=== PATIENT | male | born 1945 | race Caucasian/White ===

== ENCOUNTER 2018-09-16 22:23 | Emergency (ER) | payer MEDICARE, OTHER ==
[2018-09-16 22:46] VITALS: RESP 18; TEMP 97.8
[2018-09-16] MEDS ORDERED: DIPH,PERTUS(ACELL)TETVAC-LF 0.5 ML VIAL IM ONE (22:48)
[2018-09-16] MEDS ORDERED: LIDOCAINE 1% INJ 10MG/ML (20 ML MDV) SQ ONE (22:50)
[2018-09-16] MEDS ORDERED: AMOXIC-POT CLAV 875MG STARTER 2 EACH TABLET PO STA (22:57)
--- NOTE | 2018-09-16 23:06 | XR ---
EXAMINATION TYPE: XR forearm LT DATE OF EXAM: 09/16/2018 COMPARISON: NONE HISTORY: Pain TECHNIQUE: 2 views FINDINGS: There is soft tissue deformity of the mid forearm consistent with posterior laceration. I s ee no fracture nor dislocation. Carpal bones appear intact. Elbow joint is intact. IMPRESSION: No fracture. Laceration deformity.
[2018-09-16 23:48] VITALS: BP 138/81; PULSE 96
--- NOTE | 2018-09-16 23:49 | ED ---
Animal Bite HPI - General Source: patient Mode of arrival: ambulatory Limitations: no limitations <Maria De Jesus Camejo - Last Filed: 09/16/18 23:50> <Shiloh Preston - Last Filed: 09/17/18 00:44> - General Chief Complaint: Animal Bite Stated Complaint: Dog bite Time Seen by Provider: 09/16/18 22:47 - History of Present Illness Initial Comments: 73-year-old male past medical history of hypertension presenting today for chief complaint of left upper extremity dog bite. Patient states about an hour prior to presentation his dog had brought in a rabbit from outside, he states he went to take the rabbit and was bitten the left arm. She states his dog as a hunting dog and often times she'll suspect progression with food. He states this dog is fully vaccinated including rabies. He denies any abnormal behavior. Patient denies any limitations in range of motion of the left upper extremity or distal to the injury. Patient denies any numbness, tingling or loss sensation. Remainder was negative, patient denies any other areas of injury. Patient denies any recent fever, chills, shortness of breath, chest pain , back pain, abdominal pain, nausea or vomiting, numbness or tingling, dysuria or hematuria, constipation or diarrhea, headaches or visual changes, or any other complaints. Upon arrival patient is well-appearing. Patient is unsure of his last tetanus vaccination. (Maria De Jesus Camejo) - Related Data Previous Rx's Medication Instructions Recorded Amoxic-Pot Clav 875-125Mg 1 tab PO Q12HR 7 Days #14 tablet 09/16/18 [Augmentin 875-125] Allergies Allergy/AdvReac Type Severity Reaction Status Date / Time No Known Allergies Allergy Verified 09/16/18 22:46 Review of Systems ROS Other: All systems not noted in ROS Statement are negative. <Maria De Jesus Camejo - Last Filed: 09/16/18 23:50> ROS Other: All systems not noted in ROS Statement are negative. <Shiloh Preston - Last Filed: 09/17/18 00:44> ROS Statement: Those systems with pertinent positive or pertinent negative responses have been documented in the HPI. Past Medical History Past Medical History: Hyperlipidemia, Hypertension History of Any Multi-Drug Resistant Organisms: None Reported Past Surgical History: No Surgical Hx Reported Past Psychological History: No Psychological Hx Reported Smoking Status: Never smoker Past Alcohol Use History: Daily Past Drug Use History: None Reported <Adore Camejohallie Farmer - Last Filed: 09/16/18 23:50> General Exam Limitations: no limitations <Maria De Jesus Camejo - Last Filed: 09/16/18 23:50> <Shiloh Preston P - Last Filed: 09/17/18 00:44> - General Exam Comments Initial Comments: General: The patient is awake and alert, in no distress, and does not appear acutely ill. Eye: Pupils are equal, round and reactive to light, extra-ocular movements are intact. No nystagmus. There is normal conjunctiva bilaterally. No signs of icterus. Ears, nose, mouth and throat: There are moist mucous membranes and no oral lesions. Cardiovascular: There is a regular rate and rhythm. No murmur, rub or gallop is appreciated. Respiratory: Lungs are clear to auscultation, respirations are non-labored, breath sounds are equal. No wheezes, stridor, rales, or rhonchi. Musculoskeletal: Normal ROM at the elbow, wrist and digits of the left hand equal comparison to the right, no tenderness. Strength 5/5. Sensation intact. Radial pulses equal bilaterally 2+ Capillary refill < 2 seconds. She is able to make the okay fingers crossed thumbs up and extend at the wrist bilaterally, ulnar median and radial nerve appear intact. Neurological: A&O x 3. CN II-XII intact, There are no obvious motor or sensory deficits. Coordination appears grossly intact. Speech is normal. Skin: Skin is warm and dry and no rashes or lesions are noted. Large U-shaped laceration with exposure of muscle sheath of the left dorsal forearm, this is approximately 5 cm in length. In exposure of tendons, in penetration of tendon sheath. Psychiatric: Cooperative, appropriate mood & affect, normal judgment. (Maria De Jesus Camejo) Vital Signs 09/16/18 09/16/18 22:42 23:48 Temperature 97.8 F Pulse Rate 108 H 96 Respiratory 18 18 Rate Blood Pressure 178/74 138/81 O2 Sat by Pulse 94 L 94 L Oximetry Procedures - Laceration Laceration #1 Consent Obtained: verbal consent Indication: laceration Site: upper extremity (left forearm) Size (cm): 5 Description: linear Anesthetic Used: lidocaine 1% Anesthesia Technique: local infiltration Amount (mls): 5 Pre-repair: wound explored, irrigated extensively, deep structures intact Type of Sutures: nylon Size of Sutures: 4-0 Number of Sutures: 5 (Loosely approximated given dog bite) Technique: simple, interrupted Patient Tolerated Procedure: well, no complications <Maria De Jesus Camejo - Last Filed: 09/16/18 23:50> <Shiloh Preston - Last Filed: 09/17/18 00:44> - Laceration Laceration #1 Additional Comments: 73-year-old male past medical history of hypertension presenting for dog bite. Dog vaccinated. Patient denies any abnormal behaviors. Patient neurovascularly intact. Given the depth and size of laceration wound edges were loosely approximated. 5 4. 0 nylon sutures. Prior to approximation the wound was extensively irrigated. Bacitracin and bandage applied. Patient given initial dose of Augmentin. Patient tetanus updated. Patient will be prescribed Augmentin twice a day 7 days. Patient is agreeable with plan discharge. Return parameters were discussed at length as well as the signs and symptoms of infection. Patient discharged in stable condition appearing well. Denied questions at the site. Discussed case with attending provider. (Maria De Jesus Camejo) Medical Decision Making <Maria De Jesus Camejo - Last Filed: 09/16/18 23:50> <Shiloh Preston - Last Filed: 09/17/18 00:44> - Medical Decision Making I was available for consultation in the emergency department. The history and physical exam were done by the midlevel provider. I was consulted for this patient's care. I reviewed the case with the midlevel provider and based on their presentation of the patient, I agree with the assessment, medical decision making and plan of care as documented. (Shiloh Preston) Disposition Is patient prescribed a controlled substance at d/c from ED?: No Time of Disposition: 23:48 <Maria De Jesus Camejo - Last Filed: 09/16/18 23:50> <Shiloh Preston - Last Filed: 09/17/18 00:44> Clinical Impression: Dog bite of left upper extremity Disposition: HOME SELF-CARE Instructions (If sedation given, give patient instructions): Animal Bite (ED) Additional Instructions: Please use medication as discussed. Please follow-up with family doctor in the next 2 days for wound check. Please return for suture removal in the next 7-10 days. Please return to emergency room if the symptoms increase or worsen or for any other concerns, including purulent drainage, increasing tenderness or warmth at site of injury. Prescriptions: Amoxic-Pot Clav 875-125Mg [Augmentin 875-125] 1 tab PO Q12HR 7 Days #14 tablet Referrals: [facility],Clinic [Primary Care Provider] - 1-2 days
== END 2018-09-17 00:07 | disposition home or self-care (01) ==
LOC: EC 22:23
DX: S51.812A Laceration without foreign body of left forearm, initial encounter (principal); Z23 Encounter for immunization; W54.0XXA Bitten by dog, initial encounter; Y93.89 Activity, other specified
CPT/HCPCS: 73090; 90715; 99283; 12002; 90471; J2001

== ENCOUNTER → 2019-09-02 | Outpatient (CLI) | payer MEDICARE ==
--- NOTE | 2019-09-02 07:29 | US ---
EXAMINATION TYPE: US duplex aorta DATE OF EXAM: 09/02/2019 COMPARISON: NONE CLINICAL HISTORY: I71.4 Abdominal aortic aneurysm. EXAM MEASUREMENTS: Abdominal Aorta: Proximal: 2.8cm Mid: 2.0cm Distal: 2.1 Bifurcation: Right: 0.8 Left: 1.1cm At least moderate atherosclerosis throughout. IMPRESSION: Atherosclerosis of the abdominal aorta without sonographic evidence of abdominal aortic a neurysm.
== END | disposition home or self-care (01) ==
LOC: RADUSWWP 06:48
PROVIDERS: ATTEND Family Medicine
DX: I70.0 Atherosclerosis of aorta (principal)
CPT/HCPCS: 93979

== ENCOUNTER 2020-01-25 09:17 | Inpatient (IN) | payer MEDICARE ==
[2020-01-25] MEDS ORDERED: SODIUM CHLORIDE 0.9% 1,000 ML IV STA (09:36)
--- NOTE | 2020-01-25 09:45 | ED ---
General Adult HPI - General Chief complaint: Shortness of Breath Stated complaint: Congestion,Fatigue Time Seen by Provider: 01/25/20 09:20 Source: patient, RN notes reviewed, old records reviewed Mode of arrival: ambulatory Limitations: no limitations - History of Present Illness Initial comments: This a 74 her old male who presents emergency Department complaining of generalized weakness starting a week ago. Patient states yesterday he was trying to some work outside and became severely fatigued and had to lay down. Patient states she's been coughing up quite a bit of junk lately but has had no fever or chills. Patient denies any chest pain or palpitations. Patient denies any abdominal pain. Patient's nausea vomiting diarrhea. Patient states he was a little bit short of breath yesterday when he was working or exerting himself. Patient states she used to be a smoker but quit about 8 years ago. patient denies headache patient denies numbness weakness. Patient denies any recent injury or trauma. Patient also states she's had intermittent headaches for the last 3 days. Patient states currently does not have a headache. - Related Data Previous Rx's Medication Instructions Recorded Amoxic-Pot Clav 875-125Mg 1 tab PO Q12HR 7 Days #14 tablet 09/16/18 [Augmentin 875-125] Allergies Allergy/AdvReac Type Severity Reaction Status Date / Time No Known Allergies Allergy Verified 01/25/20 12:04 Review of Systems ROS Statement: Those systems with pertinent positive or pertinent negative responses have been documented in the HPI. ROS Other: All systems not noted in ROS Statement are negative. Past Medical History Past Medical History: Hyperlipidemia, Hypertension History of Any Multi-Drug Resistant Organisms: None Reported Past Surgical History: No Surgical Hx Reported Past Psychological History: No Psychological Hx Reported Smoking Status: Never smoker Past Alcohol Use History: Daily Past Drug Use History: None Reported General Exam - General Exam Comments Initial Comments: GENERAL: Patient is well-developed and well-nourished. Patient is nontoxic and well- hydrated and is in mild distress. ENT: Neck is soft and supple. No significant lymphadenopathy is noted. Oropharynx is clear. Moist mucous membranes. Neck has full range of motion without eliciting any pain. EYES: The sclera were anicteric and conjunctiva were pink and moist. Extraocular movements were intact and pupils were equal round and reactive to light. Eyelids were unremarkable. PULMONARY: Unlabored respirations. Good breath sounds bilaterally. No audible rales rhonchi or wheezing was noted. CARDIOVASCULAR: There is a regular rate and rhythm without any murmurs gallops or rubs. ABDOMEN: Soft and nontender with normal bowel sounds. SKIN: Skin is clear with no lesions or rashes and otherwise unremarkable. NEUROLOGIC: Patient is alert and oriented x3. Cranial nerves II through XII are grossly intact. Motor and sensory are also intact. Normal speech, volume and content. Symmetrical smile. MUSCULOSKELETAL: Normal extremities with adequate strength and full range of motion. LYMPHATICS: No significant lymphadenopathy is noted PSYCHIATRIC: Normal psychiatric evaluation. Limitations: no limitations Course Vital Signs 01/25/20 01/25/20 01/25/20 09:19 09:22 10:22 Temperature 98.1 F Pulse Rate 113 H 104 H Respiratory 18 20 20 Rate Blood Pressure 161/78 139/70 O2 Sat by Pulse 94 L 97 Oximetry Medical Decision Making - Medical Decision Making EKG shows sinus tachycardia at 113 bpm NM interval is 162 QRS is under QT interval 332 QTC is 455. Patient's EKG shows no ST segment elevation or depression. X-ray shows bilateral patchy infiltrates. Patient started on Rocephin and Zithromax in the emergency department. I spoke with Dr. Bloom he agreed to admit the patient admitted the patient wrote admitting orders. - Lab Data Result diagrams: 01/25/20 10:44 01/25/20 09:35 Lab Results 01/25/20 01/25/20 01/25/20 Range/Units 09:35 09:35 09:35 WBC (3.8-10.6) k/uL RBC (4.30-5.90) m/uL Hgb (13.0-17.5) gm/dL Hct (39.0-53.0) % MCV (80.0-100.0) fL MCH (25.0-35.0) pg MCHC (31.0-37.0) g/dL RDW (11.5-15.5) % Plt Count (150-450) k/uL Neutrophils % % Lymphocytes % % Monocytes % % Eosinophils % % Basophils % % Neutrophils # (1.3-7.7) k/uL Lymphocytes # (1.0-4.8) k/uL Monocytes # (0-1.0) k/uL Eosinophils # (0-0.7) k/uL Basophils # (0-0.2) k/uL PT 9.9 (9.0-12.0) sec INR 1.0 (<1.2) APTT 23.4 (22.0-30.0) sec Sodium 138 (137-145) mmol/L Potassium 4.3 (3.5-5.1) mmol/L Chloride 105 (98-107) mmol/L Carbon Dioxide 19 L (22-30) mmol/L Anion Gap 14 mmol/L BUN 11 (9-20) mg/dL Creatinine 1.00 (0.66-1.25) mg/dL Est GFR (CKD-EPI)AfAm 84 (>60 ml/min/1.73 sqM) Est GFR (CKD-EPI)NonAf 73 (>60 ml/min/1.73 sqM) Glucose 118 H (74-99) mg/dL Calcium 9.3 (8.4-10.2) mg/dL Magnesium 2.3 (1.6-2.3) mg/dL Total Bilirubin 1.6 H (0.2-1.3) mg/dL AST 35 (17-59) U/L ALT 15 (4-49) U/L Alkaline Phosphatase 85 (38-126) U/L Troponin I <0.012 (0.000-0.034) ng/mL Total Protein 8.1 (6.3-8.2) g/dL Albumin 4.2 (3.5-5.0) g/dL Urine Color Urine Appearance (Clear) Urine pH (5.0-8.0) Ur Specific [place] (1.001-1.035) Urine Protein (Negative) Urine Glucose (UA) (Negative) Urine Ketones (Negative) Urine Blood (Negative) Urine Nitrite (Negative) Urine Bilirubin (Negative) Urine Urobilinogen (<2.0) mg/dL Ur Leukocyte Esterase (Negative) Urine RBC (0-5) /hpf Urine WBC (0-5) /hpf Hyaline Casts (0-2) /lpf Urine Mucus (None) /hpf 01/25/20 01/25/20 Range/Units 10:30 10:44 WBC 16.5 H (3.8-10.6) k/uL RBC 4.70 (4.30-5.90) m/uL Hgb 14.4 (13.0-17.5) gm/dL Hct 44.4 (39.0-53.0) % MCV 94.4 (80.0-100.0) fL MCH 30.7 (25.0-35.0) pg MCHC 32.5 (31.0-37.0) g/dL RDW 12.9 (11.5-15.5) % Plt Count 286 (150-450) k/uL Neutrophils % 86 % Lymphocytes % 7 % Monocytes % 5 % Eosinophils % 1 % Basophils % 0 % Neutrophils # 14.1 H (1.3-7.7) k/uL Lymphocytes # 1.2 (1.0-4.8) k/uL Monocytes # 0.8 (0-1.0) k/uL Eosinophils # 0.2 (0-0.7) k/uL Basophils # 0.0 (0-0.2) k/uL PT (9.0-12.0) sec INR (<1.2) APTT (22.0-30.0) sec Sodium (137-145) mmol/L Potassium (3.5-5.1) mmol/L Chloride (98-107) mmol/L Carbon Dioxide (22-30) mmol/L Anion Gap mmol/L BUN (9-20) mg/dL Creatinine (0.66-1.25) mg/dL Est GFR (CKD-EPI)AfAm (>60 ml/min/1.73 sqM) Est GFR (CKD-EPI)NonAf (>60 ml/min/1.73 sqM) Glucose (74-99) mg/dL Calcium (8.4-10.2) mg/dL Magnesium (1.6-2.3) mg/dL Total Bilirubin (0.2-1.3) mg/dL AST (17-59) U/L ALT (4-49) U/L Alkaline Phosphatase (38-126) U/L Troponin I (0.000-0.034) ng/mL Total Protein (6.3-8.2) g/dL Albumin (3.5-5.0) g/dL Urine Color Yellow Urine Appearance Clear (Clear) Urine pH 5.5 (5.0-8.0) Ur Specific [place] 1.007 (1.001-1.035) Urine Protein Negative (Negative) Urine Glucose (UA) Negative (Negative) Urine Ketones Negative (Negative) Urine Blood Small H (Negative) Urine Nitrite Negative (Negative) Urine Bilirubin Negative (Negative) Urine Urobilinogen <2.0 (<2.0) mg/dL Ur Leukocyte Esterase Negative (Negative) Urine RBC 2 (0-5) /hpf Urine WBC 1 (0-5) /hpf Hyaline Casts 1 (0-2) /lpf Urine Mucus Rare H (None) /hpf Disposition Clinical Impression: Pneumonia Disposition: ADMITTED IP TO THIS HOSP Referrals: Carlos Rogers MD [Primary Care Provider] - 1-2 days Time of Disposition: 12:05
[2020-01-25 10:09] LABS: Albumin 4.2 g/dL (3.5-5.0); Calcium 9.3 mg/dL (8.4-10.2); Magnesium 2.3 mg/dL (1.6-2.3); Total Bilirubin 1.6 mg/dL (0.2-1.3); Total Protein 8.1 g/dL (6.3-8.2)
--- NOTE | 2020-01-25 10:17 | XR ---
EXAMINATION TYPE: XR chest 2V DATE OF EXAM: 01/25/2020 HISTORY: Weakness. REFERENCE: NONE. FINDINGS: There are patchy, bilateral infiltrates. The heart is not enlarged. Pleural spaces are adiel r. IMPRESSION: PATCHY BILATERAL INFILTRATES.
--- NOTE | 2020-01-25 10:19 | CT ---
EXAMINATION TYPE: CT brain wo con DATE OF EXAM: 01/25/2020 COMPARISON: NONE HISTORY: Headache, fatigue CT DLP: 1099.4 mGycm Automated exposure control for dose reduction was used. FINDINGS: Central structures are midline. There is no evidence of hydrocephalus. No acute focal lesion, mass ef fect or midline shift is seen. I do not see evidence of intracranial blood. There are senescent morton es present. Visualized portions of the paranasal sinuses and mastoids are clear. The bony calvarium is intact. IMPRESSION: NO ACUTE INTRACRANIAL ABNORMALITY.
[2020-01-25 10:26] LABS: Potassium 4.3 mmol/L (3.5-5.1)
[2020-01-25 10:32] LABS: Partial Thromboplastin Time 23.4 sec (22.0-30.0); Prothrombin Time 9.9 sec (9.0-12.0)
[2020-01-25 10:49] LABS: Basophils % (A) 0 %; Eosinophils # (A) 0.2 k/uL (0-0.7); Eosinophils % (A) 1 %; HCT 44.4 % (39.0-53.0); HGB 14.4 gm/dL (13.0-17.5); Lymphocytes # (A) 1.2 k/uL (1.0-4.8); Lymphocytes % (A) 7 %; MCH 30.7 pg (25.0-35.0); MCHC 32.5 g/dL (31.0-37.0); MCV 94.4 fL (80.0-100.0); Mean Platelet Volume 7.5; Monocytes # (A) 0.8 k/uL (0-1.0); Monocytes % (A) 5 %; Neutrophils # (A) 14.1 k/uL (1.3-7.7); Neutrophils % (A) 86 %; Platelet Count 286 k/uL (150-450); RDW 12.9 % (11.5-15.5); WBC 16.5 k/uL (3.8-10.6)
[2020-01-25 10:51] LABS: Appearance,Urine Clear (Clear); Bilirubin,Urine Negative (Negative); Blood,Urine Small (Negative); Color,Urine Yellow; Glucose,Urine (UA) Negative (Negative); Hyaline Casts,Urine 1 /lpf (0-2); Ketones,Urine Negative (Negative); Leukocyte Esterase,Urine Negative (Negative); Mucus,Urine Rare /hpf; Nitrite,Urine Negative (Negative); PH, Urine 5.5 (5.0-8.0); Protein,Urine Negative (Negative); RBC,Urine 2 /hpf (0-5); Specific Gravity,Urine 1.007 (1.001-1.035); Urobilinogen,Urine <2.0 mg/dL (<2.0); WBC,Urine 1 /hpf (0-5)
[2020-01-25] MEDS ORDERED: cefTRIAXone IN SWFI 1,000 MG/10 ML SYRINGE IVP STA (11:51)
[2020-01-25] MEDS ORDERED: AZITHROMYCIN 500 MG in SODIUM CHLORIDE 0.9% 250 ML IVPB STA (12:05)
[2020-01-25] MEDS ORDERED: PNEUMONIA PROTOCOL UTILIZED 1 EACH MISC PO PRN (12:05)
--- NOTE | 2020-01-25 14:20 | CT ---
EXAMINATION TYPE: CT chest wo con DATE OF EXAM: 01/25/2020 COMPARISON: None. HISTORY: Pneumonia, SOB CT DLP: 329.6 mGycm. Automated Exposure Control for Dose Reduction was Utilized. TECHNIQUE: CT scan of the thorax is performed without IV contrast. FINDINGS: There is apical scarring present bilaterally. There are diffuse emphysematous changes throu ghout both lungs. There is fibrotic change in the left lower lobe. No lobar consolidation is seen. There is no significant axillary adenopathy. There is a 1.3 cm pretracheal lymph node and other shott y lymph nodes in the mediastinum. There is no pleural or pericardial fluid. The heart is not enlarged . There is a small sliding hiatal hernia. There is a 2.2 x 2 cm hypoattenuating lesion in the posterior segment of the right lobe of the liver. This may represent a cyst. This could BE confirmed with ultrasound. There is a smaller, 7.7 mm lesio n in the dome of the liver. There is diverticular change involving the left side of the colon. IMPRESSION: 1. SEVERE EMPHYSEMA AND COPD. 2. SUPERIMPOSED FIBROTIC CHANGE. 3. APICAL SCARRING BILATERALLY. 4. NONSPECIFIC ADENOPATHY. 5. SMALL HIATAL HERNIA. 6. HYPOATTENUATING LESIONS WITHIN THE LIVER MAY REPRESENT CYSTS. THIS SHOULD BE CONFIRMED WITH [facility].
[2020-01-25] MEDS: ACETAMINOPHEN TAB 325 MG TAB PO PRN (14:49)
[2020-01-25] MEDS ORDERED: ALPRAZolam 0.25 MG TAB PO PRN (16:23)
[2020-01-25] MEDS ORDERED: HYDROcodone/APAP 5-325MG 1 EACH TAB PO PRN (16:23)
[2020-01-25] MEDS ORDERED: HYDROmorphone 0.5 MG/0.5 ML SYRINGE IVP PRN (16:23)
[2020-01-25] MEDS ORDERED: LORazepam 0.5 MG TAB PO PRN (16:30)
[2020-01-25] MEDS: SODIUM CHLORIDE 0.9% 1,000 ML IV SCH (17:13)
[2020-01-25] MEDS: MULTIVITAMINS, THERA 1 EACH TAB PO SCH (17:13)
[2020-01-25 17:17] LABS: C Reactive Protein 144.1 mg/L (<10.0)
--- NOTE | 2020-01-25 18:02 | HP ---
HISTORY AND PHYSICAL CHIEF COMPLAINTS: Shortness of breath and cough and sputum. HISTORY OF PRESENT ILLNESS: This 74-year-old gentleman with a past history of hypertension, hyperlipidemia, history of kidney infection, adenoidectomy, being followed by Dr. Carlos Rogers in the outpatient setting is complaining of shortness of breath and generalized weakness about a week ago. Apparently the was also sick and because of increasing difficulty in cough and weakness, patient came to [facility] and chest x-ray showed bilateral shadows and the CT scan also showed bilateral interstitial shadows and Covid-19 pneumonia suspected. Testing was done. Patient admitted for evaluation and treatment. Broad-spectrum IV antibiotics initiated empirically. There is no history of fever, rigors. No history of headache, loss of consciousness. No contact with sick individuals and travel recently. PAST MEDICAL HISTORY: Hypertension, hyperlipidemia, kidney infections, history of smoking. MEDICATIONS: Prior to admission include home medications are: 1. Multivitamins 1 p.o. daily. 2. Norvasc 10 mg daily. 3. Lipitor 10 mg q.h.s. ALLERGIES: None. FAMILY HISTORY: No history of any heart disease or strokes in family. SOCIAL HISTORY: Previous history of smoking, alcohol intake daily. REVIEW OF SYSTEMS: ENT: Diminished vision. Diminished hearing. Cardiovascular is no angina or palpitations. RESPIRATORY SYSTEM: As mentioned earlier. GI no nausea. no dysuria. Nervous system: No numbness or weakness. ALLERGY/IMMUNOLOGY: No asthma or hayfever. MUSCULOSKELETAL as mentioned earlier. HEMATOLOGY/ONCOLOGY: No history of anemia. ENDOCRINE: No history of diabetes or hypothyroidism. CONSTITUTIONAL: As mentioned earlier. DERMATOLOGY: Negative. RHEUMATOLOGY negative. PSYCHIATRY as mentioned earlier. PHYSICAL EXAMINATION: Alert and oriented x3. Pulse is 115, blood pressure is 130/60, respiration 32, temperature 98.8, pulse ox 98% on 2 L. HEENT: Conjunctivae normal. Oral mucosa moist. NECK is no jugular venous distention. No carotid bruit. No lymph node enlargement. Cardiovascular system: S1, S2 muffled. RESPIRATORY: Breath sounds diminished in in the bases. Bilateral scattered rhonchi and crackles. Expiratory wheezing also present. ABDOMEN: Soft, nontender. No mass palpable. LEGS: No edema, no swelling. NERVOUS SYSTEM: Higher functions as mentioned earlier. Moves all four limbs. No focal motor or sensory deficits. SKIN: No ulcer, no rashes and no bleeding. JOINTS: No active deforming arthropathy. LABS: WBC 16.5. CT scan and chest x-ray reviewed personally by me. Total bilirubin is 1.6. ASSESSMENT: 1. Acute bilateral pneumonia, interstitial pneumonia, possible Covid-19 pneumonia. 2. Increased WBC. 3. Decreased CO2. 4. Increased random blood sugar. 5. Hyperlipidemia. 6. Hypertension. 7. History of urinary tract infections. 8. Previous history of nicotine dependence. 9. Possible underlying chronic obstructive pulmonary disease acute exacerbation. 10.History of ETOH. 11.FULL CODE. RECOMMENDATIONS: This 74-year-old gentleman presented with multiple complex medical issues, we will monitor the patient closely. As mentioned earlier, I would recommend broad-spectrum IV antibiotics and follow the cultures including sputum culture. Consult Infectious Disease and Pulmonary. Bronchodilators. Optimize bronchodilators and oxygenation. Otherwise DVT prophylaxis. I would recommend Lovenox and I would also await further Covid-19 testing. I will order the rest of the serologies. Guarded prognosis. Further recommendations to follow. A copy of this dictation being forwarded to Dr. Rogers, who is the primary physician. Please note that Covid-19 testing has significant number of false-positive but clinically will treat as Covid and continue to monitor. MMODL / IJN: [id number] /
[2020-01-25] MEDS: ATORVASTATIN 10 MG TAB PO SCH (20:05)
[2020-01-25] MEDS: ENOXAPARIN 40 MG/0.4 ML SYRINGE SQ SCH (20:05)
[2020-01-25] MEDS: IPRATROPIUM-ALBUTEROL 3 ML NEB INHALATION SCH (20:10)
[2020-01-25] MEDS ORDERED: HEPARIN SODIUM,PORCINE 5,000 UNIT/ML 1 ML VIAL SQ SCH (21:00)
[2020-01-26] MEDS: ACETAMINOPHEN TAB 325 MG TAB PO PRN ×2 (02:02→16:00)
[2020-01-26] MEDS: SODIUM CHLORIDE 0.9% 1,000 ML IV SCH ×2 (04:12→21:30)
[2020-01-26] MEDS: IPRATROPIUM-ALBUTEROL 3 ML NEB INHALATION SCH ×4 (07:46→20:02)
[2020-01-26 08:59] LABS: Basophils % (A) 0 %; Eosinophils % (A) 0 %; HCT 42.5 % (39.0-53.0); HGB 13.7 gm/dL (13.0-17.5); Lymphocytes # (A) 2.1 k/uL (1.0-4.8); Lymphocytes % (A) 14 %; MCH 30.6 pg (25.0-35.0); MCHC 32.2 g/dL (31.0-37.0); MCV 95.2 fL (80.0-100.0); Monocytes # (A) 0.8 k/uL (0-1.0); Monocytes % (A) 5 %; Neutrophils # (A) 11.9 k/uL (1.3-7.7); Neutrophils % (A) 79 %; Platelet Count 278 k/uL (150-450); RBC 4.47 m/uL (4.30-5.90); RDW 12.8 % (11.5-15.5); WBC 15.1 k/uL (3.8-10.6)
[2020-01-26 09:17] LABS: Calcium 8.2 mg/dL (8.4-10.2); Potassium 3.8 mmol/L (3.5-5.1)
--- NOTE | 2020-01-26 09:27 | P.CONS ---
History of Present Illness - Reason for Consult Consult date: 01/25/20 sepsis Requesting physician: Dianne Bloom - Chief Complaint shortness of breath , cough x few days - History of Present Illness Patient is a 74-year-old male with a past medical his significant for COPD presenting to the ER this morning with a chief complaint of generalized weakness and cough the patient said that has been going on for about a week before presentation the hospital patient has been complaining of weakness and fatigue debility that has been getting worse also complaining of cough that has been moderate in intensity and is bringing up some yellowish sputum no hemoptysis the patient had denies having any pleuritic chest pain no nausea no vomiting no choking on the food abdominal pain and no diarrhea also complaining of increasing shortness of breath on minimal exertion with the symptom had the patient has been evaluated by ER physician on arrival to the ER patient was afebrile subsequently spiked a fever of 102 F patient was tachycardic with heart rate of 113 also have elevated white count of 16.5 CRP is elevated at 144 urine was negative mcallister PCR is pending patient did have a chest x-ray patient bilateral infiltrate he also have a CT of the chest which shows severe emphysema and COPD nonspecific adenopathy and hypoattenuating lesion in the liver patient has been started on Rocephin and Zithromax, infectious was consulted for further management of antibiotic therapy. Review of Systems Positive point has been mentioned in HPI rest of the systems are negative Past Medical History Past Medical History: Hyperlipidemia, Hypertension Additional Past Medical History / Comment(s): kidney infections History of Any Multi-Drug Resistant Organisms: None Reported Past Surgical History: Adenoidectomy, Tonsillectomy Past Anesthesia/Blood Transfusion Reactions: No Reported Reaction Past Psychological History: No Psychological Hx Reported Smoking Status: Former smoker Past Alcohol Use History: Daily Additional Past Alcohol Use History / Comment(s): pt states he drinks three beers daily; pt states he has no history of alcohol withdrawal. Past Drug Use History: None Reported Medications and Allergies Home Medications Medication Instructions Recorded Confirmed Type Atorvastatin Calcium [Lipitor] 10 mg PO HS 01/25/20 01/25/20 History Multivitamins, Thera [Multivitamin 1 tab PO DAILY 01/25/20 01/25/20 History (formulary)] amLODIPine [Norvasc] 10 mg PO DAILY 01/25/20 01/25/20 History Allergies Allergy/AdvReac Type Severity Reaction Status Date / Time No Known Allergies Allergy Verified 01/25/20 12:04 Physical Exam Vitals: Vital Signs Temp Pulse Pulse Resp BP BP Pulse Ox 01/25/20 16:43 110 H 01/25/20 15:31 100.6 F H 01/25/20 14:52 102 F H 25 H 01/25/20 13:26 98.8 F 115 H 32 H 135/62 90 L 01/25/20 13:14 99.7 F H 01/25/20 12:47 104 H 20 129/75 97 01/25/20 12:00 104 H 20 129/75 97 01/25/20 11:00 104 H 20 139/70 97 01/25/20 10:22 104 H 20 139/70 97 01/25/20 09:22 20 01/25/20 09:19 98.1 F 113 H 18 161/78 94 L Intake and Output 01/25/20 01/25/20 01/25/20 06:59 14:59 22:59 Output Total 600 Balance -600 Output: Stool 600 Other: Voiding Method Urinal Weight 74.843 kg GENERAL DESCRIPTION: Elderly male lying in bed, no distress. No tachypnea or accessory muscle of respiration use. HEENT: Shows Pallor , no scleral icterus. Oral mucous membrane is dry. NECK: Trachea central, no thyromegaly. LUNGS: Unlabored breathing. Decrease intensity of breath sounds. No wheeze or crackle. HEART: S1, S2, regular rate and rhythm. ABDOMEN: Soft, no tenderness , guarding or rigidity EXTREMITIES: No edema of feet. SKIN: No rash, no masses palpable. NEUROLOGICAL: The patient is awake, alert, oriented x3, mood and affect normal. Results CBC & Chem 7: 01/26/20 07:54 01/26/20 07:54 Labs: Abnormal Lab Results - Last 24 Hours (Table) 01/25/20 01/25/20 01/25/20 Range/Units 09:35 10:30 10:44 WBC 16.5 H (3.8-10.6) k/uL Neutrophils # 14.1 H (1.3-7.7) k/uL Carbon Dioxide 19 L (22-30) mmol/L Glucose 118 H (74-99) mg/dL Total Bilirubin 1.6 H (0.2-1.3) mg/dL Urine Blood Small H (Negative) Urine Mucus Rare H (None) /hpf Assessment and Plan Assessment: -patient presented hospital with sepsis in this patient who did have a fever tachycardia elevated white count and predominantly respiratory symptoms likely representing pneumonia possible community-acquired however COVID-19 infection is suspected though CT of the chest did not show the groundglass opacity usually seen with the COVID-19. (1) Sepsis Current Visit: Yes Status: Acute Code(s): A41.9 - SEPSIS, UNSPECIFIED ORGANISM SNOMED Code(s): 24844678 (2) Pneumonia Current Visit: Yes Status: Acute Code(s): J18.9 - PNEUMONIA, UNSPECIFIED ORGANISM SNOMED Code(s): 987034423 Plan: 1-we will wait for the procalcitonin LDH and d-dimer that has been ordered by admitting physician as well as coronoa PCR 2-obtain a sputum for Gram stain culture 3-Rocephin 1 g daily and Zithromax to continue 4-respiratory support and droplet isolation We will follow on clinical condition and cultures to further adjust medication i f needed Thank you for this consultation we will follow the patient along with you Time with Patient: Greater than 30
[2020-01-26] MEDS: ENOXAPARIN 40 MG/0.4 ML SYRINGE SQ SCH ×2 (09:32→21:30)
[2020-01-26] MEDS: amLODIPine 10 MG TAB PO SCH (09:32)
[2020-01-26] MEDS: PANTOPRAZOLE 40 MG TABLET PO SCH (09:32)
[2020-01-26] MEDS: MULTIVITAMINS, THERA 1 EACH TAB PO SCH (09:32)
[2020-01-26] MEDS: AZITHROMYCIN 500 MG TAB PO SCH (09:44)
--- NOTE | 2020-01-26 10:01 | XR ---
EXAMINATION TYPE: XR chest 1V portable DATE OF EXAM: 01/26/2020 HISTORY: Follow up, SOB. REFERENCE: Previous study dated 01/25/2020. FINDINGS: There is worsening left basilar airspace disease. There is blunting of the left angle and I cannot exclude a small. Heart size upper limits of normal. IMPRESSION: MILD WORSENING IN THE PATIENT'S LEFT BASILAR AIRSPACE DISEASE WITH A SMALL CONCOMITANT EFFUSION.
--- NOTE | 2020-01-26 12:37 | P.CNPUL ---
History of Present Illness Consult date: 01/26/20 Reason for consult: dyspnea, COPD, pneumonia History of present illness: A 74-year-old male patient with known history of COPD who presented to the emergency department with increased cough and congestion and generalized weakness. No hemoptysis. No pleurisy. The patient was producing some yellowish sputum. No pleurisy. No reported aspiration. His T-max was 102 and the patient was tachycardic with a heart rate above 110 sinus at the time of admission. His white cell count was at 16.5. He checked negative for covid 19 infection. 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 The patient was started on examination Rocephin and Zithromax and the patient or the feeling better. He does not utilize any form of oxygen or nebulized medications or maintenance of her medications on outpatient basis. He had missed her chronic exertional dyspnea. He has been able to manage well without any major difficulties. He has hypertension and hyperlipidemia as c omorbidities. The pro-calcitonin level is at 0.16. CRP level is at 144. Review of Systems Constitutional: Reports weakness Eyes: denies as per HPI, denies blurred vision, denies bulging eye, denies decreased vision, denies diplopia, denies discharge, denies dry eye, denies irritation, denies itching, denies pain, denies photophobia, denies loss of peripheral vision, denies loss of vision, denies tunnel vision/blind spots Ears: deny: decreased hearing, ear discharge, earache, tinnitus Ears, nose, mouth and throat: Reports as per HPI Breasts: absent: as per HPI, gynecomastia Cardiovascular: Reports decreased exercise tolerance, Reports dyspnea on exertion Respiratory: Reports congestion, Reports dyspnea Gastrointestinal: Reports as per HPI Genitourinary: Reports as per HPI Musculoskeletal: Reports as per HPI Musculoskeletal: absent: ankle pain, ankle stiffness, ankle swelling Integumentary: Reports as per HPI Neurological: Reports as per HPI Psychiatric: Reports as per HPI Endocrine: Reports as per HPI Hematologic/Lymphatic: Reports as per HPI Allergic/Immunologic: Reports as per HPI Past Medical History Past Medical History: COPD, Hyperlipidemia, Hypertension Additional Past Medical History / Comment(s): kidney infections History of Any Multi-Drug Resistant Organisms: None Reported Past Surgical History: Adenoidectomy, Tonsillectomy Past Anesthesia/Blood Transfusion Reactions: No Reported Reaction Past Psychological History: No Psychological Hx Reported Smoking Status: Former smoker (quit smoking in 2004, has 50 py smoker) Past Alcohol Use History: Daily Additional Past Alcohol Use History / Comment(s): pt states he drinks three beers daily; pt states he has no history of alcohol withdrawal. Past Drug Use History: None Reported Medications and Allergies Home Medications Medication Instructions Recorded Confirmed Type Atorvastatin Calcium [Lipitor] 10 mg PO HS 01/25/20 01/25/20 History Multivitamins, Thera [Multivitamin 1 tab PO DAILY 01/25/20 01/25/20 History (formulary)] amLODIPine [Norvasc] 10 mg PO DAILY 01/25/20 01/25/20 History Allergies Allergy/AdvReac Type Severity Reaction Status Date / Time No Known Allergies Allergy Verified 01/25/20 12:04 Physical Exam Vitals: Vital Signs Temp Pulse Pulse Resp BP BP Pulse Ox 01/26/20 08:00 94 01/26/20 07:47 92 01/26/20 07:07 98.1 F 94 18 124/71 91 L 01/26/20 01:40 100.8 F H 103 H 113/62 91 L 01/25/20 20:16 104 H 01/25/20 20:11 110 H 01/25/20 20:00 100.6 F H 105 H 18 141/76 93 L 01/25/20 17:15 98.8 F 98 18 119/69 92 L 01/25/20 16:43 110 H 01/25/20 15:31 100.6 F H 01/25/20 14:52 102 F H 25 H 01/25/20 13:26 98.8 F 115 H 32 H 135/62 90 L 01/25/20 13:14 99.7 F H 01/25/20 12:47 104 H 20 129/75 97 01/25/20 12:00 104 H 20 129/75 97 01/25/20 11:00 104 H 20 139/70 97 01/25/20 10:22 104 H 20 139/70 97 Intake and Output 01/25/20 01/26/20 01/26/20 22:59 06:59 14:59 Intake Total 225 Output Total 350 Balance -125 Intake: Intake, IV Titration 225 Amount Sodium Chloride 0.9% 1, 225 000 ml @ 75 mls/hr IV . [id number] [facility] [place] Rx#:[id number] Output: Urine 350 Other: Voiding Method Urinal Urinal # Voids 2 Gen. appearance, comfortable without any acute respiratory distress and the patient is not using any form of accessory muscles of breathing. Head exam was generally normal. There was no scleral icterus or corneal arcus. Mucous membranes were moist. Neck was supple and without jugular venous distension, thyromegaly, or carotid bruits. Carotids were easily palpable bilaterally. There was no adenopathy. lung sounds are diminished bilaterally along with some scattered rhonchi and scattered expiratory wheezes throughout the lung leger and crackles in lung bases. Cardiac exam revealed the PMI to be normally situated and sized. The rhythm was regular and no extrasystoles were noted during several minutes of auscultation. The first and second heart sounds were normal and physiologic splitting of the second heart sound was noted. There were no murmurs, rubs, clicks, or gallops. Abdominal exam revealed normal bowel sounds. The abdomen was soft, non-tender, and without masses, organomegaly, or appreciable enlargement of the abdominal aorta. Examination of the extremities revealed easily palpable radial, femoral and pedal pulses. There was no cyanosis, clubbing or edema. Examination of the skin revealed no evidence of significant rashes, suspicious appearing nevi or other concerning lesions. neurologically awake and alert and there is no focal neurological deficit. Results - Laboratory Findings CBC and BMP: 01/26/20 07:54 01/26/20 07:54 PT/INR, D-dimer PT 9.9 sec (9.0-12.0) 01/25/20 09:35 INR 1.0 (<1.2) 01/25/20 09:35 D-Dimer 0.34 mg/L FEU (<0.60) 01/25/20 16:36 Abnormal lab findings: Abnormal Labs 01/25/20 01/25/20 01/25/20 09:35 10:30 10:44 WBC 16.5 H Neutrophils # 14.1 H ESR Carbon Dioxide 19 L Glucose 118 H Calcium Total Bilirubin 1.6 H C-Reactive Protein Procalcitonin Urine Blood Small H Urine Mucus Rare H 01/25/20 01/25/20 01/25/20 16:36 16:36 16:36 WBC Neutrophils # ESR 35 H Carbon Dioxide Glucose Calcium Total Bilirubin C-Reactive Protein 144.1 H Procalcitonin 0.16 H Urine Blood Urine Mucus 01/26/20 01/26/20 07:54 07:54 WBC 15.1 H Neutrophils # 11.9 H ESR Carbon Dioxide Glucose 105 H Calcium 8.2 L Total Bilirubin C-Reactive Protein Procalcitonin Urine Blood Urine Mucus - Diagnostic Findings Chest x-ray: image reviewed CT scan - chest: image reviewed Assessment and Plan Plan: 1 acute community-acquired left lower lobe pneumonia, the covid 19 evaluation was negative. 2 COPD exacerbation secondary to above 3 shortness of breath secondary to above 4 mild leukocytosis 5 hypertension 6 hyperlipidemia Plan Continue IV Rocephin and Zithromax Sputum Gram stain and culture Monitor white cell count Continue DuoNeb about treatments around the clock IV fluids at 75 mL an hour Follow-up chest x-ray CAT scan of the chest was noted Oxygen therapy and the patient will likely need home O2 at time of discharge Outpatient PFT to assess severity of his COPD We'll continue to follow
[2020-01-26] MEDS: ATORVASTATIN 10 MG TAB PO SCH (21:30)
--- NOTE | 2020-01-27 01:44 | PN ---
PROGRESS NOTE DATE OF SERVICE: 01/26/2020 This 74-year-old gentleman admitted with shortness of breath and bilateral pneumonia suspected COVID-19 pneumonia. The patient also had features of sepsis. The COVID-19 test is negative. The patient is on broad-spectrum IV antibiotics. No chest pain or palpitations. PAST MEDICAL HISTORY: Reviewed. REVIEW OF SYSTEMS: CARDIOVASCULAR SYSTEM: No angina. RESPIRATORY SYSTEM: As mentioned earlier. GI: As mentioned earlier. : No dysuria. NERVOUS SYSTEMA: No numbness or weakness. CURRENT MEDICATIONS: Current medications are reviewed and include: 1. Tylenol p.r.n. 2. [place] 5 mg q.6 p.r.n. 3. DuoNeb q.i.d. 4. Norvasc 10 mg daily. 5. Lipitor 10 mg at bedtime. 6. Zithromax 500 mg daily. 7. Rocephin 1 gram daily. 8. Lovenox. 9. Dilaudid. 10.Ativan. 11.Protonix. PHYSICAL EXAMINATION: Patient is alert and oriented x3. Pulse is 111. Blood pressure is 124/64, respiration 20, temperature 99.6, pulse ox 93% on 4 L. HEENT: Conjunctivae normal. NECK: No jugular venous distention. CARDIOVASCULAR: S1, S2 muffled. RESPIRATORY: Breath sounds diminished at the bases. Bilateral scattered rhonchi and crackles. ABDOMEN: Soft, nontender. No mass palpable. LEGS: No edema, no swelling. NERVOUS SYSTEM: No focal deficits. LABS: WBC 15.1, hemoglobin 13.7, sodium 138 and procalcitonin 0.16. ASSESSMENT: 1. Chronic obstructive pulmonary disease exacerbation with acute bilateral pneumonia possibly interstitial pneumonia possibly gram-negative. 2. Possible COVID-19 pneumonia. Test negative, could be false negative. 3. Increased WBC. 4. Decreased CO2. 5. Increased random blood sugar. 6. Hyperlipidemia. 7. Hypertension. 8. History of urinary tract infection. 9. Previous history of nicotine dependence. 10.Possible underlying chronic obstructive pulmonary disease. 11.History of EtOH. 12.FULL CODE. RECOMMENDATIONS AND DISCUSSION: Recommend to continue current medications, continue symptomatic treatment. Otherwise at this time I recommend bronchodilators, antibiotics and DVT prophylaxis. Continue the rest of medications. Follow closely with Infectious Disease and Pulmonary. Prognosis guarded because of multiple complex medical issues. Further recommendations to follow. MMODL / IJN: [id number] /
--- NOTE | 2020-01-27 04:29 | PN ---
PROGRESS NOTE DATE OF SERVICE: 01/26/2020 REASON FOR FOLLOWUP: Community-acquired pneumonia. INTERVAL HISTORY: The patient is currently afebrile. Patient is breathing slightly comfortably. The patient did have a cough moderate intensity and bringing up some sputum. No hemoptysis. No chest pain. No abdominal pain or diarrhea. PHYSICAL EXAMINATION: Blood pressure 107/61 with a pulse of 88, temperature 98.3. He is 91% on 4 L nasal cannula. General description is an elderly male lying in bed in no distress. RESPIRATORY SYSTEM: Unlabored breathing, decreased breath sounds at the bases. No wheeze. HEART: S1, S2. Regular rate and rhythm. ABDOMEN: Soft, no tenderness. LABS: Hemoglobin 13.7, white count 15.1, creatinine 0.97. DIAGNOSTIC IMPRESSION AND PLAN: Patient admitted to the hospital with sepsis. Source is likely pneumonia community- acquired. The patient is covered Rocephin and Zithromax to continue while awaiting for the sputum culture to finalize. Continue with supportive care. MMODL / IJN: [id number] /
[2020-01-27 08:14] LABS: Basophils % (A) 0 %; Eosinophils % (A) 0 %; HCT 37.8 % (39.0-53.0); HGB 12.7 gm/dL (13.0-17.5); Lymphocytes # (A) 1.4 k/uL (1.0-4.8); Lymphocytes % (A) 11 %; MCH 31.9 pg (25.0-35.0); MCHC 33.7 g/dL (31.0-37.0); MCV 94.7 fL (80.0-100.0); Monocytes # (A) 0.5 k/uL (0-1.0); Monocytes % (A) 4 %; Neutrophils # (A) 10.2 k/uL (1.3-7.7); Neutrophils % (A) 83 %; Platelet Count 253 k/uL (150-450); RBC 3.99 m/uL (4.30-5.90); RDW 12.8 % (11.5-15.5); WBC 12.3 k/uL (3.8-10.6)
[2020-01-27 08:15] LABS: African American GFR (CKD) >90 (>60 ml/min/1.73 sqM); Anion Gap 5 mmol/L; Blood Urea Nitrogen 9 mg/dL (9-20); Calcium 7.7 mg/dL (8.4-10.2); Carbon Dioxide 23 mmol/L (22-30); Chloride 108 mmol/L (98-107); Glucose 112 mg/dL (74-99); Non-African American GFR(CKD) 88 (>60 ml/min/1.73 sqM); Potassium 3.6 mmol/L (3.5-5.1); Sodium 136 mmol/L (137-145)
[2020-01-27] MEDS: IPRATROPIUM-ALBUTEROL 3 ML NEB INHALATION SCH ×4 (09:29→20:33)
[2020-01-27] MEDS: amLODIPine 10 MG TAB PO SCH (10:23)
[2020-01-27] MEDS: MULTIVITAMINS, THERA 1 EACH TAB PO SCH (10:23)
[2020-01-27] MEDS: PANTOPRAZOLE 40 MG TABLET PO SCH (10:23)
[2020-01-27] MEDS: ENOXAPARIN 40 MG/0.4 ML SYRINGE SQ SCH ×2 (10:23→19:35)
[2020-01-27] MEDS: AZITHROMYCIN 500 MG TAB PO SCH (10:23)
[2020-01-27] MEDS: SODIUM CHLORIDE 0.9% 1,000 ML IV SCH ×2 (10:26→19:35)
--- NOTE | 2020-01-27 13:12 | P.PN ---
Subjective Progress Note Date: 01/27/20 Principal diagnosis: dyspnea, COPD, pneumonia A 74-year-old male patient with known history of COPD who presented to the emergency department with increased cough and congestion and generalized weakness. No hemoptysis. No pleurisy. The patient was producing some yellowish sputum. No pleurisy. No reported aspiration. His T-max was 102 and the patient was tachycardic with a heart rate above 110 sinus at the time of admission. His white cell count was at 16.5. He checked negative for covid 19 infection. 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 The patient was started on examination Rocephin and Zithromax and the patient or the feeling better. He does not utilize any form of oxygen or nebulized medications or maintenance of her medications on outpatient basis. He had missed her chronic exertional dyspnea. He has been able to manage well without any major difficulties. He has hypertension and hyperlipidemia as comorbidities. The pro-calcitonin level is at 0.16. CRP level is at 144. On 01/27/2020 patient seen in follow-up on general medical floor. He is awake and alert, in no acute distress he states his breathing is improving, patient is less short of breath. he is on 4 L of oxygen pulse ox of 93%. is febrile pattern has improved, his last episode of fever was yesterday. blood and sputum cultures have been sent, Gram stain of the sputum shows many gram-positive cocci.his labs have been reviewed, leukocytosis is improving, with blood cell count is 12.3, hemoglobin is 12.7, electrolytes are unremarkable, renal profile is within normal limits.his pro-calcitonin came back at 0.16, his COVID 19 was negative Objective - Vital Signs Vital signs: Vital Signs Temp 98.1 F 01/27/20 07:37 Pulse 96 01/27/20 09:39 Resp 18 01/27/20 07:37 BP 136/67 01/27/20 07:37 Pulse Ox 93 L 01/27/20 10:20 Intake & Output 01/26/20 01/27/20 01/27/20 18:59 06:59 18:59 Intake Total 1100 Output Total 700 Balance 400 Intake: Intake, IV Titration 900 Amount Sodium Chloride 0.9% 1, 900 000 ml @ 75 mls/hr IV . [id number] [facility] Rx#:[id number] Oral 200 Output: Urine 700 Other: Voiding Method Urinal Urinal Toilet # Voids 3 - Exam GENERAL EXAM: Alert, comfortable, very pleasant, 74-year-old white male, on 4 L of oxygen pulse ox of 93%in no apparent distress. HEAD: Normocephalic/atraumatic. EYES: Normal reaction of pupils, equal size. Conjunctiva pink, sclera white. NOSE: Clear with pink turbinates. THROAT: No erythema or exudates. NECK: No masses, no JVD, no thyroid enlargement, no adenopathy. CHEST: No chest wall deformity. Symmetrical expansion. LUNGS: Equal air entry with no crackles, wheeze, rhonchi or dullness. CVS: Regular rate and rhythm, normal S1 and S2, no gallops, no murmurs, no rubs ABDOMEN: Soft, nontender. No hepatosplenomegaly, normal bowel sounds, no guarding or rigidity. EXTREMITIES: No clubbing, no edema, no cyanosis, 2+ pulses and upper and lower extremities. MUSCULOSKELETAL: Muscle strength and tone normal. SPINE: No scoliosis or deformity SKIN: No rashes CENTRAL NERVOUS SYSTEM: Alert and oriented -3. No focal deficits, tone is norm al in all 4 extremities. PSYCHIATRIC: Alert and oriented -3. Appropriate affect. Intact judgment and insight. - Labs CBC & Chem 7: 01/27/20 07:32 01/27/20 07:32 Labs: Abnormal Lab Results - Last 24 Hours (Table) 01/27/20 01/27/20 Range/Units 07:32 07:32 WBC 12.3 H (3.8-10.6) k/uL RBC 3.99 L (4.30-5.90) m/uL Hgb 12.7 L (13.0-17.5) gm/dL Hct 37.8 L (39.0-53.0) % Neutrophils # 10.2 H (1.3-7.7) k/uL Sodium 136 L (137-145) mmol/L Chloride 108 H (98-107) mmol/L Glucose 112 H (74-99) mg/dL Calcium 7.7 L (8.4-10.2) mg/dL Microbiology - Last 24 Hours (Table) 01/26/20 12:22 Gram Stain - Preliminary Sputum Sputum Culture - Preliminary 01/25/20 12:30 Blood Culture - Preliminary Blood No Growth after 24 hours Assessment and Plan Plan: 1 acute community-acquired left lower lobe pneumonia, the covid 19 evaluation was negative. 2 COPD exacerbation secondary to above 3 shortness of breath secondary to above 4 mild leukocytosis 5 hypertension 6 hyperlipidemia Plan: Will await the final results of the sputum culture, patient is currently on Rocephin and Zithromax, his breathing is improving, leukocytosis is trending down, today's labs have been noted, pro-calcitonin level is only mildly elevated to 0.16. Febrile pattern has improved, COVID 19 has been negative, we'll obtain follow-up chest x-ray tomorrow. Continue to follow I performed a history & physical examination of the patient and discussed their management with my nurse practitioner, Phyllis Armstrong. I reviewed the nurse practitioner's note and agree with the documented findings and plan of care. Lung sounds are positive for diminished breath sounds. The findings and the impression was discussed with the patient. I attest to the documentation by the nurse practitioner. Time with Patient: Less than 30
--- NOTE | 2020-01-27 15:26 | CDI ---
Documentation Clarification Form Date: 01/27/2020 02:55:08 PM From: Matilde Garcia RN, CCDS Phone: Admit Date: 01/25/2020 12:05:00 PM Patient Name: Ric Del Valle Visit Number: [id number] Discharge Date: ATTENTION: The Clinical Documentation Specialists (CDI) and [facility] Coding Staff appreciate your assistance in clarifying documentation. Please respond to the clarification below the line at the bottom and electronically sign. The CDI & [facility] Coding staff will review the response and follow-up if needed. Please note: Queries are made part of the Legal Health Record. If you have any questions, please contact the author of this message via ITS. Dr. Dianne Bloom 01/25 in your progress note the patient also had features of sepsis. Request clarification if sepsis was ruled in or out. History/Risk Factors: Hypertension Clinical Indicators: 74-year-old male present on 01/24 to ED with complaints of shortness of breath and generalized weakness for about a week. 01/24 WBC 16.5, Neurophils 14.1, ESR 35, CRP 144.1, Procalcitonin 0.16 01/24 Lactic acid: 1.2 01/24 Coronavirus (PCR) Not detected 01/24 Blood cultures: Pending, no growth after48 hours Vitals signs on admission: 01/24 @ 20:20: 141/76 105 18 100.6 01/[address]; severe emphysema and copd, superimposed fibrotic change, apical scarring bilaterally. 01/24 CXR: patchy bilateral infiltrates Treatment: Rocephin 1 gm iv daily Zithromax 500 mg ivpb x1 than 500 mg po daily Respiratory support and droplet isolation .9NS 1000 cc bolus than 75 mls hr Monitor CBC, Lytes, Duoneb 3 ml robin inhalation QID ID Consult: 01/24 Dr. Guillaume: Patient presented to hospital with sepsis in this patient who did have a fever, tachycardia, elevated white count and predominantly respiratory symptoms likely representing pneumonia possible community-acquired. However COVID-19 infection is suspected though CT of the chest did not show the groundglass opacity usually seen with the COVID-19. 01/25 Pulmonary consult: ac community-acquired left lower lobe pneumonia, the COVID- 19 evaluation was negative. COPD exacerbation. In your professional opinion, please clarify if these findings signify one of the following conditions, whether the condition is POA, and cause, if known: Condition Sepsis ruled out Sepsis secondary to COVID-19 (specify if treating false negative COVID-19) Other, please specify Unable to determine Present on Admission Yes No Identify the (suspected) organism Link or clarify if there is associated (due to/with): Organ failure SIRS Criteria (2 or more of the following may indicate SIRS): -Temperature < 96.8F (36C) or > 101.0F (38.3C) -Heart Rate > 90 bpm -Respiratory Rate > 20 breaths/min or PaCO2 < 32 mmHg -White Blood Cell Count > 12,000 or < 4,000 cells/mm3 or > 10% bands -Lactate >2.0 mmol/L (>4.0 is equivalent to septic shock) (Last Revision: November 2017) possible sepsis secondary to possible COVID- 19 pneumonia MTDD
--- NOTE | 2020-01-27 17:34 | PN ---
PROGRESS NOTE DATE OF SERVICE: 01/27/2020 This 74-year-old gentleman admitted with COPD, acute exacerbation, bilateral pneumonia is being closely monitored. Covid-19 was suspected but however the testing was negative. Patient being closely monitored. Multiple consultants are following the patient closely including Infectious Disease and Pulmonary. Patient complaining of nasal block and nasal dryness. Patient is on Rocephin, and Zithromax at this time, possible community-acquired pneumonia or gram-negative pneumonia is also considered. No chest pain. No palpitations. PAST MEDICAL HISTORY: Reviewed. REVIEW OF SYSTEMS: Cardiovascular system is as mentioned earlier. Respiratory: As mentioned earlier. GI: Nausea or vomiting. : No dysuria. NERVOUS SYSTEM: No numbness or weakness. CURRENT MEDICATIONS: 1. Tylenol p.r.n. 2. [place] 5 mg. 3. DuoNeb q.i.d. and p.r.n. 4. Norvasc. 5. Lipitor. 6. Zithromax. 7. Rocephin. 8. Lovenox. 9. Dilaudid. 10.Ativan. 11.Multivitamins. 12.Protonix. 13.Doses reviewed. PHYSICAL EXAMINATION: Patient is alert and oriented x2. Pulse is 101. Blood pressure 130/66. Respirations 18, temperature 98.1, pulse ox 98% on 4 L. HEENT: Conjunctivae normal. NECK: No JVD. CARDIOVASCULAR: S1, S2 muffled. RESPIRATORY: Breath sounds diminished in the bases. A few scattered rhonchi and crackles. ABDOMEN is soft, nontender. LEGS are no edema. No swelling. NERVOUS SYSTEM: no focal deficits. LABS: WBC 12.2, hemoglobin 12.7, sodium 136. The procalcitonin 0.16 and C-reactive protein is 144.1. D-dimer was normal. The most recent chest x-ray personally reviewed by me showed significant bilateral lesions, left more than the right. ASSESSMENT: 1. Chronic obstructive pulmonary disease acute exacerbation with bilateral pneumonia possibly interstitial pneumonia possibly gram-negative. 2. Possible Covid-19 pneumonia. Test negative, could be was false negative. 3. Increased WBC. 4. Decreased carbon dioxide. 5. Increased random blood sugar. 6. Hyperlipidemia. 7. Hypertension. 8. History of urinary tract infection. 9. Previous history of nicotine dependence. 10.Possible underlying chronic obstructive pulmonary disease. 11.History of ETOH. 12.FULL CODE. RECOMMENDATIONS AND DISCUSSION: Recommend to continue current medications, management and continue bronchodilators, empiric antibiotics. Follow cultures. Follow with multiple consultants. Guarded prognosis. Further recommendations to follow. MMODL / IJN: [id number] /
[2020-01-27] MEDS: ATORVASTATIN 10 MG TAB PO SCH (19:35)
--- NOTE | 2020-01-28 03:21 | PN ---
PROGRESS NOTE DATE OF SERVICE: 01/27/2020. REASON FOR FOLLOWUP: Pneumonia, community-acquired. INTERVAL HISTORY: The patient is currently afebrile. The patient has been breathing comfortably. The patient denies having any chest pain. He did have some cough, less sputum production. No nausea or vomiting. No abdominal pain. No diarrhea. Has been complaining of his nasal dryness from the O2. PHYSICAL EXAMINATION: Blood pressure is 131/63 with a pulse of 100, temperature 97.9. He is 91% on 4 L nasal cannula. General description is an elderly male lying in bed in no distress. RESPIRATORY SYSTEM: Unlabored breathing, clear to auscultation anteriorly. HEART: S1, S2. Regular rate and rhythm. ABDOMEN: Soft, no tenderness. LABS: Hemoglobin is 12.7, white count 12.3, BUN of 9, creatinine 0.78. DIAGNOSTIC IMPRESSION AND PLAN: Patient with community-acquired pneumonia covered with Rocephin and Zithromax to continue while waiting for the sputum culture to finalize and continue supportive care. MMODL / IJN: [id number] /
[2020-01-28] MEDS: IPRATROPIUM-ALBUTEROL 3 ML NEB INHALATION SCH ×4 (07:27→20:18)
[2020-01-28 08:31] LABS: Basophils % (A) 0 %; Eosinophils # (A) 0.1 k/uL (0-0.7); Eosinophils % (A) 1 %; HCT 41.1 % (39.0-53.0); HGB 13.2 gm/dL (13.0-17.5); Lymphocytes # (A) 1.6 k/uL (1.0-4.8); Lymphocytes % (A) 14 %; MCH 30.4 pg (25.0-35.0); MCHC 32.1 g/dL (31.0-37.0); MCV 94.6 fL (80.0-100.0); Mean Platelet Volume 7.8; Monocytes # (A) 0.5 k/uL (0-1.0); Monocytes % (A) 4 %; Neutrophils # (A) 9.2 k/uL (1.3-7.7); Neutrophils % (A) 79 %; Platelet Count 299 k/uL (150-450); RBC 4.35 m/uL (4.30-5.90); RDW 12.6 % (11.5-15.5); WBC 11.6 k/uL (3.8-10.6)
[2020-01-28 08:49] LABS: African American GFR (CKD) >90 (>60 ml/min/1.73 sqM); Anion Gap 9 mmol/L; Blood Urea Nitrogen 7 mg/dL (9-20); Calcium 8.1 mg/dL (8.4-10.2); Carbon Dioxide 24 mmol/L (22-30); Chloride 105 mmol/L (98-107); Glucose 115 mg/dL (74-99); Non-African American GFR(CKD) 88 (>60 ml/min/1.73 sqM); Potassium 3.5 mmol/L (3.5-5.1); Sodium 138 mmol/L (137-145)
[2020-01-28] MEDS: amLODIPine 10 MG TAB PO SCH (08:58)
[2020-01-28] MEDS: PANTOPRAZOLE 40 MG TABLET PO SCH (08:58)
[2020-01-28] MEDS: ENOXAPARIN 40 MG/0.4 ML SYRINGE SQ SCH ×2 (08:58→21:03)
[2020-01-28] MEDS: AZITHROMYCIN 500 MG TAB PO SCH (08:59)
[2020-01-28] MEDS: MULTIVITAMINS, THERA 1 EACH TAB PO SCH (09:00)
[2020-01-28] MEDS: SODIUM CHLORIDE 0.9% 1,000 ML IV SCH ×2 (09:00→23:08)
--- NOTE | 2020-01-28 10:24 | XR ---
EXAMINATION TYPE: XR chest 2V DATE OF EXAM: 01/28/2020 COMPARISON: Prior chest x-ray 01/26/[address] 01/25/2020 HISTORY: Abnormal chest x-ray, follow-up, shortness of breath TECHNIQUE: Frontal and lateral views of the chest are obtained. FINDINGS: Interstitium remains increased. Perihilar airspace disease is noted. Biapical pleural thic kening is present. No evident pneumothorax. There is blunting the left costophrenic angle. Heart size is normal. Aorta is dense. There is underlying emphysema. IMPRESSION: Findings may represent pneumonia. Correlate to exclude volume overload, atypical present ation of congestive heart failure patient with pre-existing emphysema. Probable left pleural effusion .
--- NOTE | 2020-01-28 12:01 | P.PN ---
Subjective Progress Note Date: 01/28/20 Principal diagnosis: dyspnea, COPD, pneumonia A 74-year-old male patient with known history of COPD who presented to the emergency department with increased cough and congestion and generalized weakness. No hemoptysis. No pleurisy. The patient was producing some yellowish sputum. No pleurisy. No reported aspiration. His T-max was 102 and the patient was tachycardic with a heart rate above 110 sinus at the time of admission. His white cell count was at 16.5. He checked negative for covid 19 infection. 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 The patient was started on examination Rocephin and Zithromax and the patient or the feeling better. He does not utilize any form of oxygen or nebulized medications or maintenance of her medications on outpatient basis. He had missed her chronic exertional dyspnea. He has been able to manage well without any major difficulties. He has hypertension and hyperlipidemia as comorbidities. The pro-calcitonin level is at 0.16. CRP level is at 144. On 01/27/2020 patient seen in follow-up on general medical floor. He is awake and alert, in no acute distress he states his breathing is improving, patient is less short of breath. he is on 4 L of oxygen pulse ox of 93%. is febrile pattern has improved, his last episode of fever was yesterday. blood and sputum cultures have been sent, Gram stain of the sputum shows many gram-positive cocci.his labs have been reviewed, leukocytosis is improving, with blood cell count is 12.3, hemoglobin is 12.7, electrolytes are unremarkable, renal profile is within normal limits.his pro-calcitonin came back at 0.16, his COVID 19 was negative On 01/28/2020 patient seen in follow-up on general medical floor. He states he is doing better, breathing easier, white blood cell count is improving, down to 11.6 on today's labs, pro-calcitonin came back at 0.16, patient remains on 4 L of oxygen his pulse ox is 90%, still coughing up some green colored phlegm, lung sounds are positive for bibasilar rales. Today's chest x-ray shows some improvement in the appearance of perihilar airspace disease and there is some blunting of the left costophrenic angle related to probable left pleural effusion. No fever or chills. Blood and sputum cultures were negative. Electrolites are within normal limits, renal profile is unremarkable. Objective - Vital Signs Vital signs: Vital Signs Temp 98.2 F 01/28/20 07:00 Pulse 100 01/28/20 08:58 Resp 18 01/28/20 08:58 BP 144/71 01/28/20 07:00 Pulse Ox 90 L 01/28/20 07:00 Intake & Output 01/27/20 01/28/20 01/28/20 18:59 06:59 18:59 Intake Total 1630 400 Balance 1630 400 Intake: Intake, IV Titration 550 Amount Sodium Chloride 0.9% 1, 450 000 ml @ 75 mls/hr IV . [id number] [facility] Rx#:[id number] cefTRIAXone 1 gm In 100 Sodium Chloride 0.9% 50 ml @ 100 mls/hr IVPB Q24HR [facility] Rx#:[id number] Oral 1080 400 Other: Voiding Method Toilet Toilet # Voids 2 1 - Exam GENERAL EXAM: Alert, comfortable, very pleasant, 74-year-old white male, on 4 L of oxygen pulse ox of 90%in no apparent distress. HEAD: Normocephalic/atraumatic. EYES: Normal reaction of pupils, equal size. Conjunctiva pink, sclera white. NOSE: Clear with pink turbinates. THROAT: No erythema or exudates. NECK: No masses, no JVD, no thyroid enlargement, no adenopathy. CHEST: No chest wall deformity. Symmetrical expansion. LUNGS: Equal air entry with no crackles, wheeze, rhonchi or dullness. CVS: Regular rate and rhythm, normal S1 and S2, no gallops, no murmurs, no rubs ABDOMEN: Soft, nontender. No hepatosplenomegaly, normal bowel sounds, no guarding or rigidity. EXTREMITIES: No clubbing, no edema, no cyanosis, 2+ pulses and upper and lower extremities. MUSCULOSKELETAL: Muscle strength and tone normal. SPINE: No scoliosis or deformity SKIN: No rashes CENTRAL NERVOUS SYSTEM: Alert and oriented -3. No focal deficits, tone is normal in all 4 extremities. PSYCHIATRIC: Alert and oriented -3. Appropriate affect. Intact judgment and insight. - Labs CBC & Chem 7: 01/28/20 07:59 01/28/20 07:59 Labs: Abnormal Lab Results - Last 24 Hours (Table) 01/28/20 01/28/20 Range/Units 07:59 07:59 WBC 11.6 H (3.8-10.6) k/uL Neutrophils # 9.2 H (1.3-7.7) k/uL BUN 7 L (9-20) mg/dL Glucose 115 H (74-99) mg/dL Calcium 8.1 L (8.4-10.2) mg/dL Microbiology - Last 24 Hours (Table) 01/26/20 12:22 Gram Stain - Final Sputum Sputum Culture - Final 01/25/20 12:30 Blood Culture - Preliminary Blood No Growth after 48 hours Assessment and Plan Plan: 1 acute community-acquired left lower lobe pneumonia, the covid 19 evaluation was negative. 2 COPD exacerbation secondary to above 3 shortness of breath secondary to above 4 mild leukocytosis 5 hypertension 6 hyperlipidemia Plan: Follow-up chest x-ray still shows persistent perihilar airspace disease and small left plural effusion, clinically patient is improving, his been afebrile, blood and sputum cultures have shown no growth, he remains on, ration of Rocephin and Zithromax, breathing is improving, increase activity as tolerated, leukocytosis is improving, patient is feeling better. May consider discharge home in the next 24 hours if patient continues to improve. I performed a history & physical examination of the patient and discussed their management with my nurse practitioner, Phyllis Armstrong. I reviewed the nurse practitioner's note and agree with the documented findings and plan of care. Lung sounds are positive for diminished breath sounds. The findings and the impression was discussed with the patient. I attest to the documentation by the nurse practitioner. Time with Patient: Less than 30
--- NOTE | 2020-01-28 14:02 | PN ---
PROGRESS NOTE DATE OF SERVICE: 01/28/2020 REASON FOR FOLLOWUP: Pneumonia, community-acquired. INTERVAL HISTORY: The patient is currently afebrile, patient is breathing more comfortably. Denies having any chest pain. Cough has decreased in intensity, mostly dry. No nausea, vomiting. No abdominal pain, no diarrhea. PHYSICAL EXAMINATION: Blood pressure 144/71 with a pulse of 100, temperature 98.2. He is 98% on 4 L nasal cannula. General description is an elderly male, lying in bed in no distress. RESPIRATORY SYSTEM: Unlabored breathing, clear to auscultation anteriorly. HEART: S1, S2. Regular rate and rhythm. ABDOMEN: Soft, no tenderness. LABS: Hemoglobin 13.2, white count 11.6, creatinine 0.77. Sputum so far negative. DIAGNOSTIC IMPRESSION AND PLAN: Patient admitted to the hospital with pneumonia, likely community-acquired, sputum has been negative for resistant pathogen. Patient is covered with Rocephin and Zithromax to finish therapy with oral Ceftin. Continue supportive care. MMODL / IJN: [id number] /
[2020-01-28] MEDS: ACETAMINOPHEN TAB 325 MG TAB PO PRN (21:03)
[2020-01-28] MEDS: ATORVASTATIN 10 MG TAB PO SCH (21:03)
[2020-01-29] MEDS: IPRATROPIUM-ALBUTEROL 3 ML NEB INHALATION SCH ×4 (07:41→21:14)
--- NOTE | 2020-01-29 08:25 | P.PN ---
Subjective Progress Note Date: 01/28/20 Principal diagnosis: Is a 74-year-old male who was recently admitted with COPD, acute exacerbation, bilateral pneumonia and is being closely monitored. Patient was tested for Covid 19 and was negative. Infectious disease and pulmonary following. Patient continues on 4 L of oxygen and becomes dyspneic with exertion although states his shortness of breath has improved. Patient does not normally wear oxygen at home. Discussed with nursing staff about weaning the oxygen with a possible home O2 eval. Patient is maintained on IV Rocephin along with Zithromax and will continue at this time. Patient states he does have a cough and is bringing up whitish phlegm with occasional green phlegm noted. No reports of chest pain or palpitations. Patient is afebrile. No reports of nausea or vomiting and patient is tolerating diet. Objective - Vital Signs Vital signs: Vital Signs Temp 98.2 F 01/28/20 07:00 Pulse 104 H 01/28/20 12:56 Resp 18 01/28/20 08:58 BP 144/71 01/28/20 07:00 Pulse Ox 90 L 01/28/20 07:00 Intake & Output 01/27/20 01/28/20 01/28/20 18:59 06:59 18:59 Intake Total 1630 400 Balance 1630 400 Intake: Intake, IV Titration 550 Amount Sodium Chloride 0.9% 1, 450 000 ml @ 75 mls/hr IV . [id number] [facility] Rx#:[id number] cefTRIAXone 1 gm In 100 Sodium Chloride 0.9% 50 ml @ 100 mls/hr IVPB Q24HR [facility] Rx#:[id number] Oral 1080 400 Other: Voiding Method Toilet Toilet # Voids 2 1 - Exam Gen: This is a 74-year-old male sitting up in the chair, awake, alert and oriented 3 HEENT: Head is atraumatic, normocephalic. Pupils equal, round. Sclerae is anicteric. NECK: Supple. No JVD. No lymphadenopathy. No thyromegaly. LUNGS: Diminished breath sounds at the bases with a few scattered rhonchi noted. No intercostal retractions. HEART: Regular rate and rhythm. No murmur. ABDOMEN: Soft. Bowel sounds are present. No masses. No tenderness. EXTREMITIES: No pedal edema. No calf tenderness. NEUROLOGICAL: Patient is awake, alert and oriented x3. Cranial nerves 2 through 12 are grossly intact. - Labs CBC & Chem 7: 01/28/20 07:59 01/28/20 07:59 Labs: Abnormal Lab Results - Last 24 Hours (Table) 01/28/20 01/28/20 Range/Units 07:59 07:59 WBC 11.6 H (3.8-10.6) k/uL Neutrophils # 9.2 H (1.3-7.7) k/uL BUN 7 L (9-20) mg/dL Glucose 115 H (74-99) mg/dL Calcium 8.1 L (8.4-10.2) mg/dL Microbiology - Last 24 Hours (Table) 01/25/20 12:30 Blood Culture - Preliminary Blood No Growth after 72 hours 01/26/20 12:22 Gram Stain - Final Sputum Sputum Culture - Final Assessment and Plan Assessment: Chronic obstructive pulmonary disease, acute exacerbation with bilateral pneumonia, possibly interstitial pneumonia, possibly gram-negative Possible Covid 19 pneumonia, testing was negative Possible sepsis, present on admission, secondary to possible Covid 19 pneumonia Increased WBC Decreased carbon dioxide Hyperlipidemia Hypertension Previous history of nicotine dependence Full code Plan: Continue with current medications, management, and symptomatic treatment. Continue to wean off FiO2 and increase activity as tolerated. Continue with bronchodilators and antibiotics at this time. Blood cultures and sputum cultures remain negative. Will repeat a.m. labs. Further recommendations to follow.
[2020-01-29 08:28] VITALS: RESP 18
[2020-01-29] MEDS: PANTOPRAZOLE 40 MG TABLET PO SCH (09:01)
[2020-01-29] MEDS: AZITHROMYCIN 500 MG TAB PO SCH (09:01)
[2020-01-29] MEDS: ACETAMINOPHEN TAB 325 MG TAB PO PRN (09:01)
[2020-01-29] MEDS: amLODIPine 10 MG TAB PO SCH (09:04)
[2020-01-29] MEDS: MULTIVITAMINS, THERA 1 EACH TAB PO SCH (09:04)
[2020-01-29] MEDS: ENOXAPARIN 40 MG/0.4 ML SYRINGE SQ SCH ×2 (09:04→19:10)
[2020-01-29 09:09] LABS: Basophils % (A) 0 %; Eosinophils # (A) 0.2 k/uL (0-0.7); Eosinophils % (A) 2 %; HCT 41.8 % (39.0-53.0); Lymphocytes # (A) 1.4 k/uL (1.0-4.8); Lymphocytes % (A) 13 %; MCH 31.9 pg (25.0-35.0); MCHC 33.5 g/dL (31.0-37.0); MCV 95.3 fL (80.0-100.0); Mean Platelet Volume 7.8; Monocytes # (A) 0.3 k/uL (0-1.0); Monocytes % (A) 3 %; Neutrophils # (A) 8.2 k/uL (1.3-7.7); Neutrophils % (A) 80 %; Platelet Count 333 k/uL (150-450); RBC 4.38 m/uL (4.30-5.90); RDW 12.7 % (11.5-15.5); WBC 10.3 k/uL (3.8-10.6)
[2020-01-29 09:17] LABS: African American GFR (CKD) >90 (>60 ml/min/1.73 sqM); Anion Gap 8 mmol/L; Blood Urea Nitrogen 8 mg/dL (9-20); Calcium 8.2 mg/dL (8.4-10.2); Carbon Dioxide 25 mmol/L (22-30); Chloride 104 mmol/L (98-107); Glucose 161 mg/dL (74-99); Non-African American GFR(CKD) 88 (>60 ml/min/1.73 sqM); Potassium 3.4 mmol/L (3.5-5.1); Sodium 137 mmol/L (137-145)
[2020-01-29] MEDS ORDERED: FUROSEMIDE 10 MG/ML 4 ML VIAL IV STA (10:14)
[2020-01-29] MEDS ORDERED: Potassium Replacement Protocol 1 EACH MISC MISCELLANE PRN (10:20)
[2020-01-29] MEDS: POTASSIUM CHLORIDE ER 20 MEQ TAB.ER PO SCH ×2 (10:35→12:30)
--- NOTE | 2020-01-29 11:45 | P.PN ---
Subjective Progress Note Date: 01/29/20 Principal diagnosis: dyspnea, COPD, pneumonia A 74-year-old male patient with known history of COPD who presented to the emergency department with increased cough and congestion and generalized weakness. No hemoptysis. No pleurisy. The patient was producing some yellowish sputum. No pleurisy. No reported aspiration. His T-max was 102 and the patient was tachycardic with a heart rate above 110 sinus at the time of admission. His white cell count was at 16.5. He checked negative for covid 19 infection. 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 The patient was started on examination Rocephin and Zithromax and the patient or the feeling better. He does not utilize any form of oxygen or nebulized medications or maintenance of her medications on outpatient basis. He had missed her chronic exertional dyspnea. He has been able to manage well without any major difficulties. He has hypertension and hyperlipidemia as comorbidities. The pro-calcitonin level is at 0.16. CRP level is at 144. On 01/27/2020 patient seen in follow-up on general medical floor. He is awake and alert, in no acute distress he states his breathing is improving, patient is less short of breath. he is on 4 L of oxygen pulse ox of 93%. is febrile pattern has improved, his last episode of fever was yesterday. blood and sputum cultures have been sent, Gram stain of the sputum shows many gram-positive cocci.his labs have been reviewed, leukocytosis is improving, with blood cell count is 12.3, hemoglobin is 12.7, electrolytes are unremarkable, renal profile is within normal limits.his pro-calcitonin came back at 0.16, his COVID 19 was negative On 01/28/2020 patient seen in follow-up on general medical floor. He states he is doing better, breathing easier, white blood cell count is improving, down to 11.6 on today's labs, pro-calcitonin came back at 0.16, patient remains on 4 L of oxygen his pulse ox is 90%, still coughing up some green colored phlegm, lung sounds are positive for bibasilar rales. Today's chest x-ray shows some improvement in the appearance of perihilar airspace disease and there is some blunting of the left costophrenic angle related to probable left pleural effusion. No fever or chills. Blood and sputum cultures were negative. Electrolites are within normal limits, renal profile is unremarkable. On 01/29/2020 patient seen in follow-up on general medical floor. He continues to improve, his sputum and blood cultures have been negative, his been afebrile, yesterday's chest x-ray showed improvement in appearance of perihilar airspace disease on the left, and tiny left pleural effusion. Vital signs have been stable. Home oxygen assessment has been completed showing 87% on room air with exercise, patient will qualify for home oxygen. His been treated for community- acquired pneumonia with a combination of Zithromax and Rocephin, clinically improving, he is requesting to go home today. From pulmonary perspective patient is stable for discharge home today, close follow-up with Dr. Manzo in the office early next week for repeat chest x-ray Objective - Vital Signs Vital signs: Vital Signs Temp 97.9 F 01/29/20 07:00 Pulse 104 H 01/29/20 07:50 Resp 18 01/29/20 07:00 BP 126/68 01/29/20 07:00 Pulse Ox 91 L 01/29/20 10:51 Intake & Output 01/28/20 01/29/20 01/29/20 18:59 06:59 18:59 Intake Total 300 100 Balance 300 100 Intake: Oral 300 100 Other: Voiding Method Toilet Toilet # Voids 4 1 - Exam GENERAL EXAM: Alert, comfortable, very pleasant, 74-year-old white male, on 4 L of oxygen pulse ox of 92 %in no apparent distress. HEAD: Normocephalic/atraumatic. EYES: Normal reaction of pupils, equal size. Conjunctiva pink, sclera white. NOSE: Clear with pink turbinates. THROAT: No erythema or exudates. NECK: No masses, no JVD, no thyroid enlargement, no adenopathy. CHEST: No chest wall deformity. Symmetrical expansion. LUNGS: Equal air entry with no crackles, wheeze, rhonchi or dullness. CVS: Regular rate and rhythm, normal S1 and S2, no gallops, no murmurs, no rubs ABDOMEN: Soft, nontender. No hepatosplenomegaly, normal bowel sounds, no guarding or rigidity. EXTREMITIES: No clubbing, no edema, no cyanosis, 2+ pulses and upper and lower extremities. MUSCULOSKELETAL: Muscle strength and tone normal. SPINE: No scoliosis or deformity SKIN: No rashes CENTRAL NERVOUS SYSTEM: Alert and oriented -3. No focal deficits, tone is normal in all 4 extremities. PSYCHIATRIC: Alert and oriented -3. Appropriate affect. Intact judgment and insight. - Labs CBC & Chem 7: 01/29/20 08:37 01/29/20 08:37 Labs: Abnormal Lab Results - Last 24 Hours (Table) 01/29/20 01/29/20 Range/Units 08:37 08:37 Neutrophils # 8.2 H (1.3-7.7) k/uL Potassium 3.4 L (3.5-5.1) mmol/L BUN 8 L (9-20) mg/dL Glucose 161 H (74-99) mg/dL Calcium 8.2 L (8.4-10.2) mg/dL Microbiology - Last 24 Hours (Table) 01/25/20 12:30 Blood Culture - Preliminary Blood No Growth after 72 hours 01/26/20 12:22 Gram Stain - Final Sputum Sputum Culture - Final Assessment and Plan Plan: 1 acute community-acquired left lower lobe pneumonia, the covid 19 evaluation was negative. 2 COPD exacerbation secondary to above 3 shortness of breath secondary to above 4 mild leukocytosis 5 hypertension 6 hyperlipidemia Plan: Patient is requesting to go home today, clinically he continues to improve, his had no fever or chills, sputum and blood cultures have been negative, vital signs are stable, patient does qualify for home oxygen, patient will be sent home on 2 L of oxygen per nasal cannula, and he can finish seven-day outpatient course of oral Levaquin. Stable for discharge from pulmonary perspective with close follow-up with Dr. Manzo in the office early next week I performed a history & physical examination of the patient and discussed their management with my nurse practitioner, Phyllis Armstrong. I reviewed the nurse practitioner's note and agree with the documented findings and plan of care. Lung sounds are positive for diminished breath sounds. The findings and the impression was discussed with the patient. I attest to the documentation by the nurse practitioner. Time with Patient: Less than 30
--- NOTE | 2020-01-29 12:14 | PN ---
PROGRESS NOTE DATE OF SERVICE: 01/29/2020 REASON FOR FOLLOWUP: Pneumonia. INTERVAL HISTORY: The patient is currently afebrile, patient is breathing more comfortably. Patient denies having any chest pain or shortness of breath. Occasional cough which is mostly dry. No nausea, no vomiting. No abdominal pain, no diarrhea. PHYSICAL EXAMINATION: Blood pressure 126/68 with a pulse of 96, temperature 97.8. He is 92% on 4 L nasal cannula. General description is an elderly male, lying in bed in no distress. RESPIRATORY SYSTEM: Unlabored breathing, decreased breath sounds at bases. No wheeze. HEART: S1, S2. Regular rate and rhythm. ABDOMEN: Soft, no tenderness. LABS: Hemoglobin is 14.3, white count 10.2, BUN of 8, creatinine 0.77. DIAGNOSTIC IMPRESSION AND PLAN: Patient with left lower lobe pneumonia, community-acquired. Sputum has been usual respiratory naomi. Blood culture negative. Finish therapy with oral Levaquin with a prescription sent by Pulmonary and close outpatient followup. MMODL / IJN: [id number] /
--- NOTE | 2020-01-29 14:55 | P.PN ---
Subjective Progress Note Date: 01/29/20 Principal diagnosis: Patient is a 74-year-old male who was recently admitted with COPD, acute exacerbation, bilateral pneumonia and is being closely monitored. Patient was tested for Covid 19 and was negative. Infectious disease and pulmonary following. Patient continues on 4 L of oxygen and becomes dyspneic with exertion although states his shortness of breath has improved. Patient does not normally wear oxygen at home. Discussed with nursing staff about weaning the oxygen with a possible home O2 eval. Patient is maintained on IV Rocephin along with Zithromax and will continue at this time. Patient states he does have a cough and is bringing up whitish phlegm with occasional green phlegm noted. No reports of chest pain or palpitations. Patient is afebrile. No reports of nausea or vomiting and patient is tolerating diet. 01/29/2020 Patient is seen and evaluated and follow-up and is currently maintained on 2 L of oxygen and states his breathing has improved although continues to require oxygen. Oxygen saturations went down to 87% with exertion. Patient was given a dose of IV Lasix as chest x-ray yesterday was showing some pulmonary edema. Patient does not normally wear oxygen at home. We'll continue with 40 mg IV Lasix twice a day and reevaluate the patient in the morning. Objective - Vital Signs Vital signs: Vital Signs Temp 97.9 F 01/29/20 07:00 Pulse 100 01/29/20 11:59 Resp 18 01/29/20 12:33 BP 126/68 01/29/20 07:00 Pulse Ox 90 L 01/29/20 12:33 Intake & Output 01/28/20 01/29/20 01/29/20 18:59 06:59 18:59 Intake Total 300 100 Balance 300 100 Intake: Oral 300 100 Other: Voiding Method Toilet Toilet # Voids 4 1 - Exam Gen: This is a 74-year-old male sitting up in the chair, awake, alert and oriented 3 HEENT: Head is atraumatic, normocephalic. Pupils equal, round. Sclerae is anicteric. NECK: Supple. No JVD. No lymphadenopathy. No thyromegaly. LUNGS: Diminished breath sounds at the bases with a few scattered rhonchi noted. No intercostal retractions. HEART: Regular rate and rhythm. No murmur. ABDOMEN: Soft. Bowel sounds are present. No masses. No tenderness. EXTREMITIES: No pedal edema. No calf tenderness. NEUROLOGICAL: Patient is awake, alert and oriented x3. Cranial nerves 2 through 12 are grossly intact. - Labs CBC & Chem 7: 01/29/20 08:37 01/29/20 13:42 Labs: Abnormal Lab Results - Last 24 Hours (Table) 01/29/20 01/29/20 Range/Units 08:37 08:37 Neutrophils # 8.2 H (1.3-7.7) k/uL Potassium 3.4 L (3.5-5.1) mmol/L BUN 8 L (9-20) mg/dL Glucose 161 H (74-99) mg/dL Calcium 8.2 L (8.4-10.2) mg/dL Microbiology - Last 24 Hours (Table) 01/25/20 12:30 Blood Culture - Preliminary Blood No Growth after 96 hours 01/26/20 12:22 Gram Stain - Final Sputum Sputum Culture - Final Assessment and Plan Assessment: Chronic obstructive pulmonary disease, acute exacerbation with bilateral pneumonia, possibly interstitial pneumonia, possibly gram-negative Possible Covid 19 pneumonia, testing was negative Possible sepsis, present on admission, secondary to possible Covid 19 pneumonia Increased WBC Decreased carbon dioxide Hyperlipidemia Hypertension Previous history of nicotine dependence Full code Plan: Continue with current medications, management, and symptomatic treatment. Continue to wean off FiO2 and increase activity as tolerated. Continue with IV Lasix twice daily and will reevaluate the patient was morning. Continue with bronchodilators and antibiotics at this time. Blood cultures and sputum cultures remain negative. Will repeat a.m. labs. Further recommendations to follow.
[2020-01-29] MEDS: ATORVASTATIN 10 MG TAB PO SCH (19:09)
[2020-01-29] MEDS: FUROSEMIDE 10 MG/ML 4 ML VIAL IV SCH (19:10)
[2020-01-30] MEDS: IPRATROPIUM-ALBUTEROL 3 ML NEB INHALATION SCH ×2 (07:19→11:31)
[2020-01-30 07:27] VITALS: BP 125/75; TEMP 97.8
[2020-01-30 07:44] LABS: Basophils # (A) 0.1 k/uL (0-0.2); Basophils % (A) 0 %; Eosinophils # (A) 0.4 k/uL (0-0.7); Eosinophils % (A) 3 %; HCT 40.7 % (39.0-53.0); HGB 13.5 gm/dL (13.0-17.5); Lymphocytes # (A) 1.8 k/uL (1.0-4.8); Lymphocytes % (A) 16 %; MCH 31.8 pg (25.0-35.0); MCHC 33.2 g/dL (31.0-37.0); MCV 95.8 fL (80.0-100.0); Mean Platelet Volume 7.9; Monocytes # (A) 0.7 k/uL (0-1.0); Monocytes % (A) 6 %; Neutrophils # (A) 7.8 k/uL (1.3-7.7); Neutrophils % (A) 72 %; Platelet Count 397 k/uL (150-450); RBC 4.25 m/uL (4.30-5.90); RDW 12.6 % (11.5-15.5); WBC 10.9 k/uL (3.8-10.6)
[2020-01-30 07:47] LABS: African American GFR (CKD) >90 (>60 ml/min/1.73 sqM); Anion Gap 8 mmol/L; Blood Urea Nitrogen 13 mg/dL (9-20); Calcium 8.5 mg/dL (8.4-10.2); Carbon Dioxide 28 mmol/L (22-30); Chloride 102 mmol/L (98-107); Glucose 100 mg/dL (74-99); Non-African American GFR(CKD) 80 (>60 ml/min/1.73 sqM); Potassium 3.9 mmol/L (3.5-5.1); Sodium 138 mmol/L (137-145)
[2020-01-30] MEDS: AZITHROMYCIN 500 MG TAB PO SCH (08:05)
[2020-01-30] MEDS: FUROSEMIDE 10 MG/ML 4 ML VIAL IV SCH (08:05)
[2020-01-30] MEDS: PANTOPRAZOLE 40 MG TABLET PO SCH (08:05)
[2020-01-30] MEDS: amLODIPine 10 MG TAB PO SCH (08:05)
[2020-01-30] MEDS: ENOXAPARIN 40 MG/0.4 ML SYRINGE SQ SCH (08:05)
[2020-01-30] MEDS: MULTIVITAMINS, THERA 1 EACH TAB PO SCH (08:05)
[2020-01-30 11:37] VITALS: PULSE 92
--- NOTE | 2020-01-30 12:30 | P.PN ---
Subjective Progress Note Date: 01/30/20 Principal diagnosis: dyspnea, COPD, pneumonia A 74-year-old male patient with known history of COPD who presented to the emergency department with increased cough and congestion and generalized weakness. No hemoptysis. No pleurisy. The patient was producing some yellowish sputum. No pleurisy. No reported aspiration. His T-max was 102 and the patient was tachycardic with a heart rate above 110 sinus at the time of admission. His white cell count was at 16.5. He checked negative for covid 19 infection. 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 The patient was started on examination Rocephin and Zithromax and the patient or the feeling better. He does not utilize any form of oxygen or nebulized medications or maintenance of her medications on outpatient basis. He had missed her chronic exertional dyspnea. He has been able to manage well without any major difficulties. He has hypertension and hyperlipidemia as comorbidities. The pro-calcitonin level is at 0.16. CRP level is at 144. On 01/27/2020 patient seen in follow-up on general medical floor. He is awake and alert, in no acute distress he states his breathing is improving, patient is less short of breath. he is on 4 L of oxygen pulse ox of 93%. is febrile pattern has improved, his last episode of fever was yesterday. blood and sputum cultures have been sent, Gram stain of the sputum shows many gram-positive cocci.his labs have been reviewed, leukocytosis is improving, with blood cell count is 12.3, hemoglobin is 12.7, electrolytes are unremarkable, renal profile is within normal limits.his pro-calcitonin came back at 0.16, his COVID 19 was negative On 01/28/2020 patient seen in follow-up on general medical floor. He states he is doing better, breathing easier, white blood cell count is improving, down to 11.6 on today's labs, pro-calcitonin came back at 0.16, patient remains on 4 L of oxygen his pulse ox is 90%, still coughing up some green colored phlegm, lung sounds are positive for bibasilar rales. Today's chest x-ray shows some improvement in the appearance of perihilar airspace disease and there is some blunting of the left costophrenic angle related to probable left pleural effusion. No fever or chills. Blood and sputum cultures were negative. Electrolites are within normal limits, renal profile is unremarkable. On 01/29/2020 patient seen in follow-up on general medical floor. He continues to improve, his sputum and blood cultures have been negative, his been afebrile, yesterday's chest x-ray showed improvement in appearance of perihilar airspace disease on the left, and tiny left pleural effusion. Vital signs have been stable. Home oxygen assessment has been completed showing 87% on room air with exercise, patient will qualify for home oxygen. His been treated for community- acquired pneumonia with a combination of Zithromax and Rocephin, clinically improving, he is requesting to go home today. From pulmonary perspective patient is stable for discharge home today, close follow-up with Dr. Manzo in the office early next week for repeat chest x-ray On 01/30/2020 patient seen in follow-up on general medical floor. Feeling better, he is down to 2 L on his oxygen, earlier his pulse ox on 4 L was 92%. Discharge was held yesterday to see if the oxygen could be weaned off completely. No worsening dyspnea, no worsening cough congestion or chest pain. His blood and sputum cultures have been negative, his been treated with a combination of Rocephin and Zithromax. We'll clear the patient for discharge home yesterday on 7 more days of oral Levaquin, no acute events overnight, today's labs have been reviewed, white blood cell count is 10.9, hemoglobin is 13.5, electrolytes and renal profile were unremarkable. Today's repeat home oxygen assessment was done and patient does desaturate with exercise down to 87% on room air and does qualify for oxygen. Objective - Vital Signs Vital signs: Vital Signs Temp 97.8 F 01/30/20 07:00 Pulse 92 01/30/20 11:40 Resp 18 01/30/20 07:32 BP 125/75 01/30/20 07:00 Pulse Ox 92 L 01/30/20 11:30 Intake & Output 01/29/20 01/30/20 01/30/20 18:59 06:59 18:59 Intake Total 100 Output Total 800 Balance 100 -800 Intake: Oral 100 Output: Urine 200 Stool 600 Other: Voiding Method Toilet Toilet # Voids 3 3 - Exam GENERAL EXAM: Alert, comfortable, very pleasant, 74-year-old white male, on 4 L of oxygen pulse ox of 92 %in no apparent distress. HEAD: Normocephalic/atraumatic. EYES: Normal reaction of pupils, equal size. Conjunctiva pink, sclera white. NOSE: Clear with pink turbinates. THROAT: No erythema or exudates. NECK: No masses, no JVD, no thyroid enlargement, no adenopathy. CHEST: No chest wall deformity. Symmetrical expansion. LUNGS: Equal air entry with no crackles, wheeze, rhonchi or dullness. CVS: Regular rate and rhythm, normal S1 and S2, no gallops, no murmurs, no rubs ABDOMEN: Soft, nontender. No hepatosplenomegaly, normal bowel sounds, no guarding or rigidity. EXTREMITIES: No clubbing, no edema, no cyanosis, 2+ pulses and upper and lower extremities. MUSCULOSKELETAL: Muscle strength and tone normal. SPINE: No scoliosis or deformity SKIN: No rashes CENTRAL NERVOUS SYSTEM: Alert and oriented -3. No focal deficits, tone is normal in all 4 extremities. PSYCHIATRIC: Alert and oriented -3. Appropriate affect. Intact judgment and insight. - Labs CBC & Chem 7: 01/30/20 06:42 01/30/20 06:42 Labs: Abnormal Lab Results - Last 24 Hours (Table) 01/30/20 01/30/20 Range/Units 06:42 06:42 WBC 10.9 H (3.8-10.6) k/uL RBC 4.25 L (4.30-5.90) m/uL Neutrophils # 7.8 H (1.3-7.7) k/uL Glucose 100 H (74-99) mg/dL Microbiology - Last 24 Hours (Table) 01/25/20 12:30 Blood Culture - Preliminary Blood No Growth after 96 hours Assessment and Plan Plan: 1 acute community-acquired left lower lobe pneumonia, the covid 19 evaluation was negative. 2 COPD exacerbation secondary to above 3 shortness of breath secondary to above 4 mild leukocytosis 5 hypertension 6 hyperlipidemia Plan: Patient is stable for discharge home today, on outpatient course of oral antibiotics in the form of Levaquin for 7 more days, he does qualify for home oxygen at 2 L, he did desaturate to 87% with walking, no acute events overnight, clinically patient continues to improve. Patient will need outpatient appointment with Dr. Manoz for repeat chest x-ray and follow-up. I performed a history & physical examination of the patient and discussed their management with my nurse practitioner, Phyllis Armstrong. I reviewed the nurse practitioner's note and agree with the documented findings and plan of care. Lung sounds are positive for diminished breath sounds. The findings and the impression was discussed with the patient. I attest to the documentation by the nurse practitioner. Time with Patient: Less than 30
--- NOTE | 2020-01-30 14:51 | P.DS ---
Providers Date of admission: 01/25/20 12:05 Expected date of discharge: 01/30/20 Attending physician: Dianne Bloom Consults: 01/25/20 16:16 Consult Physician Routine Consulting Provider: Ella Henriquez Consult Reason/Comments: pneumonia- covid?? Do you want consulting provider notified?: Yes 01/25/20 16:17 Consult Physician Routine Consulting Provider: Chris Guillaume Consult Reason/Comments: pneumonia-covid?? Do you want consulting provider notified?: Yes Primary care physician: Carlos Rogers Hospital Course: final diagnosis Chronic obstructive pulmonary disease, acute exacerbation with bilateral pneumonia, possibly interstitial pneumonia, possibly gram-negative Possible Covid 19 pneumonia, testing was negative Possible sepsis, present on admission, secondary to possible Covid 19 pneumonia Increased WBC Decreased carbon dioxide Hyperlipidemia Hypertension Previous history of nicotine dependence Full code Discharge disposition Patient is being discharged in a stable condition with guarded prognosis to home and will follow up with Dr. Rogers. Patient will follow-up with Dr. Wallace in the outpatient setting in 1 week. Patient will continue on Lasix 40 mg twice daily for 3 days and then 40 mg daily until follow-up. Patient was continued on a short course of oral antibiotics in form of Levaquin for the next week. Total time taken is greater than 35 minutes. History of present illness This is a 74-year-old male who was recently admitted with COPD, acute exacerbation, bilateral pneumonia and was being closely monitored. . Patient was evaluated by pulmonary and will follow-up with Dr. Wallace in the outpatient setting in 1 week. Patient also instructed to continue with oral Levaquin daily for the next week. Patient continues to require oxygen and will use 2 L of home O2 until follow-up with pulmonary. Will continue on oral Lasix 40 mg twice daily for the next 3 days and then 40 mg until follow-up. During hospitalization patient was tested for Covid 19 and was negative. Currently no reports of chest pain, shortness of breath, or palpitations. Patient is afebrile. No reports of nausea or vomiting and patient is tolerating diet. On exam vital signs are stable. Temp is 97.8F, pulse is 91, respirations are 18, blood pressure is 125/75, oxygen saturation is 92% on 3 liters via nasal cannula. Cardio S1, S2 are muffled. Respiratory system shows diminished breath sounds at the bases with no wheezing or rhonchi noted. Abdomen is soft and nontender. Nervous system shows no focal deficit. Please refer to medication reconciliation sheet for a list of medications. Patient Condition at Discharge: Stable Plan - Discharge Summary Discharge Rx Participant: No New Discharge Prescriptions: New Levofloxacin [Levaquin] 750 mg PO DAILY 3 Days #7 tab Furosemide [Lasix] 40 mg PO BID #15 tablet Potassium Chloride ER [K-Dur 20] 20 meq PO DAILY #20 tab No Action Multivitamins, Thera [Multivitamin (formulary)] 1 tab PO DAILY amLODIPine [Norvasc] 10 mg PO DAILY Atorvastatin Calcium [Lipitor] 10 mg PO HS Discharge Medication List Atorvastatin Calcium [Lipitor] 10 mg PO HS 01/25/20 [History] Multivitamins, Thera [Multivitamin (formulary)] 1 tab PO DAILY 01/25/20 [Histo ry] amLODIPine [Norvasc] 10 mg PO DAILY 01/25/20 [History] Levofloxacin [Levaquin] 750 mg PO DAILY 3 Days #7 tab 01/29/20 [Rx] Furosemide [Lasix] 40 mg PO BID #15 tablet 01/30/20 [Rx] Potassium Chloride ER [K-Dur 20] 20 meq PO DAILY #20 tab 01/30/20 [Rx] Follow up Appointment(s)/Referral(s): Carlos Rogers MD [Primary Care Provider] - 01/31/20 10:30 am (with Jesenia) Liane Wallace MD [STAFF PHYSICIAN] - 02/26/20 2:15 pm Patient Instructions/Handouts: Using Oxygen at Home (DC), COPD (Chronic Obstructive Pulmonary Disease) (DC), Community Acquired Pneumonia (DC) Activity/Diet/Wound Care/Special Instructions: Please call before you leave the hospital [phone] so [facility] can deliver your oxygen concentrator. Discharge Disposition: HOME SELF-CARE
--- NOTE | 2020-01-30 14:57 | P.PN ---
Progress Note - Text Progress Note Date: 01/30/20 REASON FOR FOLLOWUP: Pneumonia. INTERVAL HISTORY: The patient remains to be afebrile, patient is breathing more comfortably. Patient denies having any chest pain or shortness of breath. Occasional cough which is mostly dry. No nausea, no vomiting. No abdominal pain, no diarrhea. PHYSICAL EXAMINATION: Blood pressure 125/75 with a pulse of 91, temperature 97.8. He is 92% on 4 L nasal cannula. General description is an elderly male, lying in bed in no distress. RESPIRATORY SYSTEM: Unlabored breathing, decreased breath sounds at bases. No wheeze. HEART: S1, S2. Regular rate and rhythm. ABDOMEN: Soft, no tenderness. LABS: Blood cultures negative, sputum usual respiratory naomi . DIAGNOSTIC IMPRESSION AND PLAN: Patient with left lower lobe pneumonia, community-acquired. Sputum has been usual respiratory naomi. Blood culture negative. Finish therapy with oral Levaquin x7 days and close outpatient follow up
--- NOTE | 2020-02-01 09:15 | CDI ---
Documentation Clarification Form Date: 02/01/20 From: Sofia Calderón CCS Phone: If you have a question about this query, please contact Serina Burgos, Associate Scientist at [phone] between 8am and 5pm. Admit Date: 01/25/20 Discharge Date:01/30/20 Patient Name: Ric Del Valle Visit Number: [id number] ATTENTION: The Clinical Documentation Specialists (CDI) and [facility] Coding Staff appreciate your assistance in clarifying documentation. Please respond to the clarification below the line at the bottom and electronically sign. The CDI & [facility] Coding staff will review the response and follow-up if needed. Please note: Queries are made part of the Legal Health Record. If you have any questions, please contact the author of this message via ITS. Dear Dr. Cazares, This patient presented with sepsis and pneumonia. Progress Note 01/28 documents: Patient was given a dose of IV Lasix as chest x- ray yesterday was showing some pulmonary edema. History/Risk Factors: PNA, Sepsis, HTN, Pleural Effusion Clinical Indicators: Pulmonary edema Radiology findings: Findings may represent pneumonia.Correlate to exclude volume overload, atypical presentation of congestive heart failure patient with pre-ex isting emphysema.Probable left pleural effusion. Vital Signs: BP 126/68, RR 18, NH 100, O2 Sat 90 Treatment: Lasix 40 mg IV Q12HR In your professional opinion, can you please clarify pulmonary edema? Acute pulmonary edema Chronic pulmonary edema Volume overload Other, please specify Unable to determine Acute pulmonary edema, I'm not aware diagnosis of of for chronic pulmonary edema MTDD
--- NOTE | 2020-02-03 09:49 | CDI ---
Documentation Clarification Form Date: 02/03/2020 08:50:00 AM From: Matilde Garcia RN, CCDS Admit Date: 01/25/2020 12:05:00 PM Patient Name: Ric Del Valle Visit Number: [id number] Discharge Date: 01/30/2020 02:26:00 PM ATTENTION: The Clinical Documentation Specialists (CDI) and [facility] Coding Staff appreciate your assistance in clarifying documentation. Please respond to the clarification below the line at the bottom and electronically sign. The CDI & [facility] Coding staff will review the response and follow-up if needed. Please note: Queries are made part of the Legal Health Record. If you have any questions, please contact the author of this message via ITS. Dr. Madison Cazares Reminder per the CDC a negative result does not rule out COVID-19 and should not be used as the sole basis for treatment or patient management decisions. The COVID-19 test obtained and reported negative on 01/25/20. Per discharge summary on 01/29: "possible sepsis, present on admission, secondary to possible Covid 19 pneumonia. Patient history/risk factors: Hyperlipidemia, Hypertension Clinical Indicators: 74-year-old mal who present to ED on 01/24 with complaints of generalized weakness, coughing and shortness of breath with exertion. 01/24 Patient reported No contact with sick individuals and travel recently. 01/24 CXR/CT: Severe emphysema and COPD, superimposed fibrotic change 01/24 CXR: There are patchy, bilateral infiltrates. Pleural spaces are clear. 01/24 @ 09:19 VS in ED Triage: 161/78 113 18 98.1 94 % RA 01/24 WBC 16. C-reactive Protein 144.1, Procalcitonin 0.16, LDH 409 Treatment .9 NS 1000 mil bolus 01/24 01/24 Rocephin 1000 mg IVP, than 1 gm IVPB Q 24 HRS 01/25-01/28 01/24 Zithromycin 500mg x1 Zithromax 500 mg po daily 01/25-01/29 Duoneb 0.5 mg -mg/3ml inhalation qid 01/28 Lasdix 40 mg iv once, 40 mg iv q 12 01/28-01/29 01/29 Pulmonary consult: Acute community-acquired left lower lobe pneumonia, the Covid 19 evaluation was negative. He will complete outpatient course of oral antibiotics in the form of Levaquin for 7 more days, he does qualify for home oxygen at 2 L, he did desaturate to 87 % with walking. In order to capture the severity of condition, please clarify the COVID-19 status: False negative, treating for COVID-19 infection COVID-19 ruled out Other, please specify MTDD
--- NOTE | 2020-02-03 10:43 | CDI ---
Documentation Clarification Form Date: 02/03/2020 09:58:00 AM From: Matilde Garcia Phone: Admit Date: 01/25/2020 12:05:00 PM Patient Name: Ric Del Valle Visit Number: [id number] Discharge Date: 01/30/2020 02:26:00 PM ATTENTION: The Clinical Documentation Specialists (CDI) and [facility] Coding Staff appreciate your assistance in clarifying documentation. Please respond to the clarification below the line at the bottom and electronically sign. The CDI & [facility] Coding staff will review the response and follow-up if needed. Please note: Queries are made part of the Legal Health Record. If you have any questions, please contact the author of this message via ITS. Dr. Liane Wallace The patient presented with the following respiratory symptoms: Increased cough congestion, producing some yellowish sputum. 01/29 Pulmonary consult: Acute community-acquired left lower lobe pneumonia, the Covid 19 evaluation was negative. He will complete outpatient course of oral antibiotics in the form of Levaquin for 7 more days, he does qualify for home oxygen at 2 L, he did desaturate to 87 % with walking. History/Risk Factors: COPD, Hypertension, Tobacco use: Former smoker Clinical Indicators: 74-year-old male present to ED on 01/24 with complaints of productive cough and shortness of breath. 01/26-01/28 Pulmonary progress note: Patient remains on 4/L of oxygen his pulse ox is 90 % still coughing up some green colored phlegm, lungs sounds are positive for bibasilar rales. 01/29 pulse ox on 4/L was 92 % 01/24 CXR/CT: Severe emphysema and COPD, superimposed fibrotic change 01/24 CXR: There are patchy, bilateral infiltrates. Pleural spaces are clear. 01/24 @ 09:19 VS in ED Triage: 161/78 113 18 98.1 94 % RA 01/24 WBC 16. C-reactive Protein 144.1, Procalcitonin 0.16, LDH 409 01/24 Covid -19 Not detected Treatment: .9 NS 1000 mil bolus 01/24 01/24 Rocephin 1000 mg IVP, than 1 gm IVPB Q 24 HRS 01/25-01/28 01/24 Zithromycin 500mg x1 Zithromax 500 mg po daily 01/25-01/29 Duoneb 0.5 mg -mg/3ml inhalation qid 01/28 Lasix 40 mg iv once, 40 mg iv q 12 01/28-01/29 Monitor O2 Sat's (titrate) Home O2 2/L In your professional opinion, can you please clarify if these findings, patient pulse ox during this admission and now requiring home 02 signify one of the following conditions? Acute Respiratory Failure Acute on Chronic Respiratory Failure Chronic Respiratory Failure Other Diagnosis, please specify Unable to determine Specificity: If known, further specify (if known): With hypercapnia? (pCO2 >50 and pH <7.35) With hypoxia? (pO2 <60 mm Hg or SpO2 <91% on room air) (Last Query Form Revision: April 2019) MTDD
--- NOTE | 2020-02-04 12:01 | CDI ---
Documentation Clarification Form Date: 02/03/2020 08:50:00 AM From: Matilde Garcia RN, CCDS Admit Date: 01/25/2020 12:05:00 PM Patient Name: Ric Del Valle Visit Number: [id number] Discharge Date: 01/30/2020 02:26:00 PM ATTENTION: The Clinical Documentation Specialists (CDI) and [facility] Coding Staff appreciate your assistance in clarifying documentation. Please respond to the clarification below the line at the bottom and electronically sign. The CDI & [facility] Coding staff will review the response and follow-up if needed. Please note: Queries are made part of the Legal Health Record. If you have any questions, please contact the author of this message via ITS. Dr. Madison Cazares Reminder per the CDC A negative result does not rule out COVID-19 and should not be used as the sole basis for treatment or patient management decisions. The COVID-19 test obtained and reported negative on 01/25/20. Per discharge summary on 01/29: "possible sepsis, present on admission, secondary to possible Covid 19 pneumonia. Patient history/risk factors: Hyperlipidemia, Hypertension Clinical Indicators: 74-year-old mal who present to ED on 01/24 with complaints of generalized weakness, coughing and shortness of breath with exertion. 01/24 Patient reported No contact with sick individuals and travel recently. 01/24 CXR/CT: Severe emphysema and COPD, superimposed fibrotic change 01/24 CXR: There are patchy, bilateral infiltrates. Pleural spaces are clear. 01/24 @ 09:19 VS in ED Triage: 161/78 113 18 98.1 94 % RA 01/24 WBC 16. C-reactive Protein 144.1, Procalcitonin 0.16, LDH 409 Treatment .9 NS 1000 mil bolus 01/24 01/24 Rocephin 1000 mg IVP, than 1 gm ivpb Q 24 hrs 01/25-01/28 01/24 Zithromycin 500mg x1 Zithromax 500 mg po daily 01/25-01/29 Duoneb 0.5 mg -mg/3ml inhalation qid 01/28 Lasdix 40 mg iv once, 40 mg iv q 12 01/28-01/29 Pulmonary consult: Acute community-acquired left lower lobe pneumonia, the Covid 19 evaluation was negative. He will complete outpatient course of oral antibiotics in the form of Levaquin for 7 more days, he does qualify for home oxygen at 2 L, he did desaturate to 87 % with walking. In order to capture the severity of condition, please clarify the COVID-19 status: False negative, treating for COVID-19 infection COVID-19 ruled out Other, please specify COVID-19 ruled out MTDD
== END 2020-01-30 14:26 | disposition home or self-care (01) | DRG 871 ==
LOC: EC 09:17 → 4SSUR 12:05
PROVIDERS: ADMIT Hospitalist; ATTEND Hospitalist
DX: A41.9 Sepsis, unspecified organism (principal); J15.6 Pneumonia due to other Gram-negative bacteria; J81.0 Acute pulmonary edema; J96.01 Acute respiratory failure with hypoxia; J90 Pleural effusion, not elsewhere classified; J84.9 Interstitial pulmonary disease, unspecified; Z20.828 Contact with and (suspected) exposure to other viral communicable diseases; J43.9 Emphysema, unspecified; I10 Essential (primary) hypertension; E78.5 Hyperlipidemia, unspecified; R59.9 Enlarged lymph nodes, unspecified; Z87.891 Personal history of nicotine dependence; Z98.890 Other specified postprocedural states; Z79.899 Other long term (current) drug therapy; Z87.440 Personal history of urinary (tract) infections
CPT/HCPCS: 36415; 70450; 71045; 71046; 71250; 80048; 80053; 81001; 83605; 83615; 83735; 84132; 84145; 84484; 85025; 85379; 85610; 85652; 85730; 86140; 87040; 87070; 87205; 93005; 94640; 96361; 96374; 99285

== ENCOUNTER 2020-11-14 15:52 | Inpatient (IN) | payer MEDICARE ==
[2020-11-14] MEDS ORDERED: SODIUM CHLORIDE 0.9% 1,000 ML IV STA (16:36)
[2020-11-14] MEDS ORDERED: ACETAMINOPHEN TAB 500 MG TAB PO STA (16:38)
--- NOTE | 2020-11-14 16:48 | ED ---
URI HPI - General Chief Complaint: Upper Respiratory Infection Stated Complaint: Fever, Nausea, Chills Time Seen by Provider: 11/14/20 16:07 Source: patient, RN notes reviewed Mode of arrival: ambulatory Limitations: no limitations - History of Present Illness Initial Comments: This a 75-year-old male presents emergency Department chief complaint of cough congestion chills shortness breath. Patient states it started 24 hours ago. Patient has a sick contacts. Patient does have a history of COPD with pneumonia. Patient states he feels somewhat. No abdominal complaints she does have slight nausea with diarrhea constipation no dysuria no hematuria. Patient offers no other complaints. - Related Data Home Medications Medication Instructions Recorded Confirmed Atorvastatin Calcium [Lipitor] 10 mg PO HS 01/25/20 11/14/20 amLODIPine [Norvasc] 10 mg PO DAILY 01/25/20 11/14/20 Tamsulosin HCl [Flomax] 0.4 mg PO HS 11/14/20 11/14/20 Allergies Allergy/AdvReac Type Severity Reaction Status Date / Time No Known Allergies Allergy Verified 11/14/20 17:38 Review of Systems ROS Statement: Those systems with pertinent positive or pertinent negative responses have been documented in the HPI. ROS Other: All systems not noted in ROS Statement are negative. Past Medical History Past Medical History: COPD, Hyperlipidemia, Hypertension Additional Past Medical History / Comment(s): kidney infections History of Any Multi-Drug Resistant Organisms: None Reported Past Surgical History: Adenoidectomy, Tonsillectomy Past Anesthesia/Blood Transfusion Reactions: No Reported Reaction Past Psychological History: No Psychological Hx Reported Smoking Status: Former smoker Past Alcohol Use History: Daily Past Drug Use History: None Reported General Exam Limitations: no limitations General appearance: alert, in no apparent distress Head exam: Present: atraumatic, normocephalic, normal inspection Eye exam: Present: normal appearance, PERRL, EOMI. Absent: scleral icterus, conjunctival injection, periorbital swelling ENT exam: Present: normal exam, mucous membranes moist Neck exam: Present: normal inspection. Absent: tenderness, meningismus, lymphadenopathy Respiratory exam: Present: normal lung sounds bilaterally. Absent: respiratory distress, wheezes, rales, rhonchi, stridor Cardiovascular Exam: Present: normal rhythm, tachycardia, normal heart sounds. Absent: systolic murmur, diastolic murmur, rubs, gallop, clicks GI/Abdominal exam: Present: soft, normal bowel sounds. Absent: distended, tenderness, guarding, rebound, rigid Back exam: Absent: CVA tenderness (R), CVA tenderness (L) Neurological exam: Present: alert, oriented X3 Skin exam: Present: warm, dry, intact, normal color. Absent: rash Course Vital Signs 11/14/20 11/14/20 11/14/20 15:54 18:35 18:39 Temperature 100.6 F H Pulse Rate 114 H 98 95 Respiratory 18 18 Rate Blood Pressure 149/71 102/52 O2 Sat by Pulse 93 L 96 Oximetry 11/14/20 11/14/20 18:47 20:34 Temperature Pulse Rate 100 103 H Respiratory 20 Rate Blood Pressure 113/66 O2 Sat by Pulse 90 L Oximetry Medical Decision Making - Medical Decision Making Patient x-ray shows evidence of infiltrates. Patient does have known COPD. Patient's current pulse ox 90%. Patient will be admitted for further treatment. - Lab Data Result diagrams: 11/14/20 17:01 11/14/20 17:01 Lab Results 11/14/20 11/14/20 11/14/20 Range/Units 16:00 17:01 17:01 WBC 16.4 H (3.8-10.6) k/uL RBC 5.21 (4.30-5.90) m/uL Hgb 16.4 (13.0-17.5) gm/dL Hct 47.6 (39.0-53.0) % MCV 91.4 (80.0-100.0) fL MCH 31.5 (25.0-35.0) pg MCHC 34.5 (31.0-37.0) g/dL RDW 12.7 (11.5-15.5) % Plt Count 310 (150-450) k/uL MPV 7.5 Neutrophils % 89 % Lymphocytes % 6 % Monocytes % 3 % Eosinophils % 1 % Basophils % 0 % Neutrophils # 14.5 H (1.3-7.7) k/uL Lymphocytes # 1.0 (1.0-4.8) k/uL Monocytes # 0.5 (0-1.0) k/uL Eosinophils # 0.1 (0-0.7) k/uL Basophils # 0.1 (0-0.2) k/uL PT 10.2 (9.0-12.0) sec INR 0.9 (<1.2) APTT 25.1 (22.0-30.0) sec Sodium (137-145) mmol/L Potassium (3.5-5.1) mmol/L Chloride (98-107) mmol/L Carbon Dioxide (22-30) mmol/L Anion Gap mmol/L BUN (9-20) mg/dL Creatinine (0.66-1.25) mg/dL Est GFR (CKD-EPI)AfAm (>60 ml/min/1.73 sqM) Est GFR (CKD-EPI)NonAf (>60 ml/min/1.73 sqM) Glucose (74-99) mg/dL Plasma Lactic Acid Federico (0.7-2.0) mmol/L Calcium (8.4-10.2) mg/dL Magnesium (1.6-2.3) mg/dL Total Bilirubin (0.2-1.3) mg/dL AST (17-59) U/L ALT (4-49) U/L Alkaline Phosphatase (38-126) U/L Troponin I (0.000-0.034) ng/mL Total Protein (6.3-8.2) g/dL Albumin (3.5-5.0) g/dL Coronavirus (PCR) Not Detected (Not Detectd) 11/14/20 11/14/20 11/14/20 Range/Units 17:01 17:01 17:01 WBC (3.8-10.6) k/uL RBC (4.30-5.90) m/uL Hgb (13.0-17.5) gm/dL Hct (39.0-53.0) % MCV (80.0-100.0) fL MCH (25.0-35.0) pg MCHC (31.0-37.0) g/dL RDW (11.5-15.5) % Plt Count (150-450) k/uL MPV Neutrophils % % Lymphocytes % % Monocytes % % Eosinophils % % Basophils % % Neutrophils # (1.3-7.7) k/uL Lymphocytes # (1.0-4.8) k/uL Monocytes # (0-1.0) k/uL Eosinophils # (0-0.7) k/uL Basophils # (0-0.2) k/uL PT (9.0-12.0) sec INR (<1.2) APTT (22.0-30.0) sec Sodium 135 L (137-145) mmol/L Potassium 4.3 (3.5-5.1) mmol/L Chloride 100 (98-107) mmol/L Carbon Dioxide 24 (22-30) mmol/L Anion Gap 11 mmol/L BUN 18 (9-20) mg/dL Creatinine 1.23 (0.66-1.25) mg/dL Est GFR (CKD-EPI)AfAm 65 (>60 ml/min/1.73 sqM) Est GFR (CKD-EPI)NonAf 57 (>60 ml/min/1.73 sqM) Glucose 114 H (74-99) mg/dL Plasma Lactic Acid Federico 1.2 (0.7-2.0) mmol/L Calcium 9.7 (8.4-10.2) mg/dL Magnesium 2.1 (1.6-2.3) mg/dL Total Bilirubin 1.2 (0.2-1.3) mg/dL AST 27 (17-59) U/L ALT 15 (4-49) U/L Alkaline Phosphatase 86 (38-126) U/L Troponin I <0.012 (0.000-0.034) ng/mL Total Protein 8.5 H (6.3-8.2) g/dL Albumin 4.5 (3.5-5.0) g/dL Coronavirus (PCR) (Not Detectd) Disposition Clinical Impression: Pneumonia, COPD exacerbation Disposition: ADMITTED IP TO THIS HOSP Condition: Fair
[2020-11-14 17:05] LABS: Basophils # (A) 0.1 k/uL (0-0.2); Basophils % (A) 0 %; Eosinophils # (A) 0.1 k/uL (0-0.7); Eosinophils % (A) 1 %; HCT 47.6 % (39.0-53.0); HGB 16.4 gm/dL (13.0-17.5); Lymphocytes % (A) 6 %; MCH 31.5 pg (25.0-35.0); MCHC 34.5 g/dL (31.0-37.0); MCV 91.4 fL (80.0-100.0); Mean Platelet Volume 7.5; Monocytes # (A) 0.5 k/uL (0-1.0); Monocytes % (A) 3 %; Neutrophils # (A) 14.5 k/uL (1.3-7.7); Neutrophils % (A) 89 %; Platelet Count 310 k/uL (150-450); RBC 5.21 m/uL (4.30-5.90); RDW 12.7 % (11.5-15.5); WBC 16.4 k/uL (3.8-10.6)
--- NOTE | 2020-11-14 17:08 | XR ---
EXAMINATION TYPE: XR chest 2V DATE OF EXAM: 11/14/2020 COMPARISON: 06/10/2020. HISTORY: Cough and fever. TECHNIQUE: Frontal and lateral views of the chest are obtained. FINDINGS: There is mild perihilar and bibasilar opacities. No pleural effusion, or pneumothorax seen . The cardiac silhouette size is within normal limits. The osseous structures are intact. IMPRESSION: Mild atelectasis versus infiltrates.
[2020-11-14 17:15] LABS: INR 0.9 (<1.2); Partial Thromboplastin Time 25.1 sec (22.0-30.0); Prothrombin Time 10.2 sec (9.0-12.0)
[2020-11-14 17:19] LABS: Albumin 4.5 g/dL (3.5-5.0); Calcium 9.7 mg/dL (8.4-10.2); Magnesium 2.1 mg/dL (1.6-2.3); Potassium 4.3 mmol/L (3.5-5.1); Total Bilirubin 1.2 mg/dL (0.2-1.3); Total Protein 8.5 g/dL (6.3-8.2)
[2020-11-14] MEDS ORDERED: IPRATROPIUM-ALBUTEROL 3 ML NEB INHALATION STA (18:06)
[2020-11-14] MEDS ORDERED: methylPREDNISolone SOD SUCCI 125 MG/2 ML VIAL IV STA (18:06)
[2020-11-14] MEDS ORDERED: AZITHROMYCIN 500 MG in SODIUM CHLORIDE 0.9% 250 ML IVPB STA (18:08)
[2020-11-14] MEDS ORDERED: IPRATROPIUM-ALBUTEROL 3 ML NEB INHALATION PRN (18:09)
[2020-11-14] MEDS: IPRATROPIUM-ALBUTEROL 3 ML NEB INHALATION SCH (20:34)
[2020-11-14] MEDS ORDERED: ACETAMINOPHEN TAB 325 MG TAB PO PRN (22:12)
[2020-11-14] MEDS: ATORVASTATIN 10 MG TAB PO SCH (22:31)
[2020-11-14] MEDS: TAMSULOSIN 0.4 MG CAP.ER.24H PO SCH (22:31)
[2020-11-15 06:52] LABS: Appearance,Urine Clear (Clear); Bilirubin,Urine Negative (Negative); Blood,Urine Trace (Negative); Color,Urine Light Yellow; Glucose,Urine (UA) Negative (Negative); Ketones,Urine Negative (Negative); Leukocyte Esterase,Urine Negative (Negative); Mucus,Urine Rare /hpf; Nitrite,Urine Negative (Negative); PH, Urine 5.5 (5.0-8.0); Protein,Urine Negative (Negative); RBC,Urine 1 /hpf (0-5); Specific Gravity,Urine 1.009 (1.001-1.035); Urobilinogen,Urine <2.0 mg/dL (<2.0); WBC,Urine 1 /hpf (0-5)
[2020-11-15] MEDS: IPRATROPIUM-ALBUTEROL 3 ML NEB INHALATION SCH ×4 (07:39→19:21)
[2020-11-15] MEDS: amLODIPine 10 MG TAB PO SCH (09:22)
[2020-11-15] MEDS: ATORVASTATIN 10 MG TAB PO SCH (20:36)
[2020-11-15] MEDS: TAMSULOSIN 0.4 MG CAP.ER.24H PO SCH (20:36)
--- NOTE | 2020-11-16 01:28 | P.HPIM ---
History of Present Illness H&P Date: 11/15/20 Chief Complaint: SOB and cough Mr. Del Valle is a 75-year-old male with a past medical history of COPD, hypertension, hyperlipidemia coming into the hospital with a chief complaint of cough and difficulty breathing. Patient states that he started to have cough along with difficulty in breathing for the past 24 hours. He has been having cough that is productive in nature with mostly whitish sputum. He denies having any fevers chills or rigors. Patient denies having any sick contacts. He denies having any chest pain or palpitations. No orthopnea PND or lower extremity swelling. He denies having any abdominal pain nausea vomiting or diarrhea. No dysuria or hematuria. In the ER at the time of admission patient was having temperature of 100.6, pulse rate of 114, blood pressure 149 x 71 and saturating at 93% on room air. He had a chest x-ray showing mild atelectasis versus infiltrates bilaterally. On reviewing the labs has a white count of 16.4, hemoglobin 16.4, platelets 310. Sodium 135, potassium 4.3, chloride 100, bicarb 24, BUN 18, creatinine 1.23 troponin less than 0.012 urine analysis is negative for nitrites and leukocyte esterase. Coronavirus PCR is negative. Review of Systems REVIEW OF SYSTEMS: CONSTITUTIONAL: No fever, chillls or rigors HEENT: No recent visual problems or hearing problems. Denied any sore throat. CARDIOVASCULAR: No chest pain or palpitations. No orthopnea PND. PULMONARY: As per HPI GASTROINTESTINAL: No abdominal pain, nausea or diarrhea NEUROLOGICAL: No headaches, no weakness, no numbness. HEMATOLOGICAL: Denies any bleeding or petechiae. GENITOURINARY: Denies any burning micturition, frequency, or urgency. MUSCULOSKELETAL/RHEUMATOLOGICAL: No joint issues ENDOCRINE: Denies any polyuria or polydipsia. The rest of the 14-point review of systems is negative. Past Medical History Past Medical History: COPD, Hyperlipidemia, Hypertension Additional Past Medical History / Comment(s): kidney infections History of Any Multi-Drug Resistant Organisms: None Reported Past Surgical History: Adenoidectomy, Tonsillectomy Past Anesthesia/Blood Transfusion Reactions: No Reported Reaction Past Psychological History: No Psychological Hx Reported Smoking Status: Former smoker Past Alcohol Use History: Daily Past Drug Use History: None Reported Medications and Allergies Home Medications Medication Instructions Recorded Confirmed Type Atorvastatin Calcium [Lipitor] 10 mg PO HS 01/25/20 11/14/20 History amLODIPine [Norvasc] 10 mg PO DAILY 01/25/20 11/14/20 History Tamsulosin HCl [Flomax] 0.4 mg PO HS 11/14/20 11/14/20 History Allergies Allergy/AdvReac Type Severity Reaction Status Date / Time No Known Allergies Allergy Verified 11/14/20 17:38 Physical Exam Vitals: Vital Signs Temp Pulse Pulse Resp BP BP Pulse Ox 11/15/20 11:48 80 11/15/20 11:38 88 11/15/20 08:57 97.6 F 93 16 115/62 90 L 11/15/20 07:48 88 11/15/20 07:41 86 11/15/20 03:02 97.7 F 94 16 117/63 92 L 11/14/20 21:20 18 11/14/20 21:17 98.3 F 97 17 104/56 90 L 11/14/20 20:34 103 H 20 113/66 90 L 11/14/20 18:47 100 11/14/20 18:39 95 18 102/52 96 11/14/20 18:35 98 11/14/20 15:54 100.6 F H 114 H 18 149/71 93 L Intake and Output 11/14/20 11/15/20 11/15/20 22:59 06:59 14:59 Other: Voiding Method Urinal Weight 77.111 kg PHYSICAL EXAMINATION: GENERAL: The patient is alert and oriented x3, not in any acute distress. HEENT: Pupils are round and equally reacting to light. EOMI. No scleral icterus. No conjunctival pallor. CARDIOVASCULAR: S1 and S2 heard. PULMONARY: Bilatera wheezing with prolonged expiratory phase ABDOMEN: Soft, Non tender, BS WNL MUSCULOSKELETAL: No joint swelling or deformity. EXTREMITIES: No cyanosis, clubbing or pitting edema NEUROLOGICAL: Gross neurological examination did not reveal any focal deficits. SKIN: No rashes. Results CBC & Chem 7: 11/14/20 17:01 11/14/20 17:01 Labs: Abnormal Lab Results - Last 24 Hours (Table) 11/14/20 11/14/20 11/15/20 Range/Units 17:01 17:01 06:30 WBC 16.4 H (3.8-10.6) k/uL Neutrophils # 14.5 H (1.3-7.7) k/uL Sodium 135 L (137-145) mmol/L Glucose 114 H (74-99) mg/dL Total Protein 8.5 H (6.3-8.2) g/dL Urine Blood Trace H (Negative) Urine Mucus Rare H (None) /hpf Thrombosis Risk Factor Assmnt - Choose All That Apply Each Factor Represents 1 point: Abnormal pulmonary function (COPD) Each Risk Factor Represents 3 Points: Age 75 years or older Thrombosis Risk Factor Assessment Total Risk Factor Score: 4 Thrombosis Risk Factor Assessment Level: Moderate Risk Assessment and Plan Assessment: ASSESSMENT Acute COPD exacerbation secondary to community-acquired pneumonia Committee acquired pneumonia Hypertension hyperlipidemia Former smoker PLAN: Patient is started on ceftriaxone and Zithromax. Started on prednisone and breathing treatments. He has been resumed on his home medications. Patient is very eager to go home, discussed with him that his saturations are still on the lower side and he would require antibiotics and have to stay in the hospital, patient is convinced to stay. Will order AM labs. Further recommen dations to follow depending on the progress of the patient.
[2020-11-16] MEDS: predniSONE 50 MG TAB PO SCH ×2 (02:02→09:39)
[2020-11-16] MEDS: AZITHROMYCIN 500 MG TAB PO SCH ×2 (02:02→09:39)
[2020-11-16] MEDS: IPRATROPIUM-ALBUTEROL 3 ML NEB INHALATION SCH ×4 (07:38→20:38)
[2020-11-16 08:50] LABS: Basophils # (A) 0.02 X 10*3/uL (0.00-0.10); Basophils % (A) 0.1 %; Eosinophils # (A) 0 X 10*3/uL (0.04-0.35); Eosinophils % (A) 0 %; HCT 43.1 % (39.6-50.0); HGB 14.3 g/dL (13.0-17.0); Lymphocytes # (A) 0.98 X 10*3/uL (0.90-5.00); Lymphocytes % (A) 4.7 %; MCH 30.8 pg (27.0-32.0); MCHC 33.2 g/dL (32.0-37.0); MCV 92.7 fL (80.0-97.0); Mean Platelet Volume 10.6 fL (9.5-12.2); Monocytes # (A) 0.76 X 10*3/uL (0.20-1.00); Monocytes % (A) 3.6 %; Neutrophils # (A) 18.97 X 10*3/uL (1.80-7.70); Neutrophils % (A) 90.8 %; Platelet Count 302 X 10*3/uL (140-440); RBC 4.65 X 10*6/uL (4.40-5.60); RDW 13.5 % (11.5-14.5); WBC 20.89 X 10*3/uL (4.50-10.00)
[2020-11-16 09:31] LABS: African American GFR (CKD) 99.9 (60.0-200.0); Anion Gap 8.7 mmol/L (4.00-12.00); BUN/Creat Ratio 17.5 Ratio (12.00-20.00); Calcium 8.5 mg/dL (8.7-10.3); Carbon Dioxide 21.3 mmol/L (21.6-31.8); Non-African American GFR(CKD) 86.2 (60.0-200.0); Potassium 4.2 mmol/L (3.5-5.5)
[2020-11-16] MEDS: amLODIPine 10 MG TAB PO SCH (09:39)
[2020-11-16] MEDS: ENOXAPARIN 40 MG/0.4 ML SYRINGE SQ SCH (09:39)
[2020-11-16] MEDS: PANTOPRAZOLE 40 MG TABLET PO SCH (09:39)
[2020-11-16] MEDS ORDERED: LORazepam 0.5 MG TAB PO PRN (16:40)
[2020-11-16] MEDS ORDERED: TEMAZEPAM 15 MG CAP PO PRN (16:40)
--- NOTE | 2020-11-16 17:27 | PN ---
PROGRESS NOTE DATE OF SERVICE: 11/16/2020 This 75-year-old gentleman, being followed by Dr. Carlos Rogers in the outpatient setting, was admitted with COPD exacerbation as well as community-acquired pneumonia. The chest x-ray, which was reviewed personally by me, showed possibly minimal infiltrates in the right lower lobe, and the patient was admitted for further evaluation and treatment. The patient was started on IV antibiotics also. Past medical history reviewed. REVIEW OF SYSTEMS: CARDIOVASCULAR SYSTEM: No angina, palpitations. RESPIRATORY SYSTEM: As mentioned earlier. GI: As mentioned earlier. : No dysuria or retention. NERVOUS SYSTEM: No numbness, weakness. CURRENT MEDICATIONS: Reviewed. They include Tylenol, DuoNeb, Norvasc, Lipitor, Zithromax, Rocephin, Lovenox, Protonix, prednisone, Flomax. PHYSICAL EXAMINATION: Patient is alert and oriented x3. Pulse 68, blood pressure 120/63, respirations 16, temperature 97.6, pulse ox 98% on room air. HEENT: Conjunctivae normal. NECK: No jugular venous distention. CARDIOVASCULAR SYSTEM: S1, S2 muffled. RESPIRATORY SYSTEM: Breath sounds diminished at the bases. Scattered rhonchi and crackles. ABDOMEN: Soft, non-tender. LEGS: No edema. No swelling. NERVOUS SYSTEM: No focal deficit. LABS: WBC 20.8, hemoglobin 14.3, sodium 140, potassium 4.2. Glucose 136. ASSESSMENT: 1. Chronic obstructive pulmonary disease, acute exacerbation, with acute right lower lobe community-acquired pneumonia. 2. Hypertension. 3. Hyperlipidemia. 4. Remote history of nicotine dependence. 5. Increased white count with leukocytosis. 6. Hyponatremia. 7. History of urinary tract infections. 8. History of adenoidectomy. 9. History of ETOH. RECOMMENDATIONS AND DISCUSSION: In this 75-year-old gentleman who presented with multiple complex medical issues, we will monitor the patient closely, continue the current medications, continue with symptomatic treatment. Will continue the IV antibiotics. Otherwise, continue with DVT prophylaxis, the rest of the medications. Guarded prognosis because of multiple complex medical issues. Further recommendations to follow. MMODL / IJN: [id number] /
[2020-11-16] MEDS: TAMSULOSIN 0.4 MG CAP.ER.24H PO SCH (21:41)
[2020-11-16] MEDS: ATORVASTATIN 10 MG TAB PO SCH (21:41)
[2020-11-17] MEDS: IPRATROPIUM-ALBUTEROL 3 ML NEB INHALATION SCH ×4 (07:27→21:41)
[2020-11-17] MEDS: ENOXAPARIN 40 MG/0.4 ML SYRINGE SQ SCH (09:06)
[2020-11-17] MEDS: PANTOPRAZOLE 40 MG TABLET PO SCH (09:06)
[2020-11-17] MEDS: AZITHROMYCIN 500 MG TAB PO SCH (09:07)
[2020-11-17] MEDS: amLODIPine 10 MG TAB PO SCH (09:07)
[2020-11-17] MEDS: predniSONE 50 MG TAB PO SCH (09:08)
[2020-11-17 09:42] LABS: Basophils # (A) 0.03 X 10*3/uL (0.00-0.10); Basophils % (A) 0.2 %; Eosinophils # (A) 0 X 10*3/uL (0.04-0.35); Eosinophils % (A) 0 %; HCT 43.2 % (39.6-50.0); HGB 14.1 g/dL (13.0-17.0); Lymphocytes # (A) 2.31 X 10*3/uL (0.90-5.00); Lymphocytes % (A) 12.4 %; MCH 30.2 pg (27.0-32.0); MCHC 32.6 g/dL (32.0-37.0); MCV 92.5 fL (80.0-97.0); Mean Platelet Volume 10.4 fL (9.5-12.2); Monocytes # (A) 1.01 X 10*3/uL (0.20-1.00); Monocytes % (A) 5.4 %; Neutrophils # (A) 15.19 X 10*3/uL (1.80-7.70); Neutrophils % (A) 81.4 %; Platelet Count 323 X 10*3/uL (140-440); RBC 4.67 X 10*6/uL (4.40-5.60); RDW 13.6 % (11.5-14.5); WBC 18.66 X 10*3/uL (4.50-10.00)
[2020-11-17 09:59] LABS: African American GFR (CKD) 99.9 (60.0-200.0); Anion Gap 8.2 mmol/L (4.00-12.00); BUN/Creat Ratio 17.5 Ratio (12.00-20.00); Calcium 8.7 mg/dL (8.7-10.3); Carbon Dioxide 21.8 mmol/L (21.6-31.8); Non-African American GFR(CKD) 86.2 (60.0-200.0)
[2020-11-17] MEDS: THIAMINE 100 MG TAB PO SCH (12:21)
[2020-11-17] MEDS: MULTIVITAMINS, THERA 1 EACH TAB PO SCH (12:21)
[2020-11-17] MEDS: FOLIC ACID 1 MG TAB PO SCH (12:21)
--- NOTE | 2020-11-17 16:33 | PN ---
PROGRESS NOTE DATE OF SERVICE: 11/17/2020 This 75-year-old gentleman who was admitted with COPD acute exacerbation, acute right lower lobe pneumonia also had Gram-positive bacilli in the blood culture indicating sepsis. No chest pain. No palpitations. No fever. PHYSICAL EXAMINATION: Alert and oriented x3. Pulse 93, blood pressure 138/72, respirations 16, temperature 97.8, pulse ox 94% on room air. HEENT: Conjunctivae normal. NECK: No jugular venous distention. CARDIOVASCULAR: S1, S2 muffled. RESPIRATORY: Breath sounds diminished at the bases. A few scattered rhonchi. ABDOMEN: Soft. LEGS: No edema, no swelling. NERVOUS SYSTEM: No focal deficits. LABS: WBC 18.6, hemoglobin 14.1. Sodium 140. Other labs are noted. ASSESSMENT: 1. Chronic obstructive pulmonary disease acute exacerbation with possible acute right lower lobe pneumonia, community-acquired. 2. Gram-positive cocci in the blood with sepsis. 3. Hypertension. 4. Hyperlipidemia. 5. Remote history of nicotine dependence. 6. Increased WBC with leukocytosis. 7. Hyponatremia. 8. History of urinary tract infection. 9. History of adenoidectomy. 10.History EtOH. RECOMMENDATIONS AND DISCUSSION: Recommend to continue current medication, continue symptomatic treatment. Otherwise, repeat cultures. Await the final ID of the organism. Pulmonary consultation. Continue with IV antibiotics. Guarded prognosis. Further recommendations to follow. MMODL / AMPARON: [id number] /
--- NOTE | 2020-11-17 18:41 | P.CNPUL ---
History of Present Illness Consult date: 11/17/20 Requesting physician: Asha Patel Reason for consult: dyspnea, COPD Chief complaint: Shortness of breath History of present illness: This is a pleasant 75-year-old gentleman with a known history of hypertension, hyperlipidemia, 50 year pack per day smoking history however quit 10 years ago. He does have chronic obstructive pulmonary disease. He presented to the emergency room on 11/14/2020 with complaints of increasing shortness of breath cough and congestion. No fever, chills or night sweats. No nausea, vomiting or diarrhea. Chest x-ray showed mild perihilar bibasilar atelectasis. White count 18.6. Hemoglobin 14.1. Sodium 140. Potassium 4.0. Creatinine 0.8. Bean virus not detected. He is seen today in consultation on the regular medical floor. He is up ambulating in his room. He is awake and alert in no acute distress. He is on room air and maintaining O2 saturations in the 90s. Breathing quite a bit easier. He was initiated on ceftriaxone, azithromycin, DuoNeb inhalations, steroids. Review of Systems REVIEW OF SYSTEMS: CONSTITUTIONAL: Denies any recent significant weight loss or weight gain. EYES: Denies change in vision. EARS, NOSE, MOUTH, THROAT: Denies headaches, denies sore throat. CARDIOVASCULAR: Denies chest pain, palpitations or syncopal episodes. RESPIRATORY: Positive for shortness of breath, cough, congestion no hemoptysis. GASTROINTESTINAL: Denies change in appetite, denies abdominal pain GENITOURINARY: Denies hematuria, denies infections. MUSKULOSKELETAL: Denies pain, denies swelling. INTEGUMENTARY: Denies rash, denies eczema. NEUROLOGICAL: Denies recent memory loss, no recent seizure activity. PSYCHIATRIC: Denies anxiety, denies depression. HEMATOLOGIC/LYMPHATIC: Denies anemia, denies enlarged lymph nodes. Past Medical History Past Medical History: COPD, Hyperlipidemia, Hypertension Additional Past Medical History / Comment(s): kidney infections History of Any Multi-Drug Resistant Organisms: None Reported Past Surgical History: Adenoidectomy, Tonsillectomy Past Anesthesia/Blood Transfusion Reactions: No Reported Reaction Past Psychological History: No Psychological Hx Reported Smoking Status: Former smoker Past Alcohol Use History: Daily Past Drug Use History: None Reported Medications and Allergies Home Medications Medication Instructions Recorded Confirmed Type Atorvastatin Calcium [Lipitor] 10 mg PO HS 01/25/20 11/14/20 History amLODIPine [Norvasc] 10 mg PO DAILY 01/25/20 11/14/20 History Tamsulosin HCl [Flomax] 0.4 mg PO HS 11/14/20 11/14/20 History Allergies Allergy/AdvReac Type Severity Reaction Status Date / Time No Known Allergies Allergy Verified 11/14/20 17:38 Physical Exam Vitals: Vital Signs Temp Pulse Pulse Resp BP BP Pulse Ox 11/17/20 16:57 88 11/17/20 16:47 86 11/17/20 16:05 97.5 F L 98 19 119/71 95 11/17/20 14:03 97.8 F 93 16 138/72 11/17/20 11:08 88 11/17/20 10:58 80 11/17/20 07:38 80 11/17/20 07:27 72 11/17/20 07:06 98.0 F 80 14 122/60 90 L 11/17/20 02:13 97.8 F 87 120/53 93 L 11/16/20 20:39 80 11/16/20 20:23 97.4 F L 94 17 134/68 91 L Intake and Output 11/17/20 11/17/20 11/17/20 06:59 14:59 22:59 Intake Total 400 Balance 400 Intake: Oral 400 Other: Voiding Method Toilet Toilet Urinal Urinal # Voids 3 3 GENERAL EXAM: Alert, active, pleasant 75-year-old gentleman, on room air, c omfortable in no apparent distress. HEAD: Normocephalic. EYES: Normal reaction of pupils, equal size. NOSE: Clear with pink turbinates. THROAT: No erythema or exudates. NECK: No masses, no JVD. CHEST: No chest wall deformity. LUNGS: Equal air entry with no crackles, wheeze, rhonchi or dullness. Dim inished. CVS: S1 and S2 normal with no audible murmur, regular rhythm. ABDOMEN: No hepatosplenomegaly, normal bowel sounds, no guarding or rigidity. SPINE: No scoliosis or deformity SKIN: No rashes CENTRAL NERVOUS SYSTEM: No focal deficits, tone is normal in all 4 extremities. EXTREMITIES: There is no peripheral edema. No clubbing, no cyanosis. Peripheral pulses are intact. Results - Laboratory Findings CBC and BMP: 11/17/20 05:34 11/17/20 05:34 PT/INR, D-dimer PT 10.2 sec (9.0-12.0) 11/14/20 17:01 INR 0.9 (<1.2) 11/14/20 17:01 Abnormal lab findings: Abnormal Labs 11/14/20 11/14/20 11/15/20 17:01 17:01 06:30 WBC 16.4 H Immature Gran # Neutrophils # 14.5 H Monocytes # Eosinophils # Sodium 135 L Chloride Carbon Dioxide Glucose 114 H Calcium Total Protein 8.5 H Urine Blood Trace H Urine Mucus Rare H 11/16/20 11/16/20 11/17/20 05:29 05:29 05:34 WBC 20.89 H 18.66 H Immature Gran # 0.16 H 0.12 H Neutrophils # 18.97 H 15.19 H Monocytes # 1.01 H Eosinophils # 0 L 0 L Sodium Chloride 110 H Carbon Dioxide 21.3 L Glucose 136 H Calcium 8.5 L Total Protein Urine Blood Urine Mucus 11/17/20 05:34 WBC Immature Gran # Neutrophils # Monocytes # Eosinophils # Sodium Chloride 110 H Carbon Dioxide Glucose 114 H Calcium Total Protein Urine Blood Urine Mucus - Diagnostic Findings Chest x-ray: image reviewed Assessment and Plan Assessment: 1 Acute exacerbation of chronic obstructive pulmonary disease 2 50 year pack per day smoking history however quit 10 years ago 3 Hypertension 4 Hyperlipidemia Plan: The patient was seen and evaluated by Dr. Wallace Chest x-ray and labs reviewed Continue the current treatment plan Empiric antibiotics, bronchodilators, steroids Probable discharge in the a.m. Would benefit from a follow-up in the office for full PFTs to evaluate the severity of his COPD and make recommendations for her maintenance medications We'll continue to follow make further recommendations based on his clinical status I, the cosigning physician, performed a history & physical examination of the patient. Lungs sounds are clear, diminished. Maintaining good O2 saturations in the 90s on room air. I discussed the assessment and plan of care with my nurse practitioner, Natividad Martin. I attest to the above consultation as dictated by nette r. Time with Patient: Greater than 30
[2020-11-17] MEDS: ATORVASTATIN 10 MG TAB PO SCH (20:12)
[2020-11-17] MEDS: TAMSULOSIN 0.4 MG CAP.ER.24H PO SCH (20:12)
[2020-11-18] MEDS: PANTOPRAZOLE 40 MG TABLET PO SCH (08:31)
[2020-11-18] MEDS: IPRATROPIUM-ALBUTEROL 3 ML NEB INHALATION SCH ×4 (08:37→20:43)
[2020-11-18 09:15] LABS: Basophils # (A) 0.03 X 10*3/uL (0.00-0.10); Basophils % (A) 0.2 %; Eosinophils # (A) 0.02 X 10*3/uL (0.04-0.35); Eosinophils % (A) 0.1 %; HCT 45.4 % (39.6-50.0); HGB 15.2 g/dL (13.0-17.0); Lymphocytes # (A) 2.93 X 10*3/uL (0.90-5.00); Lymphocytes % (A) 20.5 %; MCH 30.8 pg (27.0-32.0); MCHC 33.5 g/dL (32.0-37.0); MCV 91.9 fL (80.0-97.0); Mean Platelet Volume 10.6 fL (9.5-12.2); Monocytes # (A) 0.89 X 10*3/uL (0.20-1.00); Monocytes % (A) 6.2 %; Neutrophils # (A) 10.29 X 10*3/uL (1.80-7.70); Neutrophils % (A) 72.2 %; Platelet Count 333 X 10*3/uL (140-440); RBC 4.94 X 10*6/uL (4.40-5.60); RDW 13.4 % (11.5-14.5); WBC 14.27 X 10*3/uL (4.50-10.00)
[2020-11-18 09:40] LABS: African American GFR (CKD) 83.8 (60.0-200.0); Non-African American GFR(CKD) 72.3 (60.0-200.0); Potassium 4.3 mmol/L (3.5-5.5)
[2020-11-18] MEDS: predniSONE 50 MG TAB PO SCH (10:24)
[2020-11-18] MEDS: amLODIPine 10 MG TAB PO SCH (10:24)
[2020-11-18] MEDS: ENOXAPARIN 40 MG/0.4 ML SYRINGE SQ SCH (10:25)
[2020-11-18] MEDS: AZITHROMYCIN 500 MG TAB PO SCH (10:25)
[2020-11-18] MEDS: FOLIC ACID 1 MG TAB PO SCH (12:42)
[2020-11-18] MEDS: MULTIVITAMINS, THERA 1 EACH TAB PO SCH (12:42)
[2020-11-18] MEDS: THIAMINE 100 MG TAB PO SCH (12:42)
--- NOTE | 2020-11-18 15:39 | P.PN ---
Subjective Progress Note Date: 11/18/20 This is a 75-year-old male who was recently admitted with chronic obstructive pulmonary disease acute exacerbation acute right lower lobe pneumonia also initial cultures were found to be gram-positive bacilli indicating sepsis. Patient is being closely monitored. Patient is maintained on IV antibiotics in the form of ceftriaxone along with oral Zithromax and will continue. Repeat blood cultures have been negative. Patient denies any worsening shortness of breath and is currently on room air. Patient is maintained on breathing inhalational treatments along with oral steroids and will continue at this time. Pulmonary is following. Review of systems: Constitutional: No reports of fatigue, fever, or chills Cardiovascular: No reports of chest pain or palpitations Respiratory: No reports of shortness of breath or cough GI: No reports of nausea, vomiting, or diarrhea : No reports of dysuria or retention Neurovascular: No reports of weakness or numbness All medications have been reviewed Objective - Vital Signs Vital signs: Vital Signs Temp 97.9 F 11/18/20 07:45 Pulse 94 11/18/20 12:12 Resp 20 11/18/20 07:45 BP 143/73 11/18/20 07:45 Pulse Ox 93 L 11/18/20 07:45 Intake & Output 11/17/20 11/18/20 11/18/20 18:59 06:59 18:59 Intake Total 400 200 Balance 400 200 Intake: Oral 400 200 Other: Voiding Method Toilet Toilet Toilet Urinal Urinal Urinal # Voids 3 - Exam Gen: This is a 75-year-old male currently sitting up in bed, awake, alert and oriented 3, well-developed, well-nourished. There is 98.2F, pulse is 90, respirations are 16, blood pressure is 119/71, oxygen saturation is 93% on room air HEENT: Head is atraumatic, normocephalic. Pupils equal, round. Sclerae is anicteric. NECK: Supple. No JVD. No lymphadenopathy. No thyromegaly. LUNGS: Breath sounds diminished bilaterally with a few scattered rhonchi noted No intercostal retractions. HEART: S1, S2 are muffled ABDOMEN: Soft. Bowel sounds are present. No masses. No tenderness. EXTREMITIES: No pedal edema. No calf tenderness. NEUROLOGICAL: Patient is awake, alert and oriented x3. Cranial nerves 2 through 12 are grossly intact. - Labs CBC & Chem 7: 11/18/20 05:24 11/18/20 05:24 Labs: Abnormal Lab Results - Last 24 Hours (Table) 11/18/20 Range/Units 05:24 WBC 14.27 H (4.50-10.00) X 10*3/uL Immature Gran # 0.11 H (0.00-0.04) X 10*3/uL Neutrophils # 10.29 H (1.80-7.70) X 10*3/uL Eosinophils # 0.02 L (0.04-0.35) X 10*3/uL Microbiology - Last 24 Hours (Table) 11/14/20 18:05 Blood Culture - Preliminary Blood No Growth after 72 hours Assessment and Plan Assessment: Chronic obstructive pulmonary disease acute exacerbation with possible acute right lower lobe pneumonia, community-acquired Gram-positive cocci in the blood culture was sepsis, present on admission Hypertension Hyperlipidemia Remote history of nicotine dependence Increased white blood count with leukocytosis hyponatremia history of urinary tract infection history of adenoidectomy History of EtOH Full code Recommendations and discussion: Recommend to continue with current medications, management, and symptomatic treatment. Blood cultures have remained negative over the last 24 hours. Pulmonary following and patient will be maintained on IV antibiotics along with oral and has been transitioned to oral prednisone and will continue. Due to multiple complex medical issues, prognosis is guarded. Further recommendations to follow. Possible discharge in 24 hours.
--- NOTE | 2020-11-18 18:00 | P.PN ---
Subjective Progress Note Date: 11/18/20 Principal diagnosis: Acute exacerbation of COPD This is a pleasant 75-year-old gentleman with a known history of hypertension, hyperlipidemia, 50 year pack per day smoking history however quit 10 years ago. He does have chronic obstructive pulmonary disease. He presented to the emergency room on 11/14/2020 with complaints of increasing shortness of breath cough and congestion. No fever, chills or night sweats. No nausea, vomiting or diarrhea. Chest x-ray showed mild perihilar bibasilar atelectasis. White count 18.6. Hemoglobin 14.1. Sodium 140. Potassium 4.0. Creatinine 0.8. Bean virus not detected. He is seen today in consultation on the regular medical fl oor. He is up ambulating in his room. He is awake and alert in no acute distress. He is on room air and maintaining O2 saturations in the 90s. Breathing quite a bit easier. He was initiated on ceftriaxone, azithromycin, DuoNeb inhalations, steroids. The patient is seen today 11/18/2020 in follow-up on the regular medical floor. He is awake and alert in no acute distress. His breathing is nearly back to his baseline. Maintaining good O2 saturations in the 90s on room air. He is afebrile. One preliminary blood culture revealed gram-positive bacilli. He count 14.2. Hemoglobin 15.2. Neutrophils 10.2. Sodium 141. Potassium 4.3. Creatinine 1.0. Currently on ceftriaxone and azithromycin. Leila on bronchodilators. Oral prednisone. Objective - Vital Signs Vital signs: Vital Signs Temp 97.5 F L 11/18/20 16:00 Pulse 84 11/18/20 16:58 Resp 19 11/18/20 16:00 BP 119/71 11/18/20 16:00 Pulse Ox 93 L 11/18/20 14:00 Intake & Output 11/17/20 11/18/20 11/18/20 18:59 06:59 18:59 Intake Total 400 200 Balance 400 200 Intake: Oral 400 200 Other: Voiding Method Toilet Toilet Toilet Urinal Urinal # Voids 3 2 - Exam GENERAL EXAM: Alert, active, pleasant 75-year-old gentleman, on room air, comfortable in no apparent distress. HEAD: Normocephalic. EYES: Normal reaction of pupils, equal size. NOSE: Clear with pink turbinates. THROAT: No erythema or exudates. NECK: No masses, no JVD. CHEST: No chest wall deformity. LUNGS: Equal air entry with no crackles, wheeze, rhonchi or dullness. Diminished. CVS: S1 and S2 normal with no audible murmur, regular rhythm. ABDOMEN: No hepatosplenomegaly, normal bowel sounds, no guarding or rigidity. SPINE: No scoliosis or deformity SKIN: No rashes CENTRAL NERVOUS SYSTEM: No focal deficits, tone is normal in all 4 extremities. EXTREMITIES: There is no peripheral edema. No clubbing, no cyanosis. Peripheral pulses are intact. - Labs CBC & Chem 7: 11/18/20 05:24 11/18/20 05:24 Labs: Abnormal Lab Results - Last 24 Hours (Table) 11/18/20 Range/Units 05:24 WBC 14.27 H (4.50-10.00) X 10*3/uL Immature Gran # 0.11 H (0.00-0.04) X 10*3/uL Neutrophils # 10.29 H (1.80-7.70) X 10*3/uL Eosinophils # 0.02 L (0.04-0.35) X 10*3/uL Microbiology - Last 24 Hours (Table) 11/17/20 11:20 Blood Culture - Preliminary Blood No Growth after 24 hours 11/17/20 11:20 Blood Culture - Preliminary Blood No Growth after 24 hours 11/14/20 18:05 Blood Culture - Preliminary Blood No Growth after 72 hours Assessment and Plan Assessment: 1 Acute exacerbation of chronic obstructive pulmonary disease 2 50 year pack per day smoking history however quit 10 years ago 3 Hypertension 4 Hyperlipidemia 5 Gram positive bacilli in blood culture, possible contaminant Plan: The patient was seen and evaluated by Dr. Wallace Noted blood cultures, possible contaminant, await final results Empiric antibiotics, bronchodilators, steroids Probable discharge in the a.m. Stable from the pulmonary standpoint I, the cosigning physician, performed a history & physical examination of the patient. Lungs sounds are clear, diminished. Maintaining good O2 saturations in the 90s on room air. I discussed the assessment and plan of care with my nurse practitioner, Natividad Martin. I attest to the above consultation as dictated by her.
[2020-11-18] MEDS: ATORVASTATIN 10 MG TAB PO SCH (20:05)
[2020-11-18] MEDS: TAMSULOSIN 0.4 MG CAP.ER.24H PO SCH (20:05)
[2020-11-19] MEDS: IPRATROPIUM-ALBUTEROL 3 ML NEB INHALATION SCH ×2 (07:33→11:38)
[2020-11-19] MEDS: amLODIPine 10 MG TAB PO SCH (08:28)
[2020-11-19] MEDS: AZITHROMYCIN 500 MG TAB PO SCH (08:28)
[2020-11-19] MEDS: PANTOPRAZOLE 40 MG TABLET PO SCH (08:28)
[2020-11-19] MEDS: ENOXAPARIN 40 MG/0.4 ML SYRINGE SQ SCH (08:29)
[2020-11-19] MEDS: predniSONE 50 MG TAB PO SCH (08:29)
[2020-11-19 09:01] LABS: African American GFR (CKD) >90 (>60 ml/min/1.73 sqM); Anion Gap 9 mmol/L; Blood Urea Nitrogen 16 mg/dL (9-20); Carbon Dioxide 26 mmol/L (22-30); Chloride 104 mmol/L (98-107); Glucose 85 mg/dL (74-99); Non-African American GFR(CKD) 85 (>60 ml/min/1.73 sqM); Potassium 3.7 mmol/L (3.5-5.1); Sodium 139 mmol/L (137-145)
[2020-11-19 11:06] LABS: Basophils # (A) 0.04 X 10*3/uL (0.00-0.10); Basophils % (A) 0.4 %; Eosinophils # (A) 0.07 X 10*3/uL (0.04-0.35); Eosinophils % (A) 0.6 %; HCT 47.3 % (39.6-50.0); HGB 15.9 g/dL (13.0-17.0); Lymphocytes # (A) 3.28 X 10*3/uL (0.90-5.00); MCH 30.6 pg (27.0-32.0); MCHC 33.6 g/dL (32.0-37.0); MCV 91.1 fL (80.0-97.0); Mean Platelet Volume 10.2 fL (9.5-12.2); Monocytes # (A) 0.64 X 10*3/uL (0.20-1.00); Monocytes % (A) 5.9 %; Neutrophils # (A) 6.78 X 10*3/uL (1.80-7.70); Platelet Count 355 X 10*3/uL (140-440); RBC 5.19 X 10*6/uL (4.40-5.60); WBC 10.93 X 10*3/uL (4.50-10.00)
[2020-11-19 12:17] VITALS: BP 136/73; PULSE 99; RESP 18; TEMP 97.5
[2020-11-19] MEDS: MULTIVITAMINS, THERA 1 EACH TAB PO SCH (12:27)
[2020-11-19] MEDS: THIAMINE 100 MG TAB PO SCH (12:27)
[2020-11-19] MEDS: FOLIC ACID 1 MG TAB PO SCH (12:28)
--- NOTE | 2020-11-19 13:21 | P.DS ---
Providers Date of admission: 11/14/20 19:52 Expected date of discharge: 11/19/20 Attending physician: Carlos Rogers Consults: 11/17/20 11:01 Consult Physician Routine Consulting Provider: Liane Wallace Consult Reason/Comments: COPD EXACERABATION Do you want consulting provider notified?: Yes Primary care physician: Carlos Rogers Hospital Course: Final diagnosis Chronic obstructive pulmonary disease acute exacerbation with possible acute right lower lobe pneumonia, community-acquired Gram-positive cocci in the blood culture with sepsis, present on admission Hypertension Hyperlipidemia Remote history of nicotine dependence Increased white blood count with leukocytosis hyponatremia history of urinary tract infection history of adenoidectomy History of EtOH Full code Discharge disposition Patient is being discharged in a stable condition with guarded prognosis to home. Patient will follow-up with Dr. Rogers in the outpatient setting upon discharge. Patient is to continue with oral antibiotics in the form of Ceftin 500 mg twice daily along with Zithromax 500 mg daily to complete the course. Patient will also continue with the prednisone taper upon discharge. Patient instructed to follow-up with pulmonary in the outpatient setting as scheduled. Total time taken is greater than 35 minutes. Hospital course This is a 75-year-old male who was recently admitted with chronic obstructive pulmonary disease acute exacerbation acute right lower lobe pneumonia also initial cultures were found to be gram-positive bacilli indicating sepsis. Patient is being closely monitored. Patient is maintained on IV antibiotics in the form of ceftriaxone along with oral Zithromax and will continue. Repeat blood cultures have been negative. Patient denies any worsening shortness of breath and is currently on room air. Patient is maintained on breathing inhalational treatments along with oral steroids and will continue at this time. Pulmonary is following. 11/19/2020 Patient is seen and evaluated in follow-up today stating his breathing is baseline and denies any worsening shortness of breath. Patient is maintained on antibiotics and will continue to complete the course. Patient is also on a prednisone taper and will continue the outpatient setting. Patient will be following up with pulmonary in the outpatient setting. Patient's initial blood cultures done on 11/14/2020 showing gram-negative rods with additional blood culture 15 minutes later showing gram-positive bacilli and blood culture Gram stain preliminary showing gram-positive bacilli which per the microbiology lab in [place] is still growing and waiting to finalize. Patient had an additional 2 sets of blood cultures drawn on 11/17/2020 which have been negative for 24 hours. Discussed with infectious disease which is most likely a contaminant and will continue to follow the cultures through finalization. Patient will be following up with primary care provider Dr. Rogers in the outpatient setting. As mentioned previously patient will continue on oral antibiotics in the form of Ceftin along with Zithromax to complete the course. Patient has remained afebrile and white blood count steady trending down and is currently 10.93 today. Patient is requesting an adamant about going home today. Currently no reports of chest pain, worsening shortness of breath, or palpitations. Patient is afebrile. No reports of nausea or vomiting and patient is tolerating diet. Patient will be discharged home today. Guarded prognosis On exam vital signs are stable. Temp is 97.5F, pulse is 99, respirations are 18, blood pressure is 136/73, oxygen saturation is 95% on room air. Cardio S1, S2 are muffled. Respiratory system shows diminished breath sounds at the bases with no wheezing or rhonchi noted. Abdomen is soft and nontender. Nervous system shows no focal deficit. Please refer to medication reconciliation sheet for a list of medications. Patient Condition at Discharge: Fair Plan - Discharge Summary Discharge Rx Participant: No New Discharge Prescriptions: New Cefuroxime Axetil [Ceftin] 500 mg PO BID 3 Days #6 tab Ipratropium-Albuterol Nebulize [Duoneb 0.5 mg-3 mg/3 ml Soln] 3 ml INHALATION RT-Q2H PRN ml PRN Reason: Shortness Of Breath Or Wheezing Multivitamins, Thera [Multivitamin (formulary)] 1 each PO DAILY@1200 30 Days #30 tab Thiamine [Vitamin B-1] 100 mg PO DAILY@1200 30 Days #30 tab Ipratropium-Albuterol Nebulize [Duoneb 0.5 mg-3 mg/3 ml Soln] 3 ml INHALATION RT-QID 30 Days #120 ml Folic Acid 1 mg PO DAILY@1200 30 Days #30 tab predniSONE 10 mg PO DIRECTED #42 tab Acetaminophen Tab [Tylenol] 650 mg PO Q6HR PRN tab PRN Reason: Fever And/ Or Pain Azithromycin [Zithromax] 500 mg PO DAILY 3 Days #3 tab Continue amLODIPine [Norvasc] 10 mg PO DAILY Atorvastatin Calcium [Lipitor] 10 mg PO HS Tamsulosin HCl [Flomax] 0.4 mg PO HS Discharge Medication List Atorvastatin Calcium [Lipitor] 10 mg PO HS 01/25/20 [History] amLODIPine [Norvasc] 10 mg PO DAILY 01/25/20 [History] Tamsulosin HCl [Flomax] 0.4 mg PO HS 11/14/20 [History] Acetaminophen Tab [Tylenol] 650 mg PO Q6HR PRN tab 11/18/20 [Rx] Azithromycin [Zithromax] 500 mg PO DAILY 3 Days #3 tab 11/18/20 [Rx] Cefuroxime Axetil [Ceftin] 500 mg PO BID 3 Days #6 tab 11/18/20 [Rx] Folic Acid 1 mg PO DAILY@1200 30 Days #30 tab 11/18/20 [Rx] Ipratropium-Albuterol Nebulize [Duoneb 0.5 mg-3 mg/3 ml Soln] 3 ml INHALATION RT-Q2H PRN ml 11/18/20 [Rx] Ipratropium-Albuterol Nebulize [Duoneb 0.5 mg-3 mg/3 ml Soln] 3 ml INHALATION RT-QID 30 Days #120 ml 11/18/20 [Rx] Multivitamins, Thera [Multivitamin (formulary)] 1 each PO DAILY@1200 30 Days #30 tab 11/18/20 [Rx] Thiamine [Vitamin B-1] 100 mg PO DAILY@1200 30 Days #30 tab 11/18/20 [Rx] predniSONE 10 mg PO DIRECTED #42 tab 11/18/20 [Rx] Follow up Appointment(s)/Referral(s): Carlos Rogers MD [Primary Care Provider] - 11/24/20 10:20 am Liane Wallace MD [STAFF PHYSICIAN] - 12/15/20 9:45 am Patient Instructions/Handouts: COPD (Chronic Obstructive Pulmonary Disease) (DC) Activity/Diet/Wound Care/Special Instructions: Patient requires a nebulizer to manage his COPD at home. Patient will be on Duonebs QID and Q2 hours prn via nebulizer. Activity limited until follow up follow up with primary care provider upon discharge continue with antibiotics until finished follow up with pulmonary as scheduled continue current diet Discharge Disposition: HOME SELF-CARE
== END 2020-11-19 13:11 | disposition home or self-care (01) | DRG 871 ==
LOC: EC 15:52 → 4SSUR 19:52
PROVIDERS: ADMIT Family Medicine; ATTEND Family Medicine
DX: A41.9 Sepsis, unspecified organism (principal); J18.9 Pneumonia, unspecified organism; J44.0 Chronic obstructive pulmonary disease with (acute) lower respiratory infection; J44.1 Chronic obstructive pulmonary disease with (acute) exacerbation; E87.1 Hypo-osmolality and hyponatremia; J98.11 Atelectasis; E78.5 Hyperlipidemia, unspecified; I10 Essential (primary) hypertension; Z20.822 Contact with and (suspected) exposure to COVID-19; Z87.891 Personal history of nicotine dependence; Z87.440 Personal history of urinary (tract) infections; Z79.52 Long term (current) use of systemic steroids
CPT/HCPCS: 36415; 71046; 80048; 80053; 81001; 83605; 83735; 84484; 85025; 85610; 85730; 87040; 87635; 93005; 94640; 94760

== ENCOUNTER 2021-07-01 09:23 | Inpatient (IN) | payer MEDICARE ==
--- NOTE | 2021-07-01 10:42 | ED ---
General Adult HPI - General Chief complaint: Shortness of Breath Stated complaint: pneumonia Time Seen by Provider: 07/01/21 10:34 Source: patient, family Mode of arrival: ambulatory Limitations: no limitations - History of Present Illness Initial comments: Dictation was produced using [employer] dictation software. please excuse any grammatical, word or spelling errors. Chief Complaint: 76-year-old male with past medical history of COPD, dyslipidemia and hypertension presents to the emergency department for a one- week of cough, weakness and nausea and low-grade fever. History of Present Illness: Is a 68-year-old male who presents to emergency department for symptoms of respiratory infection. Patient has history of COPD. He is a former smoker. His last cigarette was several years ago. States that he's been sick for the last week. He did not come to the emergency department sooner because he refused. Son finally forced him to come to be evaluated. Patient's was sick recently. She was tested for colon and her result was negative. Patient denies any abdominal pain. No diarrhea. He does have some mild sharp episodic pleuritic chest pain. Patient's cough is nonproductive. The ROS documented in this emergency department record has been reviewed and confirmed by me. Those systems with pertinent positive or negative responses have been documented in the HPI. All other systems are other negative and/or n oncontributory. PHYSICAL EXAM: General Impression: Alert and oriented x3, not in acute distress HEENT: Normocephalic atraumatic, extra-ocular movements intact, pupils equal and reactive to light bilaterally, mucous membranes moist. Cardiovascular: Heart regular rate and rhythm Chest: Able to complete full sentences, no retractions, no tachypnea, lungs clear to auscultation bilaterally Abdomen: abdomen soft, non-tender, non-distended, no organomegaly Musculoskeletal: Pulses present and equal in all extremities, no peripheral edema Motor: no focal deficits noted Neurological: CN II-XII grossly intact, no focal motor or sensory deficits noted Skin: Intact with no visualized rashes Psych: Normal affect and mood ED course: 76-year-old male with past medical history of COPD, dyslipidemia and hypertension presents with respiratory infection symptoms for the last 7 days. Vital signs upon arrival shows heart rate of 126, temperature of 99.3, 91% on room air. Patient reports he does not use home oxygen. He does appear tachypneic mildly dyspneic at bedside. Does not have physical exam findings to suggest DVT or PE. EKG interpretation: Ventricular rate 118, sinus tachycardia, IL interval 156, QRS 96, QTC 451. No IL prolongation, no QTC prolongation, no ST or T-wave changes noted. EKG compared to 11/14/2020 showing no changes. Overall, this EKG is unremarkable Laboratory evaluation obtained. Leukocytosis 23.1 with elevated neutrophils. Coag panel is negative. Metabolic panel is negative. 4 panel viral PCR is negative. Chest x-ray shows no obvious findings of lobar pneumonia however there is concern for interstitial prominence. Clinical presentation consistent with community acquired pneumonia. Patient is not hypotensive and does not have elevated lactic acid level. Patient treated with ceftriaxone and azithromycin. Patient does not meet criteria for sepsis. Patient will be admitted to Dr. Rogers's service. Pulmonology on consult. - Related Data Home Medications Medication Instructions Recorded Confirmed Atorvastatin Calcium [Lipitor] 10 mg PO HS 01/25/20 07/01/21 amLODIPine [Norvasc] 10 mg PO DAILY 01/25/20 07/01/21 Tamsulosin HCl [Flomax] 0.8 mg PO DAILY 11/14/20 07/01/21 D-Methorphan/PE/Acetaminophen 1 packet PO DAILY PRN 07/01/21 07/01/21 [Theraflu Ms Severe Cold Pckt] Multivitamins, Thera [Multivitamin 1 tab PO DAILY@1200 07/01/21 07/01/21 (formulary)] Allergies Allergy/AdvReac Type Severity Reaction Status Date / Time No Known Allergies Allergy Verified 07/01/21 11:38 Review of Systems ROS Statement: Those systems with pertinent positive or pertinent negative responses have been documented in the HPI. ROS Other: All systems not noted in ROS Statement are negative. Past Medical History Past Medical History: COPD, Hyperlipidemia, Hypertension Additional Past Medical History / Comment(s): kidney infections History of Any Multi-Drug Resistant Organisms: None Reported Past Surgical History: Adenoidectomy, Tonsillectomy Past Anesthesia/Blood Transfusion Reactions: No Reported Reaction Past Psychological History: No Psychological Hx Reported Smoking Status: Former smoker Past Alcohol Use History: Daily Past Drug Use History: None Reported General Exam Limitations: no limitations Course Vital Signs 07/01/21 07/01/21 10:25 11:11 Temperature 99.3 F 102.4 F H Pulse Rate 126 H Respiratory 20 Rate Blood Pressure 120/65 O2 Sat by Pulse 91 L Oximetry Medical Decision Making - Lab Data Result diagrams: 07/01/21 11:07/01/21 11: Lab Results 07/01/21 07/01/21 07/01/21 Range/Units 11:19 11: 11:19 WBC 23.1 H (3.8-10.6) k/uL RBC 4.61 (4.30-5.90) m/uL Hgb 14.6 (13.0-17.5) gm/dL Hct 43.3 (39.0-53.0) % MCV 93.9 (80.0-100.0) fL MCH 31.7 (25.0-35.0) pg MCHC 33.8 (31.0-37.0) g/dL RDW 12.3 (11.5-15.5) % Plt Count 284 (150-450) k/uL MPV 8.4 Neutrophils % 92 % Lymphocytes % 4 % Monocytes % 3 % Eosinophils % 0 % Basophils % 0 % Neutrophils # 21.3 H (1.3-7.7) k/uL Lymphocytes # 0.8 L (1.0-4.8) k/uL Monocytes # 0.7 (0-1.0) k/uL Eosinophils # 0.1 (0-0.7) k/uL Basophils # 0.0 (0-0.2) k/uL PT 11.4 (9.0-12.0) sec INR 1.1 (<1.2) APTT 27.5 (22.0-30.0) sec Sodium 137 (137-145) mmol/L Potassium 3.6 (3.5-5.1) mmol/L Chloride 105 (98-107) mmol/L Carbon Dioxide 22 (22-30) mmol/L Anion Gap 10 mmol/L BUN 14 (9-20) mg/dL Creatinine 1.02 (0.66-1.25) mg/dL Est GFR (CKD-EPI)AfAm 81 (>60 ml/min/1.73 sqM) Est GFR (CKD-EPI)NonAf 70 (>60 ml/min/1.73 sqM) Glucose 136 H (74-99) mg/dL Plasma Lactic Acid Federico (0.7-2.0) mmol/L Calcium 8.8 (8.4-10.2) mg/dL Magnesium 2.1 (1.6-2.3) mg/dL Total Bilirubin 1.3 (0.2-1.3) mg/dL AST 29 (17-59) U/L ALT 16 (4-49) U/L Alkaline Phosphatase 83 (38-126) U/L Troponin I (0.000-0.034) ng/mL NT-Pro-B Natriuret Pep pg/mL Total Protein 7.1 (6.3-8.2) g/dL Albumin 3.7 (3.5-5.0) g/dL Influenza Type A (PCR) (Not Detectd) Influenza Type B (PCR) (Not Detectd) RSV (PCR) (Not Detectd) SARS-CoV-2 (PCR) (Not Detectd) 07/01/21 07/01/21 07/01/21 Range/Units 11:19 11:19 11:19 WBC (3.8-10.6) k/uL RBC (4.30-5.90) m/uL Hgb (13.0-17.5) gm/dL Hct (39.0-53.0) % MCV (80.0-100.0) fL MCH (25.0-35.0) pg MCHC (31.0-37.0) g/dL RDW (11.5-15.5) % Plt Count (150-450) k/uL MPV Neutrophils % % Lymphocytes % % Monocytes % % Eosinophils % % Basophils % % Neutrophils # (1.3-7.7) k/uL Lymphocytes # (1.0-4.8) k/uL Monocytes # (0-1.0) k/uL Eosinophils # (0-0.7) k/uL Basophils # (0-0.2) k/uL PT (9.0-12.0) sec INR (<1.2) APTT (22.0-30.0) sec Sodium (137-145) mmol/L Potassium (3.5-5.1) mmol/L Chloride (98-107) mmol/L Carbon Dioxide (22-30) mmol/L Anion Gap mmol/L BUN (9-20) mg/dL Creatinine (0.66-1.25) mg/dL Est GFR (CKD-EPI)AfAm (>60 ml/min/1.73 sqM) Est GFR (CKD-EPI)NonAf (>60 ml/min/1.73 sqM) Glucose (74-99) mg/dL Plasma Lactic Acid Federico 1.4 (0.7-2.0) mmol/L Calcium (8.4-10.2) mg/dL Magnesium (1.6-2.3) mg/dL Total Bilirubin (0.2-1.3) mg/dL AST (17-59) U/L ALT (4-49) U/L Alkaline Phosphatase (38-126) U/L Troponin I 0.013 (0.000-0.034) ng/mL NT-Pro-B Natriuret Pep 584 pg/mL Total Protein (6.3-8.2) g/dL Albumin (3.5-5.0) g/dL Influenza Type A (PCR) (Not Detectd) Influenza Type B (PCR) (Not Detectd) RSV (PCR) (Not Detectd) SARS-CoV-2 (PCR) (Not Detectd) 07/01/21 Range/Units 11:25 WBC (3.8-10.6) k/uL RBC (4.30-5.90) m/uL Hgb (13.0-17.5) gm/dL Hct (39.0-53.0) % MCV (80.0-100.0) fL MCH (25.0-35.0) pg MCHC (31.0-37.0) g/dL RDW (11.5-15.5) % Plt Count (150-450) k/uL MPV Neutrophils % % Lymphocytes % % Monocytes % % Eosinophils % % Basophils % % Neutrophils # (1.3-7.7) k/uL Lymphocytes # (1.0-4.8) k/uL Monocytes # (0-1.0) k/uL Eosinophils # (0-0.7) k/uL Basophils # (0-0.2) k/uL PT (9.0-12.0) sec INR (<1.2) APTT (22.0-30.0) sec Sodium (137-145) mmol/L Potassium (3.5-5.1) mmol/L Chloride (98-107) mmol/L Carbon Dioxide (22-30) mmol/L Anion Gap mmol/L BUN (9-20) mg/dL Creatinine (0.66-1.25) mg/dL Est GFR (CKD-EPI)AfAm (>60 ml/min/1.73 sqM) Est GFR (CKD-EPI)NonAf (>60 ml/min/1.73 sqM) Glucose (74-99) mg/dL Plasma Lactic Acid Federico (0.7-2.0) mmol/L Calcium (8.4-10.2) mg/dL Magnesium (1.6-2.3) mg/dL Total Bilirubin (0.2-1.3) mg/dL AST (17-59) U/L ALT (4-49) U/L Alkaline Phosphatase (38-126) U/L Troponin I (0.000-0.034) ng/mL NT-Pro-B Natriuret Pep pg/mL Total Protein (6.3-8.2) g/dL Albumin (3.5-5.0) g/dL Influenza Type A (PCR) Not Detected (Not Detectd) Influenza Type B (PCR) Not Detected (Not Detectd) RSV (PCR) Not Detected (Not Detectd) SARS-CoV-2 (PCR) Not Detected (Not Detectd) Disposition Clinical Impression: Pneumonia Disposition: ADMITTED IP TO THIS HOSP Condition: Fair Referrals: Carlos Rogers MD [Primary Care Provider] - 1-2 days
--- NOTE | 2021-07-01 11:17 | XR ---
EXAMINATION TYPE: XR chest 1V portable DATE OF EXAM: 07/01/2021 COMPARISON: 11/14/2020 HISTORY: Difficulty breathing TECHNIQUE: Single frontal view of the chest is obtained. FINDINGS: Coarsened interstitium are findings suggestive of COPD. No pleural effusion or pneumothora x. Atherosclerotic change aorta. Heart size normal. Arthropathy of the shoulders. IMPRESSION: 1. COPD correlate for chronic interstitial lung disease. Markings are more prominent on the prior exa m could reflect superimposed interstitial pneumonitis or venous congestion correlate clinically.
[2021-07-01] MEDS ORDERED: ACETAMINOPHEN TAB 500 MG TAB PO STA (11:20)
[2021-07-01 11:46] LABS: Albumin 3.7 g/dL (3.5-5.0); Calcium 8.8 mg/dL (8.4-10.2); Magnesium 2.1 mg/dL (1.6-2.3); Potassium 3.6 mmol/L (3.5-5.1); Total Bilirubin 1.3 mg/dL (0.2-1.3); Total Protein 7.1 g/dL (6.3-8.2)
[2021-07-01 11:54] LABS: Basophils % (A) 0 %; Eosinophils # (A) 0.1 k/uL (0-0.7); Eosinophils % (A) 0 %; HCT 43.3 % (39.0-53.0); HGB 14.6 gm/dL (13.0-17.5); Lymphocytes # (A) 0.8 k/uL (1.0-4.8); Lymphocytes % (A) 4 %; MCH 31.7 pg (25.0-35.0); MCHC 33.8 g/dL (31.0-37.0); MCV 93.9 fL (80.0-100.0); Mean Platelet Volume 8.4; Monocytes # (A) 0.7 k/uL (0-1.0); Monocytes % (A) 3 %; Neutrophils # (A) 21.3 k/uL (1.3-7.7); Neutrophils % (A) 92 %; Platelet Count 284 k/uL (150-450); RBC 4.61 m/uL (4.30-5.90); RDW 12.3 % (11.5-15.5); WBC 23.1 k/uL (3.8-10.6)
[2021-07-01] MEDS ORDERED: AZITHROMYCIN 500 MG in SODIUM CHLORIDE 0.9% 250 ML IVPB STA (11:58)
[2021-07-01] MEDS ORDERED: cefTRIAXone IN SWFI 1,000 MG/10 ML SYRINGE IVP STA (11:58)
[2021-07-01 12:45] LABS: INR 1.1 (<1.2); Partial Thromboplastin Time 27.5 sec (22.0-30.0); Prothrombin Time 11.4 sec (9.0-12.0)
[2021-07-01] MEDS ORDERED: NALOXONE 0.4 MG/ML 1 ML VIAL IV PRN (14:45)
[2021-07-01] MEDS ORDERED: ACETAMINOPHEN TAB 325 MG TAB PO PRN (14:45)
[2021-07-01] MEDS: SODIUM CHLORIDE 0.9% 1,000 ML IV SCH (16:51)
[2021-07-01] MEDS ORDERED: IPRATROPIUM-ALBUTEROL 3 ML NEB INHALATION PRN (18:11)
--- NOTE | 2021-07-01 18:37 | P.CNPUL ---
History of Present Illness Consult date: 07/01/21 Requesting physician: Roberto Carlisle Reason for consult: dyspnea, cough, chest pain, COPD, hypoxemia Chief complaint: Dyspnea, cough, fever History of present illness: This is a 68-year-old white male patient with past medical history of COPD, hypertension, dyslipidemia, former smoker, in remission for last 10 years, but does carry [id number] smoking history, and to the emergency department on 07/01/2021 for evaluation of 1 week history of cough, weakness, nausea and a low-grade fever. She was tested for COVID-19 and was found to be negative, he does have episodic mild sharp pleuritic chest pain, his cough is nonproductive. His chest x-ray in the emergency department showed coarsened interstitium suggestive of COPD. labs were positive for neutrophilic leukocytosis, with a white blood cell count 23.1, neutrophil, 23, immobile globin was 14.6. His coagulation profile was within normal limits, his electrolytes and renal profile were within normal limits, LFTs were within normal limits, troponin was negative at 0.013, proBNP was 584. Patient was negative for influenza A and B and RSV. Is currently on 3 L of oxygen pulse ox is 90-92%, he did have a fever in the emergency department with a temp of 102.4F. EKG showed sinus tachycardia with a rate of 125 BPM Review of Systems All systems: negative Constitutional: Reports fever, Denies chills Eyes: denies blurred vision, denies pain Ears, nose, mouth and throat: Denies headache, Denies sore throat Cardiovascular: Denies chest pain, Denies shortness of breath Respiratory: Reports dyspnea Gastrointestinal: Denies abdominal pain, Denies diarrhea, Denies nausea, Denies vomiting Musculoskeletal: Denies myalgias Integumentary: Denies pruritus, Denies rash Neurological: Denies numbness, Denies weakness Psychiatric: Denies anxiety, Denies depression Endocrine: Denies fatigue, Denies weight change Past Medical History Past Medical History: COPD, Hyperlipidemia, Hypertension Additional Past Medical History / Comment(s): kidney infections History of Any Multi-Drug Resistant Organisms: None Reported Past Surgical History: Adenoidectomy, Tonsillectomy Past Anesthesia/Blood Transfusion Reactions: No Reported Reaction Past Psychological History: No Psychological Hx Reported Smoking Status: Former smoker Past Alcohol Use History: Daily Past Drug Use History: None Reported Medications and Allergies Home Medications Medication Instructions Recorded Confirmed Type Atorvastatin Calcium [Lipitor] 10 mg PO HS 01/25/20 07/01/21 History amLODIPine [Norvasc] 10 mg PO DAILY 01/25/20 07/01/21 History Tamsulosin HCl [Flomax] 0.8 mg PO DAILY 11/14/20 07/01/21 History D-Methorphan/PE/Acetaminophen 1 packet PO DAILY PRN 07/01/21 07/01/21 History [Theraflu Ms Severe Cold Pckt] Multivitamins, Thera [Multivitamin 1 tab PO DAILY@1200 07/01/21 07/01/21 History (formulary)] Allergies Allergy/AdvReac Type Severity Reaction Status Date / Time No Known Allergies Allergy Verified 07/01/21 11:38 Physical Exam Vitals: Vital Signs Temp Pulse Resp BP Pulse Ox 07/01/21 16:47 98 18 122/71 92 L 07/01/21 13:53 96 18 118/64 90 L 07/01/21 11:11 102.4 F H 07/01/21 10:25 99.3 F 126 H 20 120/65 91 L Intake and Output 07/01/21 07/01/21 07/01/21 06:59 14:59 22:59 Other: Weight 72.575 kg GENERAL EXAM: Alert, very pleasant, 68 y.o.white male comfortable in no apparent distress. HEAD: Normocephalic/atraumatic. EYES: Normal reaction of pupils, equal size. Conjunctiva pink, sclera white. NOSE: Clear with pink turbinates. THROAT: No erythema or exudates. NECK: No masses, no JVD, no thyroid enlargement, no adenopathy. CHEST: No chest wall deformity. Symmetrical expansion. LUNGS: Equal air entry with diffuse rhonchi CVS: Regular rate and rhythm, normal S1 and S2, no gallops, no murmurs, no rubs ABDOMEN: Soft, nontender. No hepatosplenomegaly, normal bowel sounds, no guarding or rigidity. EXTREMITIES: No clubbing, no edema, no cyanosis, 2+ pulses and upper and lower extremities. MUSCULOSKELETAL: Muscle strength and tone normal. SPINE: No scoliosis or deformity SKIN: No rashes CENTRAL NERVOUS SYSTEM: Alert and oriented -3. No focal deficits, tone is normal in all 4 extremities. PSYCHIATRIC: Alert and oriented -3. Appropriate affect. Intact judgment and insight. Results - Laboratory Findings CBC and BMP: 07/01/21 11:19 07/01/21 11:19 PT/INR, D-dimer PT 11.4 sec (9.0-12.0) 07/01/21 11:19 INR 1.1 (<1.2) 07/01/21 11:19 Abnormal lab findings: Abnormal Labs 07/01/21 07/01/21 11:19 11:19 WBC 23.1 H Neutrophils # 21.3 H Lymphocytes # 0.8 L Glucose 136 H - Diagnostic Findings Chest x-ray: report reviewed, image reviewed Assessment and Plan Plan: Assessment: #1. Acute febrile illness, COVID-19 PCR, RSV and influenza screen were negative, chest x-ray showing no acute pulmonary process. #2. Acute exacerbation of COPD with the possibility of tracheal bronchitis #3. History of COPD #4. Hypertension #5. Former smoker, in remission for last 10 years, carries [id number] smoking history #6. Hyperlipidemia #7. History of kidney infections, and urinary tract infection Plan: Continue empiric antibiotics Chest x-ray has been reviewed showing no acute pulmonary process Continue IV steroids, and nebulized bronchodilators We'll send sputum culture We'll send a urinalysis with culture Will obtain CT angiogram chest to rule out possibility of pulmonary embolism Continue to follow his clinical course I performed a history & physical examination of the patient and discussed their management with my nurse practitioner, Phyllis Armstrong. I reviewed the nurse pra ctitioner's note and agree with the documented findings and plan of care. Lung sounds are positive for diffuse wheezes throughout the lung leger. The findings and the impression was discussed with the patient. I attest to the documentation by the nurse practitioner. Time with Patient: Greater than 30
--- NOTE | 2021-07-01 20:29 | P.HPIM ---
History of Present Illness H&P Date: 07/01/21 Chief Complaint: Dyspnea/cough/chest pain/fever/chills 76-year-old male with significant past medical history of COPD, hypertension, dyslipidemia, BPH, history of frequent kidney infections, and additional comorbidities admitted to the hospital for pneumonia, COPD with exacerbation, leukocytosis with a left-sided shift, and fever. Patient had extensive diagnostic workup in emergency department consisting of a CBC showing a white count of 23.1 with a left-sided shift with neutrophils of 21.3, coagulation studies unremarkable, CMP mildly elevated glucose at 136, and negative influenza RSV and Covid PCR. Emergency room physician consulted pulmonary critical care for management COPD. Patient will be placed on mini acquired pneumonia antibiotic protocol. Review of Systems Constitutional: Reports chills, Reports fever, Reports weakness Ears, nose, mouth and throat: Reports headache, Reports sore throat Cardiovascular: Reports decreased exercise tolerance, Reports dyspnea on exertion, Reports shortness of breath Respiratory: Reports cough, Reports dyspnea, Reports respiratory infections Gastrointestinal: Reports loss of appetite Genitourinary: Reports as per HPI Musculoskeletal: Reports muscle weakness Neurological: Reports weakness Psychiatric: Reports as per HPI Endocrine: Reports fatigue Hematologic/Lymphatic: Reports lymphadenopathy Allergic/Immunologic: Reports wheezing Past Medical History Past Medical History: COPD, Hyperlipidemia, Hypertension Additional Past Medical History / Comment(s): kidney infections History of Any Multi-Drug Resistant Organisms: None Reported Past Surgical History: Adenoidectomy, Tonsillectomy Past Anesthesia/Blood Transfusion Reactions: No Reported Reaction Past Psychological History: No Psychological Hx Reported Smoking Status: Former smoker Past Alcohol Use History: Daily Past Drug Use History: None Reported Medications and Allergies Home Medications and Allergies Comment(s): Medications and ALLERGIES reviewed Home Medications Medication Instructions Recorded Confirmed Type Atorvastatin Calcium [Lipitor] 10 mg PO HS 01/25/20 07/01/21 History amLODIPine [Norvasc] 10 mg PO DAILY 01/25/20 07/01/21 History Tamsulosin HCl [Flomax] 0.8 mg PO DAILY 11/14/20 07/01/21 History D-Methorphan/PE/Acetaminophen 1 packet PO DAILY PRN 07/01/21 07/01/21 History [Theraflu Ms Severe Cold Pckt] Multivitamins, Thera [Multivitamin 1 tab PO DAILY@1200 07/01/21 07/01/21 History (formulary)] Allergies Allergy/AdvReac Type Severity Reaction Status Date / Time No Known Allergies Allergy Verified 07/01/21 11:38 Physical Exam Vitals: Vital Signs Temp Pulse Resp BP Pulse Ox 07/01/21 16:47 98 18 122/71 92 L 07/01/21 13:53 96 18 118/64 90 L 07/01/21 11:11 102.4 F H 07/01/21 10:25 99.3 F 126 H 20 120/65 91 L Intake and Output 07/01/21 07/01/21 07/01/21 06:59 14:59 22:59 Other: Weight 72.575 kg - Constitutional General appearance: mild distress - EENT Eyes: EOMI, PERRLA ENT: normal oropharynx Ears: bilateral: normal - Neck Neck: lymphadenopathy Carotids: bilateral: upstroke normal Thyroid: bilateral: normal size - Respiratory Respiratory: bilateral: rhonchi (Course anterior and posterior lung leger) - Cardiovascular Sinus tachycardia Heart rate: 74 Rhythm: regular Heart sounds: normal: S1, S2 radial pulse Peripheral Pulses: bilateral: Normal dorsalis pedis Peripheral Pulses: bilateral: Normal - Gastrointestinal General gastrointestinal: normal bowel sounds, soft - Integumentary Integumentary: flushed, normal turgor - Neurologic Neurologic: CNII-XII intact - Musculoskeletal Musculoskeletal: generalized weakness - Psychiatric Psychiatric: A&O x's 3, appropriate affect, intact judgment & insight Results CBC & Chem 7: 07/01/21 11:19 07/01/21 11:19 Labs: Abnormal Lab Results - Last 24 Hours (Table) 07/01/21 07/01/21 Range/Units 11:19 11:19 WBC 23.1 H (3.8-10.6) k/uL Neutrophils # 21.3 H (1.3-7.7) k/uL Lymphocytes # 0.8 L (1.0-4.8) k/uL Glucose 136 H (74-99) mg/dL Chest x-ray: report reviewed Thrombosis Risk Factor Assmnt - Choose All That Apply Any of the Below Risk Factors Present?: Yes Each Factor Represents 1 point: Abnormal pulmonary function (COPD) Other Risk Factors: Yes Each Risk Factor Represents 3 Points: Age 75 years or older Thrombosis Risk Factor Assessment Total Risk Factor Score: 4 Thrombosis Risk Factor Assessment Level: Moderate Risk Assessment and Plan Assessment: Community-acquired pneumonia Acute exacerbation of COPD Leukocytosis Leukocytosis with a left shift Mildly elevated glucose Hypertension Dyslipidemia History of nicotine dependence History of kidney infections and urinary tract infection Full code Plan: Community-acquired pneumonia, continue antibiotic therapy Acute COPD with exacerbation, continue corticosteroids, continue [id number] lock breathing treatments, continue consultation with pulmonology for recommendations Leukocytosis with left shift continue to trend Continue to monitor vital signs and diagnostic testing Continue home medications Further recommendations come based on patient's clinical condition Time with Patient: Greater than 30
[2021-07-01] MEDS: IPRATROPIUM-ALBUTEROL 3 ML NEB INHALATION SCH (21:10)
[2021-07-01 21:50] LABS: Glucose,Whole Blood 119 mg/dL (75-99)
[2021-07-01] MEDS: ATORVASTATIN 10 MG TAB PO SCH (21:56)
[2021-07-01] MEDS: INSULIN ASPART (NovoLOG) 100 UNIT/ML VIAL SQ SCH (21:57)
[2021-07-01] MEDS: methylPREDNISolone SOD SUCCI 125 MG/2 ML VIAL IV SCH (21:58)
[2021-07-02] MEDS: SODIUM CHLORIDE 0.9% 1,000 ML IV SCH ×2 (04:54→16:55)
[2021-07-02] MEDS: methylPREDNISolone SOD SUCCI 125 MG/2 ML VIAL IV SCH ×4 (06:05→16:55)
--- NOTE | 2021-07-02 07:00 | CT ---
EXAMINATION TYPE: CT chest angio for PE DATE OF EXAM: 07/02/2021 COMPARISON: None HISTORY: possible PE CT DLP: 313 mGycm Automated exposure control for dose reduction was used. CONTRAST: Performed with IV Contrast, patient injected with 63 mL of Isovue 370. Images obtained from the thoracic inlet to the diaphragm with IV contrast. There are 3-D post process ed images. There is pulmonary emphysema. There is coarse reticular interstitial infiltrate in the posterior lung leger bilaterally. Heart size is normal. There is no pericardial effusion. There is no pleural effu song. There are paratracheal and bronchial lymph nodes that measure up to 2.2 cm. Thoracic aorta is intact. There is no aneurysm or dissection. There is normal contrast opacification of the pulmonary arteries. There are no filling defects. Thora cic spine is intact. There is no compression fracture. Sternum is intact. Upper abdominal soft tissue s are intact. There is a 2 cm cyst in the right lobe of the liver. Unchanged. IMPRESSION: No evidence of pulmonary embolism. Extensive posterior predominantly interstitial pulmonary infiltrates are increased compared to old e xam. Pulmonary emphysema. Mediastinal and bronchial adenopathy is likely inflammatory.
[2021-07-02] MEDS: INSULIN ASPART (NovoLOG) 100 UNIT/ML VIAL SQ SCH ×4 (07:48→20:55)
[2021-07-02] MEDS: TAMSULOSIN 0.4 MG CAP.ER.24H PO SCH (08:03)
[2021-07-02] MEDS: amLODIPine 10 MG TAB PO SCH (08:04)
[2021-07-02] MEDS: AZITHROMYCIN 500 MG TAB PO SCH ×2 (08:06)
[2021-07-02] MEDS: IPRATROPIUM-ALBUTEROL 3 ML NEB INHALATION SCH ×4 (09:08→20:38)
[2021-07-02 10:39] LABS: Basophils # (A) 0.02 X 10*3/uL (0.00-0.10); Basophils % (A) 0.1 %; Eosinophils # (A) 0 X 10*3/uL (0.04-0.35); Eosinophils % (A) 0 %; HCT 40.3 % (39.6-50.0); HGB 13.8 g/dL (13.0-17.0); Lymphocytes # (A) 0.96 X 10*3/uL (0.90-5.00); MCH 32.1 pg (27.0-32.0); MCHC 34.2 g/dL (32.0-37.0); MCV 93.7 fL (80.0-97.0); Mean Platelet Volume 10.9 fL (9.5-12.2); Monocytes # (A) 0.27 X 10*3/uL (0.20-1.00); Monocytes % (A) 1.7 %; Neutrophils # (A) 14.74 X 10*3/uL (1.80-7.70); Neutrophils % (A) 91.8 %; Platelet Count 283 X 10*3/uL (140-440); RDW 13.2 % (11.5-14.5); WBC 16.06 X 10*3/uL (4.50-10.00)
[2021-07-02 11:25] LABS: African American GFR (CKD) 86.7 (60.0-200.0); Anion Gap 14.1 mmol/L (4.00-12.00); BUN/Creat Ratio 17.08 Ratio (12.00-20.00); Blood Urea Nitrogen 16.5 mg/dL (9.0-27.0); Calcium 8.3 mg/dL (8.7-10.3); Carbon Dioxide 20.9 mmol/L (21.6-31.8); Non-African American GFR(CKD) 74.8 (60.0-200.0)
[2021-07-02 11:26] LABS: Glucose,Whole Blood 228 mg/dL (75-99)
--- NOTE | 2021-07-02 13:57 | P.PN ---
Subjective Progress Note Date: 07/02/21 This is a 68-year-old white male patient with past medical history of COPD, hyp ertension, dyslipidemia, former smoker, in remission for last 10 years, but does carry [id number] smoking history, and to the emergency department on 07/01/2021 for evaluation of 1 week history of cough, weakness, nausea and a low-grade fever. She was tested for COVID-19 and was found to be negative, he does have episodic mild sharp pleuritic chest pain, his cough is nonproductive. His chest x-ray in the emergency department showed coarsened interstitium suggestive of COPD. labs were positive for neutrophilic leukocytosis, with a white blood cell count 23.1, neutrophil, 23, immobile globin was 14.6. His coagulation profile was within normal limits, his electrolytes and renal profile were within normal limits, LFTs were within normal limits, troponin was negative at 0.013, proBNP was 584. Patient was negative for influenza A and B and RSV. Is currently on 3 L of oxygen pulse ox is 90-92%, he did have a fever in the emergency department with a temp of 102.4F. EKG showed sinus tachycardia with a rate of 125 BPM On 07/02/2021, the patient is being seen for a FU. He is doing slightly better compared to yesterday. Note that since he came in, he was started on antibiotics and the patient has not any further episodes of fever. Meanwhile, CT of the chest was done and there was no evidence of any pulmonary embolism. There was some interstitial infiltrates in lung bases bilaterally consistent with pneumonia. He is pro-calcitonin level is at 0.9. He remains on accommodat ion Rocephin and Zithromax. Sputum Gram stain and culture were done and results are still pending for now. For now the patient remains on oxygen at 3 L per minute nasal cannula. His white cell count is also improving. Objective - Vital Signs Vital signs: Vital Signs Temp 97.7 F 07/02/21 08:00 Pulse 102 H 07/02/21 12:36 Resp 19 07/02/21 08:00 BP 116/69 07/02/21 08:00 Pulse Ox 91 L 07/02/21 08:00 Intake & Output 07/01/21 07/02/21 07/02/21 18:59 06:59 18:59 Intake Total 240 Balance 240 Weight 72.575 kg Intake: Oral 240 - Exam GENERAL EXAM: Alert, very pleasant, 68 y.o.white male comfortable in no apparent distress. HEAD: Normocephalic/atraumatic. EYES: Normal reaction of pupils, equal size. Conjunctiva pink, sclera white. NOSE: Clear with pink turbinates. THROAT: No erythema or exudates. NECK: No masses, no JVD, no thyroid enlargement, no adenopathy. CHEST: No chest wall deformity. Symmetrical expansion. LUNGS: Equal air entry with diffuse rhonchi CVS: Regular rate and rhythm, normal S1 and S2, no gallops, no murmurs, no rubs ABDOMEN: Soft, nontender. No hepatosplenomegaly, normal bowel sounds, no guarding or rigidity. EXTREMITIES: No clubbing, no edema, no cyanosis, 2+ pulses and upper and lower extremities. MUSCULOSKELETAL: Muscle strength and tone normal. SPINE: No scoliosis or deformity SKIN: No rashes CENTRAL NERVOUS SYSTEM: Alert and oriented -3. No focal deficits, tone is normal in all 4 extremities. PSYCHIATRIC: Alert and oriented -3. Appropriate affect. Intact judgment and insight. - Labs CBC & Chem 7: 07/02/21 07:10 07/02/21 07:10 Labs: Abnormal Lab Results - Last 24 Hours (Table) 07/01/21 07/01/21 07/01/21 Range/Units 19:16 19:16 19:16 WBC (4.50-10.00) X 10*3/uL RBC (4.40-5.60) X 10*6/uL MCH (27.0-32.0) pg Immature Gran # (0.00-0.04) X 10*3/uL Neutrophils # (1.80-7.70) X 10*3/uL Eosinophils # (0.04-0.35) X 10*3/uL ESR 78 H (0-20) mm/Hr Carbon Dioxide (21.6-31.8) mmol/L Anion Gap (4.00-12.00) mmol/L Glucose (70-110) mg/dL POC Glucose (mg/dL) (75-99) mg/dL Calcium (8.7-10.3) mg/dL C-Reactive Protein 28.00 H (0.00-0.80) mg/dL Procalcitonin 0.97 H (0.02-0.09) ng/mL 07/01/21 07/02/21 07/02/21 Range/Units 21:46 07:10 07:10 WBC 16.06 H (4.50-10.00) X 10*3/uL RBC 4.30 L (4.40-5.60) X 10*6/uL MCH 32.1 H (27.0-32.0) pg Immature Gran # 0.07 H (0.00-0.04) X 10*3/uL Neutrophils # 14.74 H (1.80-7.70) X 10*3/uL Eosinophils # 0 L (0.04-0.35) X 10*3/uL ESR (0-20) mm/Hr Carbon Dioxide 20.9 L (21.6-31.8) mmol/L Anion Gap 14.10 H (4.00-12.00) mmol/L Glucose 177 H (70-110) mg/dL POC Glucose (mg/dL) 119 H (75-99) mg/dL Calcium 8.3 L (8.7-10.3) mg/dL C-Reactive Protein (0.00-0.80) mg/dL Procalcitonin (0.02-0.09) ng/mL 07/02/21 Range/Units 11:25 WBC (4.50-10.00) X 10*3/uL RBC (4.40-5.60) X 10*6/uL MCH (27.0-32.0) pg Immature Gran # (0.00-0.04) X 10*3/uL Neutrophils # (1.80-7.70) X 10*3/uL Eosinophils # (0.04-0.35) X 10*3/uL ESR (0-20) mm/Hr Carbon Dioxide (21.6-31.8) mmol/L Anion Gap (4.00-12.00) mmol/L Glucose (70-110) mg/dL POC Glucose (mg/dL) 228 H (75-99) mg/dL Calcium (8.7-10.3) mg/dL C-Reactive Protein (0.00-0.80) mg/dL Procalcitonin (0.02-0.09) ng/mL Assessment and Plan Plan: #1. Acute febrile illness, COVID-19 PCR, RSV and influenza screen were negative, chest x-ray showing no acute pulmonary process.CTAs consistent with pneumonia. The patient had leukocytosis which is improving. Pro-calcitonin level was also elevated. #2. Acute exacerbation of COPD with the possibility of tracheal bronchitis #3. History of COPD #4. Hypertension #5. Former smoker, in remission for last 10 years, carries [id number] smoking history #6. Hyperlipidemia #7. History of kidney infections, and urinary tract infection Plan: Continue empiric antibiotics, currently on a combination of Rocephin and Zithromax CT of the chest was noted Continue IV steroids, and nebulized bronchodilators We'll send sputum culture, results are still pending We'll send a urinalysis with culture monitor the oxygen level and wean it down slowly to maintain a saturation above 90% Continue to follow his clinical course
[2021-07-02 16:30] LABS: Glucose,Whole Blood 236 mg/dL (75-99)
[2021-07-02 20:32] LABS: Glucose,Whole Blood 196 mg/dL (75-99)
[2021-07-02] MEDS: ATORVASTATIN 10 MG TAB PO SCH (20:55)
[2021-07-03] MEDS: methylPREDNISolone SOD SUCCI 125 MG/2 ML VIAL IV SCH ×5 (00:31→23:23)
[2021-07-03] MEDS: SODIUM CHLORIDE 0.9% 1,000 ML IV SCH ×2 (05:43→21:53)
[2021-07-03 06:56] LABS: Glucose,Whole Blood 163 mg/dL (75-99)
[2021-07-03] MEDS: AZITHROMYCIN 500 MG TAB PO SCH (07:47)
[2021-07-03] MEDS: TAMSULOSIN 0.4 MG CAP.ER.24H PO SCH (07:47)
[2021-07-03] MEDS: amLODIPine 10 MG TAB PO SCH (07:47)
[2021-07-03] MEDS: INSULIN ASPART (NovoLOG) 100 UNIT/ML VIAL SQ SCH ×4 (07:47→21:53)
[2021-07-03] MEDS: IPRATROPIUM-ALBUTEROL 3 ML NEB INHALATION SCH ×5 (08:00→19:46)
[2021-07-03 09:57] LABS: African American GFR (CKD) >90 (>60 ml/min/1.73 sqM); Anion Gap 10 mmol/L; Blood Urea Nitrogen 23 mg/dL (9-20); Calcium 8.5 mg/dL (8.4-10.2); Carbon Dioxide 19 mmol/L (22-30); Chloride 109 mmol/L (98-107); Glucose 244 mg/dL (74-99); Non-African American GFR(CKD) 85 (>60 ml/min/1.73 sqM); Potassium 4.4 mmol/L (3.5-5.1); Sodium 138 mmol/L (137-145)
[2021-07-03 10:00] LABS: Basophils % (A) 0 %; Eosinophils % (A) 0 %; HCT 39.1 % (39.0-53.0); HGB 13.3 gm/dL (13.0-17.5); Lymphocytes # (A) 0.9 k/uL (1.0-4.8); Lymphocytes % (A) 5 %; MCH 32.2 pg (25.0-35.0); MCHC 34.1 g/dL (31.0-37.0); MCV 94.2 fL (80.0-100.0); Mean Platelet Volume 8.4; Monocytes # (A) 0.3 k/uL (0-1.0); Monocytes % (A) 2 %; Neutrophils # (A) 17.6 k/uL (1.3-7.7); Neutrophils % (A) 93 %; Platelet Count 348 k/uL (150-450); RBC 4.15 m/uL (4.30-5.90); WBC 18.9 k/uL (3.8-10.6)
[2021-07-03] MEDS ORDERED: FUROSEMIDE 10 MG/ML 4 ML VIAL IV STA (11:41)
--- NOTE | 2021-07-03 11:41 | P.PN ---
Subjective Progress Note Date: 07/03/21 This is a 68-year-old white male patient with past medical history of COPD, hyp ertension, dyslipidemia, former smoker, in remission for last 10 years, but does carry [id number] smoking history, and to the emergency department on 07/01/2021 for evaluation of 1 week history of cough, weakness, nausea and a low-grade fever. She was tested for COVID-19 and was found to be negative, he does have episodic mild sharp pleuritic chest pain, his cough is nonproductive. His chest x-ray in the emergency department showed coarsened interstitium suggestive of COPD. labs were positive for neutrophilic leukocytosis, with a white blood cell count 23.1, neutrophil, 23, immobile globin was 14.6. His coagulation profile was within normal limits, his electrolytes and renal profile were within normal limits, LFTs were within normal limits, troponin was negative at 0.013, proBNP was 584. Patient was negative for influenza A and B and RSV. Is currently on 3 L of oxygen pulse ox is 90-92%, he did have a fever in the emergency department with a temp of 102.4F. EKG showed sinus tachycardia with a rate of 125 BPM On 07/02/2021, the patient is being seen for a FU. He is doing slightly better compared to yesterday. Note that since he came in, he was started on antibiotics and the patient has not any further episodes of fever. Meanwhile, CT of the chest was done and there was no evidence of any pulmonary embolism. There was some interstitial infiltrates in lung bases bilaterally consistent with pneumonia. He is pro-calcitonin level is at 0.9. He remains on accommodat ion Rocephin and Zithromax. Sputum Gram stain and culture were done and results are still pending for now. For now the patient remains on oxygen at 3 L per minute nasal cannula. His white cell count is also improving. 07/03/2021, the patient is still on antibiotics. He was being treated for pne umonia and acute febrile illness. The patient remains on accommodation Rocephin and Zithromax. The patient is afebrile for now. He is still in the findings of oxygen by nasal cannula. White count is at 18 compared to 16 from yesterday. Note that he came in to us with a white cell count of 23. Blood work essentially normal and the cultures obtained were all negative. The preliminary sputum culture is showing gram-negative bacillus and gram-positive cocci. Objective - Vital Signs Vital signs: Vital Signs Temp 97.6 F 07/03/21 07:29 Pulse 96 07/03/21 08:15 Resp 18 07/03/21 02:00 BP 107/65 07/03/21 07:29 Pulse Ox 90 L 07/03/21 07:29 Intake & Output 07/02/21 07/03/21 07/03/21 18:59 06:59 18:59 Other: # Voids 2 2 - Exam GENERAL EXAM: Alert, very pleasant, 68 y.o.white male comfortable in no apparent distress. HEAD: Normocephalic/atraumatic. EYES: Normal reaction of pupils, equal size. Conjunctiva pink, sclera white. NOSE: Clear with pink turbinates. THROAT: No erythema or exudates. NECK: No masses, no JVD, no thyroid enlargement, no adenopathy. CHEST: No chest wall deformity. Symmetrical expansion. LUNGS: Equal air entry with diffuse rhonchi CVS: Regular rate and rhythm, normal S1 and S2, no gallops, no murmurs, no rubs ABDOMEN: Soft, nontender. No hepatosplenomegaly, normal bowel sounds, no guarding or rigidity. EXTREMITIES: No clubbing, no edema, no cyanosis, 2+ pulses and upper and lower extremities. MUSCULOSKELETAL: Muscle strength and tone normal. SPINE: No scoliosis or deformity SKIN: No rashes CENTRAL NERVOUS SYSTEM: Alert and oriented -3. No focal deficits, tone is normal in all 4 extremities. PSYCHIATRIC: Alert and oriented -3. Appropriate affect. Intact judgment and insight. - Labs CBC & Chem 7: 07/03/21 09:13 07/03/21 09:13 Labs: Abnormal Lab Results - Last 24 Hours (Table) 07/02/21 07/02/21 07/03/21 Range/Units 16:27 20:30 06:54 WBC (3.8-10.6) k/uL RBC (4.30-5.90) m/uL Neutrophils # (1.3-7.7) k/uL Lymphocytes # (1.0-4.8) k/uL Chloride (98-107) mmol/L Carbon Dioxide (22-30) mmol/L BUN (9-20) mg/dL Glucose (74-99) mg/dL POC Glucose (mg/dL) 236 H 196 H 163 H (75-99) mg/dL 07/03/21 07/03/21 Range/Units 09:13 09:13 WBC 18.9 H (3.8-10.6) k/uL RBC 4.15 L (4.30-5.90) m/uL Neutrophils # 17.6 H (1.3-7.7) k/uL Lymphocytes # 0.9 L (1.0-4.8) k/uL Chloride 109 H (98-107) mmol/L Carbon Dioxide 19 L (22-30) mmol/L BUN 23 H (9-20) mg/dL Glucose 244 H (74-99) mg/dL POC Glucose (mg/dL) (75-99) mg/dL Microbiology - Last 24 Hours (Table) 07/02/21 09:10 Gram Stain - Preliminary Sputum Sputum Culture - Preliminary 07/01/21 14:50 Blood Culture - Preliminary Blood No Growth after 24 hours 07/01/21 14:50 Blood Culture - Preliminary Blood No Growth after 24 hours Assessment and Plan Plan: #1. Acute febrile illness, COVID-19 PCR, RSV and influenza screen were negative, chest x-ray showing no acute pulmonary process.CTAs consistent with pneumonia. The patient had leukocytosis which is improving. Pro-calcitonin level was also elevated. #2. Acute exacerbation of COPD with the possibility of tracheal bronchitis #3. History of COPD #4. Hypertension #5. Former smoker, in remission for last 10 years, carries [id number] smoking history #6. Hyperlipidemia #7. History of kidney infections, and urinary tract infection Plan: Clinically improving and the patient is currently afebrile Continue empiric antibiotics, currently on a combination of Rocephin and Zithromax CT of the chest was noted Continue IV steroids, and nebulized bronchodilators We'll send sputum culture, results are still pending IV fluids to KVO Lasix 40 mg IV 1 monitor the oxygen level and wean it down slowly to maintain a saturation above 90% Continue to follow his clinical course
[2021-07-03 16:42] LABS: Glucose,Whole Blood 163 mg/dL (75-99)
[2021-07-03 21:23] LABS: Glucose,Whole Blood 167 mg/dL (75-99)
[2021-07-03] MEDS: ATORVASTATIN 10 MG TAB PO SCH (21:53)
--- NOTE | 2021-07-03 23:45 | P.PN ---
Subjective Progress Note Date: 07/02/21 Principal diagnosis: Bilateral pulmonary infiltrates likely due to pneumonia Acute exacerbation of COPD 76-year-old male with significant past medical history of COPD, h ypertension, dyslipidemia, BPH, history of frequent kidney infections, and additional comorbidities admitted to the hospital for pneumonia, COPD with exacerbation, leukocytosis with a left-sided shift, and fever. Patient had extensive diagnostic workup in emergency department consisting of a CBC showing a white count of 23.1 with a left-sided shift with neutrophils of 21.3, coagulation studies unremarkable, CMP mildly elevated glucose at 136, and negative influenza RSV and Covid PCR. Emergency room physician consulted pulmonary critical care for management COPD. Patient will be placed on mini acquired pneumonia antibiotic protocol. 07/02/2021 Patient is currently sitting on the side of the bed. Denies complaints of chest pain. Shortness of breath is improving compared to yesterday. Patient is still requiring oxygen via nasal cannula at 5L. No complaints of nausea vomiting abdominal pain or diarrhea. Patient has been afebrile. Patient had CTA chest done showed no evidence of PE. Extensive posterior predominantly interstitial pulmonary infiltrates increasing compared to old exam. Pulmonary emphysema. Mediastinal endobronchial adenopathy is likely inflammatory. Laboratory showed WBC 16.06 hemoglobin 13.8 and platelets 283 BUN 16.5 and creatinine 1.0 and bicarb is 20.9 CRP 28 and procalcitonin level was 0.97 Patient is being current antibiotics in the form of ceftriaxone and azithromycin. Pulmonary is on board. Patient is also on IV steroids and duo nebs. Current medications reviewed. Objective - Vital Signs Vital signs: Vital Signs Temp 97.7 F 07/02/21 19:26 Pulse 88 07/02/21 20:49 Resp 18 07/02/21 19:26 BP 102/59 07/02/21 19:26 Pulse Ox 93 L 07/02/21 19:26 Intake & Output 07/02/21 07/02/21 07/03/21 06:59 18:59 06:59 Intake Total 240 Balance 240 Intake: Oral 240 Other: # Voids 2 - Exam PHYSICAL EXAMINATION: Patient is lying in the bed comfortably, no acute distress, awake alert and oriented.. HEENT: Normocephalic. Neck is supple. Pupils reactive. Nostrils clear. Oral cavity is moist. Neck reveals no JVD, carotid bruits, or thyromegaly. CHEST EXAMINATION: Trachea is central. Symmetrical expansion. Bilateral scattered rhonchi and crackles. Nonlabored breathing.. CARDIAC: Normal S1, S2 with no gallops. No murmurs ABDOMEN: Soft. Bowel sounds normal. No organomegaly. No abdominal bruits. Extremities: reveal no edema. No clubbing or cyanosis Neurologically awake, alert, oriented x3 with well-coordinated movements. No focal deficits noted Skin: No rash or skin lesions. Psychiatric: Cooperative. Nonsuicidal Musculoskeletal: No joint swelling or deformity. Normal range of motion. - Labs CBC & Chem 7: 07/03/21 09:13 07/03/21 09:13 Labs: Abnormal Lab Results - Last 24 Hours (Table) 07/01/21 07/01/21 07/01/21 Range/Units 19:16 19:16 19:16 WBC (4.50-10.00) X 10*3/uL RBC (4.40-5.60) X 10*6/uL MCH (27.0-32.0) pg Immature Gran # (0.00-0.04) X 10*3/uL Neutrophils # (1.80-7.70) X 10*3/uL Eosinophils # (0.04-0.35) X 10*3/uL ESR 78 H (0-20) mm/Hr Carbon Dioxide (21.6-31.8) mmol/L Anion Gap (4.00-12.00) mmol/L Glucose (70-110) mg/dL POC Glucose (mg/dL) (75-99) mg/dL Calcium (8.7-10.3) mg/dL C-Reactive Protein 28.00 H (0.00-0.80) mg/dL Procalcitonin 0.97 H (0.02-0.09) ng/mL 07/02/21 07/02/21 07/02/21 Range/Units 07:10 07:10 11:25 WBC 16.06 H (4.50-10.00) X 10*3/uL RBC 4.30 L (4.40-5.60) X 10*6/uL MCH 32.1 H (27.0-32.0) pg Immature Gran # 0.07 H (0.00-0.04) X 10*3/uL Neutrophils # 14.74 H (1.80-7.70) X 10*3/uL Eosinophils # 0 L (0.04-0.35) X 10*3/uL ESR (0-20) mm/Hr Carbon Dioxide 20.9 L (21.6-31.8) mmol/L Anion Gap 14.10 H (4.00-12.00) mmol/L Glucose 177 H (70-110) mg/dL POC Glucose (mg/dL) 228 H (75-99) mg/dL Calcium 8.3 L (8.7-10.3) mg/dL C-Reactive Protein (0.00-0.80) mg/dL Procalcitonin (0.02-0.09) ng/mL 07/02/21 07/02/21 Range/Units 16:27 20:30 WBC (4.50-10.00) X 10*3/uL RBC (4.40-5.60) X 10*6/uL MCH (27.0-32.0) pg Immature Gran # (0.00-0.04) X 10*3/uL Neutrophils # (1.80-7.70) X 10*3/uL Eosinophils # (0.04-0.35) X 10*3/uL ESR (0-20) mm/Hr Carbon Dioxide (21.6-31.8) mmol/L Anion Gap (4.00-12.00) mmol/L Glucose (70-110) mg/dL POC Glucose (mg/dL) 236 H 196 H (75-99) mg/dL Calcium (8.7-10.3) mg/dL C-Reactive Protein (0.00-0.80) mg/dL Procalcitonin (0.02-0.09) ng/mL Microbiology - Last 24 Hours (Table) 07/01/21 14:50 Blood Culture - Preliminary Blood No Growth after 24 hours 07/01/21 14:50 Blood Culture - Preliminary Blood No Growth after 24 hours 07/02/21 09:10 Sputum Culture - Preliminary Sputum Assessment and Plan Assessment: Bilateral pulmonary infiltrates likely due to pneumonia Acute exacerbation of COPD Leukocytosis Leukocytosis with a left shift Mildly elevated glucose Hypertension Dyslipidemia History of nicotine dependence History of kidney infections and urinary tract infection Full code Plan: Patient be continued on antibiotics to home ceftriaxone azithromycin continue corticosteroids, continue [id number] breathing treatments, continue consultation with pulmonology for recommendations Leukocytosis with left shift continue to trend Continue to monitor vital signs and diagnostic testing Continue home medications Time with Patient: Greater than 30
--- NOTE | 2021-07-03 23:48 | P.PN ---
Subjective Progress Note Date: 07/03/21 Principal diagnosis: Bilateral pulmonary infiltrates likely due to pneumonia Acute exacerbation of COPD 76-year-old male with significant past medical history of COPD, h ypertension, dyslipidemia, BPH, history of frequent kidney infections, and additional comorbidities admitted to the hospital for pneumonia, COPD with exacerbation, leukocytosis with a left-sided shift, and fever. Patient had extensive diagnostic workup in emergency department consisting of a CBC showing a white count of 23.1 with a left-sided shift with neutrophils of 21.3, coagulation studies unremarkable, CMP mildly elevated glucose at 136, and negative influenza RSV and Covid PCR. Emergency room physician consulted pulmonary critical care for management COPD. Patient will be placed on mini acquired pneumonia antibiotic protocol. 07/02/2021 Patient is currently sitting on the side of the bed. Denies complaints of chest pain. Shortness of breath is improving compared to yesterday. Patient is still requiring oxygen via nasal cannula at 5L. No complaints of nausea vomiting abdominal pain or diarrhea. Patient has been afebrile. Patient had CTA chest done showed no evidence of PE. Extensive posterior predominantly interstitial pulmonary infiltrates increasing compared to old exam. Pulmonary emphysema. Mediastinal endobronchial adenopathy is likely inflammatory. Laboratory showed WBC 16.06 hemoglobin 13.8 and platelets 283 BUN 16.5 and creatinine 1.0 and bicarb is 20.9 CRP 28 and procalcitonin level was 0.97 Patient is being current antibiotics in the form of ceftriaxone and azithromycin. Pulmonary is on board. Patient is also on IV steroids and duo nebs. 07/03/2021 Patient is currently lying in the bed comfortably. Requiring oxygen to 5 L via nasal cannula. No complaints of chest pain or worsening shortness of breath. Patient is being current antibiotics involve ceftriaxone and azithromycin. Patient is IV steroids as well. Laboratory showed WBC 18.9 hemoglobin 13.3 and platelets 348 BUN 23 and creatinine 0.81 and blood sugar is 244. Denies any nausea vomiting abdominal pain or diarrhea. No headache or dizziness or lightheadedness. Pulmonary is on board. Current medications reviewed. Objective - Vital Signs Vital signs: Vital Signs Temp 98.0 F 07/03/21 19:27 Pulse 92 07/03/21 20:02 Resp 18 07/03/21 19:27 BP 129/64 07/03/21 19:27 Pulse Ox 90 L 11/13/21 19:27 Intake & Output 07/03/21 07/03/21 07/04/21 06:59 18:59 06:59 Other: # Voids 2 - Exam PHYSICAL EXAMINATION: Patient is lying in the bed comfortably, no acute distress, awake alert and oriented.. HEENT: Normocephalic. Neck is supple. Pupils reactive. Nostrils clear. Oral cavity is moist. Neck reveals no JVD, carotid bruits, or thyromegaly. CHEST EXAMINATION: Trachea is central. Symmetrical expansion. Bilateral scattered rhonchi and crackles. Nonlabored breathing.. CARDIAC: Normal S1, S2 with no gallops. No murmurs ABDOMEN: Soft. Bowel sounds normal. No organomegaly. No abdominal bruits. Extremities: reveal no edema. No clubbing or cyanosis Neurologically awake, alert, oriented x3 with well-coordinated movements. No focal deficits noted Skin: No rash or skin lesions. Psychiatric: Cooperative. Nonsuicidal Musculoskeletal: No joint swelling or deformity. Normal range of motion. - Labs CBC & Chem 7: 07/03/21 09:13 07/03/21 09:13 Labs: Abnormal Lab Results - Last 24 Hours (Table) 07/03/21 07/03/21 07/03/21 Range/Units 06:54 09:13 09:13 WBC 18.9 H (3.8-10.6) k/uL RBC 4.15 L (4.30-5.90) m/uL Neutrophils # 17.6 H (1.3-7.7) k/uL Lymphocytes # 0.9 L (1.0-4.8) k/uL Chloride 109 H (98-107) mmol/L Carbon Dioxide 19 L (22-30) mmol/L BUN 23 H (9-20) mg/dL Glucose 244 H (74-99) mg/dL POC Glucose (mg/dL) 163 H (75-99) mg/dL 07/03/21 07/03/21 Range/Units 16:40 21:21 WBC (3.8-10.6) k/uL RBC (4.30-5.90) m/uL Neutrophils # (1.3-7.7) k/uL Lymphocytes # (1.0-4.8) k/uL Chloride (98-107) mmol/L Carbon Dioxide (22-30) mmol/L BUN (9-20) mg/dL Glucose (74-99) mg/dL POC Glucose (mg/dL) 163 H 167 H (75-99) mg/dL Microbiology - Last 24 Hours (Table) 07/01/21 14:50 Blood Culture - Preliminary Blood No Growth after 48 hours 07/01/21 14:50 Blood Culture - Preliminary Blood No Growth after 48 hours 07/02/21 09:10 Gram Stain - Preliminary Sputum Sputum Culture - Preliminary Assessment and Plan Assessment: Bilateral pulmonary infiltrates likely due to pneumonia Acute exacerbation of COPD Leukocytosis Leukocytosis with a left shift Mildly elevated glucose Hypertension Dyslipidemia History of nicotine dependence History of kidney infections and urinary tract infection Full code Plan: Patient be continued on antibiotics to home ceftriaxone azithromycin continue corticosteroids, continue [id number] breathing treatments, continue consultation with pulmonology for recommendations Leukocytosis with left shift continue to trend Continue to monitor vital signs and diagnostic testing Continue home medications Time with Patient: Greater than 30
[2021-07-04] MEDS: methylPREDNISolone SOD SUCCI 125 MG/2 ML VIAL IV SCH ×3 (05:56→17:29)
[2021-07-04 06:51] LABS: Glucose,Whole Blood 154 mg/dL (75-99)
[2021-07-04] MEDS: INSULIN ASPART (NovoLOG) 100 UNIT/ML VIAL SQ SCH ×4 (08:19→21:01)
[2021-07-04] MEDS: TAMSULOSIN 0.4 MG CAP.ER.24H PO SCH (08:19)
[2021-07-04] MEDS: AZITHROMYCIN 500 MG TAB PO SCH (08:20)
[2021-07-04] MEDS: amLODIPine 10 MG TAB PO SCH (08:20)
[2021-07-04] MEDS: IPRATROPIUM-ALBUTEROL 3 ML NEB INHALATION SCH ×4 (08:52→19:23)
[2021-07-04] MEDS ORDERED: FUROSEMIDE 10 MG/ML 4 ML VIAL IV STA (10:57)
--- NOTE | 2021-07-04 10:58 | P.PN ---
Subjective Progress Note Date: 07/04/21 This is a 68-year-old white male patient with past medical history of COPD, hyp ertension, dyslipidemia, former smoker, in remission for last 10 years, but does carry [id number] smoking history, and to the emergency department on 07/01/2021 for evaluation of 1 week history of cough, weakness, nausea and a low-grade fever. She was tested for COVID-19 and was found to be negative, he does have episodic mild sharp pleuritic chest pain, his cough is nonproductive. His chest x-ray in the emergency department showed coarsened interstitium suggestive of COPD. labs were positive for neutrophilic leukocytosis, with a white blood cell count 23.1, neutrophil, 23, immobile globin was 14.6. His coagulation profile was within normal limits, his electrolytes and renal profile were within normal limits, LFTs were within normal limits, troponin was negative at 0.013, proBNP was 584. Patient was negative for influenza A and B and RSV. Is currently on 3 L of oxygen pulse ox is 90-92%, he did have a fever in the emergency department with a temp of 102.4F. EKG showed sinus tachycardia with a rate of 125 BPM On 07/02/2021, the patient is being seen for a FU. He is doing slightly better compared to yesterday. Note that since he came in, he was started on antibiotics and the patient has not any further episodes of fever. Meanwhile, CT of the chest was done and there was no evidence of any pulmonary embolism. There was some interstitial infiltrates in lung bases bilaterally consistent with pneumonia. He is pro-calcitonin level is at 0.9. He remains on accommodat ion Rocephin and Zithromax. Sputum Gram stain and culture were done and results are still pending for now. For now the patient remains on oxygen at 3 L per minute nasal cannula. His white cell count is also improving. 07/03/2021, the patient is still on antibiotics. He was being treated for pne umonia and acute febrile illness. The patient remains on accommodation Rocephin and Zithromax. The patient is afebrile for now. He is still in the findings of oxygen by nasal cannula. White count is at 18 compared to 16 from yesterday. Note that he came in to us with a white cell count of 23. Blood work essentially normal and the cultures obtained were all negative. The preliminary sputum culture is showing gram-negative bacillus and gram-positive cocci. 07/04/2021, the patient is stable and doing well. Nevertheless, I was unable to drop the FiO2 any further. The pulse ox is 93% 5 L of oxygen by nasal cannula. Awaiting follow-up levels from today. Meanwhile, the patient was able to give us a sputum sample that showed no microbial growth. Blood cultures of been negative and the patient is currently afebrile. He remains on accommodation Rocephin and Zithromax for now. Obviously, with ongoing oxygen needs, the patient will not be able to go home today. The follow-up chest x-ray will be ordered. Awaiting follow-up labs. Objective - Vital Signs Vital signs: Vital Signs Temp 97.4 F L 07/04/21 07:37 Pulse 96 07/04/21 09:04 Resp 18 07/04/21 07:37 BP 114/68 07/04/21 07:37 Pulse Ox 92 L 07/04/21 07:37 Intake & Output 07/03/21 07/04/21 07/04/21 18:59 06:59 18:59 Other: # Voids 1 - Exam GENERAL EXAM: Alert, very pleasant, 68 y.o.white male comfortable in no apparent distress. The still on 5 L of oxygen by nasal cannula HEAD: Normocephalic/atraumatic. EYES: Normal reaction of pupils, equal size. Conjunctiva pink, sclera white. NOSE: Clear with pink turbinates. THROAT: No erythema or exudates. NECK: No masses, no JVD, no thyroid enlargement, no adenopathy. CHEST: No chest wall deformity. Symmetrical expansion. LUNGS: Equal air entry with diffuse rhonchi CVS: Regular rate and rhythm, normal S1 and S2, no gallops, no murmurs, no rubs ABDOMEN: Soft, nontender. No hepatosplenomegaly, normal bowel sounds, no guarding or rigidity. EXTREMITIES: No clubbing, no edema, no cyanosis, 2+ pulses and upper and lower extremities. MUSCULOSKELETAL: Muscle strength and tone normal. SPINE: No scoliosis or deformity SKIN: No rashes CENTRAL NERVOUS SYSTEM: Alert and oriented -3. No focal deficits, tone is normal in all 4 extremities. PSYCHIATRIC: Alert and oriented -3. Appropriate affect. Intact judgment and insight. - Labs CBC & Chem 7: 07/03/21 09:13 07/03/21 09:13 Labs: Abnormal Lab Results - Last 24 Hours (Table) 07/03/21 07/03/21 07/04/21 Range/Units 16:40 21:21 06:50 POC Glucose (mg/dL) 163 H 167 H 154 H (75-99) mg/dL Microbiology - Last 24 Hours (Table) 07/02/21 09:10 Gram Stain - Final Sputum Sputum Culture - Final 07/01/21 14:50 Blood Culture - Preliminary Blood No Growth after 48 hours 07/01/21 14:50 Blood Culture - Preliminary Blood No Growth after 48 hours Assessment and Plan Plan: #1. Acute febrile illness, COVID-19 PCR, RSV and influenza screen were negative, chest x-ray showing no acute pulmonary process.CTAs consistent with pneumonia. The patient had leukocytosis which is improving. Pro-calcitonin level was also elevated. #2. Acute exacerbation of COPD with the possibility of tracheal bronchitis #3. History of COPD #4. Hypertension #5. Former smoker, in remission for last 10 years, carries [id number] smoking history #6. Hyperlipidemia #7. History of kidney infections, and urinary tract infection Plan: Clinically improving and the patient is currently afebrile, however the patient is oxygen is still running at 5 L to maintain a saturation above 90%. This has him underlying VQ mismatch. Probably related to some residual pneumonia. We'll continue same antibiotic coverage. We'll repeat a chest x-ray. Remains on a combination of bronchodilators and steroids. Sputum cultures came back negative. He received a dose of Lasix yesterday and his IV fluids are currently at KVO. We'll repeat another dose of Lasix today. Continue empiric antibiotics, currently on a combination of Rocephin and Zithromax monitor the oxygen level and wean it down slowly to maintain a saturation above 90% Continue to follow his clinical course
--- NOTE | 2021-07-04 11:26 | XR ---
EXAMINATION TYPE: XR chest 1V portable DATE OF EXAM: 07/04/2021 COMPARISON: 07/01/2021 INDICATION: Short of breath TECHNIQUE: Single frontal view of the chest is obtained. FINDINGS: The heart size is normal. The pulmonary vasculature is prominent. Mild diffuse increased lung markings are present. Findings are nonspecific. Correlate for early pulmo nary edema. Atypical pneumonia should be considered. Some focal atelectasis may be at the left diaphr agm. Findings are progressive from comparison. IMPRESSION: 1. Nonspecific increased lung markings through the mid and lower lung leger. Correlate for volume ov erload, early pulmonary edema, atypical pneumonia. 2. Some platelike atelectasis may be at the left diaphragm.
[2021-07-04 11:39] LABS: Basophils # (A) 0.03 X 10*3/uL (0.00-0.10); Basophils % (A) 0.2 %; Eosinophils # (A) 0 X 10*3/uL (0.04-0.35); Eosinophils % (A) 0 %; HCT 37.1 % (39.6-50.0); HGB 12.5 g/dL (13.0-17.0); Lymphocytes # (A) 0.91 X 10*3/uL (0.90-5.00); MCH 30.6 pg (27.0-32.0); MCHC 33.7 g/dL (32.0-37.0); MCV 90.7 fL (80.0-97.0); Mean Platelet Volume 10.7 fL (9.5-12.2); Monocytes # (A) 0.25 X 10*3/uL (0.20-1.00); Monocytes % (A) 1.7 %; Neutrophils # (A) 13.67 X 10*3/uL (1.80-7.70); Neutrophils % (A) 90.6 %; Platelet Count 339 X 10*3/uL (140-440); RBC 4.09 X 10*6/uL (4.40-5.60); RDW 13.3 % (11.5-14.5); WBC 15.08 X 10*3/uL (4.50-10.00)
[2021-07-04 11:53] LABS: Glucose,Whole Blood 160 mg/dL (75-99)
[2021-07-04 12:03] LABS: African American GFR (CKD) 83.2 (60.0-200.0); Anion Gap 12.8 mmol/L (4.00-12.00); BUN/Creat Ratio 23.3 Ratio (12.00-20.00); Blood Urea Nitrogen 23.3 mg/dL (9.0-27.0); Calcium 8.4 mg/dL (8.7-10.3); Carbon Dioxide 21.2 mmol/L (21.6-31.8); Non-African American GFR(CKD) 71.8 (60.0-200.0); Potassium 3.7 mmol/L (3.5-5.5)
[2021-07-04 17:03] LABS: Glucose,Whole Blood 187 mg/dL (75-99)
[2021-07-04 20:56] LABS: Glucose,Whole Blood 148 mg/dL (75-99)
[2021-07-04] MEDS: ATORVASTATIN 10 MG TAB PO SCH (21:01)
[2021-07-04] MEDS: SODIUM CHLORIDE 0.9% 1,000 ML IV SCH (21:02)
--- NOTE | 2021-07-04 21:55 | P.PN ---
Subjective Progress Note Date: 07/04/21 Principal diagnosis: Bilateral pulmonary infiltrates likely due to pneumonia Acute exacerbation of COPD 76-year-old male with significant past medical history of COPD, h ypertension, dyslipidemia, BPH, history of frequent kidney infections, and additional comorbidities admitted to the hospital for pneumonia, COPD with exacerbation, leukocytosis with a left-sided shift, and fever. Patient had extensive diagnostic workup in emergency department consisting of a CBC showing a white count of 23.1 with a left-sided shift with neutrophils of 21.3, coagulation studies unremarkable, CMP mildly elevated glucose at 136, and negative influenza RSV and Covid PCR. Emergency room physician consulted pulmonary critical care for management COPD. Patient will be placed on mini acquired pneumonia antibiotic protocol. 07/02/2021 Patient is currently sitting on the side of the bed. Denies complaints of chest pain. Shortness of breath is improving compared to yesterday. Patient is still requiring oxygen via nasal cannula at 5L. No complaints of nausea vomiting abdominal pain or diarrhea. Patient has been afebrile. Patient had CTA chest done showed no evidence of PE. Extensive posterior predominantly interstitial pulmonary infiltrates increasing compared to old exam. Pulmonary emphysema. Mediastinal endobronchial adenopathy is likely inflammatory. Laboratory showed WBC 16.06 hemoglobin 13.8 and platelets 283 BUN 16.5 and creatinine 1.0 and bicarb is 20.9 CRP 28 and procalcitonin level was 0.97 Patient is being current antibiotics in the form of ceftriaxone and azithromycin. Pulmonary is on board. Patient is also on IV steroids and duo nebs. 07/03/2021 Patient is currently lying in the bed comfortably. Requiring oxygen to 5 L via nasal cannula. No complaints of chest pain or worsening shortness of breath. Patient is being current antibiotics involve ceftriaxone and azithromycin. Patient is IV steroids as well. Laboratory showed WBC 18.9 hemoglobin 13.3 and platelets 348 BUN 23 and creatinine 0.81 and blood sugar is 244. Denies any nausea vomiting abdominal pain or diarrhea. No headache or dizziness or lightheadedness. Pulmonary is on board. 07/04/2021 Patient is currently lying in the bed comfortably. Awake alert and oriented x3. Breathing status remains the same. Still requiring oxygen 5 L via nasal cannula. Continued on antibiotics in the form of ceftriaxone and azithromycin. Patient has been afebrile. No chest pain or shortness of breath. Laboratory data showed WBC count improved to 15.08 hemoglobin 12.5 and platelets 338 Bicarb is 21.2 and BUN 23.3 and creatinine 1.0 blood sugar is 184 potassium 3.4 and calcium 8.4 Anticipate discharge once oxygen requirement improves. Current medications reviewed. Objective - Vital Signs Vital signs: Vital Signs Temp 97.5 F L 07/04/21 14:08 Pulse 91 07/04/21 15:12 Resp 18 07/04/21 14:08 BP 105/63 07/04/21 14:08 Pulse Ox 92 L 07/04/21 14:08 Intake & Output 07/03/21 07/04/21 07/04/21 18:59 06:59 18:59 Other: # Voids 1 - Exam PHYSICAL EXAMINATION: Patient is lying in the bed comfortably, no acute distress, awake alert and oriented.. HEENT: Normocephalic. Neck is supple. Pupils reactive. Nostrils clear. Oral cavity is moist. Neck reveals no JVD, carotid bruits, or thyromegaly. CHEST EXAMINATION: Trachea is central. Symmetrical expansion. Bilateral scattered rhonchi and crackles. Nonlabored breathing.. CARDIAC: Normal S1, S2 with no gallops. No murmurs ABDOMEN: Soft. Bowel sounds normal. No organomegaly. No abdominal bruits. Extremities: reveal no edema. No clubbing or cyanosis Neurologically awake, alert, oriented x3 with well-coordinated movements. No focal deficits noted Skin: No rash or skin lesions. Psychiatric: Cooperative. Nonsuicidal Musculoskeletal: No joint swelling or deformity. Normal range of motion. - Labs CBC & Chem 7: 07/04/21 08:29 07/04/21 08:29 Labs: Abnormal Lab Results - Last 24 Hours (Table) 07/03/21 07/04/21 07/04/21 Range/Units : 06:50 08:29 WBC 15.08 H (4.50-10.00) X 10*3/uL RBC 4.09 L (4.40-5.60) X 10*6/uL Hgb 12.5 L (13.0-17.0) g/dL Hct 37.1 L (39.6-50.0) % Immature Gran # 0.22 H (0.00-0.04) X 10*3/uL Neutrophils # 13.67 H (1.80-7.70) X 10*3/uL Eosinophils # 0 L (0.04-0.35) X 10*3/uL Carbon Dioxide (21.6-31.8) mmol/L Anion Gap (4.00-12.00) mmol/L BUN/Creatinine Ratio (12.00-20.00) Ratio Glucose (70-110) mg/dL POC Glucose (mg/dL) 167 H 154 H (75-99) mg/dL Calcium (8.7-10.3) mg/dL 07/04/21 07/04/21 Range/Units 08:29 11:51 WBC (4.50-10.00) X 10*3/uL RBC (4.40-5.60) X 10*6/uL Hgb (13.0-17.0) g/dL Hct (39.6-50.0) % Immature Gran # (0.00-0.04) X 10*3/uL Neutrophils # (1.80-7.70) X 10*3/uL Eosinophils # (0.04-0.35) X 10*3/uL Carbon Dioxide 21.2 L (21.6-31.8) mmol/L Anion Gap 12.80 H (4.00-12.00) mmol/L BUN/Creatinine Ratio 23.30 H (12.00-20.00) Ratio Glucose 184 H (70-110) mg/dL POC Glucose (mg/dL) 160 H (75-99) mg/dL Calcium 8.4 L (8.7-10.3) mg/dL Microbiology - Last 24 Hours (Table) 07/02/21 09:10 Gram Stain - Final Sputum Sputum Culture - Final 07/01/21 14:50 Blood Culture - Preliminary Blood No Growth after 48 hours 07/01/21 14:50 Blood Culture - Preliminary Blood No Growth after 48 hours Assessment and Plan Assessment: Bilateral pulmonary infiltrates due to pneumonia Acute exacerbation of COPD Leukocytosis Leukocytosis with a left shift Mildly elevated glucose Hypertension Dyslipidemia History of nicotine dependence History of kidney infections and urinary tract infection Full code Plan: Patient be continued on antibiotics to home ceftriaxone azithromycin continue corticosteroids, continue [id number] breathing treatments, continue consultation with pulmonology for recommendations Leukocytosis with left shift continue to trend Continue to monitor vital signs and diagnostic testing Continue home medications Time with Patient: Greater than 30
[2021-07-05] MEDS: methylPREDNISolone SOD SUCCI 125 MG/2 ML VIAL IV SCH ×3 (01:05→12:24)
[2021-07-05 07:13] LABS: Glucose,Whole Blood 150 mg/dL (75-99)
[2021-07-05] MEDS: AZITHROMYCIN 500 MG TAB PO SCH (07:38)
[2021-07-05] MEDS: INSULIN ASPART (NovoLOG) 100 UNIT/ML VIAL SQ SCH ×4 (07:38→21:52)
[2021-07-05] MEDS: amLODIPine 10 MG TAB PO SCH (07:38)
[2021-07-05] MEDS: TAMSULOSIN 0.4 MG CAP.ER.24H PO SCH (07:38)
[2021-07-05 07:45] LABS: African American GFR (CKD) >90 (>60 ml/min/1.73 sqM); Anion Gap 8 mmol/L; Blood Urea Nitrogen 22 mg/dL (9-20); Calcium 8.7 mg/dL (8.4-10.2); Carbon Dioxide 25 mmol/L (22-30); Chloride 107 mmol/L (98-107); Glucose 145 mg/dL (74-99); Non-African American GFR(CKD) 84 (>60 ml/min/1.73 sqM); Potassium 3.9 mmol/L (3.5-5.1); Sodium 140 mmol/L (137-145)
[2021-07-05] MEDS: IPRATROPIUM-ALBUTEROL 3 ML NEB INHALATION SCH ×4 (07:52→21:13)
[2021-07-05 11:06] LABS: Basophils # (A) 0.08 X 10*3/uL (0.00-0.10); Basophils % (A) 0.6 %; Eosinophils # (A) 0 X 10*3/uL (0.04-0.35); Eosinophils % (A) 0 %; HCT 38.4 % (39.6-50.0); HGB 13.1 g/dL (13.0-17.0); Lymphocytes # (A) 1.29 X 10*3/uL (0.90-5.00); Lymphocytes % (A) 9.6 %; MCH 31.1 pg (27.0-32.0); MCHC 34.1 g/dL (32.0-37.0); MCV 91.2 fL (80.0-97.0); Mean Platelet Volume 10.5 fL (9.5-12.2); Monocytes # (A) 0.32 X 10*3/uL (0.20-1.00); Monocytes % (A) 2.4 %; Neutrophils # (A) 11.41 X 10*3/uL (1.80-7.70); Neutrophils % (A) 84.6 %; Platelet Count 382 X 10*3/uL (140-440); RBC 4.21 X 10*6/uL (4.40-5.60); RDW 13.3 % (11.5-14.5); WBC 13.48 X 10*3/uL (4.50-10.00)
[2021-07-05 11:33] LABS: Glucose,Whole Blood 125 mg/dL (75-99)
--- NOTE | 2021-07-05 14:58 | P.PN ---
Subjective Progress Note Date: 07/05/21 76-year-old male with significant past medical history of COPD, hypertension, dyslipidemia, BPH, history of frequent kidney infections, and additional comorbidities admitted to the hospital for pneumonia, COPD with exacerbation, leukocytosis with a left-sided shift, and fever. Patient had extensive diagnostic workup in emergency department consisting of a CBC showing a white count of 23.1 with a left-sided shift with neutrophils of 21.3, coagulation studies unremarkable, CMP mildly elevated glucose at 136, and negative influenza RSV and Covid PCR. Emergency room physician consulted pulmon [facility] for management COPD. Patient will be placed on mini acquired pneumonia antibiotic protocol. 07/02/2021 Patient is currently sitting on the side of the bed. Denies complaints of chest pain. Shortness of breath is improving compared to yesterday. Patient is still requiring oxygen via nasal cannula at 5L. No complaints of nausea vomiting abdominal pain or diarrhea. Patient has been afebrile. Patient had CTA chest done showed no evidence of PE. Extensive posterior predominantly interstitial pulmonary infiltrates increasing compared to old exam. Pulmonary emphysema. Mediastinal endobronchial adenopathy is likely inflammatory. Laboratory showed WBC 16.06 hemoglobin 13.8 and platelets 283 BUN 16.5 and creatinine 1.0 and bicarb is 20.9 CRP 28 and procalcitonin level was 0.97 Patient is being current antibiotics in the form of ceftriaxone and azithromycin. Pulmonary is on board. Patient is also on IV steroids and duo nebs. 07/03/2021 Patient is currently lying in the bed comfortably. Requiring oxygen to 5 L via nasal cannula. No complaints of chest pain or worsening shortness of breath. Patient is being current antibiotics involve ceftriaxone and azithromycin. Patient is IV steroids as well. Laboratory showed WBC 18.9 hemoglobin 13.3 and platelets 348 BUN 23 and creatinine 0.81 and blood sugar is 244. Denies any nausea vomiting abdominal pain or diarrhea. No headache or dizziness or lightheadedness. Pulmonary is on board. 07/04/2021 Patient is currently lying in the bed comfortably. Awake alert and oriented x3. Breathing status remains the same. Still requiring oxygen 5 L via nasal cannula. Continued on antibiotics in the form of ceftriaxone and azithromycin. Patient has been afebrile. No chest pain or shortness of breath. Laboratory d blossom showed WBC count improved to 15.08 hemoglobin 12.5 and platelets 338 Bicarb is 21.2 and BUN 23.3 and creatinine 1.0 blood sugar is 184 potassium 3.4 and calcium 8.4 Anticipate discharge once oxygen requirement improves. 07/05/2021 Patient evaluated today sitting in the chair. He is still requiring oxygen via nasal cannula, 4 L. We did do a walking oxygen test today and he was 88% on 3 L nasal cannula. Labs today show a white count of 13.48 which is improving. Patient remains afebrile, blood pressure 117/67. And a maximal form of IV Rocephin and by mouth Zithromax. Decrease IV steroids, likely transition to oral tomorrow. Patient is hoping to go home today. We will monitor for one more night, encourage IS and wean oxygen as tolerated. Patient does have a history of COPD, however he denies smoking states he has not smoked in the last 20 years. Patient does report drinking daily, monitor for acute withdrawal. Current medications reviewed. ROS Constitutional: Denied any fatigue denied any fever. Cardio vascular: denied any chest pain, palpitations Gastrointestinal denied any nausea vomiting Pulmonary: Denied any shortness of breath, reports mild nonproductive cough Neurologic denied any new focal deficits All inpatient medications were reviewed and appropriate changes in these medications as dictated in the interval history and assessment and plan. PHYSICAL EXAMINATION: GENERAL: The patient is alert and oriented x3, not in any acute distress. Well developed, well nourished. HEENT: Pupils are round and equally reacting to light. EOMI. No scleral icterus. No conjunctival pallor. Normocephalic, atraumatic. No pharyngeal erythema. No thyromegaly. CARDIOVASCULAR: S1 and S2 present. No murmurs, rubs, or gallops. PULMONARY: Chest is clear to auscultation, no wheezing or crackles. ABDOMEN: Soft, nontender, nondistended, normoactive bowel sounds. No palpable organomegaly. MUSCULOSKELETAL: No joint swelling or deformity. EXTREMITIES: No cyanosis, clubbing, or pedal edema. NEUROLOGICAL: Gross neurological examination did not reveal any focal deficits. SKIN: No rashes. Assessment and plan Bilateral pulmonary infiltrates due to pneumonia Acute exacerbation of COPD Leukocytosis with a left shift Mildly elevated glucose secondary to IV steroids Hypertension Dyslipidemia History of nicotine dependence History of daily alcohol abuse History of kidney infections and urinary tract infection Full code Plan: Patient be continued on antibiotics to home ceftriaxone azithromycin continue corticosteroids, DuoNeb's, decrease steroids can appreciate pulmonary consultation Leukocytosis with left shift continue to trend Continue to monitor vital signs and diagnostic testing Continue home medications Wean oxygen as tolerated, patient may need home oxygen on discharge Objective - Vital Signs Vital signs: Vital Signs Temp 97.4 F L 07/05/21 14:00 Pulse 95 07/05/21 14:00 Resp 17 07/05/21 14:00 BP 117/67 07/05/21 14:00 Pulse Ox 91 L 07/05/21 14:00 Intake & Output 07/04/21 07/05/21 07/05/21 18:59 06:59 18:59 Intake Total 500 Balance 500 Intake: Oral 500 Other: # Voids 1 - Labs CBC & Chem 7: 07/05/21 06:42 07/05/21 06:42 Labs: Abnormal Lab Results - Last 24 Hours (Table) 07/04/21 07/04/21 07/05/21 Range/Units 17:01 20:55 06:42 WBC 13.48 H (4.50-10.00) X 10*3/uL RBC 4.21 L (4.40-5.60) X 10*6/uL Hct 38.4 L (39.6-50.0) % Immature Gran # 0.38 H (0.00-0.04) X 10*3/uL Neutrophils # 11.41 H (1.80-7.70) X 10*3/uL Eosinophils # 0 L (0.04-0.35) X 10*3/uL BUN (9-20) mg/dL Glucose (74-99) mg/dL POC Glucose (mg/dL) 187 H 148 H (75-99) mg/dL 07/05/21 07/05/21 07/05/21 Range/Units 06:42 07:11 11:32 WBC (4.50-10.00) X 10*3/uL RBC (4.40-5.60) X 10*6/uL Hct (39.6-50.0) % Immature Gran # (0.00-0.04) X 10*3/uL Neutrophils # (1.80-7.70) X 10*3/uL Eosinophils # (0.04-0.35) X 10*3/uL BUN 22 H (9-20) mg/dL Glucose 145 H (74-99) mg/dL POC Glucose (mg/dL) 150 H 125 H (75-99) mg/dL Microbiology - Last 24 Hours (Table) 07/01/21 14:50 Blood Culture - Preliminary Blood No Growth after 72 hours 07/01/21 14:50 Blood Culture - Preliminary Blood No Growth after 72 hours 07/02/21 09:10 Gram Stain - Final Sputum Sputum Culture - Final Assessment and Plan Time with Patient: Greater than 30
[2021-07-05 16:25] LABS: Glucose,Whole Blood 160 mg/dL (75-99)
--- NOTE | 2021-07-05 19:07 | P.PN ---
Subjective Progress Note Date: 07/05/21 Principal diagnosis: Acute pneumonia, acute exacerbation of COPD, interstitial lung disease, pulmonary fibrosis On 07/05/2021 patient seen in follow-up on medical surgical floor. He is currently breathing much more comfortably, he is currently on 3 L of oxygen pulse ox of 91%, he is afebrile, hemodynamically stable. Remains on combination of azithromycin and Rocephin, he was given a dose of IV Lasix yesterday on the he is on IV steroids with Solu-Medrol 40 mg every 12 hours. Today's labs have been reviewed, his white blood cell count is 13.4, hemoglobin is 13.1, electr olytes are within normal limits, B1 is 22 creatinine 0.83. His blood and sputum cultures have shown no growth. Denies any chest pain or hemoptysis. Objective - Vital Signs Vital signs: Vital Signs Temp 97.4 F L 07/05/21 14:00 Pulse 78 07/05/21 16:29 Resp 17 07/05/21 14:00 BP 117/67 07/05/21 14:00 Pulse Ox 91 L 07/05/21 14:00 Intake & Output 07/05/21 07/05/21 07/06/21 06:59 18:59 06:59 Intake Total 500 Balance 500 Intake: Oral 500 Other: # Voids 1 3 - Exam GENERAL EXAM: Alert, very pleasant, 68 y.o.white male comfortable in no apparent distress. The still on 3 L of oxygen by nasal cannula HEAD: Normocephalic/atraumatic. EYES: Normal reaction of pupils, equal size. Conjunctiva pink, sclera white. NOSE: Clear with pink turbinates. THROAT: No erythema or exudates. NECK: No masses, no JVD, no thyroid enlargement, no adenopathy. CHEST: No chest wall deformity. Symmetrical expansion. LUNGS: Equal air entry with diffuse rhonchi CVS: Regular rate and rhythm, normal S1 and S2, no gallops, no murmurs, no rubs ABDOMEN: Soft, nontender. No hepatosplenomegaly, normal bowel sounds, no guarding or rigidity. EXTREMITIES: Mild clubbing, no edema, no cyanosis, 2+ pulses and upper and lower extremities. MUSCULOSKELETAL: Muscle strength and tone normal. SPINE: No scoliosis or deformity SKIN: No rashes CENTRAL NERVOUS SYSTEM: Alert and oriented -3. No focal deficits, tone is normal in all 4 extremities. PSYCHIATRIC: Alert and oriented -3. Appropriate affect. Intact judgment and insight. - Labs CBC & Chem 7: 07/05/21 06:42 07/05/21 06:42 Labs: Abnormal Lab Results - Last 24 Hours (Table) 07/04/21 07/05/21 07/05/21 Range/Units 20:55 06:42 06:42 WBC 13.48 H (4.50-10.00) X 10*3/uL RBC 4.21 L (4.40-5.60) X 10*6/uL Hct 38.4 L (39.6-50.0) % Immature Gran # 0.38 H (0.00-0.04) X 10*3/uL Neutrophils # 11.41 H (1.80-7.70) X 10*3/uL Eosinophils # 0 L (0.04-0.35) X 10*3/uL BUN 22 H (9-20) mg/dL Glucose 145 H (74-99) mg/dL POC Glucose (mg/dL) 148 H (75-99) mg/dL 07/05/21 07/05/21 07/05/21 Range/Units 07:11 11:32 16:24 WBC (4.50-10.00) X 10*3/uL RBC (4.40-5.60) X 10*6/uL Hct (39.6-50.0) % Immature Gran # (0.00-0.04) X 10*3/uL Neutrophils # (1.80-7.70) X 10*3/uL Eosinophils # (0.04-0.35) X 10*3/uL BUN (9-20) mg/dL Glucose (74-99) mg/dL POC Glucose (mg/dL) 150 H 125 H 160 H (75-99) mg/dL Microbiology - Last 24 Hours (Table) 07/01/21 14:50 Blood Culture - Preliminary Blood No Growth after 96 hours 07/01/21 14:50 Blood Culture - Preliminary Blood No Growth after 96 hours Assessment and Plan Plan: Assessment: #1. Acute febrile illness, related to acute community acquired pneumonia, COVID-19 PCR, RSV and influenza screen were negative. Pro-calcitonin level was elevated #2. Pulmonary fibrosis, seems to have progressed on the CT chest from his most recent CT of the chest from last year. There is coarse reticular interstitial infiltrates in the posterior lung leger bilaterally #3. Acute exacerbation of COPD with the possibility of tracheobronchitis #4. History of COPD #5. Hypertension #. Former smoker, in remission for last 10 years, carries [id number] smoking history #6. Hyperlipidemia #7. History of kidney infections, and urinary tract infection Plan: Continue current antibiotics Continue steroids and nebulized bronchodilators Blood and sputum cultures have shown no growth CTA chest again reviewed showing pulmonary fibrosis and extensive interstitial pulmonary infiltrates, mediastinal bronchial adenopathy likely inflammatory related to underlying pneumonia Clinically patient is improving Patient most likely will need home oxygen upon discharge We will obtain home oxygen assessment before discharge In the meantime will continue current medical treatment I performed a history & physical examination of the patient and discussed their management with my nurse practitioner, Phyllis Armstrong. I reviewed the nurse practitioner's note and agree with the documented findings and plan of care. Lung sounds are positive for diffuse wheezes throughout the lung leger. The findings and the impression was discussed with the patient. I attest to the documentation by the nurse practitioner. Time with Patient: Less than 30
[2021-07-05 20:37] LABS: Glucose,Whole Blood 176 mg/dL (75-99)
[2021-07-05] MEDS: ATORVASTATIN 10 MG TAB PO SCH (21:52)
[2021-07-05] MEDS: methylPREDNISolone SOD SUCCI 40 MG/ML 1 ML VIAL IV SCH (21:52)
[2021-07-05] MEDS: SODIUM CHLORIDE 0.9% 1,000 ML IV SCH (22:02)
[2021-07-06 06:50] LABS: Glucose,Whole Blood 126 mg/dL (75-99)
[2021-07-06] MEDS: IPRATROPIUM-ALBUTEROL 3 ML NEB INHALATION SCH ×3 (07:43→16:00)
[2021-07-06 07:45] VITALS: RESP 18
[2021-07-06] MEDS: INSULIN ASPART (NovoLOG) 100 UNIT/ML VIAL SQ SCH ×2 (08:14→11:56)
[2021-07-06] MEDS: AZITHROMYCIN 500 MG TAB PO SCH (08:57)
[2021-07-06] MEDS: amLODIPine 10 MG TAB PO SCH (08:57)
[2021-07-06] MEDS: TAMSULOSIN 0.4 MG CAP.ER.24H PO SCH (08:58)
[2021-07-06] MEDS: methylPREDNISolone SOD SUCCI 40 MG/ML 1 ML VIAL IV SCH (08:59)
[2021-07-06 11:55] LABS: Glucose,Whole Blood 133 mg/dL (75-99)
--- NOTE | 2021-07-06 13:01 | P.PN ---
Subjective Progress Note Date: 07/06/21 Principal diagnosis: Acute pneumonia, acute exacerbation of COPD, interstitial lung disease, pulmonary fibrosis On 07/05/2021 patient seen in follow-up on medical surgical floor. He is currently breathing much more comfortably, he is currently on 3 L of oxygen pulse ox of 91%, he is afebrile, hemodynamically stable. Remains on combination of azithromycin and Rocephin, he was given a dose of IV Lasix yesterday on the he is on IV steroids with Solu-Medrol 40 mg every 12 hours. Today's labs have been reviewed, his white blood cell count is 13.4, hemoglobin is 13.1, electr olytes are within normal limits, B1 is 22 creatinine 0.83. His blood and sputum cultures have shown no growth. Denies any chest pain or hemoptysis. On 07/06/2021 patient seen in follow-up on medical surgical floor. He is awake and alert, he is currently on 3 L of oxygen pulse ox is 91%, ambulating in the room and in the bathroom having activity well, no fever or chills, vital signs have been stable, breathing comfortably, much less congested, no wheezes, coughing has improved. Yesterday labs have been reviewed, showing improving leukocytosis and white count was down to 13.4, hemoglobin was 13.1, electrolytes were within normal limits, B1 is 22, creatinine was 0.83. Blood and sputum cul tures were negative. Patient is on accommodation of azithromycin and Rocephin, he is on nebulized bronchodilators, and IV steroids with Solu-Medrol 40 mg every 12 hours, clinically patient is improving. Objective - Vital Signs Vital signs: Vital Signs Temp 97.9 F 07/06/21 07:41 Pulse 80 07/06/21 07:54 Resp 18 07/06/21 07:54 BP 129/68 07/06/21 07:41 Pulse Ox 91 L 07/06/21 07:43 Intake & Output 07/05/21 07/06/21 07/06/21 18:59 06:59 18:59 Intake Total 500 200 Balance 500 200 Intake: Oral 500 200 Other: # Voids 3 2 - Exam GENERAL EXAM: Alert, very pleasant, 68 y.o.white male comfortable in no apparent distress. The still on 3 L of oxygen by nasal cannula HEAD: Normocephalic/atraumatic. EYES: Normal reaction of pupils, equal size. Conjunctiva pink, sclera white. NOSE: Clear with pink turbinates. THROAT: No erythema or exudates. NECK: No masses, no JVD, no thyroid enlargement, no adenopathy. CHEST: No chest wall deformity. Symmetrical expansion. LUNGS: Equal air entry with mild scattered rhonchi CVS: Regular rate and rhythm, normal S1 and S2, no gallops, no murmurs, no rubs ABDOMEN: Soft, nontender. No hepatosplenomegaly, normal bowel sounds, no guarding or rigidity. EXTREMITIES: Mild clubbing, no edema, no cyanosis, 2+ pulses and upper and lower extremities. MUSCULOSKELETAL: Muscle strength and tone normal. SPINE: No scoliosis or deformity SKIN: No rashes CENTRAL NERVOUS SYSTEM: Alert and oriented -3. No focal deficits, tone is normal in all 4 extremities. PSYCHIATRIC: Alert and oriented -3. Appropriate affect. Intact judgment and insight. - Labs CBC & Chem 7: 07/05/21 06:42 07/05/21 06:42 Labs: Abnormal Lab Results - Last 24 Hours (Table) 07/05/21 07/05/21 07/06/21 Range/Units 16:24 20:36 06:49 POC Glucose (mg/dL) 160 H 176 H 126 H (75-99) mg/dL 07/06/21 Range/Units 11:54 POC Glucose (mg/dL) 133 H (75-99) mg/dL Microbiology - Last 24 Hours (Table) 07/01/21 14:50 Blood Culture - Preliminary Blood No Growth after 96 hours 07/01/21 14:50 Blood Culture - Preliminary Blood No Growth after 96 hours Assessment and Plan Plan: Assessment: #1. Acute febrile illness, related to acute community acquired pneumonia, COVID-19 PCR, RSV and influenza screen were negative. Pro-calcitonin level was elevated #2. Pulmonary fibrosis, seems to have progressed on the CT chest from his most recent CT of the chest from last year. There is coarse reticular interstitial infiltrates in the posterior lung leger bilaterally #3. Acute exacerbation of COPD with the possibility of tracheobronchitis #4. History of COPD #5. Hypertension #. Former smoker, in remission for last 10 years, carries [id number] smoking history #6. Hyperlipidemia #7. History of kidney infections, and urinary tract infection Plan: Clinically patient is improving Coughing has improved, no fever or chills Remains on 3 L of oxygen Sputum and blood cultures are negative CT chest showed Pulmonary fibrosis with progression Clinically patient has been stable, tolerating ambulation Could be considered for discharge home today or in the next 24 hours if cleared by medicine He will most likely qualify for home oxygen and will benefit from home oxygen He can complete outpatient course of oral antibiotics, prednisone taper, and nebulized treatments He will need outpatient follow-up with Dr. Henriquez in the office in 7-10 days I performed a history & physical examination of the patient and discussed their management with my nurse practitioner, Phyllis Armstrong. I reviewed the nurse practitioner's note and agree with the documented findings and plan of care. Lung sounds are positive for diffuse wheezes throughout the lung leger. The findings and the impression was discussed with the patient. I attest to the documentation by the nurse practitioner. Time with Patient: Less than 30
[2021-07-06 13:42] VITALS: BP 131/71; TEMP 97.2
[2021-07-06 16:13] VITALS: PULSE 84
[2021-07-07] MEDS ORDERED: CEFDINIR 300 MG CAP PO SCH (09:00)
--- NOTE | 2021-07-07 14:38 | P.DS ---
Providers Date of admission: 07/01/21 14:45 Attending physician: Carlos Rogers Consults: 07/01/21 14:46 Consult Physician Routine Consulting Provider: Ella Henriquez Consult Reason/Comments: pneuomnia Do you want consulting provider notified?: Yes Primary care physician: Carlos Rogers Hospital Course: Final Diagnosis Bilateral pulmonary infiltrates due to pneumonia Acute exacerbation of COPD with possible tracheobronchitis pulmonary fibrosis Leukocytosis with a left shift Mildly elevated glucose secondary to IV steroids Hypertension Dyslipidemia History of nicotine dependence History of daily alcohol abuse History of kidney infections and urinary tract infection Full code Discharge Disposition Patient is discharged home with home oxygen, will continue a steroid taper, 3 more days of oral antibiotics and DuoNeb's. He will follow-up with PCP and pulmonary services. Repeat CBC in 2-3 days. Hospital Course This is a pleasant 76-year-old male who presented to the with history of shortness of breath over the past 2-3 days. Patient has a past medical history significant for COPD, hypertension, dyslipidemia, BPH, frequent kidney infections and additional comorbidities. He was admitted to the hospital for pneumonia, COPD with exacerbation and leukocytosis and fever. CBC initially showed a white count of 23.1, neutrophils of 21.3, glucose mildly elevated at 136, viral panel was negative for influenza RSV and Covid PCR. Patient was initially on 5 L nasal cannula and is currently not wearing any oxygen at home. CTA was completed that showed no evidence due to elevated d-dimer. CT also showed extensive posterior predominantly interstitial pulmonary infiltrates increasing compared to old exam. There is pulmonary emphysema. Mediastinal endobronchial adenopathy is likely inflammatory. CRP is 28 and procalcitonin level was initially 0.97. Patient was started on antibiotics in the form of ceftriaxone and azithromycin and was transitioned to oral 3 more days of oral Levaquin on discharge. Blood pressures admission remained stable at 131/71, remains in sinus ryhthm with a heart rate in the high 90's. Blood culture and sputum culture were negative. Patient is followed closely by pulmonary services. There was pulmonary fibrosis which seems to progressed from his most previous CT last year. Patient will follow up closely with pulmonary in the next 7-10 days. 07/06/2021 Patient was evaluated in the chair. He is anxious to discharge home. Home oxygen test showed 80% liters nasal cannula after ambulation and patient will be set up with home oxygen on discharge. He will finish a course of antibiotics and oral steroid taper. Lungs are positive for scattered wheezing throughout all lung leger, cough is present. She denies any chest pain, palpitations. He denies any shortness of breath at rest and reports no shortness of breath with exertion. He is ambulate without difficulty. Abdomen soft nontender, denies any nausea vomiting or diarrhea. He is evaluated PT OT who is recommending home on discharge. Focal neurological exam is negative. Patient agreeable to plan of care. Labs are trending down, most recent blood that he sees 13.48, hemoglo bin is stable. CO2 has improved to 25, chloride 107, potassium 3.9, sodium 140. Sugars are improving the 130s. Patient is cleared medically for discharge home with home oxygen. Please see medication reconciliation for a list of current medications. Thank you for allowing us to participate in the care of this patient. Patient Condition at Discharge: Fair Plan - Discharge Summary New Discharge Prescriptions: New Ipratropium-Albuterol Nebulize [Duoneb 0.5 mg-3 mg/3 ml Soln] 3 ml INHALATION QID 30 Days #6 pack predniSONE 0 mg PO DIRECTED 12 Days #24 tab Levofloxacin [Levaquin] 500 mg PO DAILY 3 Days #3 tab Continue amLODIPine [Norvasc] 10 mg PO DAILY Atorvastatin Calcium [Lipitor] 10 mg PO HS Tamsulosin HCl [Flomax] 0.8 mg PO DAILY Multivitamins, Thera [Multivitamin (formulary)] 1 tab PO DAILY@1200 Discontinued D-Methorphan/PE/Acetaminophen [Theraflu Ms Severe Cold Pckt] 1 packet PO DAILY PRN PRN Reason: Cold Symptoms Discharge Medication List Atorvastatin Calcium [Lipitor] 10 mg PO HS 01/25/20 [History] amLODIPine [Norvasc] 10 mg PO DAILY 01/25/20 [History] Tamsulosin HCl [Flomax] 0.8 mg PO DAILY 11/14/20 [History] Multivitamins, Thera [Multivitamin (formulary)] 1 tab PO DAILY@1200 07/01/21 [History] Ipratropium-Albuterol Nebulize [Duoneb 0.5 mg-3 mg/3 ml Soln] 3 ml INHALATION QID 30 Days #6 pack 07/06/21 [Rx] Levofloxacin [Levaquin] 500 mg PO DAILY 3 Days #3 tab 07/06/21 [Rx] predniSONE 0 mg PO DIRECTED 12 Days #24 tab 07/06/21 [Rx] Follow up Appointment(s)/Referral(s): Carlos Rogers MD [Primary Care Provider] - 07/09/21 4:30 pm Liane Wallace MD [STAFF PHYSICIAN] - 07/22/21 2:[address] [facility],Equipment [NON-STAFF] - (*Please call [facility] once home to arrange delivery of the oxygen concentrator. ) Ambulatory/Diagnostic Orders: Complete Blood Count w/diff [LAB.AMB] Time Frame: 3 Days, Location: None Selected Patient Instructions/Handouts: Using Oxygen at Home (DC), Pneumonia (DC) Discharge Disposition: HOME SELF-CARE
== END 2021-07-06 16:20 | disposition home or self-care (01) | DRG 190 ==
LOC: EC 09:23 → 4SSUR 14:45
PROVIDERS: ADMIT Family Medicine; ATTEND Family Medicine
DX: J44.1 Chronic obstructive pulmonary disease with (acute) exacerbation (principal); J18.9 Pneumonia, unspecified organism; E78.5 Hyperlipidemia, unspecified; Z20.822 Contact with and (suspected) exposure to COVID-19; I10 Essential (primary) hypertension; N40.0 Benign prostatic hyperplasia without lower urinary tract symptoms; Z87.891 Personal history of nicotine dependence; Z79.899 Other long term (current) drug therapy; T38.0X5A Adverse effect of glucocorticoids and synthetic analogues, initial encounter; J84.10 Pulmonary fibrosis, unspecified; R09.02 Hypoxemia
CPT/HCPCS: 36415; 71045; 71275; 80048; 80053; 83036; 83605; 83735; 83880; 84145; 84484; 85025; 85610; 85652; 85730; 86140; 87040; 87070; 87205; 87636; 93005; 94640; 94760; 99285

== ENCOUNTER 2024-01-12 08:52 | Inpatient (IN) | payer MEDICARE ==
[2024-01-12] MEDS ORDERED: VANCOMYCIN IV PER PHARMACY 1 EACH MISC MISCELLANE PRN (09:23)
[2024-01-12] MEDS: IPRATROPIUM-ALBUTEROL 3 ML NEB INHALATION STA (09:38)
[2024-01-12] MEDS: methylPREDNISolone SOD SUCCI 125 MG/2 ML VIAL IV STA (09:45)
[2024-01-12] MEDS: SODIUM CHLORIDE 0.9% 1,000 ML IV STA ×3 (09:45→10:08)
[2024-01-12] MEDS: MAGNESIUM SULFATE-D5W PMX 1 GM in DEXTROSE/WATER 1 100ML.BAG IVPB STA (09:47)
[2024-01-12 09:49] LABS: Basophils % (A) 0 %; Eosinophils # (A) 0.2 k/uL (0-0.7); Eosinophils % (A) 1 %; HCT 47.2 % (39.0-53.0); HGB 15.3 gm/dL (13.0-17.5); Lymphocytes # (A) 0.8 k/uL (1.0-4.8); Lymphocytes % (A) 5 %; MCH 31.1 pg (25.0-35.0); MCHC 32.5 g/dL (31.0-37.0); MCV 95.7 fL (80.0-100.0); Mean Platelet Volume 8.7; Monocytes # (A) 0.6 k/uL (0-1.0); Monocytes % (A) 3 %; Neutrophils # (A) 16.4 k/uL (1.3-7.7); Neutrophils % (A) 91 %; Platelet Count 257 k/uL (150-450); RBC 4.94 m/uL (4.30-5.90); RDW 13.6 % (11.5-15.5); WBC 18.2 k/uL (3.8-10.6)
[2024-01-12] MEDS: PIPERACILLIN-TAZOBACTAM 3.375 GM in SODIUM CHLORIDE 0.9% 100 ML IVPB SCH (09:52)
[2024-01-12 10:05] LABS: ALT 25 U/L (4-49); AST 51 U/L (17-59); African American GFR (CKD) 70 (>60 ml/min/1.73 sqM); Albumin 3.5 g/dL (3.5-5.0); Alkaline Phosphatase 75 U/L (38-126); Anion Gap 8 mmol/L; Blood Urea Nitrogen 16 mg/dL (9-20); Calcium 8.7 mg/dL (8.4-10.2); Carbon Dioxide 22 mmol/L (22-30); Chloride 105 mmol/L (98-107); Glucose 134 mg/dL (74-99); Non-African American GFR(CKD) 61 (>60 ml/min/1.73 sqM); Sodium 135 mmol/L (137-145); Total Bilirubin 1.6 mg/dL (0.2-1.3); Total Protein 6.6 g/dL (6.3-8.2)
[2024-01-12 10:09] LABS: Partial Thromboplastin Time 26.7 sec (22.0-30.0); Prothrombin Time 10.8 sec (10.0-12.5)
[2024-01-12] MEDS: VANCOMYCIN 1,250 MG in SODIUM CHLORIDE 0.9% 250 ML IVPB STA (10:50)
--- NOTE | 2024-01-12 11:11 | XR ---
EXAMINATION TYPE: XR chest 1V DATE OF EXAM: 01/12/2024 10:17 AM CLINICAL INDICATION:Male, 78 years old with history of difficulty breathing; H COMPARISON: Chest radiographs from TECHNIQUE: XR chest 1V Frontal view of the chest. FINDINGS: Lungs/Pleura: Increased lucency in the lung apices. Bibasilar airspace opacities. There is no evidenc e of pleural effusion, focal consolidation, or pneumothorax. Pulmonary vascularity: Unremarkable. Heart/mediastinum: Cardiomediastinal silhouette is prominent in size. Musculoskeletal: No acute osseous pathology. IMPRESSION: 1. Bibasilar airspace opacities findings could represent pneumonia possibly consider aspiration vers us pulmonary mass or congestion. 2. COPD.
--- NOTE | 2024-01-12 11:27 | ED ---
General Adult HPI - General Chief complaint: Shortness of Breath Stated complaint: SOB,Cough Time Seen by Provider: 01/12/24 09:11 Source: patient, RN notes reviewed, old records reviewed Mode of arrival: ambulatory Limitations: no limitations - History of Present Illness Initial comments: Is an 78-year-old male who presents emergency department complaining of shortness of breath with productive cough of yellow green sputum, sometimes clear.. Has a history of COPD, hypertension, hyperlipidemia. States that he has had worsening cough and congestion and shortness of breath for over a week. States that his oxygen usually at home was in the mid to low 80s. He was getting worse which is why presents at this time for evaluation. Presents with his who has similar complaints and also has COPD. Denies any fevers. Endorses reduced oral intake. Denies nausea or vomiting or abdominal pain. Denies diarrhea. Denies chest pain. Presents for further evaluation at this time. - Related Data Home Medications Medication Instructions Recorded Confirmed amLODIPine [Norvasc] 10 mg PO DAILY 01/25/20 01/12/24 Tamsulosin HCl [Flomax] 0.8 mg PO DAILY 11/14/20 01/12/24 Budesonide/Formoterol Fumarate 2 puff PO RT-BID 01/12/24 01/12/24 [Budesonide-Formoterol 160-4.5] Rosuvastatin [Crestor] 10 mg PO HS 01/12/24 01/12/24 Allergies Allergy/AdvReac Type Severity Reaction Status Date / Time No Known Allergies Allergy Verified 01/12/24 10:14 Review of Systems ROS Statement: Those systems with pertinent positive or pertinent negative responses have been documented in the HPI. Review of Systems: CONST: Denies fever EYES: Denies blurry vision ENT: Denies nasal congestion C/V: Denies Chest pain RESP: Endorses dyspnea GI: Denies abdominal pain : Denies dysuria SKIN: Denies rash. MSK: Denies joint pain. NEURO: Denies headache ROS Other: All systems not noted in ROS Statement are negative. Past Medical History Past Medical History: COPD, Hyperlipidemia, Hypertension Additional Past Medical History / Comment(s): kidney infections History of Any Multi-Drug Resistant Organisms: None Reported Past Surgical History: Adenoidectomy, Tonsillectomy Past Anesthesia/Blood Transfusion Reactions: No Reported Reaction Past Psychological History: No Psychological Hx Reported Smoking Status: Former smoker Past Alcohol Use History: Daily Past Drug Use History: None Reported General Exam - General Exam Comments Initial Comments: General: Appears in moderate respiratory distress. HEAD: Normal with no signs of head trauma. EYES: PERRLA, EOMI, conjunctiva normal, no discharge. ENT: Hearing grossly intact, normal oropharynx. Dry oral mucous membranes. RESPIRATORY: Reduced breath sounds with diffuse end expiratory wheezing and increased work of breathing. Also has coarse breath sounds bilaterally.. Hypoxic to 79% on room air. Is not on home O2. C/V: Tachycardic with regular rhythm. S1 and S2 auscultated. No peripheral edema. Peripheral pulses 2+ intact throughout. ABD: Abd is soft, nontender, nondistended EXT: Normal range of motion, no obvious deformity SKIN: No rashes or lesions observed on exposed skin. NEURO: Alert and oriented x 4. Limitations: no limitations Course Vital Signs 01/12/24 01/12/24 01/12/24 09:09 09:38 09:57 Temperature 98.2 F Pulse Rate 127 H 130 H 135 H Respiratory 24 28 H Rate Blood Pressure 126/53 119/64 O2 Sat by Pulse 79 L 89 L Oximetry Fraction of Inspired Oxygen (FIO2) 01/12/24 01/12/24 01/12/24 10:10 10:17 10:43 Temperature Pulse Rate 121 H Respiratory 30 H Rate Blood Pressure 131/58 O2 Sat by Pulse 93 L Oximetry Fraction of 40 40 Inspired Oxygen (FIO2) 01/12/24 01/12/24 01/12/24 11:28 11:38 11:45 Temperature Pulse Rate 114 H 112 H Respiratory 30 H Rate Blood Pressure 116/56 O2 Sat by Pulse 90 L Oximetry Fraction of 60 Inspired Oxygen (FIO2) 01/12/24 01/12/24 11:57 13:30 Temperature Pulse Rate 113 H 105 H Respiratory 28 H Rate Blood Pressure 114/58 O2 Sat by Pulse 94 L Oximetry Fraction of Inspired Oxygen (FIO2) Medical Decision Making - Medical Decision Making Was pt. sent in by a medical professional or institution (, PA, SENIOR CONSTRUCTION MANAGER, urgent care, hospital, or group home...) When possible be specific @ -No Did you speak to anyone other than the patient for history (EMS, parent, family, police, friend...)? What history was obtained from this source @ -No Did you review nursing and triage notes (agree or disagree)? Why? @ -I reviewed and agree with nursing and triage notes Were old charts reviewed (outside hosp., previous admission, EMS record, old EKG, old radiological studies, urgent care reports/EKG's, group home records)? Report findings @ -No old charts were reviewed Differential Diagnosis (chest pain, altered mental status, abdominal pain women, abdominal pain men, vaginal bleeding, weakness, fever, dyspnea, syncope, headache, dizziness, GI bleed, back pain, seizure, CVA, palpatations, mental health, musculoskeletal)? @ -Differential Dyspnea: Coronary syndrome, arrhythmia, tamponade, asthma, COPD, pulmonary embolism, p neumonia, pneumothorax, pulmonary effusion, anaphylaxis, diabetic ketoacidosis, flailed chest, pulmonary contusion, diaphragmatic rupture, anemia, neuromuscular, this is not meant to be an all-inclusive list. EKG interpreted by me (3pts min.). @ -As above X-rays interpreted by me (1pt min.). @ -Chest x-ray shows bilateral infiltrates suggestive of pneumonia. CT interpreted by me (1pt min.). @ -CT angiogram ordered by Dr. Burnette revealed no evidence of PE. Patient does have pulmonary fibrosis with a developing infiltrate. U/S interpreted by me (1pt. min.). @ -None done What testing was considered but not performed or refused? (CT, X-rays, U/S, labs)? Why? @ -None What meds were considered but not given or refused? Why? @ -None Did you discuss the management of the patient with other professionals (professionals i.e. , PA, SENIOR CONSTRUCTION MANAGER, lab, RT, psych nurse, foster care social worker, brass molder, teacher, licensed mortgage loan officer, rn case mgr)? Give summary @ -Discussed management with Dr. Henriquez of pulmonology. Discussed possible ICU as patient is requiring BiPAP at this time but he is improving. We will observe and obtain CT angiogram. I will touch base with him again. After results of CT angiogram I spoke with him and after discussion and agree that patient is stable for stepdown and does not require ICU at this time. I spoke with admitting physician, Dr. Grossman of [facility] who accepted the admission. Was smoking cessation discussed for >3mins.? @ -No Was critical care preformed (if so, how long)? @ -Yes, 32 minutes Were there social determinants of health that impacted care today? How? (H omelessness, low income, unemployed, alcoholism, drug addiction, transportation, low edu. Level, literacy, decrease access to med. care, correction, rehab)? @ -No Was there de-escalation of care discussed even if they declined (Discuss DNR or withdrawal of care, Hospice)? DNR status @ -No What co-morbidities impacted this encounter? (DM, HTN, Smoking, COPD, CAD, Cancer, CVA, ARF, Chemo, Hep., AIDS, mental health diagnosis, sleep apnea, morbid obesity)? @ -COPD Was patient admitted / discharged? Hospital course, mention meds given and route, prescriptions, significant lab abnormalities, going to OR and other pertinent info. @ -Patient presents emergency department complaining of dyspnea. Is hypoxic on room air. Has hypoxic respiratory failure likely secondary to COPD exacerbation and suspected infection with his productive cough. Patient does have 2 SIRS criteria with increased work of breathing, tachycardia. In addition there is a hypoxic respiratory failure. Therefore we will initiate sepsis workup on the patient. Blood pressure is within acceptable limits. Patient met sepsis criteria at 0923. Patient initiated on 2 L fluid bolus and maintenance fluids in addition to broad-spectrum antibiotics vancomycin and Zosyn and blood cultures were obtained and sent. Patient was placed on BiPAP at this time due to the increased work of breathing after an attempt at improvement in symptoms with the breathing treatment as well as high flow which was unsuccessful. EKG shows no signs of acute ischemia. Laboratory studies remarkable for leukocytosis of 18, lactic acidosis of 2.3. Viral swabs negative. Chest x-ray shows bilateral airspace opacities suggestive of pneumonia. At this time, patient's heart rate is slowly improving, currently down to 121 from 135. Respiratory rate is slowly improving as well as is the patient's hypoxia. He will be admitted at this time. He was in agreement this plan. I will speak with ICU due to the patient's presentation to see if he meets criteria for admission to the unit. Discussed management with Dr. Henriquez of pulmonology. Discussed possible ICU as patient is requiring BiPAP at this time but he is improving. We will observe and obtain CT angiogram. I will touch base with him again. After results of CT angiogram I spoke with him and after discussion and agree that patient is stable for stepdown and does not require ICU at this time. Undiagnosed new problem with uncertain prognosis? @ -No Drug Therapy requiring intensive monitoring for toxicity (Heparin, Nitro, Insulin, Cardizem)? @ -No Were any procedures done? @ -No Diagnosis/symptom? @ -COPD, pneumonia, hypoxic respiratory failure requiring BiPAP,Sepsis Acute, or Chronic, or Acute on Chronic? @ -Acute Uncomplicated (without systemic symptoms) or Complicated (systemic symptoms)? @ -Complicated Side effects of treatment? @ -No Exacerbation, Progression, or Severe Exacerbation? @ -No Poses a threat to life or bodily function? How? (Chest pain, [place], [place], pneumonia, PE, COPD, DKA, ARF, appy, cholecystitis, CVA, Diverticulitis, Homicidal, Suicidal, threat to staff... and all critical care pts) @ -Yes - Lab Data Result diagrams: 01/12/24 09:32 01/12/24 09:32 Lab Results 01/12/24 01/12/24 01/12/24 Range/Units 09:32 09:32 09:32 WBC 18.2 H (3.8-10.6) k/uL RBC 4.94 (4.30-5.90) m/uL Hgb 15.3 (13.0-17.5) gm/dL Hct 47.2 (39.0-53.0) % MCV 95.7 (80.0-100.0) fL MCH 31.1 (25.0-35.0) pg MCHC 32.5 (31.0-37.0) g/dL RDW 13.6 (11.5-15.5) % Plt Count 257 (150-450) k/uL MPV 8.7 Neutrophils % 91 % Lymphocytes % 5 % Monocytes % 3 % Eosinophils % 1 % Basophils % 0 % Neutrophils # 16.4 H (1.3-7.7) k/uL Lymphocytes # 0.8 L (1.0-4.8) k/uL Monocytes # 0.6 (0-1.0) k/uL Eosinophils # 0.2 (0-0.7) k/uL Basophils # 0.0 (0-0.2) k/uL PT 10.8 (10.0-12.5) sec INR 1.0 (<1.2) APTT 26.7 (22.0-30.0) sec Sample Site ABG pH (7.35-7.45) ABG pCO2 (35-45) mmHg ABG pO2 (83-108) mmHg ABG HCO3 (21-25) mmol/L ABG O2 Saturation (94-97) % ABG Base Excess mmol/L Hong Test FiO2 % Sodium 135 L (137-145) mmol/L Potassium 4.0 (3.5-5.1) mmol/L Chloride 105 (98-107) mmol/L Carbon Dioxide 22 (22-30) mmol/L Anion Gap 8 mmol/L BUN 16 (9-20) mg/dL Creatinine 1.14 (0.66-1.25) mg/dL Est GFR (CKD-EPI)AfAm 70 (>60 ml/min/1.73 sqM) Est GFR (CKD-EPI)NonAf 61 (>60 ml/min/1.73 sqM) Glucose 134 H (74-99) mg/dL Lactic Ac Sepsis Rflx Plasma Lactic Acid Federico (0.7-2.0) mmol/L Calcium 8.7 (8.4-10.2) mg/dL Magnesium 2.0 (1.6-2.3) mg/dL Total Bilirubin 1.6 H (0.2-1.3) mg/dL AST 51 (17-59) U/L ALT 25 (4-49) U/L Alkaline Phosphatase 75 (38-126) U/L Total Protein 6.6 (6.3-8.2) g/dL Albumin 3.5 (3.5-5.0) g/dL Influenza Type A (PCR) (Not Detectd) Influenza Type B (PCR) (Not Detectd) RSV (PCR) (Not Detectd) SARS-CoV-2 (PCR) (Not Detectd) 01/12/24 01/12/24 01/12/24 Range/Units 09:32 09:32 10:38 WBC (3.8-10.6) k/uL RBC (4.30-5.90) m/uL Hgb (13.0-17.5) gm/dL Hct (39.0-53.0) % MCV (80.0-100.0) fL MCH (25.0-35.0) pg MCHC (31.0-37.0) g/dL RDW (11.5-15.5) % Plt Count (150-450) k/uL MPV Neutrophils % % Lymphocytes % % Monocytes % % Eosinophils % % Basophils % % Neutrophils # (1.3-7.7) k/uL Lymphocytes # (1.0-4.8) k/uL Monocytes # (0-1.0) k/uL Eosinophils # (0-0.7) k/uL Basophils # (0-0.2) k/uL PT (10.0-12.5) sec INR (<1.2) APTT (22.0-30.0) sec Sample Site ABG pH (7.35-7.45) ABG pCO2 (35-45) mmHg ABG pO2 (83-108) mmHg ABG HCO3 (21-25) mmol/L ABG O2 Saturation (94-97) % ABG Base Excess mmol/L Hong Test FiO2 % Sodium (137-145) mmol/L Potassium (3.5-5.1) mmol/L Chloride (98-107) mmol/L Carbon Dioxide (22-30) mmol/L Anion Gap mmol/L BUN (9-20) mg/dL Creatinine (0.66-1.25) mg/dL Est GFR (CKD-EPI)AfAm (>60 ml/min/1.73 sqM) Est GFR (CKD-EPI)NonAf (>60 ml/min/1.73 sqM) Glucose (74-99) mg/dL Lactic Ac Sepsis Rflx Y Plasma Lactic Acid Federico 2.3 H* (0.7-2.0) mmol/L Calcium (8.4-10.2) mg/dL Magnesium (1.6-2.3) mg/dL Total Bilirubin (0.2-1.3) mg/dL AST (17-59) U/L ALT (4-49) U/L Alkaline Phosphatase (38-126) U/L Total Protein (6.3-8.2) g/dL Albumin (3.5-5.0) g/dL Influenza Type A (PCR) Not Detected (Not Detectd) Influenza Type B (PCR) Not Detected (Not Detectd) RSV (PCR) Not Detected (Not Detectd) SARS-CoV-2 (PCR) Not Detected (Not Detectd) 01/12/24 Range/Units 11:28 WBC (3.8-10.6) k/uL RBC (4.30-5.90) m/uL Hgb (13.0-17.5) gm/dL Hct (39.0-53.0) % MCV (80.0-100.0) fL MCH (25.0-35.0) pg MCHC (31.0-37.0) g/dL RDW (11.5-15.5) % Plt Count (150-450) k/uL MPV Neutrophils % % Lymphocytes % % Monocytes % % Eosinophils % % Basophils % % Neutrophils # (1.3-7.7) k/uL Lymphocytes # (1.0-4.8) k/uL Monocytes # (0-1.0) k/uL Eosinophils # (0-0.7) k/uL Basophils # (0-0.2) k/uL PT (10.0-12.5) sec INR (<1.2) APTT (22.0-30.0) sec Sample Site rrad ABG pH 7.41 (7.35-7.45) ABG pCO2 30 L (35-45) mmHg ABG pO2 58 L* (83-108) mmHg ABG HCO3 19 L (21-25) mmol/L ABG O2 Saturation 91.1 L (94-97) % ABG Base Excess -4.7 mmol/L Hong Test Not Reportable FiO2 40 % Sodium (137-145) mmol/L Potassium (3.5-5.1) mmol/L Chloride (98-107) mmol/L Carbon Dioxide (22-30) mmol/L Anion Gap mmol/L BUN (9-20) mg/dL Creatinine (0.66-1.25) mg/dL Est GFR (CKD-EPI)AfAm (>60 ml/min/1.73 sqM) Est GFR (CKD-EPI)NonAf (>60 ml/min/1.73 sqM) Glucose (74-99) mg/dL Lactic Ac Sepsis Rflx Plasma Lactic Acid Federico (0.7-2.0) mmol/L Calcium (8.4-10.2) mg/dL Magnesium (1.6-2.3) mg/dL Total Bilirubin (0.2-1.3) mg/dL AST (17-59) U/L ALT (4-49) U/L Alkaline Phosphatase (38-126) U/L Total Protein (6.3-8.2) g/dL Albumin (3.5-5.0) g/dL Influenza Type A (PCR) (Not Detectd) Influenza Type B (PCR) (Not Detectd) RSV (PCR) (Not Detectd) SARS-CoV-2 (PCR) (Not Detectd) - EKG Data -: EKG Interpreted by Me EKG Comments: 12-lead Electrocardiogram Interpretation Note EKG was reviewed and interpreted by myself. 12-lead ECG performed at 0930 is interpreted by me as revealing sinus tachycardia at a rate of 131 beats per minute. [place] is normal. [place] interval is 145 ms, QRS duration is 98 ms, QTc is [address] segment and T wave abnormalities present.. R wave progression across the precordium was satisfactory. By my interpretation this EKG is non-diagnostic for acute ischemia. Critical Care Time Critical Care Time: Yes Total Critical Care Time: 32 Disposition Clinical Impression: COPD (chronic obstructive pulmonary disease), Pneumonia, Hypoxic respiratory failure, Sepsis Disposition: ADMITTED IP TO THIS HOSP Condition: Serious Time of Disposition: 11:26
[2024-01-12 11:33] LABS: ABG Base Excess -4.7 mmol/L; ABG HCO3 19 mmol/L (21-25); ABG Oxygen Saturation 91.1 % (94-97); ABG PCO2 30 mmHg (35-45); ABG PH 7.41 (7.35-7.45)
[2024-01-12 11:35] LABS: ABG PO2 58 mmHg (83-108)
[2024-01-12] MEDS: IPRATROPIUM-ALBUTEROL 3 ML NEB INHALATION SCH (11:45)
--- NOTE | 2024-01-12 12:35 | CT ---
EXAMINATION TYPE: CT angio chest CT DLP: 1213.4 mGycm, Automated exposure control for dose reduction was used. DATE OF EXAM: 01/12/2024 12:26 PM COMPARISON: CT dating back to at least 01/25/2020. Chest radiograph same day. CLINICAL INDICATION:Male, 78 years old with history of acute dyspnea; dyspnea, hx of COPD TECHNIQUE/CONTRAST: CTA scan of the thorax is performed with IV Contrast, patient injected with 80ML mL of Isovue 370, [place] P images are created and reviewed these are created on a separate workstation.. FINDINGS: Pulmonary Artery: There is no evidence for a filling defect within the pulmonary vasculature to sugge st acute pulmonary embolism. The pulmonary artery is of normal size. Lungs/Pleura: Right lower lung airspace disease superimposed on moderate severe centrilobular emphyse ma changes and pulmonary fibrotic change. There is few scattered airspace opacities also in the left lower lobe. No evidence of focal consolidation, pleural effusion or pneumothorax. Airway: A few opacified right lower lobe airspace airways. A few opacified airways in the left lower lobe also present. Heart: Heart is within normal limits for size. Vasculature: No evidence of aortic aneurysm. Mediastinum: Prominent lymph nodes in the mediastinum possibly relating to underlying acute infectiou s process. Musculoskeletal: No acute osseous abnormalities Soft Tissues/lymph nodes: Unremarkable. Lower neck: No significant findings. Upper Abdomen: No significant findings. IMPRESSION: 1. No evidence of pulmonary embolism. 2. Pulmonary fibrosis with moderate to severe COPD/emphysema with superimposed right lower lung airsp ernestina disease and to a lesser extent left lower lung. 3. Prominent lymph nodes in the mediastinum possibly due to underlying suspected acute infectious pro cess. These lymph nodes have enlarged since at least 01/25/2020.
[2024-01-12] MEDS ORDERED: NALOXONE 0.4 MG/ML 1 ML VIAL IV PRN (13:22)
--- NOTE | 2024-01-12 15:25 | P.CNPUL ---
History of Present Illness Consult date: 01/12/24 Reason for consult: dyspnea History of present illness: This is a 78-year-old male patient who presents to the hospital because of progressive worsening shortness of breath over the past few days. Both him and his were sick and they are having difficulty breathing and both of them they came into the emergency department. The patient has been having some productive cough with yellowish sputum production. At time of admission, he was quite hypoxic and his pulse ox was in the low 80s. The patient was treated with bronchodilators and subsequently was placed on a BiPAP for respiratory support and the current BiPAP is at a pressure of 12/5 and FiO2 of 40%. He is exchanging adequate lung volumes with a tidal volume of 8700 cc on the BiPAP machine. Nevertheless, his minute ventilation remains quite elevated. Blood gas showed a pH of 7.4 with a pCO2 of 30 and pO2 of 58. Based on that, the FiO2 was increased. Chest x-ray was done and showed increased interstitial marking lung base bilaterally along with some upper lobe emphysematous changes. Based on that, a CTA of the chest was ordered and the CTA showed no evidence of any pulmonary embolism. I reviewed the images and there is indication of emphysematous changes in the upper lobes more so in the lower lobes and the patient has chronic fibrotic changes in the lower lobes bilaterally. Underlying pulmonary fibrosis cannot be completely excluded. Note that he also has some limited bronchiectatic changes in lung bases and the fibrotic changes in the right lower lobe is more extensive compared to the left. The superimposed pneumonia cannot be completely excluded. Prominent lymph nodes in the mediastinum were also seen and those and lymph nodes were enlarged since a previous CAT scan of the chest that was done on 01/25/2020. The patient accordingly was started on bronchodilators and the patient is currently on DuoNeb. The patient on IV Solu-Medrol. The patient was given a combination of Zosyn and vancomycin. White cell count of 18.2 edema 15.3 and a platelet count of 267. Normal coagulation profile. The initial lactic acid level was at 2.3 To 1.3. BUN Was 16 with a Creatinine of 1.1. The Viral Screen Was Negative. LFTs within Normal Limits. Sodium Levels at 135. My Last Evaluation with This Patient Was Back in 2020. At That Time, the Patient Had Hospitalization for COPD Exacerbation and CAT Scan of the Chest Even Back Then Showed Chronic Fibrotic Changes Lung Base Bilaterally. He Is a Former Smoker and He Carries around [id number] Smoking History. He Has Hypertension, Hyperlipidemia and Previous Episodes of Kidney/Urinary Tract Infections. Does Not Utilize Any Form of Maintenance Respiratory Medications. Does Not Utilize Oxygen. Review of Systems Constitutional: Reports fatigue, Reports weakness Eyes: denies as per HPI, denies blurred vision, denies bulging eye, denies decreased vision, denies diplopia, denies discharge, denies dry eye, denies irritation, denies itching, denies pain, denies photophobia, denies loss of peripheral vision, denies loss of vision, denies tunnel vision/blind spots Ears: deny: decreased hearing, ear discharge, earache, tinnitus Ears, nose, mouth and throat: Reports as per HPI Breasts: absent: as per HPI, gynecomastia Cardiovascular: Reports dyspnea on exertion Respiratory: Reports cough, Reports dyspnea, Reports wheezing Gastrointestinal: Reports as per HPI Genitourinary: Reports as per HPI Musculoskeletal: Reports as per HPI Musculoskeletal: absent: ankle pain, ankle stiffness, ankle swelling Integumentary: Reports as per HPI Neurological: Reports as per HPI Psychiatric: Reports as per HPI Endocrine: Reports as per HPI Hematologic/Lymphatic: Reports as per HPI Allergic/Immunologic: Reports as per HPI Past Medical History Past Medical History: COPD, Hyperlipidemia, Hypertension, Prostate Disorder Additional Past Medical History / Comment(s): kidney infections, exsmoker and he qiot smoking 15 year History of Any Multi-Drug Resistant Organisms: None Reported Past Surgical History: Adenoidectomy, Tonsillectomy Past Anesthesia/Blood Transfusion Reactions: No Reported Reaction Past Psychological History: No Psychological Hx Reported Smoking Status: Former smoker Past Alcohol Use History: Daily Past Drug Use History: None Reported Medications and Allergies Home Medications Medication Instructions Recorded Confirmed Type amLODIPine [Norvasc] 10 mg PO DAILY 01/25/20 01/12/24 History Tamsulosin HCl [Flomax] 0.8 mg PO DAILY 11/14/20 01/12/24 History Budesonide/Formoterol Fumarate 2 puff PO RT-BID 01/12/24 01/12/24 History [Budesonide-Formoterol 160-4.5] Rosuvastatin [Crestor] 10 mg PO HS 01/12/24 01/12/24 History Allergies Allergy/AdvReac Type Severity Reaction Status Date / Time No Known Allergies Allergy Verified 01/12/24 10:14 Physical Exam Vitals: Vital Signs Temp Pulse Resp BP Pulse Ox FiO2 01/12/24 11:28 114 H 30 H 116/56 90 L 01/12/24 10:43 121 H 30 H 131/58 93 L 01/12/24 10:17 40 01/12/24 10:10 40 01/12/24 09:57 135 H 28 H 119/64 89 L 01/12/24 09:38 130 H 01/12/24 09:09 98.2 F 127 H 24 126/53 79 L Intake and Output 01/11/24 01/12/24 01/12/24 22:59 06:59 14:59 Other: Weight 72.575 kg The patient is mild degree of respiratory distress while being on a BiPAP at a pressure of 12 over 5 cm of water and FiO2 was brought up to 50%. Minute ventilation continues to be quite elevated. Head exam was generally normal. There was no scleral icterus or corneal arcus. Mucous membranes were moist. Neck was supple and without jugular venous distension, thyromegaly, or carotid bruits. Carotids were easily palpable bilaterally. There was no adenopathy. Lungs are diminished bilaterally and the patient has a bibasilar pulmonary crackles that are somewhat coarse worse in the right lung base. Scattered expiratory wheeze are also appreciated. Cardiac exam revealed the PMI to be normally situated and sized. The rhythm was regular and no extrasystoles were noted during several minutes of auscultation. The first and second heart sounds were normal and physiologic splitting of the second heart sound was noted. There were no murmurs, rubs, clicks, or gallops. Abdominal exam revealed normal bowel sounds. The abdomen was soft, non-tender, and without masses, organomegaly, or appreciable enlargement of the abdominal aorta. Examination of the extremities revealed easily palpable radial, femoral and pedal pulses. There was no cyanosis, clubbing or edema. Examination of the skin revealed no evidence of significant rashes, suspicious appearing nevi or other concerning lesions. Neurologically, the patient is awake and alert and the patient does not have any focal neurological deficit. Cranial nerves are essentially intact. Results - Laboratory Findings CBC and BMP: 01/12/24 09:32 01/12/24 09:32 PT/INR, D-dimer PT 10.8 sec (10.0-12.5) 01/12/24 09:32 INR 1.0 (<1.2) 01/12/24 09:32 Abnormal lab findings: Abnormal Labs 01/12/24 01/12/24 01/12/24 09:32 09:32 09:32 WBC 18.2 H Neutrophils # 16.4 H Lymphocytes # 0.8 L Sodium 135 L Glucose 134 H Plasma Lactic Acid Federico 2.3 H* Total Bilirubin 1.6 H - Diagnostic Findings Chest x-ray: image reviewed CT scan - chest: image reviewed Assessment and Plan Plan: Acute hypoxic respiratory failure currently on a BiPAP with a pressure of 12/5 with an FiO2 of 50%, currently under investigation. History of an acute on top of chronic hypoxic respiratory failure. Acute on chronic shortness of breath Advanced COPD, diffuse with upper lobe predominance along with some bronchiectat ic change in lung base bilaterally Chronic bilateral lower lobe pulmonary fibrosis seen on an earlier CAT scan back in 2019 Increased opacification of the right lung base based on the CAT scan findings, rule out underlying right lower lobe pneumonia Acute leukocytosis Mild lactic acidosis, improved History of smoking and the patient is a former smoker carries around [id number] smoking history Hypertension Hyperlipidemia BPH Plan Continue BiPAP for now at the same setting Continue bronchodilators with DuoNeb updrafts Continue IV Solu-Medrol Zosyn and vancomycin as an empiric antibiotic coverage Viral screen has been negative Check procalcitonin level Check blood cultures Hemodynamically stable Mental status is adequate Will continue to follow make further recommendations based on his progress.
[2024-01-12] MEDS: methylPREDNISolone SOD SUCCI 40 MG/ML 1 ML VIAL IV SCH (16:10)
--- NOTE | 2024-01-12 18:28 | P.HPIM ---
History of Present Illness H&P Date: 01/12/24 78-year-old male who presents emergency department complaining of shortness of breath with productive cough of yellow green sputum, sometimes clear.. Has a history of COPD, hypertension, hyperlipidemia. States that he has had worsening cough and congestion and shortness of breath for over a week. States that his oxygen usually at home was in the mid to low 80s. He was getting worse which is why presents at this time for evaluation. Presents with his who has similar complaints and also has COPD. Denies any fevers. Endorses reduced oral intake. Denies nausea or vomiting or abdominal pain. Denies diarrhea. Denies chest pain. Presents for further evaluation at this time. Chest x-ray was done and showed increased interstitial marking lung base bilaterally along with some upper lobe emphysematous changes. CTA of the chest showed no evidence of any pulmonary embolism; emphysematous changes in the upper lobes more so in the lower lobes and the patient has chronic fibrotic changes in the lower lobes bilaterally. Underlying pulmonary fibrosis cannot be completely excluded; superimposed pneumonia cannot be completely excluded. Prominent lymph nodes in the mediastinum were also seen and those and lymph nodes were enlarged since a previous CAT scan of the chest that was done on 01/25/2020. The patient accordingly was started on bronchodilators and the patient is currently on DuoNeb. The patient on IV Solu-Medrol. The patient was given a combination of Zosyn and vancomycin. White cell count of 18.2 edema 15.3 and a platelet count of 267. Normal coagulation profile. The initial lactic acid level was at 2.3 To 1.3. BUN Was 16 with a Creatinine of 1.1. The Viral Screen Was Negative. LFTs within Normal Limits. Sodium Levels at 135. Review of Systems REVIEW OF SYSTEMS: CONSTITUTIONAL: No fever, no malaise, no fatigue. HEENT: No recent visual problems or hearing problems. Denied any sore throat. CARDIOVASCULAR: No chest pain, orthopnea, PND, no palpitations, no syncope. PULMONARY: No shortness of breath, no cough, no hemoptysis. GASTROINTESTINAL: No diarrhea, no nausea, no vomiting, no abdominal pain. NEUROLOGICAL: No headaches, no weakness, no numbness. HEMATOLOGICAL: Denies any bleeding or petechiae. GENITOURINARY: Denies any burning micturition, frequency, or urgency. MUSCULOSKELETAL/RHEUMATOLOGICAL: Denies any joint pain, swelling, or any muscle pain. ENDOCRINE: Denies any polyuria or polydipsia. The rest of the 14-point review of systems is negative. Past Medical History Past Medical History: COPD, Hyperlipidemia, Hypertension Additional Past Medical History / Comment(s): kidney infections History of Any Multi-Drug Resistant Organisms: None Reported Past Surgical History: Adenoidectomy, Tonsillectomy Past Anesthesia/Blood Transfusion Reactions: No Reported Reaction Past Psychological History: No Psychological Hx Reported Smoking Status: Former smoker Past Alcohol Use History: Daily Past Drug Use History: None Reported Medications and Allergies Home Medications Medication Instructions Recorded Confirmed Type amLODIPine [Norvasc] 10 mg PO DAILY 01/25/20 01/12/24 History Tamsulosin HCl [Flomax] 0.8 mg PO DAILY 11/14/20 01/12/24 History Budesonide/Formoterol Fumarate 2 puff PO RT-BID 01/12/24 01/12/24 History [Budesonide-Formoterol 160-4.5] Rosuvastatin [Crestor] 10 mg PO HS 01/12/24 01/12/24 History Allergies Allergy/AdvReac Type Severity Reaction Status Date / Time No Known Allergies Allergy Verified 01/12/24 10:14 Physical Exam Vitals: Vital Signs Temp Pulse Resp BP Pulse Ox FiO2 01/12/24 13:30 105 H 28 H 114/58 94 L 01/12/24 11:57 113 H 01/12/24 11:45 112 H 01/12/24 11:38 60 01/12/24 11:28 114 H 30 H 116/56 90 L 01/12/24 10:43 121 H 30 H 131/58 93 L 01/12/24 10:17 40 01/12/24 10:10 40 01/12/24 09:57 135 H 28 H 119/64 89 L 01/12/24 09:38 130 H 01/12/24 09:09 98.2 F 127 H 24 126/53 79 L Intake and Output 01/11/24 01/12/24 01/12/24 22:59 06:59 14:59 Other: Weight 72.575 kg General: Appears in moderate respiratory distress. HEAD: Normal with no signs of head trauma. EYES: PERRLA, EOMI, conjunctiva normal, no discharge. ENT: Hearing grossly intact, normal oropharynx. Dry oral mucous membranes. RESPIRATORY: Reduced breath sounds with diffuse end expiratory wheezing and increased work of breathing. Also has coarse breath sounds bilaterally.. Hypoxic to 79% on room air. Is not on home O2. C/V: Tachycardic with regular rhythm. S1 and S2 auscultated. No peripheral edema. Peripheral pulses 2+ intact throughout. ABD: Abd is soft, nontender, nondistended EXT: Normal range of motion, no obvious deformity SKIN: No rashes or lesions observed on exposed skin. NEURO: Alert and oriented x 4. Results CBC & Chem 7: 01/12/24 09:32 01/12/24 09:32 Labs: Abnormal Lab Results - Last 24 Hours (Table) 01/12/24 01/12/24 01/12/24 Range/Units 09:32 09:32 09:32 WBC 18.2 H (3.8-10.6) k/uL Neutrophils # 16.4 H (1.3-7.7) k/uL Lymphocytes # 0.8 L (1.0-4.8) k/uL ABG pCO2 (35-45) mmHg ABG pO2 (83-108) mmHg ABG HCO3 (21-25) mmol/L ABG O2 Saturation (94-97) % Sodium 135 L (137-145) mmol/L Glucose 134 H (74-99) mg/dL Plasma Lactic Acid Federico 2.3 H* (0.7-2.0) mmol/L Total Bilirubin 1.6 H (0.2-1.3) mg/dL 01/12/24 Range/Units 11:28 WBC (3.8-10.6) k/uL Neutrophils # (1.3-7.7) k/uL Lymphocytes # (1.0-4.8) k/uL ABG pCO2 30 L (35-45) mmHg ABG pO2 58 L* (83-108) mmHg ABG HCO3 19 L (21-25) mmol/L ABG O2 Saturation 91.1 L (94-97) % Sodium (137-145) mmol/L Glucose (74-99) mg/dL Plasma Lactic Acid Federico (0.7-2.0) mmol/L Total Bilirubin (0.2-1.3) mg/dL Assessment and Plan Assessment: 1. Acute hypoxic respiratory failure --Patient has been placed on BiPAP in ED with an FiO2 of 50%; plan to titrate or wean as able -Pulmonary service on board 2. Pneumonia; patient has been placed on IV Zosyn and vancomycin; will monitor CBC, CRP and procalcitonin -Viral screen has been negative -Pulmonary to evaluate and make further recommendations 3. Acute exacerbation COPD/pulmonary fibrosis -- Patient remains on IV Solu-Medrol; bronchodilator nebulizer treatments 4 times daily and as needed -- Titrate or wean O2 keeping saturation above 90% 4. Hypertension; amlodipine 10 mg daily 5. Hyperlipidemia; Lipitor 20 mg p.o. nightly DVT prophylaxis; SCDs/subcu heparin CODE STATUS full code;
[2024-01-12] MEDS: ATORVASTATIN 20 MG TAB PO SCH (23:00)
[2024-01-12] MEDS: HEPARIN SODIUM,PORCINE 5,000 UNIT/ML 1 ML VIAL SQ SCH (23:00)
[2024-01-13] MEDS: VANCOMYCIN 1,250 MG in SODIUM CHLORIDE 0.9% 250 ML IVPB SCH ×2 (03:45→15:07)
[2024-01-13 07:52] LABS: Basophils % (A) 0 %; Eosinophils # (A) 0.1 k/uL (0-0.7); Eosinophils % (A) 1 %; HGB 13.3 gm/dL (13.0-17.5); Lymphocytes # (A) 0.6 k/uL (1.0-4.8); Lymphocytes % (A) 6 %; MCH 30.2 pg (25.0-35.0); MCHC 31.1 g/dL (31.0-37.0); MCV 97.2 fL (80.0-100.0); Mean Platelet Volume 8.9; Monocytes # (A) 0.2 k/uL (0-1.0); Monocytes % (A) 2 %; Neutrophils # (A) 9.7 k/uL (1.3-7.7); Neutrophils % (A) 91 %; Platelet Count 223 k/uL (150-450); RBC 4.42 m/uL (4.30-5.90); RDW 13.3 % (11.5-15.5); WBC 10.7 k/uL (3.8-10.6)
[2024-01-13 08:20] LABS: ALT 31 U/L (4-49); African American GFR (CKD) >90 (>60 ml/min/1.73 sqM); Albumin 2.7 g/dL (3.5-5.0); Anion Gap 4 mmol/L; Blood Urea Nitrogen 17 mg/dL (9-20); Carbon Dioxide 19 mmol/L (22-30); Chloride 117 mmol/L (98-107); Glucose 155 mg/dL (74-99); Non-African American GFR(CKD) 86 (>60 ml/min/1.73 sqM); Sodium 140 mmol/L (137-145); Total Bilirubin 0.9 mg/dL (0.2-1.3); Total Protein 5.4 g/dL (6.3-8.2)
[2024-01-13 08:21] LABS: AST 73 U/L (17-59); Alkaline Phosphatase 45 U/L (38-126)
[2024-01-13] MEDS: amLODIPine 10 MG TAB PO SCH (08:44)
[2024-01-13] MEDS: TAMSULOSIN 0.4 MG CAP.ER.24H PO SCH (08:44)
[2024-01-13 11:48] LABS: Glucose,Whole Blood 146 mg/dL (70-110)
--- NOTE | 2024-01-13 14:01 | P.PN ---
Subjective Progress Note Date: 01/13/24 This is a 78-year-old male patient who presents to the hospital because of progressive worsening shortness of breath over the past few days. Both him and his were sick and they are having difficulty breathing and both of them they came into the emergency department. The patient has been having some productive cough with yellowish sputum production. At time of admission, he was quite hypoxic and his pulse ox was in the low 80s. The patient was treated with bronchodilators and subsequently was placed on a BiPAP for respiratory support and the current BiPAP is at a pressure of 12/5 and FiO2 of 40%. He is exchanging adequate lung volumes with a tidal volume of 8700 cc on the BiPAP machine. Nevertheless, his minute ventilation remains quite elevated. Blood gas showed a pH of 7.4 with a pCO2 of 30 and pO2 of 58. Based on that, the FiO2 was increased. Chest x-ray was done and showed increased interstitial marking lung base bilaterally along with some upper lobe emphysematous changes. Based on that, a CTA of the chest was ordered and the CTA showed no evidence of any pulmonary embolism. I reviewed the images and there is indication of emphysematous changes in the upper lobes more so in the lower lobes and the patient has chronic fibrotic changes in the lower lobes bilaterally. Underlying pulmonary fibrosis cannot be completely excluded. Note that he also has some limited bronchiectatic changes in lung bases and the fibrotic changes in the right lower lobe is more extensive compared to the left. The superimposed pneumonia cannot be completely excluded. Prominent lymph nodes in the mediastinum were also seen and those and lymph nodes were enlarged since a previous CAT scan of the chest that was done on 01/25/2020. The patient accordingly was started on bronchodilators and the patient is currently on DuoNeb. The patient on IV Solu-Medrol. The patient was given a combination of Zosyn and vancomycin. White cell count of 18.2 edema 15.3 and a platelet count of 267. Normal coagulation profile. The initial lactic acid level was at 2.3 To 1.3. BUN Was 16 with a Creatinine of 1.1. The Viral Screen Was Negative. LFTs within Normal Limits. Sodium Levels at 135. My Last Evaluation with This Patient Was Back in 2020. At That Time, the Patient Had Hospitalization for COPD Exacerbation and CAT Scan of the Chest Even Back Then Showed Chronic Fibrotic Changes Lung Base Bilaterally. He Is a Former Smoker and He Carries around [id number] Smoking History. He Has Hypertension, Hyperlipidemia and Previous Episodes of Kidney/Urinary Tract Infections. Does Not Utilize Any Form of Maintenance Respiratory Medications. Does Not Utilize Oxygen. 01/13/2024, seen the patient for a follow-up. Much improved compared to yesterday. Less bronchospastic and wheezy. He is currently out of bed. The patient is currently on oxygen and 10 L with a pulse ox of 88%. She has been much more comfortable compared to yesterday. Remains on DuoNeb updrafts. Remains on IV Solu-Medrol. Remains on a combination of Zosyn and vancomycin. CT of the chest showed no evidence of any pulm embolism and there is some chronic scarring in the lung bases bilaterally suggestive of fibrosis along with some bronchiectatic changes and background emphysema. White cell count is at 10.7, hemoglobin 13 and platelet count of 223 and the BUN is 17 with a creatinine of 0.7 and his sodium levels at 140. No chest pain. No other new complaints otherwise for now. Objective - Vital Signs Vital signs: Vital Signs Temp 97.8 F 01/13/24 08:42 Pulse 100 01/13/24 08:42 Resp 20 01/13/24 08:55 BP 112/59 01/13/24 08:42 Pulse Ox 91 L 01/13/24 08:42 FiO2 60 01/12/24 15:11 Intake & Output 01/12/24 01/13/24 01/13/24 18:59 06:59 18:59 Weight 72.575 kg 72.575 kg Other: Voiding Method Toilet Toilet - Exam The patient is is not having any significant respite distress at rest. Currently on 10 L of O2 nasal cannula. He is off the BiPAP. Head exam was generally normal. There was no scleral icterus or corneal arcus. Mucous membranes were moist. Neck was supple and without jugular venous distension, thyromegaly, or carotid bruits. Carotids were easily palpable bilaterally. There was no adenopathy. Lungs are diminished bilaterally and the patient has a bibasilar pulmonary crackles that are somewhat coarse worse in the right lung base. Scattered expiratory wheeze are also appreciated. Cardiac exam revealed the PMI to be normally situated and sized. The rhythm was regular and no extrasystoles were noted during several minutes of auscultation. The first and second heart sounds were normal and physiologic splitting of the second heart sound was noted. There were no murmurs, rubs, clicks, or gallops. Abdominal exam revealed normal bowel sounds. The abdomen was soft, non-tender, and without masses, organomegaly, or appreciable enlargement of the abdominal aorta. Examination of the extremities revealed easily palpable radial, femoral and pedal pulses. There was no cyanosis, clubbing or edema. Examination of the skin revealed no evidence of significant rashes, suspicious appearing nevi or other concerning lesions. Neurologically, the patient is awake and alert and the patient does not have any focal neurological deficit. Cranial nerves are essentially intact. - Labs CBC & Chem 7: 01/13/24 07:30 01/13/24 07:30 Labs: Abnormal Lab Results - Last 24 Hours (Table) 01/12/24 01/12/24 01/13/24 Range/Units 09:32 11:28 07:30 WBC 10.7 H (3.8-10.6) k/uL Neutrophils # 9.7 H (1.3-7.7) k/uL Lymphocytes # 0.6 L (1.0-4.8) k/uL ABG pCO2 30 L (35-45) mmHg ABG pO2 58 L* (83-108) mmHg ABG HCO3 19 L (21-25) mmol/L ABG O2 Saturation 91.1 L (94-97) % Chloride (98-107) mmol/L Carbon Dioxide (22-30) mmol/L Glucose (74-99) mg/dL Calcium (8.4-10.2) mg/dL AST (17-59) U/L Total Protein (6.3-8.2) g/dL Albumin (3.5-5.0) g/dL Procalcitonin 1.74 H (0.02-0.09) ng/mL 01/13/24 Range/Units 07:30 WBC (3.8-10.6) k/uL Neutrophils # (1.3-7.7) k/uL Lymphocytes # (1.0-4.8) k/uL ABG pCO2 (35-45) mmHg ABG pO2 (83-108) mmHg ABG HCO3 (21-25) mmol/L ABG O2 Saturation (94-97) % Chloride 117 H (98-107) mmol/L Carbon Dioxide 19 L (22-30) mmol/L Glucose 155 H (74-99) mg/dL Calcium 8.0 L (8.4-10.2) mg/dL AST 73 H (17-59) U/L Total Protein 5.4 L (6.3-8.2) g/dL Albumin 2.7 L (3.5-5.0) g/dL Procalcitonin (0.02-0.09) ng/mL Assessment and Plan Plan: Acute hypoxic respiratory failure currently off the BiPAP and the patient is currently on 10 L of O2 nasal cannula, CT of the chest was noted. Consistent with some COPD, bronchiectatic change in lung bases along with some bibasilar pulmonary fibrosis. Acute on chronic shortness of breath, improving Advanced COPD, diffuse with upper lobe predominance along with some bronchiectatic change in lung base bilaterally Chronic bilateral lower lobe pulmonary fibrosis seen on an earlier CAT scan back in 2019 Increased opacification of the right lung base based on the CAT scan findings, rule out underlying right lower lobe pneumonia, procalcitonin level was at 1.74 Acute leukocytosis Mild lactic acidosis, improved History of smoking and the patient is a former smoker carries around 50-pack- year smoking history Hypertension Hyperlipidemia BPH Plan Keep the patient off the BiPAP and titrate FiO2 down to maintain saturation above 90% Provide incentive spirometer Continue bronchodilators with DuoNeb updrafts Continue IV Solu-Medrol Zosyn and vancomycin as an empiric antibiotic coverage Viral screen has been negative Check procalcitonin level was at 1.74 Check blood cultures Hemodynamically stable Mental status is adequate Will continue to follow make further recommendations based on his progress.
[2024-01-13 16:22] LABS: Glucose,Whole Blood 176 mg/dL (70-110)
--- NOTE | 2024-01-13 17:01 | P.PN ---
Subjective Progress Note Date: 01/13/24 78-year-old male who presents emergency department complaining of shortness of breath with productive cough of yellow green sputum, sometimes clear.. Has a history of COPD, hypertension, hyperlipidemia. States that he has had worsening cough and congestion and shortness of breath for over a week. States that his oxygen usually at home was in the mid to low 80s. He was getting worse which is why presents at this time for evaluation. Presents with his who has similar complaints and also has COPD. Denies any fevers. Endorses reduced oral intake. Denies nausea or vomiting or abdominal pain. Denies diarrhea. Denies chest pain. Presents for further evaluation at this time. Chest x-ray was done and showed increased interstitial marking lung base bilaterally along with some upper lobe emphysematous changes. CTA of the chest showed no evidence of any pulmonary embolism; emphysematous changes in the upper lobes more so in the lower lobes and the patient has chronic fibrotic changes in the lower lobes bilaterally. Underlying pulmonary fibrosis cannot be completely excluded; superimposed pneumonia cannot be completely excluded. Prominent lymph nodes in the mediastinum were also seen and those and lymph nodes were enlarged since a previous CAT scan of the chest that was done on 01/25/2020. The patient accordingly was started on bronchodilators and the patient is currently on Duo Neb. The patient on IV Solu-Medrol. The patient was given a combination of Zosyn and vancomycin. White cell count of 18.2 edema 15.3 and a platelet count of 267. Normal coagulation profile. The initial lactic acid level was at 2.3 To 1.3. BUN Was 16 with a Creatinine of 1.1. The Viral Screen Was Negative. LFTs within Normal Limits. Sodium Levels at 135. Objective - Vital Signs Vital signs: Vital Signs Temp 97.8 F 01/13/24 08:42 Pulse 92 01/13/24 11:31 Resp 20 01/13/24 08:55 BP 112/59 01/13/24 08:42 Pulse Ox 91 L 01/13/24 08:42 FiO2 60 01/12/24 15:11 Intake & Output 01/12/24 01/13/24 01/13/24 18:59 06:59 18:59 Weight 72.575 kg 72.575 kg Other: Voiding Method Toilet Toilet - Exam General: Appears in moderate respiratory distress. HEAD: Normal with no signs of head trauma. EYES: PERRLA, EOMI, conjunctiva normal, no discharge. ENT: Hearing grossly intact, normal oropharynx. Dry oral mucous membranes. RESPIRATORY: Reduced breath sounds with diffuse end expiratory wheezing and increased work of breathing. Also has coarse breath sounds bilaterally.. Hypoxic to 79% on room air. Is not on home O2. C/V: Tachycardic with regular rhythm. S1 and S2 auscultated. No peripheral edema. Peripheral pulses 2+ intact throughout. ABD: Abd is soft, nontender, nondistended EXT: Normal range of motion, no obvious deformity SKIN: No rashes or lesions observed on exposed skin. NEURO: Alert and oriented x 4. - Labs CBC & Chem 7: 01/13/24 07:30 01/13/24 07:30 Labs: Abnormal Lab Results - Last 24 Hours (Table) 01/12/24 01/12/24 01/13/24 Range/Units 09:32 11:28 07:30 WBC 10.7 H (3.8-10.6) k/uL Neutrophils # 9.7 H (1.3-7.7) k/uL Lymphocytes # 0.6 L (1.0-4.8) k/uL ABG pCO2 30 L (35-45) mmHg ABG pO2 58 L* (83-108) mmHg ABG HCO3 19 L (21-25) mmol/L ABG O2 Saturation 91.1 L (94-97) % Chloride (98-107) mmol/L Carbon Dioxide (22-30) mmol/L Glucose (74-99) mg/dL Calcium (8.4-10.2) mg/dL AST (17-59) U/L Total Protein (6.3-8.2) g/dL Albumin (3.5-5.0) g/dL Procalcitonin 1.74 H (0.02-0.09) ng/mL 01/13/24 Range/Units 07:30 WBC (3.8-10.6) k/uL Neutrophils # (1.3-7.7) k/uL Lymphocytes # (1.0-4.8) k/uL ABG pCO2 (35-45) mmHg ABG pO2 (83-108) mmHg ABG HCO3 (21-25) mmol/L ABG O2 Saturation (94-97) % Chloride 117 H (98-107) mmol/L Carbon Dioxide 19 L (22-30) mmol/L Glucose 155 H (74-99) mg/dL Calcium 8.0 L (8.4-10.2) mg/dL AST 73 H (17-59) U/L Total Protein 5.4 L (6.3-8.2) g/dL Albumin 2.7 L (3.5-5.0) g/dL Procalcitonin (0.02-0.09) ng/mL Assessment and Plan Assessment: 1. Acute hypoxic respiratory failure --Patient has been placed on BiPAP in ED with an FiO2 of 50%; plan to titrate or wean as able -Pulmonary service on board 2. Pneumonia; patient has been placed on IV Zosyn and vancomycin; will monitor CBC, CRP and procalcitonin -Viral screen has been negative -Pulmonary to evaluate and make further recommendations 3. Acute exacerbation COPD/pulmonary fibrosis -- Patient remains on IV Solu-Medrol; bronchodilator nebulizer treatments 4 times daily and as needed -- Titrate or wean O2 keeping saturation above 90% 4. Hypertension; amlodipine 10 mg daily 5. Hyperlipidemia; Lipitor 20 mg p.o. nightly DVT prophylaxis; SCDs/subcu heparin CODE STATUS full code;
[2024-01-13 20:25] LABS: Glucose,Whole Blood 207 mg/dL (70-110)
[2024-01-14 06:03] LABS: Glucose,Whole Blood 154 mg/dL (70-110)
[2024-01-14] MEDS: DILTIAZEM 125 MG in SODIUM CHLORIDE 0.9% 100 ML IV SCH ×2 (06:33→09:23)
[2024-01-14 09:42] LABS: African American GFR (CKD) 78 (>60 ml/min/1.73 sqM); Anion Gap 7 mmol/L; Blood Urea Nitrogen 26 mg/dL (9-20); Calcium 8.2 mg/dL (8.4-10.2); Carbon Dioxide 18 mmol/L (22-30); Chloride 114 mmol/L (98-107); Glucose 243 mg/dL (74-99); Non-African American GFR(CKD) 68 (>60 ml/min/1.73 sqM); Potassium 3.6 mmol/L (3.5-5.1); Sodium 139 mmol/L (137-145)
[2024-01-14 11:28] LABS: Glucose,Whole Blood 250 mg/dL (70-110)
[2024-01-14] MEDS: INSULIN ASPART (NovoLOG) 100 UNIT/ML VIAL SQ SCH (12:18)
--- NOTE | 2024-01-14 14:29 | P.PN ---
Subjective Progress Note Date: 01/14/24 This is a 78-year-old male patient who presents to the hospital because of progressive worsening shortness of breath over the past few days. Both him and his were sick and they are having difficulty breathing and both of them they came into the emergency department. The patient has been having some productive cough with yellowish sputum production. At time of admission, he was quite hypoxic and his pulse ox was in the low 80s. The patient was treated with bronchodilators and subsequently was placed on a BiPAP for respiratory support and the current BiPAP is at a pressure of 12/5 and FiO2 of 40%. He is exchanging adequate lung volumes with a tidal volume of 8700 cc on the BiPAP machine. Nevertheless, his minute ventilation remains quite elevated. Blood gas showed a pH of 7.4 with a pCO2 of 30 and pO2 of 58. Based on that, the FiO2 was increased. Chest x-ray was done and showed increased interstitial marking lung base bilaterally along with some upper lobe emphysematous changes. Based on that, a CTA of the chest was ordered and the CTA showed no evidence of any pulmonary embolism. I reviewed the images and there is indication of emphysematous changes in the upper lobes more so in the lower lobes and the patient has chronic fibrotic changes in the lower lobes bilaterally. Underlying pulmonary fibrosis cannot be completely excluded. Note that he also has some limited bronchiectatic changes in lung bases and the fibrotic changes in the right lower lobe is more extensive compared to the left. The superimposed pneumonia cannot be completely excluded. Prominent lymph nodes in the mediastinum were also seen and those and lymph nodes were enlarged since a previous CAT scan of the chest that was done on 01/25/2020. The patient accordingly was started on bronchodilators and the patient is currently on DuoNeb. The patient on IV Solu-Medrol. The patient was given a combination of Zosyn and vancomycin. White cell count of 18.2 edema 15.3 and a platelet count of 267. Normal coagulation profile. The initial lactic acid level was at 2.3 To 1.3. BUN Was 16 with a Creatinine of 1.1. The Viral Screen Was Negative. LFTs within Normal Limits. Sodium Levels at 135. My Last Evaluation with This Patient Was Back in 2020. At That Time, the Patient Had Hospitalization for COPD Exacerbation and CAT Scan of the Chest Even Back Then Showed Chronic Fibrotic Changes Lung Base Bilaterally. He Is a Former Smoker and He Carries around [id number] Smoking History. He Has Hypertension, Hyperlipidemia and Previous Episodes of Kidney/Urinary Tract Infections. Does Not Utilize Any Form of Maintenance Respiratory Medications. Does Not Utilize Oxygen. 01/13/2024, seen the patient for a follow-up. Much improved compared to yesterday. Less bronchospastic and wheezy. He is currently out of bed. The patient is currently on oxygen and 10 L with a pulse ox of 88%. She has been much more comfortable compared to yesterday. Remains on DuoNeb updrafts. Remains on IV Solu-Medrol. Remains on a combination of Zosyn and vancomycin. CT of the chest showed no evidence of any pulm embolism and there is some chronic scarring in the lung bases bilaterally suggestive of fibrosis along with some bronchiectatic changes and background emphysema. White cell count is at 10.7, hemoglobin 13 and platelet count of 223 and the BUN is 17 with a creatinine of 0.7 and his sodium levels at 140. No chest pain. No other new complaints otherwise for now. On 01/14/2024, the patient is being seen for a follow-up. No new complaints. He feels that he is less short of breath. Nevertheless, he still requiring oxygen at a higher flow and this was weaned down to 8 L. BUN is 26 with a creatinine 1.04 and sodium levels at 139. Remains on DuoNeb updrafts. Remains on IV Solu- Medrol. Remains on Zosyn and vancomycin. Remains on high. Heparin subcu for DVT prophylaxis. His heart rate is under better control for now. The patient has some increased tachycardia today. EKG was done and patient was found to be in atrial fibrillation with rapid ventricular response. Based on that, Cardizem was ordered. Objective - Vital Signs Vital signs: Vital Signs Temp 97.7 F 01/14/24 04:00 Pulse 82 01/14/24 11:31 Resp 20 01/14/24 07:48 BP 107/69 01/14/24 07:48 Pulse Ox 96 01/14/24 10:44 FiO2 60 01/12/24 15:11 Intake & Output 01/13/24 01/14/24 01/14/24 18:59 06:59 18:59 Intake Total 540 100 480 Output Total 450 475 Balance 90 -375 480 Intake: Intake, IV Titration 100 Amount Piperacillin-Tazobactam 3 100 .375 gm In Sodium Chloride 0.9% 100 ml @ 25 mls/hr IVPB Q8HR [facility] Rx# :[id number] Oral 540 480 Output: Urine 450 475 Other: Voiding Method Toilet Toilet Toilet Urinal - Exam The patient is is not having any significant respite distress at rest. Currently on 8 L of O2 nasal cannula. He is off the BiPAP. Head exam was generally normal. There was no scleral icterus or corneal arcus. Mucous membranes were moist. Neck was supple and without jugular venous distension, thyromegaly, or carotid bruits. Carotids were easily palpable bilaterally. There was no adenopathy. Lungs are diminished bilaterally and the patient has a bibasilar pulmonary crackles that are somewhat coarse worse in the right lung base. Scattered expiratory wheeze are also appreciated. Cardiac exam revealed the PMI to be normally situated and sized. The rhythm was regular and no extrasystoles were noted during several minutes of auscultation. The first and second heart sounds were normal and physiologic splitting of the second heart sound was noted. There were no murmurs, rubs, clicks, or gallops. Abdominal exam revealed normal bowel sounds. The abdomen was soft, non-tender, and without masses, organomegaly, or appreciable enlargement of the abdominal aorta. Examination of the extremities revealed easily palpable radial, femoral and pedal pulses. There was no cyanosis, clubbing or edema. Examination of the skin revealed no evidence of significant rashes, suspicious appearing nevi or other concerning lesions. Neurologically, the patient is awake and alert and the patient does not have any focal neurological deficit. Cranial nerves are essentially intact. - Labs CBC & Chem 7: 01/13/24 07:30 01/14/24 08:59 Labs: Abnormal Lab Results - Last 24 Hours (Table) 01/13/24 01/13/24 01/13/24 Range/Units 11:46 16:20 20:23 Chloride (98-107) mmol/L Carbon Dioxide (22-30) mmol/L BUN (9-20) mg/dL Glucose (74-99) mg/dL POC Glucose (mg/dL) 146 H 176 H 207 H (70-110) mg/dL Calcium (8.4-10.2) mg/dL 0501/14/24 01/14/24 Range/Units 06:01 08:59 11:24 Chloride 114 H (98-107) mmol/L Carbon Dioxide 18 L (22-30) mmol/L BUN 26 H (9-20) mg/dL Glucose 243 H (74-99) mg/dL POC Glucose (mg/dL) 154 H 250 H (70-110) mg/dL Calcium 8.2 L (8.4-10.2) mg/dL Microbiology - Last 24 Hours (Table) 01/12/24 09:45 Blood Culture - Preliminary Blood 01/12/24 09:30 Blood Culture - Preliminary Blood Assessment and Plan Plan: Acute hypoxic respiratory failure currently off the BiPAP and the patient is currently on 8 L of O2 nasal cannula, CT of the chest was noted. Consistent with some COPD, bronchiectatic change in lung bases along with some bibasilar pulmonary fibrosis. Acute on chronic shortness of breath, improving Advanced COPD, diffuse with upper lobe predominance along with some bronchiectatic change in lung base bilaterally Chronic bilateral lower lobe pulmonary fibrosis seen on an earlier CAT scan back in 2019 Increased opacification of the right lung base based on the CAT scan findings, rule out underlying right lower lobe pneumonia, procalcitonin level was at 1.74 Acute leukocytosis Paroxysmal A-fib with RVR Mild lactic acidosis, improved History of smoking and the patient is a former smoker carries around [id number] smoking history Hypertension Hyperlipidemia BPH Plan Wean down FiO2 as tolerated currently on 8 L Cardizem drip for rate control Echo Recommend cardiology consultation Provide incentive spirometer Continue bronchodilators with DuoNeb updrafts Continue IV Solu-Medrol Zosyn and vancomycin as an empiric antibiotic coverage Viral screen has been negative Check procalcitonin level was at 1.74, repeat procalcitonin and evaluate the trend Check blood cultures Hemodynamically stable Mental status is adequate Will continue to follow make further recommendations based on his progress.
--- NOTE | 2024-01-14 14:33 | P.CRDCN ---
History of Present Illness Consult date: 01/14/24 Reason for Consult (text): Atrial fibrillation with RVR History of present illness: History of present illness: This is an 78-year-old male with past medical history of hypertension, hyperlipidemia, COPD, pulmonary fibrosis, with [id number] smoking history. We have been asked to evaluate the patient for A-fib with RVR. Patient presented to the hospital because he and his have been sick with difficulty breathing, productive cough of yellow sputum production. He denies feeling palpitations, and o chest pain. Patient presented with hypoxia with pulse ox of 79% and was initially placed on BiPAP, now down to 10 L high flow nasal cannula. Patient also presented in a sinus rhythm and around 5 AM went into A-fib with RVR in the 140s. He was started on Cardizem drip at 5 mg/h. Patient is also been started on IV antibiotics and IV steroids. Heart rate is currently in the 130s. Patiet converted to sinus mechanism about 11 am. He did feel better after he converted. He denies cardiac history and does not follow with a burr bench hand. EKG sinus tachycardia with ventricular rate of 131 bpm Chest x-ray: Bibasilar airspace opacities could represent pneumonia possibly consider aspiration versus pulmonary mass or congestion. COPD. CTA of the chest revealed no evidence of pulmonary embolism. Pulmonary fibrosis with moderate to severe COPD superimposed right lower lung airspace disease and to a lesser extent left lower lung. Prominent lymph nodes in the mediastinum probably due to infectious process. Laboratory studies: WBC 10.7, hemoglobin 13.3. Sodium 140, potassium 4.0. CO2 19. BUN 17 and creatinine 0.76. Procalcitonin 1.74. Influenza A, influenza B, RSV, COVID-19 not detected. Lactic acid 2.3 Home cardiac medications: Amlodipine 10 mg daily, Crestor 10 mg at bedtime Review Of Systems: At the time of my exam: CONSTITUTIONAL: Denies fever or chills. HEENT: Denies blurred vision, vision changes, or eye pain. Denies hemoptysis CARDIOVASCULAR: Denies chest pain. Denies orthopnea. Denies PND. Denies palpitat ions RESPIRATORY: Reports shortness of breath. GASTROINTESTINAL: Denies abdominal pain. Denies nausea or vomiting. HEMATOLOGIC: Denies bleeding disorders. GENITOURINARY: Denies any blood in urine. SKIN: Denies pruitis. Denies rash. Physical examination: Gen: This is an 78-year-old male VS: reviewed, blood pressure 107/69, heart rate 113, pulse ox 88% on 10 L high flow nasal cannula. HEENT: Head is atraumatic, normocephalic. Pupils equal, round. Sclerae is anicteric. NECK: Supple. No JVD. LUNGS: Diminished bilaterally. No intercostal retractions. HEART: Regular rate and rhythm. No murmur. ABDOMEN: Soft No tenderness. EXTREMITIES: No pedal edema. No calf tenderness. NEUROLOGICAL: Patient is awake, alert and oriented x3. Assessment: Acute hypoxic respiratory failure secondary to possible right lower lobe pneumonia, COPD exacerbation, pulmonary fibrosis Lactic acidosis New onset paroxysmal atrial fibrillation with RVR, converted to sinus rhythm Hypertension Hyperlipidemia COPD Pulmonary fibrosis Pulmonary lymph nodes Remote history of tobacco use and dependence Plan: Resume patient's home cardiac medications with the following changes: Discontinue amlodipine Discontinue Cardizem drip and start patient on Cardizem CD 180 mg daily Obtain 1 troponin Start patient on Eliquis Obtain 2-D echocardiogram and Doppler study to assess cardiac structure and function Further recommendations to follow based upon clinical course Thank you kindly for this consultation. Nurse practitioner note has been reviewed, I agree with documented findings and plan of care. Patient was seen and examined. Past Medical History Past Medical History: COPD, Hyperlipidemia, Hypertension Additional Past Medical History / Comment(s): kidney infections History of Any Multi-Drug Resistant Organisms: None Reported Past Surgical History: Adenoidectomy, Tonsillectomy Past Anesthesia/Blood Transfusion Reactions: No Reported Reaction Past Psychological History: No Psychological Hx Reported Smoking Status: Former smoker Past Alcohol Use History: Daily Additional Past Alcohol Use History / Comment(s): pt states he drinks three of fewer beers daily; pt states he has no history of alcohol withdrawal. Past Drug Use History: None Reported Medications and Allergies Home Medications Medication Instructions Recorded Confirmed Type amLODIPine [Norvasc] 10 mg PO DAILY 01/25/20 01/12/24 History Tamsulosin HCl [Flomax] 0.8 mg PO DAILY 11/14/20 01/12/24 History Budesonide/Formoterol Fumarate 2 puff PO RT-BID 01/12/24 01/12/24 History [Budesonide-Formoterol 160-4.5] Rosuvastatin [Crestor] 10 mg PO HS 01/12/24 01/12/24 History Allergies Allergy/AdvReac Type Severity Reaction Status Date / Time No Known Allergies Allergy Verified 01/12/24 10:14 Physical Exam Vitals: Vital Signs Temp Pulse Pulse Resp BP BP Pulse Ox 01/14/24 08:29 113 H 88 L 01/14/24 08:08 147 H 01/14/24 07:48 147 H 20 107/69 97 01/14/24 07:09 139 H 18 95/62 95 01/14/24 06:44 140 H 95/61 01/14/24 06:33 163 H 101/62 01/14/24 05:20 148 H 22 115/61 95 01/14/24 04:00 97.7 F 98 20 108/63 98 01/14/24 02:00 18 01/14/24 00:19 97 01/14/24 00:09 97.5 F L 95 96 18 120/61 97 01/13/24 21:50 18 01/13/24 21:45 98.1 F 104 H 20 112/50 97 01/13/24 20:48 96 01/13/24 20:39 94 01/13/24 15:36 92 01/13/24 15:30 96 01/13/24 15:04 106 H 17 98/57 91 L 01/13/24 14:15 87 L 01/13/24 11:43 112 H 19 95/51 87 L 01/13/24 11:31 92 01/13/24 11:26 96 01/13/24 08:55 20 Intake and Output 01/13/24 01/14/24 01/14/24 22:59 06:59 14:59 Intake Total 640 Output Total 475 Balance 640 -475 Intake: Intake, IV Titration 100 Amount Piperacillin-Tazobactam 3 100 .375 gm In Sodium Chloride 0.9% 100 ml @ 25 mls/hr IVPB Q8HR [facility] Rx# :[id number] Oral 540 Output: Urine 475 Other: Voiding Method Toilet Toilet Toilet Urinal Results 01/13/24 07:30 01/14/24 08:59 Current Medications Generic Name Dose Route Start Last Admin Trade Name Freq PRN Reason Stop Dose Admin Albuterol/Ipratropium 3 ml 01/12/24 12:00 01/14/24 08:27 Ipratropium-Albuterol 3 Ml Neb INHALATION 3 ml RT-Q4H SULTANA Administration Amlodipine Besylate 10 mg 01/13/24 09:00 01/14/24 07:52 Amlodipine 10 Mg Tab PO Not Given DAILY SULTANA Atorvastatin Calcium 20 mg 01/12/24 21:00 01/13/24 22:14 Atorvastatin 20 Mg Tab PO 20 mg HS SULTANA Administration Heparin Sodium (Porcine) 5,000 unit 01/12/24 21:00 01/14/24 07:52 Heparin Sodium,Porcine 5,000 Unit/Ml 1 Ml Vial SQ 5,000 unit Q12HR [facility]UL[facility] Administration Piperacillin Sod/Tazobactam 100 mls @ 25 mls/hr 01/12/24 09:30 01/14/24 07:52 Sod 3.375 gm/ Sodium Chloride IVPB 25 mls/hr Q8HR [facility] Administration Protocol Vancomycin HCl 1,250 mg/ 250 mls @ 125 mls/hr 01/13/24 16:00 01/14/24 04:08 Sodium Chloride IVPB 125 mls/hr Q12H [facility] Administration Diltiazem HCl 125 mg/ Sodium 125 mls @ 5 mls/hr 01/14/24 06:00 01/14/24 06:33 Chloride IV 5 mg/hr .Q24H SULTANA 5 mls/hr Administration 5 MG/HR Methylprednisolone Sodium Succinate 40 mg 01/12/24 16:00 01/14/24 07:52 Methylprednisolone Sod Succi 40 Mg/Ml 1 Ml Vial IV 40 mg Q8HR [facility] Administration Miscellaneous Information 0 each 01/14/24 15:00 Vancomycin Trough Due 1 Each Misc MISCELLANE 01/14/24 15:01 DIRECTED ONE Naloxone HCl 0.2 mg 01/12/24 13:22 Naloxone 0.4 Mg/Ml 1 Ml Vial IV Q2M PRN Opioid Reversal Tamsulosin HCl 0.8 mg 01/13/24 09:00 01/14/24 07:51 Tamsulosin 0.4 Mg Cap.Er.24h PO 0.8 mg DAILY SULTANA Administration Intake and Output 01/13/24 01/14/24 01/14/24 22:59 06:59 14:59 Intake Total 640 Output Total 475 Balance 640 -475 Intake: Intake, IV Titration 100 Amount Piperacillin-Tazobactam 3 100 .375 gm In Sodium Chloride 0.9% 100 ml @ 25 mls/hr IVPB Q8HR [facility] Rx# :[id number] Oral 540 Output: Urine 475 Other: Voiding Method Toilet Toilet Toilet Urinal 01/13/24 07:30 01/13/24 07:30
[2024-01-14] MEDS: DILTIAZEM CD 180 MG CAP.ER.24H PO SCH (15:15)
[2024-01-14 16:26] LABS: Glucose,Whole Blood 206 mg/dL (70-110)
[2024-01-14] MEDS: VANCOMYCIN TROUGH DUE 1 EACH MISC MISCELLANE ONE (16:50)
[2024-01-14] MEDS ORDERED: IPRATROPIUM-ALBUTEROL 3 ML NEB INHALATION PRN (20:26)
[2024-01-14 20:27] LABS: Glucose,Whole Blood 176 mg/dL (70-110)
[2024-01-14] MEDS: APIXABAN 5 MG TAB PO SCH (21:21)
[2024-01-15 06:10] LABS: Glucose,Whole Blood 141 mg/dL (70-110)
[2024-01-15] MEDS: IPRATROPIUM-ALBUTEROL 3 ML NEB INHALATION SCH (08:55)
[2024-01-15 09:51] LABS: African American GFR (CKD) 78 (>60 ml/min/1.73 sqM); Anion Gap 4 mmol/L; Blood Urea Nitrogen 22 mg/dL (9-20); Calcium 8.2 mg/dL (8.4-10.2); Carbon Dioxide 23 mmol/L (22-30); Chloride 113 mmol/L (98-107); Glucose 249 mg/dL (74-99); Non-African American GFR(CKD) 68 (>60 ml/min/1.73 sqM); Potassium 3.9 mmol/L (3.5-5.1); Sodium 140 mmol/L (137-145)
[2024-01-15 11:18] LABS: Glucose,Whole Blood 268 mg/dL (70-110)
--- NOTE | 2024-01-15 13:11 | P.PN ---
Subjective Progress Note Date: 01/15/24 Reason for Consult (text): Atrial fibrillation with RVR History of present illness: History of present illness: This is an 78-year-old male with past medical history of hypertension, hyperlipidemia, COPD, pulmonary fibrosis, with [id number] smoking history. We have been asked to evaluate the patient for A-fib with RVR. Patient presented to the hospital because he and his have been sick with difficulty breathing, productive cough of yellow sputum production. He denies feeling palpitations, and o chest pain. Patient presented with hypoxia with pulse ox of 79% and was initially placed on BiPAP, now down to 10 L high flow nasal cannula. Patient also presented in a sinus rhythm and around 5 AM went into A-fib with RVR in the 140s. He was started on Cardizem drip at 5 mg/h. Patient is also been started on IV antibiotics and IV steroids. Heart rate is currently in the 130s. Patiet converted to sinus mechanism about 11 am. He did feel better after he converted. He denies cardiac history and does not follow with a investigative shopper. EKG sinus tachycardia with ventricular rate of 131 bpm Chest x-ray: Bibasilar airspace opacities could represent pneumonia possibly consider aspiration versus pulmonary mass or congestion. COPD. CTA of the chest revealed no evidence of pulmonary embolism. Pulmonary fibrosis with moderate to severe COPD superimposed right lower lung airspace disease and to a lesser extent left lower lung. Prominent lymph nodes in the mediastinum probably due to infectious process. Laboratory studies: WBC 10.7, hemoglobin 13.3. Sodium 140, potassium 4.0. CO2 19. BUN 17 and creatinine 0.76. Procalcitonin 1.74. Influenza A, influenza B, RSV, COVID-19 not detected. Lactic acid 2.3 Home cardiac medications: Amlodipine 10 mg daily, Crestor 10 mg at bedtime 01/14 Patient states he has no shortness of breath. He does have a cough with sputum production. He denies feeling any palpitations, no lightheadedness or dizziness. He is in a sinus rhythm. Blood pressure 121/67, heart rate 91, pulse ox 93% on 4 L nasal cannula. Yesterday, patient was started on oral Cardizem and Eliquis. A repeat troponin came back at 0.028. Physical examination: Gen: This is an 78-year-old male VS: reviewed, blood pressure 107/69, heart rate 113, pulse ox 88% on 10 L high flow nasal cannula. HEENT: Head is atraumatic, normocephalic. Pupils equal, round. Sclerae is anicteric. NECK: Supple. No JVD. LUNGS: Diminished bilaterally. No intercostal retractions. HEART: Regular rate and rhythm. No murmur. ABDOMEN: Soft No tenderness. EXTREMITIES: No pedal edema. No calf tenderness. NEUROLOGICAL: Patient is awake, alert and oriented x3. Assessment: Acute hypoxic respiratory failure secondary to possible right lower lobe pneumonia, COPD exacerbation, pulmonary fibrosis Lactic acidosis New onset paroxysmal atrial fibrillation with RVR, converted to sinus rhythm Hypertension Hyperlipidemia COPD Pulmonary fibrosis Pulmonary lymph nodes Remote history of tobacco use and dependence Plan: Continue patient on Cardizem CD 180 mg daily, Eliquis Obtain 2-D echocardiogram and Doppler study to assess cardiac structure and function Further recommendations to follow based upon clinical course Nurse practitioner note has been reviewed, I agree with documented findings and plan of care. Patient was seen and examined. Objective - Vital Signs Vital signs: Vital Signs Temp 97.5 F L 01/15/24 07:54 Pulse 92 01/15/24 09:21 Resp 20 01/15/24 07:54 BP 140/70 01/15/24 07:54 Pulse Ox 91 L 01/15/24 08:56 FiO2 60 01/12/24 15:11 Intake & Output 01/14/24 01/15/24 01/15/24 18:59 06:59 18:59 Intake Total 590 110 Output Total 400 375 Balance 190 -375 110 Intake: Oral 590 110 Output: Urine 400 375 Other: Voiding Method Toilet Toilet Toilet Urinal Urinal Urinal # Voids 1 - Labs CBC & Chem 7: 01/13/24 07:30 01/15/24 09:16 Labs: Abnormal Lab Results - Last 24 Hours (Table) 01/14/24 01/14/24 01/14/24 Range/Units 11:24 16:17 20:25 Chloride (98-107) mmol/L BUN (9-20) mg/dL Glucose (74-99) mg/dL POC Glucose (mg/dL) 250 H 206 H 176 H (70-110) mg/dL Calcium (8.4-10.2) mg/dL 01/15/24 01/15/24 Range/Units 06:09 09:16 Chloride 113 H (98-107) mmol/L BUN 22 H (9-20) mg/dL Glucose 249 H (74-99) mg/dL POC Glucose (mg/dL) 141 H (70-110) mg/dL Calcium 8.2 L (8.4-10.2) mg/dL Microbiology - Last 24 Hours (Table) 01/12/24 09:45 Blood Culture - Preliminary Blood 01/12/24 09:30 Blood Culture - Preliminary Blood
--- NOTE | 2024-01-15 14:42 | P.PN ---
Subjective Progress Note Date: 01/15/24 This is a 78-year-old male patient who presents to the hospital because of progressive worsening shortness of breath over the past few days. Both him and his were sick and they are having difficulty breathing and both of them they came into the emergency department. The patient has been having some productive cough with yellowish sputum production. At time of admission, he was quite hypoxic and his pulse ox was in the low 80s. The patient was treated with bronchodilators and subsequently was placed on a BiPAP for respiratory support and the current BiPAP is at a pressure of 12/5 and FiO2 of 40%. He is exchanging adequate lung volumes with a tidal volume of 8700 cc on the BiPAP machine. Nevertheless, his minute ventilation remains quite elevated. Blood gas showed a pH of 7.4 with a pCO2 of 30 and pO2 of 58. Based on that, the FiO2 was increased. Chest x-ray was done and showed increased interstitial marking lung base bilaterally along with some upper lobe emphysematous changes. Based on that, a CTA of the chest was ordered and the CTA showed no evidence of any pulmonary embolism. I reviewed the images and there is indication of emphysematous changes in the upper lobes more so in the lower lobes and the patient has chronic fibrotic changes in the lower lobes bilaterally. Underlying pulmonary fibrosis cannot be completely excluded. Note that he also has some limited bronchiectatic changes in lung bases and the fibrotic changes in the right lower lobe is more extensive compared to the left. The superimposed pneumonia cannot be completely excluded. Prominent lymph nodes in the mediastinum were also seen and those and lymph nodes were enlarged since a previous CAT scan of the chest that was done on 01/25/2020. The patient accordingly was started on bronchodilators and the patient is currently on DuoNeb. The patient on IV Solu-Medrol. The patient was given a combination of Zosyn and vancomycin. White cell count of 18.2 edema 15.3 and a platelet count of 267. Normal coagulation profile. The initial lactic acid level was at 2.3 To 1.3. BUN Was 16 with a Creatinine of 1.1. The Viral Screen Was Negative. LFTs within Normal Limits. Sodium Levels at 135. My Last Evaluation with This Patient Was Back in 2020. At That Time, the Patient Had Hospitalization for COPD Exacerbation and CAT Scan of the Chest Even Back Then Showed Chronic Fibrotic Changes Lung Base Bilaterally. He Is a Former Smoker and He Carries around [id number] Smoking History. He Has Hypertension, Hyperlipidemia and Previous Episodes of Kidney/Urinary Tract Infections. Does Not Utilize Any Form of Maintenance Respiratory Medications. Does Not Utilize Oxygen. 01/13/2024, seen the patient for a follow-up. Much improved compared to yesterday. Less bronchospastic and wheezy. He is currently out of bed. The patient is currently on oxygen and 10 L with a pulse ox of 88%. She has been much more comfortable compared to yesterday. Remains on DuoNeb updrafts. Remains on IV Solu-Medrol. Remains on a combination of Zosyn and vancomycin. CT of the chest showed no evidence of any pulm embolism and there is some chronic scarring in the lung bases bilaterally suggestive of fibrosis along with some bronchiectatic changes and background emphysema. White cell count is at 10.7, hemoglobin 13 and platelet count of 223 and the BUN is 17 with a creatinine of 0.7 and his sodium levels at 140. No chest pain. No other new complaints otherwise for now. On 01/14/2024, the patient is being seen for a follow-up. No new complaints. He feels that he is less short of breath. Nevertheless, he still requiring oxygen at a higher flow and this was weaned down to 8 L. BUN is 26 with a creatinine 1.04 and sodium levels at 139. Remains on DuoNeb updrafts. Remains on IV Solu- Medrol. Remains on Zosyn and vancomycin. Remains on high. Heparin subcu for DVT prophylaxis. His heart rate is under better control for now. The patient has some increased tachycardia today. EKG was done and patient was found to be in atrial fibrillation with rapid ventricular response. Based on that, Cardizem was ordered. On 01/15/2024, the patient on 4 L of oxygen by nasal cannula. He continues to improve clinically. No new complaints otherwise noted for today. BUN 22 with a creatinine of 1.04 and sodium was at 140. No cough. No sputum production. No chest pain. No altered mentation. Clinically and hemodynamically stable.The patient was also taken off the Cardizem drip and the patient is currently on oral Cardizem at a dose of 180 mg p.o. daily. He is also on anticoagulation with Eliquis. Cardiology on the case. Echocardiogram is to be obtained tomorrow. The patient has converted to normal sinus rhythm. Objective - Vital Signs Vital signs: Vital Signs Temp 97.5 F L 01/15/24 07:54 Pulse 91 01/15/24 11:50 Resp 17 01/15/24 11:50 BP 121/67 01/15/24 11:50 Pulse Ox 93 L 01/15/24 11:50 FiO2 60 01/12/24 15:11 Intake & Output 01/14/24 01/15/24 01/15/24 18:59 06:59 18:59 Intake Total 590 110 Output Total 400 375 Balance 190 -375 110 Intake: Oral 590 110 Output: Urine 400 375 Other: Voiding Method Toilet Toilet Toilet Urinal Urinal Urinal # Voids 1 - Exam The patient is is not having any significant respite distress at rest. Currently on 4 L of O2 nasal cannula. He is off the BiPAP. Head exam was generally normal. There was no scleral icterus or corneal arcus. Mucous membranes were moist. Neck was supple and without jugular venous distension, thyromegaly, or carotid bruits. Carotids were easily palpable bilaterally. There was no adenopathy. Lungs are diminished bilaterally and the patient has a bibasilar pulmonary crackles that are somewhat coarse worse in the right lung base. Scattered expiratory wheeze are also appreciated. Cardiac exam revealed the PMI to be normally situated and sized. The rhythm was regular and no extrasystoles were noted during several minutes of auscultation. The first and second heart sounds were normal and physiologic splitting of the s econd heart sound was noted. There were no murmurs, rubs, clicks, or gallops. Abdominal exam revealed normal bowel sounds. The abdomen was soft, non-tender, and without masses, organomegaly, or appreciable enlargement of the abdominal aorta. Examination of the extremities revealed easily palpable radial, femoral and pedal pulses. There was no cyanosis, clubbing or edema. Examination of the skin revealed no evidence of significant rashes, suspicious appearing nevi or other concerning lesions. Neurologically, the patient is awake and alert and the patient does not have any focal neurological deficit. Cranial nerves are essentially intact. - Labs CBC & Chem 7: 01/13/24 07:30 01/15/24 09:16 Labs: Abnormal Lab Results - Last 24 Hours (Table) 01/14/24 01/14/24 01/15/24 Range/Units 16:17 20:25 06:09 Chloride (98-107) mmol/L BUN (9-20) mg/dL Glucose (74-99) mg/dL POC Glucose (mg/dL) 206 H 176 H 141 H (70-110) mg/dL Calcium (8.4-10.2) mg/dL 01/15/24 01/15/24 Range/Units 09:16 11:16 Chloride 113 H (98-107) mmol/L BUN 22 H (9-20) mg/dL Glucose 249 H (74-99) mg/dL POC Glucose (mg/dL) 268 H (70-110) mg/dL Calcium 8.2 L (8.4-10.2) mg/dL Microbiology - Last 24 Hours (Table) 01/12/24 09:45 Blood Culture - Preliminary Blood 01/12/24 09:30 Blood Culture - Preliminary Blood Assessment and Plan Plan: Acute hypoxic respiratory failure currently off the BiPAP and the patient is currently on 4 L of O2 nasal cannula, CT of the chest was noted. Consistent wi th some COPD, bronchiectatic change in lung bases along with some bibasilar pulmonary fibrosis. Acute on chronic shortness of breath, improving Advanced COPD, diffuse with upper lobe predominance along with some bronchiectatic change in lung base bilaterally Chronic bilateral lower lobe pulmonary fibrosis seen on an earlier CAT scan back in 2019 Increased opacification of the right lung base based on the CAT scan findings, rule out underlying right lower lobe pneumonia, procalcitonin level was at 1.74 Acute leukocytosis Paroxysmal A-fib with RVR, currently on the sinus Mild lactic acidosis, improved History of smoking and the patient is a former smoker carries around [id number] smoking history Hypertension Hyperlipidemia BPH Plan Wean down FiO2 as tolerated currently on 4 L liters per minute. Cardizem drip has been discontinued and the patient is currently on oral Cardizem 180 mg p.o. daily. Anticoagulation with Eliquis has been started Echo to be obtained tomorrow Appreciated cardiology consultation Provide incentive spirometer Continue bronchodilators with DuoNeb updrafts Continue IV Solu-Medrol Zosyn and vancomycin as an empiric antibiotic coverage Viral screen has been negative Check procalcitonin level was at 1.74, repeat procalcitonin and evaluate the trend, awaiting levels from today Check blood cultures Hemodynamically stable Mental status is adequate Will continue to follow make further recommendations based on his progress.
[2024-01-15 16:24] LABS: Glucose,Whole Blood 188 mg/dL (70-110)
[2024-01-15 20:56] LABS: Glucose,Whole Blood 193 mg/dL (70-110)
--- NOTE | 2024-01-15 22:31 | PN ---
PROGRESS NOTE DATE OF SERVICE: 01/15/2024 SUBJECTIVE: This is an 78-year-old gentleman, who was admitted with COPD acute exacerbation and respiratory failure, has improved significantly. No chest pain. No palpitation. PHYSICAL EXAMINATION: VITAL SIGNS: Pulse is 91, blood pressure 110/62, respirations 17. CHEST: Clear bilaterally with scattered rhonchi. ABDOMEN: Soft. NERVOUS SYSTEM: Nonfocal. LABORATORY DATA: Reviewed. ASSESSMENT: 1. Chronic obstructive pulmonary disease acute exacerbation with acute hypoxic respiratory failure, on BiPAP. 2. Chronic bilateral lower lobe fibrosis. 3. Leukocytosis. 4. Paroxysmal atrial fibrillation. 5. Multiple medical issues. RECOMMENDATIONS: Recommend to continue current medical management and repeat labs. Closely follow with Cardiology, Pulmonology. Once the patient is stable, may be discharged within the next 24 to 48 hours. MMODL / IJN: [id number] /
[2024-01-16 06:32] LABS: Glucose,Whole Blood 142 mg/dL (70-110)
[2024-01-16 09:10] LABS: African American GFR (CKD) 83 (>60 ml/min/1.73 sqM); Anion Gap 6 mmol/L; Blood Urea Nitrogen 17 mg/dL (9-20); Calcium 8.5 mg/dL (8.4-10.2); Carbon Dioxide 23 mmol/L (22-30); Chloride 112 mmol/L (98-107); Glucose 151 mg/dL (74-99); Non-African American GFR(CKD) 72 (>60 ml/min/1.73 sqM); Potassium 3.9 mmol/L (3.5-5.1); Sodium 141 mmol/L (137-145)
[2024-01-16 09:13] LABS: Basophils # (A) 0.2 k/uL (0-0.2); Basophils % (A) 1 %; Eosinophils # (A) 0.1 k/uL (0-0.7); Eosinophils % (A) 1 %; HCT 44.6 % (39.0-53.0); HGB 14.5 gm/dL (13.0-17.5); Lymphocytes # (A) 1.3 k/uL (1.0-4.8); Lymphocytes % (A) 7 %; MCH 31.2 pg (25.0-35.0); MCHC 32.4 g/dL (31.0-37.0); MCV 96.1 fL (80.0-100.0); Mean Platelet Volume 8.6; Monocytes # (A) 0.8 k/uL (0-1.0); Monocytes % (A) 4 %; Neutrophils # (A) 16.2 k/uL (1.3-7.7); Neutrophils % (A) 84 %; Platelet Count 354 k/uL (150-450); RBC 4.64 m/uL (4.30-5.90); RDW 13.7 % (11.5-15.5); WBC 19.2 k/uL (3.8-10.6)
--- NOTE | 2024-01-16 11:21 | XR ---
EXAMINATION TYPE: XR chest 1V portable DATE OF EXAM: 01/16/2024 COMPARISON: 01/12/2024 HISTORY: Shortness of breath TECHNIQUE: Single frontal view of the chest is obtained. FINDINGS: COPD with patchy bilateral lobe infiltrate. Tiny bilateral effusion. No pneumothorax. Dege nerative changes of the spine. Arthropathy of the shoulders. IMPRESSION: COPD with basilar atelectasis or infiltrate. Suspect a degree of underlying pulmonary fi brosis. Mild superimposed pneumonitis or venous congestion not excluded.
[2024-01-16 11:51] LABS: Glucose,Whole Blood 163 mg/dL (70-110)
--- NOTE | 2024-01-16 13:24 | CA ---
Transthoracic Echo Report Name: Ric Del Valle Age: 78 Gender: M : 1945 Exam Date: 01/16/2024 11:50 Exam Location: [facility] Ht (in): 70 Wt (lb): 160 Ordering Physician: Shiloh Pino Attending/Referring Phys: Secondary Set Up Man Sofi Cole RDCS Procedure CPT: Indications: afib rvr Cardiac Hx: Technical Quality: Technically difficult study Contrast 1: Definity Total Dose (mL): 2 Contrast 2: Total Dose (mL): MEASUREMENTS (Male / Female) Normal Values 2D ECHO LV Diastolic Diameter PLAX 3.6 cm 4.2 - 5.9 / 3.9 - 5.3 cm LV Systolic Diameter PLAX 2.4 cm IVS Diastolic Thickness 1.6 cm 0.6 - 1.0 / 0.6 - 0.9 cm LVPW Diastolic Thickness 1.6 cm 0.6 - 1.0 / 0.6 - 0.9 cm LV Relative Wall Thickness 0.9 RV Internal Dim ED PLAX 3.5 cm LVOT Diameter 1.8 cm LA Volume 79.0 cm??? 18 - 58 / 22 - 52 cm??? LA Volume Index 41.7 cm???/m??? 16 - 28 cm???/m??? M-MODE Aortic Root Diameter MM 3.5 cm LA Systolic Diameter MM 4.0 cm LA Ao Ratio MM 1.1 AV Cusp Separation MM 2.0 cm DOPPLER AV Peak Velocity 165.2 cm/s AV Peak Gradient 10.9 mmHg AV Mean Velocity 117.5 cm/s AV Mean Gradient 6.0 mmHg AV Velocity Time Integral 34.0 cm LVOT Peak Velocity 140.0 cm/s LVOT Peak Gradient 7.8 mmHg LVOT Velocity Time Integral 30.3 cm LVOT Stroke Volume 75.5 cm??? LVOT Stroke Volume Index 39.8 ml/m??? LVOT Cardiac Index 3468.2 cm???/min???m??? AV Area Cont Eq vti 2.2 cm??? AV Area Cont Eq pk 2.1 cm??? MV Area PHT 3.7 cm??? Mitral E Point Velocity 93.7 cm/s Mitral A Point Velocity 121.3 cm/s Mitral E to A Ratio 0.8 MV Deceleration Time 206.8 ms TR Peak Velocity 308.2 cm/s TR Peak Gradient 38.0 mmHg Right Ventricular Systolic Press 42.7 mmHg FINDINGS Left Ventricle Moderately increased left ventricular wall thickness. Left ventricular cavity size normal. Normal left ventricular systolic function with no obvious regional wall motion abnormalities. Left ventricular ejection fraction is estimated at 55-60 %. Grade I diastolic dysfunction. Right Ventricle Mild right ventricular dilatation. Mild pulmonary hypertension. Right Atrium Right atrial dilatation. Left Atrium Moderate LA dilatation Mitral Valve Structurally normal mitral valve. Mild mitral annular calcification. Mild mitral regurgitation. Aortic Valve Trileaflet aortic valve. No aortic valve stenosis or regurgitation. Tricuspid Valve Structurally normal tricuspid valve. Mild to moderate tricuspid regurgitation. Pulmonic Valve Trace pulmonic regurgitation. Pericardium No pericardial effusion. Aorta Normal size aortic root and proximal ascending aorta. CONCLUSIONS Left ventricular ejection fraction is estimated at 55-60 %. Grade I diastolic dysfunction. No obvious regional wall motion abnormality Moderate concentric LVH Mild MR Moderate TR RVSP 42 mmHg Moderate LA dilatation, mild RA and mild RV dilatation Previewed by: Dr Tad May (Electronically Signed) Final Date: 16 Jan 2024 13:23
--- NOTE | 2024-01-16 14:24 | PN ---
PROGRESS NOTE DATE OF SERVICE: 01/16/2024 SUBJECTIVE: This is an 78-year-old gentleman, who was admitted with COPD, also had pulmonary fibrosis. No chest pain. No palpitation. OBJECTIVE: VITAL SIGNS: Pulse 103, blood pressure 114/73, respirations 20. CHEST: A few scattered rhonchi and crackles. ABDOMEN: Soft. NERVOUS SYSTEM: Nonfocal. LABORATORY DATA: Reviewed. ASSESSMENT: 1. Chronic obstructive pulmonary disease acute exacerbation with acute hypoxic respiratory failure, on BiPAP. 2. Chronic lower lobe bilateral lung fibrosis. 3. Leukocytosis. 4. Paroxysmal atrial fibrillation. 5. Multiple medical issues. RECOMMENDATIONS: Recommend to continue current medications, continue symptomatic treatment. Try to titrate down the oxygen. Continue the rest of medications. Possible discharge in the next 24 hours. MMODL / IJN: [id number] /
[2024-01-16] MEDS: FUROSEMIDE 10 MG/ML 4 ML VIAL IV STA (14:41)
--- NOTE | 2024-01-16 15:21 | P.PN ---
Subjective Progress Note Date: 01/16/24 This is a 78-year-old male patient who presents to the hospital because of progressive worsening shortness of breath over the past few days. Both him and his were sick and they are having difficulty breathing and both of them they came into the emergency department. The patient has been having some productive cough with yellowish sputum production. At time of admission, he was quite hypoxic and his pulse ox was in the low 80s. The patient was treated with bronchodilators and subsequently was placed on a BiPAP for respiratory support and the current BiPAP is at a pressure of 12/5 and FiO2 of 40%. He is exchanging adequate lung volumes with a tidal volume of 8700 cc on the BiPAP machine. Nevertheless, his minute ventilation remains quite elevated. Blood gas showed a pH of 7.4 with a pCO2 of 30 and pO2 of 58. Based on that, the FiO2 was increased. Chest x-ray was done and showed increased interstitial marking lung base bilaterally along with some upper lobe emphysematous changes. Based on that, a CTA of the chest was ordered and the CTA showed no evidence of any pulmonary embolism. I reviewed the images and there is indication of emphysematous changes in the upper lobes more so in the lower lobes and the patient has chronic fibrotic changes in the lower lobes bilaterally. Underlying pulmonary fibrosis cannot be completely excluded. Note that he also has some limited bronchiectatic changes in lung bases and the fibrotic changes in the right lower lobe is more extensive compared to the left. The superimposed pneumonia cannot be completely excluded. Prominent lymph nodes in the mediastinum were also seen and those and lymph nodes were enlarged since a previous CAT scan of the chest that was done on 01/25/2020. The patient accordingly was started on bronchodilators and the patient is currently on DuoNeb. The patient on IV Solu-Medrol. The patient was given a combination of Zosyn and vancomycin. White cell count of 18.2 edema 15.3 and a platelet count of 267. Normal coagulation profile. The initial lactic acid level was at 2.3 To 1.3. BUN Was 16 with a Creatinine of 1.1. The Viral Screen Was Negative. LFTs within Normal Limits. Sodium Levels at 135. My Last Evaluation with This Patient Was Back in 2020. At That Time, the Patient Had Hospitalization for COPD Exacerbation and CAT Scan of the Chest Even Back Then Showed Chronic Fibrotic Changes Lung Base Bilaterally. He Is a Former Smoker and He Carries around [id number] Smoking History. He Has Hypertension, Hyperlipidemia and Previous Episodes of Kidney/Urinary Tract Infections. Does Not Utilize Any Form of Maintenance Respiratory Medications. Does Not Utilize Oxygen. 01/13/2024, seen the patient for a follow-up. Much improved compared to yesterday. Less bronchospastic and wheezy. He is currently out of bed. The patient is currently on oxygen and 10 L with a pulse ox of 88%. She has been much more comfortable compared to yesterday. Remains on DuoNeb updrafts. Remains on IV Solu-Medrol. Remains on a combination of Zosyn and vancomycin. CT of the chest showed no evidence of any pulm embolism and there is some chronic scarring in the lung bases bilaterally suggestive of fibrosis along with some bronchiectatic changes and background emphysema. White cell count is at 10.7, hemoglobin 13 and platelet count of 223 and the BUN is 17 with a creatinine of 0.7 and his sodium levels at 140. No chest pain. No other new complaints otherwise for now. On 01/14/2024, the patient is being seen for a follow-up. No new complaints. He feels that he is less short of breath. Nevertheless, he still requiring oxygen at a higher flow and this was weaned down to 8 L. BUN is 26 with a creatinine 1.04 and sodium levels at 139. Remains on DuoNeb updrafts. Remains on IV Solu- Medrol. Remains on Zosyn and vancomycin. Remains on high. Heparin subcu for DVT prophylaxis. His heart rate is under better control for now. The patient has some increased tachycardia today. EKG was done and patient was found to be in atrial fibrillation with rapid ventricular response. Based on that, Cardizem was ordered. On 01/15/2024, the patient on 4 L of oxygen by nasal cannula. He continues to improve clinically. No new complaints otherwise noted for today. BUN 22 with a creatinine of 1.04 and sodium was at 140. No cough. No sputum production. No chest pain. No altered mentation. Clinically and hemodynamically stable.The patient was also taken off the Cardizem drip and the patient is currently on oral Cardizem at a dose of 180 mg p.o. daily. He is also on anticoagulation with Eliquis. Cardiology on the case. Echocardiogram is to be obtained tomorrow. The patient has converted to normal sinus rhythm. The patient is seen today January 16, 2024 in follow-up on the selective care unit. He is currently sitting up in bed. Awake and alert in no acute distress. He is feeling quite a bit better. He is hoping to go home. He is currently maintaining O2 saturations in the 90s on 4 L/min per nasal cannula. Echocardiogram revealed preserved left ventricular systolic function with ejection fraction 55 to 60%. Blood cultures revealed no growth. White count 19.2. Hemoglobin 14.5. Platelets 354. Sodium 141. Potassium 3.9. Bicarb 23. BUN 17. Creatinine 0.99. Glucose 151. He remains on DuoNeb ventilations, Solu-Medrol, antibiotics in the form of vancomycin and Zosyn. Anticoagulated with Eliquis. Objective - Vital Signs Vital signs: Vital Signs Temp 98.2 F 01/16/24 08:00 Pulse 102 H 01/16/24 12:26 Resp 20 01/16/24 12:14 BP 149/73 01/16/24 12:14 Pulse Ox 90 L 01/16/24 12:14 FiO2 60 01/12/24 15:11 Intake & Output 01/15/24 01/16/24 01/16/24 18:59 06:59 18:59 Intake Total 330 430 Output Total 750 900 Balance 330 -750 -470 Intake: IV 10 Invasive Line 4 10 Oral 330 420 Output: Urine 750 900 Other: Voiding Method Toilet Toilet Toilet Urinal Urinal Urinal # Voids 2 1 - Exam GENERAL EXAM: Alert, pleasant 78-year-old male patient, on 4 L nasal cannula, comfortable in no apparent distress. HEAD: Normocephalic. EYES: Normal reaction of pupils, equal size. NOSE: Clear with pink turbinates. THROAT: No erythema or exudates. NECK: No masses, no JVD. CHEST: No chest wall deformity. LUNGS: Equal air entry with coarse crackles in the bases, diminished. CVS: S1 and S2 normal with no audible murmur, regular rhythm. ABDOMEN: No hepatosplenomegaly, normal bowel sounds, no guarding or rigidity. SPINE: No scoliosis or deformity SKIN: No rashes CENTRAL NERVOUS SYSTEM: No focal deficits, tone is normal in all 4 extremities. EXTREMITIES: There is no peripheral edema. No clubbing, no cyanosis. Peripheral pulses are intact. - Labs CBC & Chem 7: 01/16/24 08:18 01/16/24 08:18 Labs: Abnormal Lab Results - Last 24 Hours (Table) 01/15/24 01/15/24 01/16/24 Range/Units 16:23 20:44 06:30 WBC (3.8-10.6) k/uL Neutrophils # (1.3-7.7) k/uL Chloride (98-107) mmol/L Glucose (74-99) mg/dL POC Glucose (mg/dL) 188 H 193 H 142 H (70-110) mg/dL 01/16/24 01/16/24 01/16/24 Range/Units 08:18 08:18 11:50 WBC 19.2 H (3.8-10.6) k/uL Neutrophils # 16.2 H (1.3-7.7) k/uL Chloride 112 H (98-107) mmol/L Glucose 151 H (74-99) mg/dL POC Glucose (mg/dL) 163 H (70-110) mg/dL Microbiology - Last 24 Hours (Table) 01/12/24 09:45 Blood Culture - Preliminary Blood 01/12/24 09:30 Blood Culture - Preliminary Blood Assessment and Plan Assessment: Acute hypoxic respiratory failure currently off the BiPAP and the patient is currently on 4 L of O2 nasal cannula, CT of the chest was noted. Consistent with some COPD, bronchiectatic change in lung bases along with some bibasilar pulmonary fibrosis Advanced COPD, diffuse with upper lobe predominance along with some bronchiectatic change in lung base bilaterally Chronic bilateral lower lobe pulmonary fibrosis seen on an earlier CAT scan back in 2019 Increased opacification of the right lung base based on the CAT scan findings, rule out underlying right lower lobe pneumonia, procalcitonin level was at 1.74 Acute leukocytosis Paroxysmal A-fib with RVR, currently on the sinus Mild lactic acidosis, improved History of smoking and the patient is a former smoker carries around 50-pack- year smoking history Hypertension Hyperlipidemia BPH Plan: The patient was seen and evaluated Labs and medications reviewed Continue antibiotics Check a procalcitonin Continue bronchodilators and steroids Titrate down the FiO2 as tolerated May require home oxygen I have personally seen and examined the patient, performed the documentation and the assessment and plan as written. Number of minutes spent on the visit: 10.
[2024-01-16 16:29] LABS: Glucose,Whole Blood 178 mg/dL (70-110)
[2024-01-16 20:51] LABS: Glucose,Whole Blood 155 mg/dL (70-110)
[2024-01-17 07:35] LABS: Glucose,Whole Blood 147 mg/dL (70-110)
--- NOTE | 2024-01-17 10:18 | P.PN ---
Subjective Progress Note Date: 01/17/24 Reason for Consult (text): Atrial fibrillation with RVR History of present illness: History of present illness: This is an 78-year-old male with past medical history of hypertension, hyperlipidemia, COPD, pulmonary fibrosis, with [id number] smoking history. We have been asked to evaluate the patient for A-fib with RVR. Patient presented to the hospital because he and his have been sick with difficulty breathing, productive cough of yellow sputum production. He denies feeling palpitations, and o chest pain. Patient presented with hypoxia with pulse ox of 79% and was initially placed on BiPAP, now down to 10 L high flow nasal cannula. Patient also presented in a sinus rhythm and around 5 AM went into A-fib with RVR in the 140s. He was started on Cardizem drip at 5 mg/h. Patient is also been started on IV antibiotics and IV steroids. Heart rate is currently in the 130s. Patiet converted to sinus mechanism about 11 am. He did feel better after he converted. 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 EKG sinus tachycardia with ventricular rate of 131 bpm Chest x-ray: Bibasilar airspace opacities could represent pneumonia possibly consider aspiration versus pulmonary mass or congestion. COPD. CTA of the chest revealed no evidence of pulmonary embolism. Pulmonary fibrosis with moderate to severe COPD superimposed right lower lung airspace disease and to a lesser extent left lower lung. Prominent lymph nodes in the mediastinum probably due to infectious process. Laboratory studies: WBC 10.7, hemoglobin 13.3. Sodium 140, potassium 4.0. CO2 19. BUN 17 and creatinine 0.76. Procalcitonin 1.74. Influenza A, influenza B, RSV, COVID-19 not detected. Lactic acid 2.3 Home cardiac medications: Amlodipine 10 mg daily, Crestor 10 mg at bedtime 01/14 Patient states he has no shortness of breath. He does have a cough with sputum production. He denies feeling any palpitations, no lightheadedness or dizziness. He is in a sinus rhythm. Blood pressure 121/67, heart rate 91, pulse ox 93% on 4 L nasal cannula. Yesterday, patient was started on oral Cardizem and Eliquis. A repeat troponin came back at 0.028. 01/16 Patient is seen today on the med-surg floor. Echocardiogram reveals EF 55 to 60%, grade 1 diastolic dysfunction. Moderate concentric left ventricular hypertrophy. Mild MR, moderate TR. RVSP 42 mmHg. Moderate LA dilatation, mild RA and mild RV dilatation. Echocardiogram reviewed with the patient. He denies having any chest pain, shortness of breath is stable at this time. He is being treated for COPD and pneumonia. EKG is sinus rhythm with PACs. Physical examination: Gen: This is an 78-year-old male VS: reviewed HEENT: Head is atraumatic, normocephalic. Pupils equal, round. Sclerae is anicteric. NECK: Supple. No JVD. LUNGS: Diminished bilaterally. No intercostal retractions. HEART: Regular rate and rhythm. No murmur. ABDOMEN: Soft No tenderness. EXTREMITIES: No pedal edema. No calf tenderness. NEUROLOGICAL: Patient is awake, alert and oriented x3. Assessment: Acute hypoxic respiratory failure secondary to possible right lower lobe pneumonia, COPD exacerbation, pulmonary fibrosis Lactic acidosis New onset paroxysmal atrial fibrillation with RVR, converted to sinus rhythm Hypertension Hyperlipidemia COPD Pulmonary fibrosis Pulmonary lymph nodes Remote history of tobacco use and dependence Plan: Continue patient on Cardizem CD 180 mg daily, [facility] will sign off this case and follow on an as-needed basis. Please reconsult for any new concerns. Patient may follow-up in the office in one to 2 weeks. Nurse practitioner note has been reviewed, I agree with documented findings and plan of care. Patient was seen and examined. Objective - Vital Signs Vital signs: Vital Signs Temp 97.7 F 01/17/24 07:32 Pulse 93 01/17/24 08:23 Resp 19 01/17/24 07:32 BP 145/69 01/17/24 07:32 Pulse Ox 92 L 01/17/24 08:13 FiO2 60 01/12/24 15:11 Intake & Output 01/16/24 01/17/24 01/17/24 18:59 06:59 18:59 Intake Total 620 Output Total 1950 1000 Balance -1330 -1000 Intake: IV 20 Invasive Line 4 10 Invasive Line 5 10 Oral 600 Output: Urine 1950 1000 Other: Voiding Method Toilet Urinal - Labs CBC & Chem 7: 01/16/24 08:18 01/16/24 08:18 Labs: Abnormal Lab Results - Last 24 Hours (Table) 01/16/24 01/16/2424 Range/Units 08:18 08:18 08:18 WBC 19.2 H (3.8-10.6) k/uL Neutrophils # 16.2 H (1.3-7.7) k/uL Chloride 112 H (98-107) mmol/L Glucose 151 H (74-99) mg/dL POC Glucose (mg/dL) (70-110) mg/dL Procalcitonin 0.31 H (0.02-0.09) ng/mL 01/16/24 01/16/24 01/16/24 Range/Units 11:50 16:27 20:47 WBC (3.8-10.6) k/uL Neutrophils # (1.3-7.7) k/uL Chloride (98-107) mmol/L Glucose (74-99) mg/dL POC Glucose (mg/dL) 163 H 178 H 155 H (70-110) mg/dL Procalcitonin (0.02-0.09) ng/mL 01/17/24 Range/Units 07:34 WBC (3.8-10.6) k/uL Neutrophils # (1.3-7.7) k/uL Chloride (98-107) mmol/L Glucose (74-99) mg/dL POC Glucose (mg/dL) 147 H (70-110) mg/dL Procalcitonin (0.02-0.09) ng/mL
[2024-01-17 10:45] LABS: BUN/Creat Ratio 18.82 Ratio (12.00-20.00); Blood Urea Nitrogen 20.7 mg/dL (9.0-27.0); Calcium 8.4 mg/dL (8.7-10.3); Carbon Dioxide 27.1 mmol/L (21.6-31.8); Chloride 104 mmol/L (96-109); Glucose 160 mg/dL (70-110); Potassium 3.5 mmol/L (3.5-5.5); Sodium 143 mmol/L (135-145)
[2024-01-17 11:44] LABS: Glucose,Whole Blood 210 mg/dL (70-110)
[2024-01-17 12:20] LABS: Basophils # (M) 0 X 10*3/uL (0.00-0.10); Eosinophils # (M) 0 X 10*3/uL (0.04-0.35); HCT 41.9 % (39.6-50.0); HGB 14.3 g/dL (13.0-17.0); Lymphocytes # (M) 1.62 X 10*3/uL (0.90-5.00); MCH 30.8 pg (27.0-32.0); MCHC 34.1 g/dL (32.0-37.0); MCV 90.3 FL (80.0-97.0); Metamyelocytes % 3 % (0-0); Monocytes # (M) 0.49 X 10*3/uL (0.20-1.00); Myelocytes % 4 % (0-0); NRBC Per 100 WBC 0.03 X 10*3/uL (0.00-0.01); Neutrophils # (M) 12.98 X 10*3/uL (1.80-7.70); Neutrophils % (M) 80 %; Platelet Count 332 X 10*3/uL (140-440); RBC 4.64 X 10*6/uL (4.40-5.60); RBC Morphology Normal (Normal); RDW 14.1 % (11.5-14.5); WBC 16.22 X 10*3/uL (4.50-10.00)
--- NOTE | 2024-01-17 14:21 | PN ---
PROGRESS NOTE DATE OF SERVICE: 01/17/2024 SUBJECTIVE: This 78-year-old gentleman admitted with COPD acute exacerbation, also had some pulmonary fibrosis. No chest pain, no palpitations, no fever. The most recent chest x- ray was reviewed, showed some lower lobe lesions and 2D echo showed ejection fraction about 50% to 60%. No chest pain, no palpitation. OBJECTIVE: VITAL SIGNS: Pulse is 95, blood pressure 135/60, respirations 18. CHEST: Few scattered rhonchi and crackles. ABDOMEN: Soft. NERVOUS SYSTEM: No focal deficits. LABORATORY DATA: Reviewed. ASSESSMENT: 1. Chronic obstructive pulmonary disease acute exacerbation with acute hypoxic respiratory failure, on BiPAP. 2. Chronic lower lobe bilateral lung fibrosis. 3. Leukocytosis. 4. Paroxysmal atrial fibrillation. 5. Multiple medical issues. RECOMMENDATIONS: Recommended to continue current management, continue symptomatic treatment, repeat labs. Closely follow with bronchodilators. Possible discharge in the next 24 hours if stable. MMODL / IJN: [id number] /
--- NOTE | 2024-01-17 14:23 | P.PN ---
Subjective Progress Note Date: 01/17/24 This is a 78-year-old male patient who presents to the hospital because of progressive worsening shortness of breath over the past few days. Both him and his were sick and they are having difficulty breathing and both of them they came into the emergency department. The patient has been having some productive cough with yellowish sputum production. At time of admission, he was quite hypoxic and his pulse ox was in the low 80s. The patient was treated with bronchodilators and subsequently was placed on a BiPAP for respiratory support and the current BiPAP is at a pressure of 12/5 and FiO2 of 40%. He is exchanging adequate lung volumes with a tidal volume of 8700 cc on the BiPAP machine. Nevertheless, his minute ventilation remains quite elevated. Blood gas showed a pH of 7.4 with a pCO2 of 30 and pO2 of 58. Based on that, the FiO2 was increased. Chest x-ray was done and showed increased interstitial marking lung base bilaterally along with some upper lobe emphysematous changes. Based on that, a CTA of the chest was ordered and the CTA showed no evidence of any pulmonary embolism. I reviewed the images and there is indication of emphysematous changes in the upper lobes more so in the lower lobes and the patient has chronic fibrotic changes in the lower lobes bilaterally. Underlying pulmonary fibrosis cannot be completely excluded. Note that he also has some limited bronchiectatic changes in lung bases and the fibrotic changes in the right lower lobe is more extensive compared to the left. The superimposed pneumonia cannot be completely excluded. Prominent lymph nodes in the mediastinum were also seen and those and lymph nodes were enlarged since a previous CAT scan of the chest that was done on 01/25/2020. The patient accordingly was started on bronchodilators and the patient is currently on DuoNeb. The patient on IV Solu-Medrol. The patient was given a combination of Zosyn and vancomycin. White cell count of 18.2 edema 15.3 and a platelet count of 267. Normal coagulation profile. The initial lactic acid level was at 2.3 To 1.3. BUN Was 16 with a Creatinine of 1.1. The Viral Screen Was Negative. LFTs within Normal Limits. Sodium Levels at 135. My Last Evaluation with This Patient Was Back in 2020. At That Time, the Patient Had Hospitalization for COPD Exacerbation and CAT Scan of the Chest Even Back Then Showed Chronic Fibrotic Changes Lung Base Bilaterally. He Is a Former Smoker and He Carries around [id number] Smoking History. He Has Hypertension, Hyperlipidemia and Previous Episodes of Kidney/Urinary Tract Infections. Does Not Utilize Any Form of Maintenance Respiratory Medications. Does Not Utilize Oxygen. 01/13/2024, seen the patient for a follow-up. Much improved compared to yesterday. Less bronchospastic and wheezy. He is currently out of bed. The patient is currently on oxygen and 10 L with a pulse ox of 88%. She has been much more comfortable compared to yesterday. Remains on DuoNeb updrafts. Remains on IV Solu-Medrol. Remains on a combination of Zosyn and vancomycin. CT of the chest showed no evidence of any pulm embolism and there is some chronic scarring in the lung bases bilaterally suggestive of fibrosis along with some bronchiectatic changes and background emphysema. White cell count is at 10.7, hemoglobin 13 and platelet count of 223 and the BUN is 17 with a creatinine of 0.7 and his sodium levels at 140. No chest pain. No other new complaints otherwise for now. On 01/14/2024, the patient is being seen for a follow-up. No new complaints. He feels that he is less short of breath. Nevertheless, he still requiring oxygen at a higher flow and this was weaned down to 8 L. BUN is 26 with a creatinine 1.04 and sodium levels at 139. Remains on DuoNeb updrafts. Remains on IV Solu- Medrol. Remains on Zosyn and vancomycin. Remains on high. Heparin subcu for DVT prophylaxis. His heart rate is under better control for now. The patient has some increased tachycardia today. EKG was done and patient was found to be in atrial fibrillation with rapid ventricular response. Based on that, Cardizem was ordered. On 01/15/2024, the patient on 4 L of oxygen by nasal cannula. He continues to improve clinically. No new complaints otherwise noted for today. BUN 22 with a creatinine of 1.04 and sodium was at 140. No cough. No sputum production. No chest pain. No altered mentation. Clinically and hemodynamically stable.The patient was also taken off the Cardizem drip and the patient is currently on oral Cardizem at a dose of 180 mg p.o. daily. He is also on anticoagulation with Eliquis. Cardiology on the case. Echocardiogram is to be obtained tomorrow. The patient has converted to normal sinus rhythm. The patient is seen today January 16, 2024 in follow-up on the selective care unit. He is currently sitting up in bed. Awake and alert in no acute distress. He is feeling quite a bit better. He is hoping to go home. He is currently maintaining O2 saturations in the 90s on 4 L/min per nasal cannula. Echocardiogram revealed preserved left ventricular systolic function with ejection fraction 55 to 60%. Blood cultures revealed no growth. White count 19.2. Hemoglobin 14.5. Platelets 354. Sodium 141. Potassium 3.9. Bicarb 23. BUN 17. Creatinine 0.99. Glucose 151. He remains on DuoNeb ventilations, Solu-Medrol, antibiotics in the form of vancomycin and Zosyn. Anticoagulated with Eliquis. The patient is seen today January 17, 2024 in follow-up on the regular medical floor. He is currently awake and alert in no acute distress. Sitting up in b ed. Denies any worsening shortness of breath, cough or congestion. He is still requiring 5 L high flow nasal cannula to maintain O2 saturations in the 90s. He does have a history of interstitial lung disease dating back to 2020. Some component of bronchiectasis. He has a loose nonproductive cough. White count 16.2. Hemoglobin 14.3. Platelets 332. Sodium 143. Potassium 3.5. Bicarb 27. BUN 21. Creatinine 1.1. Glucose 160. His procalcitonin was 0.31. He remains on vancomycin and Zosyn. Eliquis for anticoagulation. Objective - Vital Signs Vital signs: Vital Signs Temp 97.7 F 01/17/24 12:12 Pulse 95 01/17/24 12:12 Resp 18 01/17/24 12:12 BP 134/67 01/17/24 12:12 Pulse Ox 94 L 01/17/24 12:12 FiO2 60 01/12/24 15:11 Intake & Output 01/16/24 01/17/24 01/17/24 18:59 06:59 18:59 Intake Total 620 Output Total 1950 1000 Balance -1330 -1000 Intake: IV 20 Invasive Line 4 10 Invasive Line 5 10 Oral 600 Output: Urine 1950 1000 Other: Voiding Method Toilet Urinal # Voids 3 # Bowel Movements 1 - Exam GENERAL EXAM: Alert, pleasant 78-year-old male patient, sitting up at the bedside, on 4 L nasal cannula, in no apparent distress. HEAD: Normocephalic. EYES: Normal reaction of pupils, equal size. NOSE: Clear with pink turbinates. THROAT: No erythema or exudates. NECK: No masses, no JVD. CHEST: No chest wall deformity. LUNGS: Equal air entry with coarse crackles in the bases, diminished. CVS: S1 and S2 normal with no audible murmur, regular rhythm. ABDOMEN: No hepatosplenomegaly, normal bowel sounds, no guarding or rigidity. SPINE: No scoliosis or deformity SKIN: No rashes CENTRAL NERVOUS SYSTEM: No focal deficits, tone is normal in all 4 extremities. EXTREMITIES: There is no peripheral edema. No clubbing, no cyanosis. Peripheral pulses are intact. - Labs CBC & Chem 7: 01/17/24 07:07 01/17/24 07:07 Labs: Abnormal Lab Results - Last 24 Hours (Table) 01/16/24 01/16/24 01/16/24 Range/Units 08:18 16:27 20:47 WBC (4.50-10.00) X 10*3/uL Neutrophils # (Manual) (1.80-7.70) X 10*3/uL Eosinophils # (Manual) (0.04-0.35) X 10*3/uL NRBC/100 WBC Diff (0.00-0.01) X 10*3/uL Glucose (70-110) mg/dL POC Glucose (mg/dL) 178 H 155 H (70-110) mg/dL Calcium (8.7-10.3) mg/dL Procalcitonin 0.31 H (0.02-0.09) ng/mL 01/17/24 01/17/24 01/17/24 Range/Units 07:07 07:07 07:34 WBC 16.22 H (4.50-10.00) X 10*3/uL Neutrophils # (Manual) 12.98 H (1.80-7.70) X 10*3/uL Eosinophils # (Manual) 0 L (0.04-0.35) X 10*3/uL NRBC/100 WBC Diff 0.03 H (0.00-0.01) X 10*3/uL Glucose 160 H (70-110) mg/dL POC Glucose (mg/dL) 147 H (70-110) mg/dL Calcium 8.4 L (8.7-10.3) mg/dL Procalcitonin (0.02-0.09) ng/mL 01/17/24 Range/Units 11:43 WBC (4.50-10.00) X 10*3/uL Neutrophils # (Manual) (1.80-7.70) X 10*3/uL Eosinophils # (Manual) (0.04-0.35) X 10*3/uL NRBC/100 WBC Diff (0.00-0.01) X 10*3/uL Glucose (70-110) mg/dL POC Glucose (mg/dL) 210 H (70-110) mg/dL Calcium (8.7-10.3) mg/dL Procalcitonin (0.02-0.09) ng/mL Assessment and Plan Assessment: Acute hypoxic respiratory failure currently off the BiPAP and the patient is currently on 4 L of O2 nasal cannula, CT of the chest was noted. Consistent with some COPD, bronchiectatic change in lung bases along with some bibasilar pulmonary fibrosis. Advanced COPD, diffuse with upper lobe predominance along with some bronchiectatic change in lung base bilaterally Chronic bilateral lower lobe pulmonary fibrosis seen on an earlier CAT scan back in 2019 Increased opacification of the right lung base based on the CAT scan findings, rule out underlying right lower lobe pneumonia, procalcitonin level was at 1.74, trending down currently 0.31 Acute leukocytosis Paroxysmal A-fib with RVR, currently in the sinus, anticoagulated with Eliquis Mild lactic acidosis, improved History of smoking and the patient is a former smoker carries around 50 -pack-year smoking history Hypertension Hyperlipidemia BPH Plan: The patient was seen and evaluated Labs and medications reviewed Continue antibiotics Continue bronchodilators and steroids Titrate down the FiO2 as tolerated Increase his activity as tolerated May require home oxygen We will continue to follow I have personally seen and examined the patient, performed the documentation and the assessment and plan as written. Number of minutes spent on the visit: 10.
[2024-01-17 17:21] LABS: Glucose,Whole Blood 135 mg/dL (70-110)
[2024-01-17 20:35] LABS: Glucose,Whole Blood 180 mg/dL (70-110)
[2024-01-18] MEDS: VANCOMYCIN TROUGH DUE 1 EACH MISC MISCELLANE ONE (03:30)
[2024-01-18 04:49] LABS: African American GFR (CKD) 78 (>60 ml/min/1.73 sqM); Anion Gap 4 mmol/L; Blood Urea Nitrogen 31 mg/dL (9-20); Calcium 8.1 mg/dL (8.4-10.2); Carbon Dioxide 26 mmol/L (22-30); Chloride 107 mmol/L (98-107); Glucose 189 mg/dL (74-99); Non-African American GFR(CKD) 68 (>60 ml/min/1.73 sqM); Potassium 3.4 mmol/L (3.5-5.1); Sodium 137 mmol/L (137-145)
[2024-01-18 06:59] LABS: Glucose,Whole Blood 171 mg/dL (70-110)
[2024-01-18 08:07] VITALS: TEMP 97.5
[2024-01-18 08:40] LABS: HCT 41.6 % (39.6-50.0); MCH 31.2 pg (27.0-32.0); MCHC 33.7 g/dL (32.0-37.0); MCV 92.7 FL (80.0-97.0); Mean Platelet Volume 10.3 FL (9.5-12.2); NRBC Per 100 WBC 0.02 X 10*3/uL (0.00-0.01); Platelet Count 357 X 10*3/uL (140-440); RBC 4.49 X 10*6/uL (4.40-5.60); RDW 14.5 % (11.5-14.5)
[2024-01-18 09:43] LABS: Basophils # (M) 0 X 10*3/uL (0.00-0.10); Eosinophils # (M) 0 X 10*3/uL (0.04-0.35); Lymphocytes # (M) 0.99 X 10*3/uL (0.90-5.00); Metamyelocytes % 1 % (0-0); Monocytes # (M) 0.42 X 10*3/uL (0.20-1.00); Neutrophils # (M) 12.55 X 10*3/uL (1.80-7.70); Neutrophils % (M) 89 %; RBC Morphology Normal (Normal)
[2024-01-18 12:12] LABS: Glucose,Whole Blood 163 mg/dL (70-110)
[2024-01-18 13:11] VITALS: BP 147/69; PULSE 51; RESP 18
--- NOTE | 2024-01-18 14:55 | P.PN ---
Subjective Progress Note Date: 01/18/24 This is a 78-year-old male patient who presents to the hospital because of progressive worsening shortness of breath over the past few days. Both him and his were sick and they are having difficulty breathing and both of them they came into the emergency department. The patient has been having some productive cough with yellowish sputum production. At time of admission, he was quite hypoxic and his pulse ox was in the low 80s. The patient was treated with bronchodilators and subsequently was placed on a BiPAP for respiratory support and the current BiPAP is at a pressure of 12/5 and FiO2 of 40%. He is exchanging adequate lung volumes with a tidal volume of 8700 cc on the BiPAP machine. Nevertheless, his minute ventilation remains quite elevated. Blood gas showed a pH of 7.4 with a pCO2 of 30 and pO2 of 58. Based on that, the FiO2 was increased. Chest x-ray was done and showed increased interstitial marking lung base bilaterally along with some upper lobe emphysematous changes. Based on that, a CTA of the chest was ordered and the CTA showed no evidence of any pulmonary embolism. I reviewed the images and there is indication of emphysematous changes in the upper lobes more so in the lower lobes and the patient has chronic fibrotic changes in the lower lobes bilaterally. Underlying pulmonary fibrosis cannot be completely excluded. Note that he also has some limited bronchiectatic changes in lung bases and the fibrotic changes in the right lower lobe is more extensive compared to the left. The superimposed pneumonia cannot be completely excluded. Prominent lymph nodes in the mediastinum were also seen and those and lymph nodes were enlarged since a previous CAT scan of the chest that was done on 01/25/2020. The patient accordingly was started on bronchodilators and the patient is currently on DuoNeb. The patient on IV Solu-Medrol. The patient was given a combination of Zosyn and vancomycin. White cell count of 18.2 edema 15.3 and a platelet count of 267. Normal coagulation profile. The initial lactic acid level was at 2.3 To 1.3. BUN Was 16 with a Creatinine of 1.1. The Viral Screen Was Negative. LFTs within Normal Limits. Sodium Levels at 135. My Last Evaluation with This Patient Was Back in 2020. At That Time, the Patient Had Hospitalization for COPD Exacerbation and CAT Scan of the Chest Even Back Then Showed Chronic Fibrotic Changes Lung Base Bilaterally. He Is a Former Smoker and He Carries around [id number] Smoking History. He Has Hypertension, Hyperlipidemia and Previous Episodes of Kidney/Urinary Tract Infections. Does Not Utilize Any Form of Maintenance Respiratory Medications. Does Not Utilize Oxygen. 01/13/2024, seen the patient for a follow-up. Much improved compared to yesterday. Less bronchospastic and wheezy. He is currently out of bed. The patient is currently on oxygen and 10 L with a pulse ox of 88%. She has been much more comfortable compared to yesterday. Remains on DuoNeb updrafts. Remains on IV Solu-Medrol. Remains on a combination of Zosyn and vancomycin. CT of the chest showed no evidence of any pulm embolism and there is some chronic scarring in the lung bases bilaterally suggestive of fibrosis along with some bronchiectatic changes and background emphysema. White cell count is at 10.7, hemoglobin 13 and platelet count of 223 and the BUN is 17 with a creatinine of 0.7 and his sodium levels at 140. No chest pain. No other new complaints otherwise for now. On 01/14/2024, the patient is being seen for a follow-up. No new complaints. He feels that he is less short of breath. Nevertheless, he still requiring oxygen at a higher flow and this was weaned down to 8 L. BUN is 26 with a creatinine 1.04 and sodium levels at 139. Remains on DuoNeb updrafts. Remains on IV Solu- Medrol. Remains on Zosyn and vancomycin. Remains on high. Heparin subcu for DVT prophylaxis. His heart rate is under better control for now. The patient has some increased tachycardia today. EKG was done and patient was found to be in atrial fibrillation with rapid ventricular response. Based on that, Cardizem was ordered. On 01/15/2024, the patient on 4 L of oxygen by nasal cannula. He continues to improve clinically. No new complaints otherwise noted for today. BUN 22 with a creatinine of 1.04 and sodium was at 140. No cough. No sputum production. No chest pain. No altered mentation. Clinically and hemodynamically stable.The patient was also taken off the Cardizem drip and the patient is currently on oral Cardizem at a dose of 180 mg p.o. daily. He is also on anticoagulation with Eliquis. Cardiology on the case. Echocardiogram is to be obtained tomorrow. The patient has converted to normal sinus rhythm. The patient is seen today January 16, 2024 in follow-up on the selective care unit. He is currently sitting up in bed. Awake and alert in no acute distress. He is feeling quite a bit better. He is hoping to go home. He is currently maintaining O2 saturations in the 90s on 4 L/min per nasal cannula. Echocardiogram revealed preserved left ventricular systolic function with ejection fraction 55 to 60%. Blood cultures revealed no growth. White count 19.2. Hemoglobin 14.5. Platelets 354. Sodium 141. Potassium 3.9. Bicarb 23. BUN 17. Creatinine 0.99. Glucose 151. He remains on DuoNeb ventilations, Solu-Medrol, antibiotics in the form of vancomycin and Zosyn. Anticoagulated with Eliquis. The patient is seen today January 17, 2024 in follow-up on the regular medical floor. He is currently awake and alert in no acute distress. Sitting up in b ed. Denies any worsening shortness of breath, cough or congestion. He is still requiring 5 L high flow nasal cannula to maintain O2 saturations in the 90s. He does have a history of interstitial lung disease dating back to 2020. Some component of bronchiectasis. He has a loose nonproductive cough. White count 16.2. Hemoglobin 14.3. Platelets 332. Sodium 143. Potassium 3.5. Bicarb 27. BUN 21. Creatinine 1.1. Glucose 160. His procalcitonin was 0.31. He remains on vancomycin and Zosyn. Eliquis for anticoagulation. The patient is seen today January 18, 2024 in follow-up on the regular medical floor. He is currently sitting up in bed having breakfast. Awake and alert in no acute distress. Maintaining O2 saturations in the 90s on 4 L/min per nasal cannula. White count 14.1. Hemoglobin 14.0. Platelets 357. Sodium 137. Potassium 3.4. Bicarb 26. BUN 31. Creatinine 1.04. Glucose 189. He is continued on vancomycin and Zosyn. Remains on Eliquis for anticoagulation. Continued on bronchodilators and steroids. Objective - Vital Signs Vital signs: Vital Signs Temp 97.5 F L 01/18/24 12:10 Pulse 51 L 01/18/24 12:10 Resp 18 01/18/24 12:10 BP 147/69 01/18/24 12:10 Pulse Ox 91 L 01/18/24 12:10 FiO2 60 01/12/24 15:11 Intake & Output 01/17/24 01/18/24 01/18/24 18:59 06:59 18:59 Intake Total 590 Output Total 725 Balance 590 -725 Intake: Oral 590 Output: Urine 725 Other: Voiding Method Toilet Urinal # Voids 1 2 # Bowel Movements 1 - Exam GENERAL EXAM: Alert, 78-year-old male patient, sitting up having breakfast, on 4 L nasal cannula, in no apparent distress. HEAD: Normocephalic. EYES: Normal reaction of pupils, equal size. NOSE: Clear with pink turbinates. THROAT: No erythema or exudates. NECK: No masses, no JVD. CHEST: No chest wall deformity. LUNGS: Equal air entry with coarse crackles in the bases, diminished. CVS: S1 and S2 normal with no audible murmur, regular rhythm. ABDOMEN: No hepatosplenomegaly, normal bowel sounds, no guarding or rigidity. SPINE: No scoliosis or deformity SKIN: No rashes CENTRAL NERVOUS SYSTEM: No focal deficits, tone is normal in all 4 extremities. EXTREMITIES: There is no peripheral edema. No clubbing, no cyanosis. Peripheral pulses are intact. - Labs CBC & Chem 7: 01/18/24 03:40 01/18/24 03:47 Labs: Abnormal Lab Results - Last 24 Hours (Table) 01/17/24 01/17/24 01/18/24 Range/Units 17:18 20:34 03:40 WBC 14.10 H (4.50-10.00) X 10*3/uL Neutrophils # (Manual) 12.55 H (1.80-7.70) X 10*3/uL Eosinophils # (Manual) 0 L (0.04-0.35) X 10*3/uL NRBC/100 WBC Diff 0.02 H (0.00-0.01) X 10*3/uL Potassium (3.5-5.1) mmol/L BUN (9-20) mg/dL Glucose (74-99) mg/dL POC Glucose (mg/dL) 135 H 180 H (70-110) mg/dL Calcium (8.4-10.2) mg/dL 01/18/24 01/18/24 01/18/24 Range/Units 03:47 06:58 12:10 WBC (4.50-10.00) X 10*3/uL Neutrophils # (Manual) (1.80-7.70) X 10*3/uL Eosinophils # (Manual) (0.04-0.35) X 10*3/uL NRBC/100 WBC Diff (0.00-0.01) X 10*3/uL Potassium 3.4 L (3.5-5.1) mmol/L BUN 31 H (9-20) mg/dL Glucose 189 H (74-99) mg/dL POC Glucose (mg/dL) 171 H 163 H (70-110) mg/dL Calcium 8.1 L (8.4-10.2) mg/dL Microbiology - Last 24 Hours (Table) 01/12/24 09:45 Blood Culture - Final Blood 01/12/24 09:30 Blood Culture - Final Blood Assessment and Plan Assessment: Acute hypoxic respiratory failure currently off the BiPAP and the patient is currently on 4 L of O2 nasal cannula, CT of the chest was noted. Consistent with some COPD, bronchiectatic change in lung bases along with some bibasilar pulmonary fibrosis. Advanced COPD, diffuse with upper lobe predominance along with some bronchiectatic change in lung base bilaterally Chronic bilateral lower lobe pulmonary fibrosis seen on an earlier CAT scan back in 2019 Increased opacification of the right lung base based on the CAT scan findings, rule out underlying right lower lobe pneumonia, procalcitonin level was at 1.74, trending down currently 0.31 Acute leukocytosis Paroxysmal A-fib with RVR, currently in the sinus, anticoagulated with Eliquis Mild lactic acidosis, improved History of smoking and the patient is a former smoker carries around [id number] smoking history Hypertension Hyperlipidemia BPH Plan: The patient was seen and evaluated Labs and medications reviewed Cleared for discharge from the pulmonary standpoint May require home oxygen Complete a 5-day course of Augmentin Complete a prednisone taper Continue Symbicort and DuoNeb inhalations Follow-up in our office in 1 week I have personally seen and examined the patient, performed the documentation and the assessment and plan as written. Number of minutes spent on the visit: 10.
[2024-01-18] MEDS ORDERED: AMOXIC-POT CLAV 875-125MG 1 EACH TAB PO SCH (21:00)
== END 2024-01-18 14:17 | disposition home health service (06) | DRG 189 ==
LOC: EC 08:52 → 3SCARD 13:25 → 5NMEDONC 01-16 18:43
PROVIDERS: ADMIT Hospitalist; ATTEND Hospitalist
DX: J96.01 Acute respiratory failure with hypoxia (principal); J18.9 Pneumonia, unspecified organism; J47.0 Bronchiectasis with acute lower respiratory infection; J44.1 Chronic obstructive pulmonary disease with (acute) exacerbation; E87.20 Acidosis, unspecified; J84.10 Pulmonary fibrosis, unspecified; I10 Essential (primary) hypertension; I08.1 Rheumatic disorders of both mitral and tricuspid valves; I48.0 Paroxysmal atrial fibrillation; N40.0 Benign prostatic hyperplasia without lower urinary tract symptoms; R00.0 Tachycardia, unspecified; E78.5 Hyperlipidemia, unspecified; Z79.01 Long term (current) use of anticoagulants; Z79.899 Other long term (current) drug therapy; Z87.891 Personal history of nicotine dependence
CPT/HCPCS: 36415; 36600; 71045; 71275; 80048; 80053; 80202; 82805; 83605; 83735; 84145; 84484; 85025; 85610; 85730; 87040; 87636; 93005; 93306; 94640; 94660; 94760; 96361; 96365; 96366; 96367; 96375; 96376; 99291

== ENCOUNTER 2024-05-01 10:04 | Emergency (ER) | payer MEDICARE ==
[2024-05-01 10:14] VITALS: TEMP 97.7
--- NOTE | 2024-05-01 10:36 | ED ---
URI HPI - General Chief Complaint: Upper Respiratory Infection Stated Complaint: Headache Time Seen by Provider: 05/01/24 10:35 Source: patient, RN notes reviewed Mode of arrival: ambulatory Limitations: no limitations - History of Present Illness Initial Comments: 78-year-old male presented to ER with a chief complaint of cough and headache. Patient states for the past 3 days he has been experiencing a dry cough, runny nose and mild headache. He also reports recent diarrhea. He admits to chills but denies known fevers as he has not taken his temperature. He has taken an [id number] baby aspirin without relief. He denies any difficulty breathing or wheezing. He states he frequently gets pneumonia and is concerned this may be happening again. He denies any chest pain, shortness of breath, abdominal pain or peripheral edema. - Related Data Home Medications Medication Instructions Recorded Confirmed Tamsulosin HCl [Flomax] 0.8 mg PO DAILY 11/14/20 01/12/24 Budesonide/Formoterol Fumarate 2 puff PO RT-BID 01/12/24 01/12/24 [Budesonide-Formoterol 160-4.5] Rosuvastatin [Crestor] 10 mg PO HS 01/12/24 01/12/24 Previous Rx's Medication Instructions Recorded Apixaban [Eliquis] 5 mg PO BID #180 tab 01/14/24 Amoxic-Pot Clav 875-125Mg 1 each PO Q12HR 7 Days #14 tab 01/18/24 [Augmentin 875-125] Diltiazem Cd [Cardizem CD] 180 mg PO DAILY #30 cap 01/18/24 Ipratropium-Albuterol Nebulize 3 ml INHALATION RT-Q2H PRN each 01/18/24 [Duoneb 0.5 mg-3 mg/3 ml Soln] Ipratropium-Albuterol Nebulize 3 ml INHALATION RT-QID #100 each 01/18/24 [Duoneb 0.5 mg-3 mg/3 ml Soln] predniSONE 10 mg PO DIRECTED #30 tab 01/18/24 Allergies Allergy/AdvReac Type Severity Reaction Status Date / Time No Known Allergies Allergy Verified 05/01/24 10:14 Review of Systems ROS Statement: Those systems with pertinent positive or pertinent negative responses have been documented in the HPI. ROS Other: All systems not noted in ROS Statement are negative. Past Medical History Past Medical History: COPD, Hyperlipidemia, Hypertension Additional Past Medical History / Comment(s): kidney infections History of Any Multi-Drug Resistant Organisms: None Reported Past Surgical History: Adenoidectomy, Tonsillectomy Past Anesthesia/Blood Transfusion Reactions: No Reported Reaction Past Psychological History: No Psychological Hx Reported Smoking Status: Former smoker Past Alcohol Use History: Daily Past Drug Use History: None Reported General Exam Limitations: no limitations General appearance: alert, in no apparent distress ENT exam: Present: normal exam, normal oropharynx, mucous membranes moist, TM's normal bilaterally Respiratory exam: Present: normal lung sounds bilaterally. Absent: respiratory distress, wheezes, rales, rhonchi, stridor Cardiovascular Exam: Present: regular rate, normal rhythm, normal heart sounds. Absent: systolic murmur, diastolic murmur, rubs, gallop, clicks Neurological exam: Present: alert, oriented X3, CN II-XII intact Skin exam: Present: warm, dry, intact, normal color. Absent: rash Course Vital Signs 05/01/24 05/01/24 10:13 12:49 Temperature 97.7 F Pulse Rate 96 91 Respiratory 20 18 Rate Blood Pressure 165/88 155/73 O2 Sat by Pulse 95 96 Oximetry Medical Decision Making - Medical Decision Making Was pt. sent in by a medical professional or institution (LADARIUS Hernández, ACID ETCH OPERATOR, urgent care, hospital, or care home...) When possible be specific @ -No Did you speak to anyone other than the patient for history (EMS, parent, family, police, friend...)? What history was obtained from this source @ -No Did you review nursing and triage notes (agree or disagree)? Why? @ -I reviewed and agree with nursing and triage notes Were old charts reviewed (outside hosp., previous admission, EMS record, old EKG, old radiological studies, urgent care reports/EKG's, care home records)? Report findings @ -No old charts were reviewed Differential Diagnosis (chest pain, altered mental status, abdominal pain women, abdominal pain men, vaginal bleeding, weakness, fever, dyspnea, syncope, headache, dizziness, GI bleed, back pain, seizure, CVA, palpatations, mental health, musculoskeletal)? @ -COVID, RSV, influenza, viral sinusitis, pneumonia this list is not meant to be all-inclusive EKG interpreted by me (3pts min.). @ -None none X-rays interpreted by me (1pt min.). @ -Chest x-ray interpreted by me negative for acute cardiopulmonary process. CT interpreted by me (1pt min.). @ -None done U/S interpreted by me (1pt. min.). @ -None done What testing was considered but not performed or refused? (CT, X-rays, U/S, labs)? Why? @ -None What meds were considered but not given or refused? Why? @ -None Did you discuss the management of the patient with other professionals (professionals i.e. Dr., PA, ACID ETCH OPERATOR, lab, RT, psych nurse, social worker clinical, grocery stocker, teacher, commissioned security officer, supportive employment case manager)? Give summary @ -No Was smoking cessation discussed for >3mins.? @ -No Was critical care preformed (if so, how long)? @ -No Were there social determinants of health that impacted care today? How? (Homelessness, low income, unemployed, alcoholism, drug addiction, transportation, low edu. Level, literacy, decrease access to med. care, [facility], rehab)? @ -No Was there de-escalation of care discussed even if they declined (Discuss DNR or withdrawal of care, Hospice)? DNR status @ -No What co-morbidities impacted this encounter? (DM, HTN, Smoking, COPD, CAD, Cancer, CVA, ARF, Chemo, Hep., AIDS, mental health diagnosis, sleep apnea, morbid obesity)? @ -None Was patient admitted / discharged? Hospital course, mention meds given and route, prescriptions, significant lab abnormalities, going to OR and other pertinent info. @ -Discharge. 78-year-old male presented to the ER with a chief complaint of cough and headache. History and physical exam completed. Vitals within normal limits. Patient in no signs of acute distress and nontoxic-appearing. Exam unremarkable. Viral swabs obtained positive for COVID-19. Influenza and RSV negative. Chest x-ray interpreted by me negative for acute cardiopulmonary process. Patient received by mouth Tylenol for pain control in the ER. Upon reevaluation, patient resting comfortably in exam room in no signs of acute distress. Results discussed with patient, all questions answered. Conservative treatment options discussed. Patient stable for discharge at this time. Strict return parameters discussed. Patient discharged in stable condition with follow-up to PCP. Patient verbally expressed understanding agreement care plan. Case discussed with ED attending, Dr. Sepulveda. Undiagnosed new problem with uncertain prognosis? @ -No Drug Therapy requiring intensive monitoring for toxicity (Heparin, Nitro, Insulin, Cardizem)? @ -No Were any procedures done? @ -No Diagnosis/symptom? @ -COVID-19/acute viral sinusitis/viral illness Acute, or Chronic, or Acute on Chronic? @ -Acute Uncomplicated (without systemic symptoms) or Complicated (systemic symptoms)? @ -Uncomplicated Side effects of treatment? @ -No Exacerbation, Progression, or Severe Exacerbation? @ -No Poses a threat to life or bodily function? How? (Chest pain, [place], [place], pneumonia, PE, COPD, DKA, ARF, appy, cholecystitis, CVA, Diverticulitis, Homicidal, Suicidal, threat to staff... and all critical care pts) @ -No - Lab Data Lab Results 05/01/24 Range/Units 10:38 Influenza Type A (PCR) Not Detected (Not Detectd) Influenza Type B (PCR) Not Detected (Not Detectd) RSV (PCR) Not Detected (Not Detectd) SARS-CoV-2 (PCR) Detected A (Not Detectd) - Radiology Data Radiology results: report reviewed, image reviewed Disposition Clinical Impression: Viral infection, COVID-19, Acute viral sinusitis Disposition: HOME SELF-CARE Condition: Stable Instructions (If sedation given, give patient instructions): COVID-19 (Coronavirus Disease 2019) (ED) Additional Instructions: You may take [id number] Tylenol and Motrin for symptom control. Follow-up with PCP. Return to the ER for any new or worsening concerns. Is patient prescribed a controlled substance at d/c from ED?: No Referrals: Carlos Rogers MD [Primary Care Provider] - 1-2 days Time of Disposition: 12:40
--- NOTE | 2024-05-01 11:08 | XR ---
EXAMINATION TYPE: XR chest 2V DATE OF EXAM: 05/01/2024 COMPARISON: 01/16/2024 HISTORY: 78-year-old male with cough TECHNIQUE: PA and lateral views FINDINGS: Heart normal size. Aorta and pulmonary vasculature within normal limits. Increased interstitial densi ty and mild hyperinflation. Some additional patchy posterior basilar opacity on the lateral view. No pleural effusion. IMPRESSION: COPD with mild interstitial infiltrates though not as pronounced as on prior exam. Recurrent atypical pneumonia or other pneumonitis not excluded.
[2024-05-01] MEDS: ACETAMINOPHEN TAB 325 MG TAB PO STA (11:31)
[2024-05-01 12:51] VITALS: BP 155/73; PULSE 91; RESP 18
== END 2024-05-01 12:51 | disposition home or self-care (01) ==
LOC: EC 10:04
CPT/HCPCS: 71046; 87636; 99284